=== PATIENT | female | born 1965 | race Caucasian/White ===

== ENCOUNTER → 2023-06-11 | Outpatient (CLI) | payer BC, SELFPAY ==
--- NOTE | 2023-06-11 10:24 | BI_ITS ---
MAMMOGRAPHY - BILATERAL SCREENING REASON FOR EXAM: Female, 58 years old. Routine annual screening examination. PERTINENT HISTORY: Non-contributory. TECHNIQUE: Digital bilateral breast duncan (3D mammographic acquisition) in the CC and MLO projections. 2-D mediolateral oblique (MLO) and craniocaudad (CC) views of both breasts were obtained. CAD: Full Field Digital Mammography with Computer Added Detection was performed. COMPARISON: Comparison is made with prior outside examination dated March 14, 2022. FINDINGS: Breast Composition: The breasts are heterogeneously dense, which may obscure small masses. There are no dominant masses or suspicious calcifications. Stable benign-appearing bilateral axillary lymph nodes. No other significant abnormalities are identified. There has been no significant change since the prior study. BI/SCRN MAMM (CAD)W/DUNCAN BILAT IMPRESSION: Stable bilateral screening mammogram. Yearly follow-up mammogram recommended. (A) ASSESSMENT CATEGORY: BIRADS Category 2: Benign. A letter regarding these results will be sent to the patient by the facility within 30 days. Approximately 10% of breast cancers are not detected by mammography. A normal mammogram should not delay biopsy of a clinically suspicious abnormality. [id number] Electronically Signed: João Alvarado MD at 8:35 EST ,
== END | disposition home or self-care (01) ==
LOC: OPBI 10:24
PROVIDERS: PCP Internal Medicine; Referring Provider Internal Medicine; Visit Provider Internal Medicine
DX: Z12.31 Encounter for screening mammogram for malignant neoplasm of breast (principal)
CPT/HCPCS: 77063; 77067

== ENCOUNTER → 2023-07-16 | Outpatient (CLI) | payer BC, SELFPAY ==
--- NOTE | 2023-07-16 08:34 | CT_ITS ---
STUDY: LOW DOSE CT LUNG CANCER SCREENING REASON FOR EXAM: Female, 58 years old. curreny smoker, cigs. Patient smokes 1 pack per day for 40 years. RADIATION DOSAGE (If Supplied By Facility): CTDIvol = ( 3.02 ) mGy, DLP = ( 104.58 ) mGycm TECHNIQUE: No contrast was administered. Low dose technique was utilized (average mAS-38 and kVp 120). 1.25 mm axial source images with a slice interval of 1.25-mm were reconstructed in lung windows. 2.5 mm axial source images with a slice interval of 2.5-mm were reconstructed in lung windows. 5.0 mm axial source images with a slice interval of 5.0-mm were reconstructed in soft tissue windows. COMPARISON: None. NODULES: No suspicious nodules are seen. Emphysema: Hyperinflation. Mild emphysematous changes. Endobronchial lesion: None Aorta: Mild atherosclerotic plaque formation of the aortic arch. CORONARY ARTERIES: Coronary artery calcification is seen. Heart: Unremarkable Pulmonary artery: Unremarkable Mediastinal nodes: Small mediastinal lymph nodes. Other chest and abdominal findings: CT/Low Dose CT Lung Screening IMPRESSION: Lung-RADS category 2 - Continue annual screening with LDCT in 12 months. IMPORTANT NOTES FOR USE: ACR Lung-RADS Version 1.1 Assessment Categories Release Date: 2018 Category: Coded 0-4 bases on nodule(s) with highest degree of suspicion. Negative screen is defined as categories 1 and 2; a positive screen is defined as categories 3 and 4. Category 3 and 4A nodules that are unchanged on interval CT should be coded as category 2, and individuals returned to screening in 12 months. Category 4X: Category 3 or 4 nodules with additional imaging findings that increase the suspicion of lung cancer, such as spiculation, GGN that doubles in size in 1 year, enlarged lymph notes, etc. Category Modifiers: S (significant finding unrelated to lung cancer) Electronically Signed: João Alvarado MD at 11:05 EDT ,
== END | disposition home or self-care (01) ==
LOC: CT 08:33
PROVIDERS: PCP Internal Medicine; Referring Provider Internal Medicine; Visit Provider Internal Medicine
DX: F17.200 Nicotine dependence, unspecified, uncomplicated (principal)
CPT/HCPCS: 71271

== ENCOUNTER → 2023-07-29 | Outpatient (CLI) | payer BC, SELFPAY ==
[2023-07-29 16:31] LABS: Anion Gap 6 (5-15); BUN 14 mg/dL (7-18); Calcium,Total 9.1 mg/dL (8.5-10.1); Chloride 101 mmol/L (98-107); Creatinine, Serum 1.27 mg/dL (0.55-1.02); EST Glomerular Filtration Rate 46 mL/min (>60); Est Glom Filt Rate - Afr Amer 56 mL/min (>60); Glucose 117 mg/dL (74-106); Potassium 3.9 mmol/L (3.5-5.1); Sodium Level 133 mmol/L (136-145)
== END | disposition home or self-care (01) ==
LOC: LAB 13:54
PROVIDERS: PCP Internal Medicine; Referring Provider Internal Medicine Cardiovascular Disease; Visit Provider Internal Medicine Cardiovascular Disease
DX: R07.9 Chest pain, unspecified (principal); R93.89 Abnormal findings on diagnostic imaging of other specified body structures
CPT/HCPCS: 36415; 80048

== ENCOUNTER 2023-08-29 09:26 | Outpatient (CLI) | payer BC, SELFPAY ==
--- NOTE | 2023-08-29 09:32 | STE_ITS ---
Reason For Study: CAD Stress Results Protocol: Dobutamine Stress Echo Maximum Predicted HR: 162 bpm Target HR: 138 bpm % Maximum Predicted HR: 84 % DurationHeart Rate Stage (mm:ss) (bpm) BP Comment Baseline 68 146/90No Chest Pain DSE 10 MCG 3:01 74 157/88No Chest Pain DSE 20 MCG 3:00 117 142/74No Chest Pain DSE 30 MCG 3:00 131 144/82No Chest Pain DSE 40 MCG 1:40 136 133/82No Chest Pain Recovery 90 146/89No Chest Pain Stress Duration: 10:41 mm:ss Maximum Stress HR: 136 bpm METS: 1 Baseline Echocardiogram Findings Stress Echo Wall motion Data Resting WM Intermediate WM Stress WM Resting Wall Motion Wall Motion Int. Wall Motion Stress No regional wall motion No regional wall motion All segments Hyperkinetic. abnormalities noted. abnormalities noted. EKG Data The baseline ECG displays normal sinus rhythm. Nonspecific ST changes with dobutamine infusion. ECHO/Stress Test Echo w/o Contrast Interpretation Summary Nonspecific ST changes with dobutamine infusion. 85% of maximum predicted heart rate achieved. Normal LV wall motion at rest. Progressive augmentation with low-dose dobutamin e with hyperdynamic LV segments at full dose. No wall motion abnormalities noted with dobutamine st ress. Negative dobutamine stress test for ischemia. Ordering Physician: Elliott Garcias Referring Physician: Elliott Garcias Performed By: Karina Santana, YFN, RVT
== END 2023-08-29 23:59 | disposition home or self-care (01) ==
LOC: CVS 09:28
PROVIDERS: PCP Internal Medicine; Referring Provider Internal Medicine Cardiovascular Disease; Visit Provider Internal Medicine Cardiovascular Disease
DX: I70.90 Unspecified atherosclerosis (principal)
CPT/HCPCS: 93017; 93350; J7040; A4216

== ENCOUNTER → 2023-09-03 | Outpatient (CLI) | payer BC, SELFPAY ==
--- NOTE | 2023-09-03 09:02 | VDLE_ITS ---
Reason For Study: Bilateral leg pain RIGHT LEFT CFV is compressible, spontaneous, phasic, CFV is compressible, spontaneous, phasic, competent and demonstrates normal competent, and demonstrates normal augmentation. augmentation. FV is compressible, spontaneous, phasic, FV is compressible, spontaneous, phasic, competent and demonstrates normal competent and demonstrates normal augmentation. augmentation. POP V is compressible, spontaneous, phasic, POP V is compressible, spontaneous, phasic, competent and demonstrates normal competent and demonstrates normal augmentation. augmentation. T/P Trunk is compressible. T/P Trunk is compressible. PTV is compressible. PTV is compressible. RT PerV is compressible. LT PerV is compressible. SFJ is competent and measures 0.60 x 0.66 cm. SFJ is INCOMPETENT and measures 0.57 x 0.63 GSV proximal thigh measures 0.37 x 0.39 cm. cm. GSV at knee measures 0.36 x 0.38 cm. GSV proximal thigh measures 0.32 x 0.33 cm. GSV is competent throughout. GSV above knee is INCOMPETENT for greater SSV proximal calf is competent and measures than 0.5 seconds. 0.08 x 0.08 cm. GSV at knee measures 0.31 x 0.32 cm. Procedure SSV proximal calf is competent and measures This is a venous duplex using B-mode, color 0.21 x 0.24 cm. flow and spectral Doppler. Exam performed in department. Patient was scanned in reverse Trendelenburg position during reflux assessment. VL/Venous Duplex US - [place] Extrem Interpretation Summary Deep veins of the bilateral lower extremities are patent and compressible segme ntally. There is no evidence of bilateral lower extremity deep vein thrombosis. The bilateral great saphenous veins appear patent and compressible segmentally. Positive for reflux in the left saphenofemoral junction, great saphenous vein a reba the knee. Ordering Physician: Nate Mckenzie Referring Physician: Mattie Howard M.D. Performed By: Katharina Wlilis RVT
--- NOTE | 2023-09-03 09:02 | ART_ITS ---
Reason For Study: PVD Procedure A bilateral lower extremity continuous wave Doppler with analog waveform analysis,segmental pressures,and ankle brachial indexes without exercise. Left Segmental Pressures Left brachial= 110mmHg. Left posterior tibial artery = 142mmHg. Left dorsalis pedis artery = 133mmHg. Left digit = 10. mmHg. The left dorsalis pedis waveforms are triphasic. The left posterior tibial artery waveforms are triphasic. Right Segmental Pressures Right brachial= 111mmHg. Right posterior tibial artery = 146mmHg. Right dorsalis pedis artery = 134mmHg. Right digit = 112 mmHg. The right dorsalis pedis waveforms are triphasic. The right posterior tibial artery waveforms are triphasic. Indices The right ankle brachial index by the dorsalis pedis is 1.21. The right ankle brachial index by the posterior tibial artery is 1.32. The right digital-brachial index is 1.01. The left ankle brachial index by the dorsalis pedis is 1.20. The left ankle brachial index by the posterior tibial artery is 1.28. The left digital-brachial index is 0.97. VL/Lower Ext Art Exam w/o Exercis Interpretation Summary Right LEANDRO 1.32, normal. TBI and Doppler/PVR waveforms of the right leg normal a t rest. Left LEANDRO 1.28, normal. TBI and Doppler/PVR waveforms of the left leg normal at rest. Ordering Physician: Nate Mckenzie Referring Physician: Mattie Howard M.D. Performed By: Katharina Willis RVT
== END | disposition home or self-care (01) ==
LOC: CVS 09:01
PROVIDERS: PCP Internal Medicine; Referring Provider Podiatrist Foot & Ankle Surgery; Visit Provider Podiatrist Foot & Ankle Surgery
DX: I73.89 Other specified peripheral vascular diseases (principal); M79.662 Pain in left lower leg; M79.661 Pain in right lower leg
CPT/HCPCS: 93923; 93970

== ENCOUNTER → 2023-11-06 | Outpatient (CLI) | payer BC, SELFPAY ==
--- NOTE | 2023-11-06 16:02 | RAD_ITS ---
STUDY: X-RAY CHEST REASON FOR EXAM: Female, 58 years old. cough in adult TECHNIQUE: PA and lateral views of the chest. COMPARISON: None. FINDINGS: The lungs are clear and expanded. There is no demonstrated pleural abnormality. Normal size heart. Normal mediastinum and mark. Normal visualized pulmonary arteries. Normal visualized aortic arch and descending thoracic aorta. Normal visualized thoracic spine. Normal visualized ribs, clavicles, and shoulders. There is no demonstrated abnormality of the visualized soft tissue structures of the upper abdomen. RAD/Chest PA and Lateral IMPRESSION: Normal x-ray examination of the chest. Electronically Signed: Ted Chery MD at 16:15 EDT ,
== END | disposition home or self-care (01) ==
LOC: MTRAD 16:01
PROVIDERS: PCP Internal Medicine; Referring Provider Internal Medicine; Visit Provider Internal Medicine
DX: R05.9 Cough, unspecified (principal)
CPT/HCPCS: 71046

== ENCOUNTER 2024-01-24 11:00 | Day surgery (SDC) | payer BC, SELFPAY ==
[2024-01-24] VITALS (8 sets, daily range): BP systolic 116–157; BP diastolic 75–87; PULSE 78–83; RESP 16–18; TEMP 36.2–36.8; O2SAT 98–100; BMI 26.1
[2024-01-24] MEDS: Acetaminophen 500 MG Tablet 1000 MG PO (11:57)
[2024-01-24] MEDS: Gabapentin 600 MG Tablet PO (11:58)
[2024-01-24] MEDS: Lactated Ringers 1,000 ML 15 ML IV (11:58)
[2024-01-24 12:23] LABS: Bedside Glucose 161 mg/dL (74-106)
--- NOTE | 2024-01-24 12:35 | PRE.ANES_ITS ---
ASA Classification* ASA Classification ASA Classification: 2 Assessment & Plan Anesthesia* Anesthesia Assessment Anesthesia Assessment: Discussed sedation and/or anesthesia options, risks, benefits, and alternatives with patient/parents/legal guardian/POA. Questions invited. The patient/parents/legal guardian/POA seems to understand and agrees to proceed with anesthesia plan. Reviewed the physical assessment, medical history, allergy history and patient home medications list prior to surgery/procedure/anesthetic and documented any changes. Performed airway and anesthesia risk assessments. Anesthesia Type Anesthesia Type: General and Block (Patient is consented for a popliteal block.) History Source History Obtained from:: Patient and Chart Anesthesia Focused Assessment* Temperature: 97.1 F Pulse Rate: 83 Blood Pressure: 120/80 Respiratory Rate: 16 Pulse Ox: 100 Oxygen Delivery Method: Room Air Airway Assessment Mouth opens: >3 cm Mallampati Score: III Teeth Condition: Caps/Crowns (Patient has a crown left lower molar. it is tight.) Neck Range of motion (ROM): Full ROM Focused Labs Anesthesia Preop lab: CBC CHEMISTRY Potassium 3.9 mmol/L (3.5-5.1) 07/29/23 13:55 Sodium 133 mmol/L (136-145) L 07/29/23 13:55 Magnesium Pending 01/24/24 12:25 BUN 14 mg/dL (7-18) 07/29/23 13:55 Creatinine 1.27 mg/dL (0.55-1.02) H 07/29/23 13:55 Glucose 117 mg/dL (74-106) H 07/29/23 13:55 POC Glucose 161 mg/dL (74-106) H 01/24/24 12:01 COAG Pre-Assessment Diagnosis/Proposed Procedure Planned Operative Procedure(s): (L) Arthrodesis of left midtarsal joint, capsulotomy of first metatarsal phalangeal joint, harvest of calcaneal bone graft, manual stress views, miguel osteotomy of the second and third metatarsals, flexor digitorum longus tendon transfer of second digit, proximal interphalangeal joint arthrodesis of second digit and capsulotomy of the third metatarsal phalangeal joint Anesthesia History 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 When Was Last Pacemaker Check QUESTION #4 FULL TEXT: You/Your Family Experience fever (hyperthermia) with Anesthesia Any additional information?: Yes Any Problems With Anesthesia: Yes (Patient states he was slow to wake up with previous knee surgery.) Cholinesterase deficiency: No You/your family experience fever (hyperthermia) with anesthesia: No Last Oral Intake Last Oral intake: Last Oral Intake NPO since 10:00 01/24/24 11:52 Meds taken in AM with sips of Yes 01/24/24 11:52 water? Meds patient instructed to take am of surgery Any additional information?: Yes NPO since: 10:00 (Patient had her Ensure at 10 AM.) PONV PONV - aircraft dispatcher: PONV - aircraft dispatcher Female Yes 01/17/24 14:38 HX of Motion Sickness No 01/17/24 14:38 HX of N/V After Surgery Yes 01/17/24 14:38 Non-Smoker No 01/17/24 14:38 Duration of Surgery greater Yes 01/17/24 14:38 than 60 minutes Number of Risk Factors 3 01/17/24 14:38 PONV Score Moderate Risk 01/17/24 14:38 Height & Weight Height & Weight: Anesthesia: Height & Weight Height 5 ft 4 in 01/24/24 11:52 Weight: 69 kg 01/24/24 11:52 Body Mass Index (BMI) 26.1 01/24/24 11:52 Respiratory Assessment Respiratory Assessment - aircraft dispatcher: Respiratory Tract Infection Hx - aircraft dispatcher Hx Respiratory Tract Infection No 01/17/24 14:38 STOP Sleep Apnea STOP Sleep Apnea - aircraft dispatcher: STOP Sleep Apnea - aircraft dispatcher Hx Hypertension Yes: CONTROLLED WITH MED 01/17/24 14:38 Hx Sleep Apnea No 01/17/24 14:38 CPAP BIPAP Do you snore loudly (louder No 01/17/24 14:38 than talking or can be heard Do you often feel tired/ No 01/17/24 14:38 fatigued/ sleepy during daytime? Has anyone observed you stop No 01/17/24 14:38 breathing during sleep? STOP Results Negative 01/17/24 14:38 QUESTION #5 FULL TEXT : Do you snore loudly (louder than talking or can be heard through closed doors)? 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 Specify any problems Hx of Preganancy in last 3 N/A 01/17/24 14:38 Months Nurse Filling Out Transfusion NBUCHER 01/17/24 14:38 & Questions: Date: 01/17/24 01/17/24 14:38 Time: 14:39 01/17/24 14:38 Patient unable to answer at this time (ie. confused, unrespo /Reproduction History /Reproductive History - aircraft dispatcher: /Reproductive Hx- aircraft dispatcher Hx Now No 01/17/24 14:38 Gestational Age (in weeks): EDC: Hx Hx Para Hx Section SAB No 01/17/24 14:38 Active Medications Active Medications: Current Medications Generic Name Dose Route Start Last Admin Trade Name Freq PRN Reason Stop Dose Admin Acetaminophen 1,000 mg 01/24/24 13:00 01/24/24 11:57 Acetaminophen 500 Mg Tablet PO 01/24/24 13:01 1,000 mg X1 ONE Administration Gabapentin 600 mg 01/24/24 13:00 01/24/24 11:58 Gabapentin 600 Mg Tablet PO 01/24/24 13:01 600 mg X1 ONE Administration Cefazolin Sodium 2 gm/ Sodium 110 mls @ 150 mls/hr 01/24/24 13:00 Chloride IV 01/24/24 13:43 PREOP ONE Lactated Ringer's 1,000 mls @ 15 mls/hr 01/24/24 11:15 01/24/24 11:58 IV 15 mls/hr .Q48H MIHAELA Administration Insulin Human Lispro 1 - 6 unit 01/24/24 13:00 Insulin Lispro 100 Unit/Ml Insuln.Pen SC 01/24/24 18:00 Q4H PRN PRN BG>/= 180, SEE PROTOCOL Protocol PFSH Medical History Wears glasses Anxiety Depression Smoker GERD (gastroesophageal reflux disease) History of echocardiogram History of stress test Cardiology follow-up encounter Hypoglycemia Nonspecific ST-T wave electrocardiographic changes Eczema History of TIA (transient ischemic attack) Chronic GERD Hyponatremia Exertional dyspnea Chest pain Hypertension Tobacco use Multiple lacunar infarcts Facial paresthesia Depression with anxiety Hypertensive urgency Alcohol abuse Home Medications ?Medication ?Instructions ?Recorded ?Last Taken ?Type atorvastatin 20 mg tablet 10 mg PO DAILY 07/05/23 Unknown History cartilage 40 mg-collagen II 10 1 tab PO DAILY 07/05/23 Unknown History mg-boron 5 mg-hyaluronate 3.3 mg tablet (mDialog) cholecalciferol (vitamin D3) 50 50 mcg PO DAILY 07/05/23 Unknown History mcg (2,000 unit) capsule citalopram 40 mg tablet 40 mg PO DAILY 07/05/23 Unknown History clonidine HCl 0.1 mg tablet 0.1 mg PO QHS 07/05/23 Unknown History fexofenadine 180 mg tablet 180 mg PO DAILY PRN allergy 07/05/23 Unknown History (Ruth Hives) symptoms folic acid 400 mcg tablet 0.4 mg PO DAILY 07/05/23 Unknown History hydralazine 50 mg tablet 50 mg PO BID 07/05/23 Unknown History lisinopril 20 mg tablet 20 mg PO BID 07/05/23 Unknown History olopatadine 0.2 % eye drops 1 drp ophthalmic (eye) DAILY PRN 07/05/23 Unknown History itching pantoprazole 40 mg tablet,delayed 40 mg PO DAILY 07/05/23 01/24/24 10:00 History release thiamine HCl (vitamin B1) 100 mg 100 mg PO DAILY 07/05/23 Unknown History tablet trazodone 50 mg tablet 50 mg PO QHS 07/05/23 Unknown History triamterene 37.5 1 tab PO DAILY 07/05/23 Unknown History mg-hydrochlorothiazide 25 mg tablet aspirin 81 mg capsule 81 mg PO DAILY 01/17/24 Unknown History Allergy/AdvReac Type Severity Reaction Status Date / Time bacitracin Allergy Rash Verified 01/24/24 11:42 neomycin (From Neosporin Allergy Rash Verified 01/24/24 11:42 ([id number])) polymyxin B (From Neosporin Allergy Rash Verified 01/24/24 11:42 ([id number])) esomeprazole (From Nexium) AdvReac Other Verified 01/24/24 11:42 Family History Grandmother Alcohol abuse CVA (cerebral vascular accident) Depression Father Hypertension Diabetes Cancer Mother Hypercholesterolemia Thyroid disorder Depression Surgical History History of colonoscopy History of tonsillectomy and adenoidectomy History of knee surgery History of foot surgery Social History Smoking Status: Current every day smoker (Patient smoked today.) tobacco type: cigarettes alcohol intake: current alcohol intake frequency: 3 or more drinks per day Alcohol type: wine substance use type: does not use caffeine: Yes Type: carbonated beverages and coffee Number of servings: 1 Review of Systems (Anesthesia) ROS Narrative System reviewed and no additional complaints, except as documented.
--- NOTE | 2024-01-24 12:52 | PCM.OPRPT ---
Problems Associated Problem List Diagnoses (1) Hallux valgus (acquired), left foot: (2) Primary osteoarthritis, left ankle and foot: (3) Other deformities of toe(s) (acquired), left foot: (4) Contracture, left foot: (5) Pain in left foot: (6) Other hammer toe(s) (acquired), left foot: Report of Operation Date of Procedure: 01/24/24 Pre-Operative Diagnosis: 1. Hallux valgus, left foot 2. Primary osteoarthritis, left foot 3. Other deformities of toes, left foot 4. Contracture of foot, left foot 5. Pain, left foot 6. Hammertoes, left foot Post-Operative Diagnosis: Same as preoperative diagnosis Surgery/Procedure Performed:: 1. Easton of calcaneal bone graft, left foot 2. First tarsometatarsal joint arthrodesis, left foot 3. Capsulotomy first metatarsophalangeal joint, left foot 4. Manual Stress views, left foot 5. Partial excision of bone first metatarsal with capsulotomy, left foot 6. Delma osteotomy, second metatarsal, left foot 7. Proximal interphalangeal joint arthrodesis, second digit, left foot 8. Capsulotomy, third metatarsophalangeal joint, left foot Description of Surgical Findings:: 1. Adequate reduction of severe hallux valgus with crossover toe. Upon completion of the procedure the patient showed evidence of a rectus foot with straight toes and improved intermetatarsal angle 1-2 and improved crossover toe to the left foot. Surgeon: Nate Mckenzie yeast cake cutter: Sandra Junior Type of Anesthesia: Block,Regional, General and Local Anesthesiologist: Keny Gomez Special Medications: Popliteal block, per anesthesia, left lower extremity Specimen's removed: None Drains: None Estimated Blood Loss (mL): 75 mL Fluids Replaced: Per anesthesia Description of Procedure: Indications For Operation: Mrs. Sebastian is a 58-year-old female who was admitted to [facility] for elective left foot surgery consisting of bunion correction surgery and hammertoe correction to left lower extremity. Patient has had a history of pain to the left lower extremity due to her contracture and arthritic left foot. Patient has exhausted all conservative treatment consisting of taping, offloading, shoe gear modification, oral and topical nonsteroid anti-inflammatories and injections. Patient was seen in the office of Dr. Mckenzie for surgical evaluation of her severe bunion. After review of the patient's radiographs and long discussion regarding surgery and aftercare and had deemed necessary at this time to discuss with the patient surgical intervention of the above procedures to help relieve her constant pain and reconstruct her left foot. All risk and benefits were discussed with the patient in great detail. Surgical consultation was done chart review consent signed. Due to nature of patient's worsening left foot bunion with crossover toe and her inability to get in comfortable shoe gear secondary to severe pain, it had been deemed necessary at this time to take the patient to the operating room and performed above procedure to reconstruct her foot and improve her constant pain. The nature of the problem, anticipated procedures, postop recovery/convalences and risk/complications include but not limited to infection, wound healing complications, digital amputation, hypertrophic scarring, numbness, tingling, chronic pain, CRPS, over and under correction, recurrence of deformity, DVT and or PE and the need for further surgery have been discussed in great detail with the patient. All questions have been answered to the patient's satisfaction. There are no guarantees given as to the outcome of the procedure. Description of Procedure: Under mild sedation, the patient was brought into the operating room and placed on the operating table in supine position. Once the patient was under general anesthesia with original mask airway, the left lower extremity was blocked using approximately 10 cc 0.5% Marcaine plain to the saphenous nerve, popliteal block was performed by anesthesia prior to the procedure please see anesthesia notes for further detail. Next, a well-padded thigh tourniquet was applied to the left lower extremity. Next, the left lower extremity was prepped and draped in normal aseptic manner. Next, a timeout was then undertaken verifying the correct patient, extremity, visibility of preoperative markings, availability of the equipment. Next, attention was directed to the left lower extremity. Using a 6 inch Esmarch, left lower extremity was exsanguinated and elevated to 60 degrees for 1 minute. Procedure #1 Easton of calcaneal bone graft, left foot Next, attention was directed to the lateral aspect of the left calcaneus. Using a #15 blade, a full-thickness incision, approximately 1 cm, was made down to bone without incident. Continued blunt dissection was carried out with curved hemostats. Using the [employer] 7 mm bone graft harvester, calcaneal bone harvest less than than 5 cc was made, then removed from the calcaneus and passed the back table to be used later in the case, for the first tarsometatarsal joint arthrodesis procedure. The incision was flushed with copious pipo of normal saline. The skin was reapproximated and closed using 3-0 nylon in simple interrupted suture technique. Procedure #2, first tarsal metatarsal joint arthrodesis, left foot /procedure #3, capsulotomy of the first metatarsal phalangeal joint (through a separate incision), left foot Next, attention was directed to the dorsal aspect of the left foot. Using fluoroscopy, the first tarsometatarsal joint was visualized. A longitudinal 3.5 cm incision with a #15 blade was made just medial to the extensor hallucis longus tendon. The incision was made down to the periosteum with care to retract the tendon laterally. The periosteum was reflected. The first tarsometatarsal joint was exposed and identified. Careful dissection was carried down to the level of the first tarsometatarsal joint as well as in the lateral space between the first and second metatarsal. The ligaments were then released at the tarsometatarsal joint with planing with sagittal saw. After planing was performed, the plantar ligaments were released with the Tritome. Next, through a separate incision, a capsulotomy was performed at the lateral aspect of the first metatarsal phalangeal joint. A separate incision approximately 1 cm was made along the lateral aspect of the first metatarsophalangeal joint. Blunt dissection was carried down to the level of the first metatarsophalangeal joint. Using [employer] speed release tool, this was inserted laterally into the joint with joint fluid being exposed but inserted, pushing the fibular suspensory ligament into the space and releasing it completely. There was evidence of excellent release of the first metatarsophalangeal joint, and the metatarsal was able to be pushed laterally without soft tissue force imposing on it. The sesamoids were able to be retracted back into position which was confirmed on the large C-arm fluoroscopy. A capsulotomy incision was flushed with copious pipo normal saline and closed with 3-0 nylon in simple interrupted suture technique. Next, attention was then redirected back to the first metatarsophalangeal joint, the all-in-one positioner was inserted, positioning the first metatarsal into corrected position. Positioning of the cuts were confirmed with large C-arm fluoroscopy. Cuts were then made with the all-in-one device using the sagittal saw and provided blade by [employer]. The compression/distractor was applied. The joint was distracted and the cuts along the base of the first metatarsal and first cuneiform removed. Continued joint prep followed after using a combination of osteoma and curette. The joint was flushed with copious pipo normal saline. Next, the joint was prepped using a fenestration with a 2-0 drill bit along the first cuneiform and base of the first metatarsal. Next, the Easton of calcaneal bone graft autograft was then packed in the first tarsometatarsal joint. At this point, the positioner was reapplied, compression/distractor was closed down and the fulcrum was then inserted on the lateral aspect of the base of the first metatarsal. Dorsiflexion of the hallux was then performed pushing the metatarsal and tarsometatarsal joint into place, pinning with 2 smooth K wires and crossing fashion technique. Next, orthogonal plating was applied using (x2) 13 mm spleed plates by [email or web address]. Procedure #4. Manual Stress views, left foot Next, stress views were then performed by squeezing the first and second interphalangeal joint and the first metatarsophalangeal joint of the left foot. There showed evidence of mild splaying. Next using the cannulated screw system by [employer] a K wire was driven from the first metatarsal to second cuneiform and a 3-0 cannulated 36 mm screw was inserted with excellent position across this area stabilizing the cuneiform and first metatarsal joint as well as its position. Procedure #5. Partial excision of bone first metatarsal with capsulotomy, left foot Procedure #6. Delma osteotomy, second metatarsal, left foot Next, attention was directed to the level of the second metatarsal phalangeal joint of the left foot. Using large C-arm fluoroscopy the second metatarsal phalangeal joint was marked out. A full-thickness incision using a #15 blade was made approximately 1.5 cm over the joint. Continued blunt dissection was carried down to the level of the joint capsule. The joint capsule was incised to exposed the head of the second metatarsal. Using McGlamery elevator, the soft tissue was freed inferior to the metatarsal head. This allows for reduction of the plantar plate which allowed the second digit to sit down. Using a sagittal saw and #111 blade, central metatarsal osteotomy was made approximately 10 to 15 degrees to the weightbearing surface of the second metatarsal. The bone was released and retracted about 3 mm. Using [place] x2 2.0 mm x 12 mm snap off screw, the head of the second metatarsal was fixated in place. Hardware placement was confirmed with large C-arm fluoroscopy. The overhanging shelf was removed with a bone cutter. A hand rasp was used to round off any sharp edges. The incision was flushed with copious amounts normal saline. Procedure #7. Proximal interphalangeal joint arthrodesis, second digit, left foot Procedure #8. Capsulotomy, third metatarsophalangeal joint, left foot The patient tolerated the procedure and anesthesia well and apparent satisfactory condition and was transported to the PACU for further monitoring prior to discharge [home / back to the floor]. Vital signs stable and vascular status intact to all digits bilateral. Post Operative Plan: Weightbearing: Nonweightbearing through the left lower extremity with assistive knee scooter and/or crutches. Full weightbearing to the right lower extremity. Antibiotics: 2 g Ancef through the IV DVT Prophylaxis: Aspirin 81 mg Cabello: None Dressing: Betadine soaked Adaptic, dry sterile dressing, double layer Hernandez AO splint at 90 degrees. X-Rays: Post-operative films taken on the operating room. Pain Medication: Tylenol #3, Flexeril 10 mg Follow-up: Patient will follow-up with Dr. Mckenzie in private office in 1 week to 10 days post surgery. Patient was given postoperative instructions and to call the office with any questions or concerns. Grafts/Implants Used: [employer], [employer] Complications None Admit VTE Documentation VTE Present on Admission: No VTE Mechan Device Prophylaxis: SCD's VTE Pharm Prophylaxis ordered?: Yes
[2024-01-24 12:58] LABS: Vitamin D,25 Hydroxy 71.6 ng/mL
[2024-01-24 13:08] LABS: Magnesium 2.1 mg/dL (1.6-2.6)
[2024-01-24] MEDS: Cefazolin 2 GM in 0.9% Normal Saline (100mL Bag) 100 ML IV (13:09)
[2024-01-24] MEDS: Magnesium 1 GM over 15 mins IV (13:26)
--- NOTE | 2024-01-24 13:34 | RAD_ITS ---
INDICATION: ARTHRODESIS LT MEDITARSAL JOINT EXAMINATION/TECHNIQUE: X-RAY - LEFT XR Foot 2 Views 4 fluoroscopic images. Total fluoroscopic time 200.7 seconds. Total dose 3.24 mGy. COMPARISON: No relevant prior comparison study available FINDINGS: Fluoroscopic guidance targeting the foot with placement of screws at the second metatarsal head and a screw across the second digit interphalangeal joint. There is also hardware at the first tarsometatarsal joint and medial tarsal bones. RAD/Foot 2 Views IMPRESSION: Fluoroscopic guidance for fixation hardware at the foot. Please refer to operative report for further information. Electronically Signed: Jacob Forbes MD at 7:05 EDT ,
[2024-01-24 15:31] LABS: Hemoglobin A1c 5.3 % (3.8-5.6)
[2024-01-24] MEDS: Bupivacaine Mpf 0.5% 30 ML VIAL (16:19)
--- NOTE | 2024-01-24 16:48 | PCM.POST.ANE ---
Anesthesia: Postop Eval I Current Vital Signs Temperature: 97.6 F Pulse Rate: 80 Blood Pressure: 157/87 Respiratory Rate: 18 Pulse Ox: 100 Oxygen Delivery Method: Room Air Assessment Airway patent: Yes Spontaneous unlabored respirations: Yes Mental status: Awake and Calm nausea: No Vomiting: No Anesthesia Complication: No Fluid Hydration Crystalloid volume administer (ml): 800 Total IV fluid infused: 800 Progress Note Anesthesia document: Postop Eval 1 completed: Yes
--- NOTE | 2024-01-24 23:11 | POSTOPAN2_ITS ---
Anesthesia Postop Eval I Sum Postop Eval Completion status Anesthesia document: Postop Eval 1 completed: Yes Anesthesia Postop Eval I Summary Anesthesia Postop Eval I Summary: Anesthesia Postop Eval I: Assessment Summary Airway patent Yes 01/24/24 16:49 FRAUD [email or web address] Spontaneous unlabored Yes 01/24/24 16:49 FRAUD [email or web address].JUDY respirations Mental status Awake,Calm 01/24/24 16:49 FRAUD [email or web address].[email or web address] nausea No 01/24/24 16:49 FRAUD INVESTIGATOR.SKOBY Vomiting No 01/24/24 16:49 FRAUD [email or web address].MERLYNOBRic Anesthesia Postop Eval I: Fluid Summary Crystalloid volume administer 800 01/24/24 16:49 FRAUD [email or web address] (ml) Colloids volume administered ( ml) Blood Product volume administered (ml) Total IV fluid infused 800 01/24/24 16:49 FRAUD INVESTIGATOR.MERLYNOBRic Anesthesia Postop Eval I: Summary Notes Anesthesia Complication No 01/24/24 16:49 FRAUD [email or web address].JUDY Anesthesia Complication Comment: Post-operative progress note Anesthesia: Postop Eval II Evaluation Mental status: Awake and Calm Pain Level: 1 nausea: No Vomiting: No Complications Anesthesia Complication: No
--- NOTE | 2024-01-24 23:11 | PCM.POSTANE2 ---
Anesthesia Postop Eval I Sum Postop Eval Completion status Anesthesia document: Postop Eval 1 completed: Yes Anesthesia Postop Eval I Summary Anesthesia Postop Eval I Summary: Anesthesia Postop Eval I: Assessment Summary Airway patent Yes 01/24/24 16:49 VP [email or web address] Spontaneous unlabored Yes 01/24/24 16:49 VP [email or web address] respirations Mental status Awake,Calm 01/24/24 16:49 VP [email or web address] nausea No 01/24/24 16:49 VP [email or web address] Vomiting No 01/24/24 16:49 VP GLOBAL.[email or web address] Anesthesia Postop Eval I: Fluid Summary Crystalloid volume administer 800 01/24/24 16:49 VP [email or web address] (ml) Colloids volume administered ( ml) Blood Product volume administered (ml) Total IV fluid infused 800 01/24/24 16:49 VP [email or web address] Anesthesia Postop Eval I: Summary Notes Anesthesia Complication No 01/24/24 16:49 VP [email or web address] Anesthesia Complication Comment: Post-operative progress note Anesthesia: Postop Eval II Evaluation Mental status: Awake and Calm Pain Level: 1 nausea: No Vomiting: No Complications Anesthesia Complication: No
--- NOTE | 2024-01-26 11:31 | PCM.OPRPT ---
Problems Associated Problem List Diagnoses (1) Hallux valgus (acquired), left foot: (2) Primary osteoarthritis, left ankle and foot: (3) Other deformities of toe(s) (acquired), left foot: (4) Contracture, left foot: (5) Pain in left foot: (6) Other hammer toe(s) (acquired), left foot: Report of Operation Date of Procedure: 01/24/24 Pre-Operative Diagnosis: 1. Hallux valgus, left foot 2. Primary osteoarthritis, left foot 3. Other deformities of toes, left foot 4. Contracture of foot, left foot 5. Pain, left foot 6. Hammertoes, left foot Post-Operative Diagnosis: Same as preoperative diagnosis Surgery/Procedure Performed:: 1. Lincoln of calcaneal bone graft, left foot 2. First tarsometatarsal joint arthrodesis, left foot 3. Capsulotomy first metatarsophalangeal joint, left foot 4. Manual Stress views, left foot 5. Partial excision of bone first metatarsal with capsulotomy, left foot 6. Delma osteotomy, second metatarsal, left foot 7. Proximal interphalangeal joint arthrodesis, second digit, left foot 8. Capsulotomy, third metatarsophalangeal joint, left foot Description of Surgical Findings:: 1. Adequate reduction of severe hallux valgus with crossover toe. Upon completion of the procedure the patient showed evidence of a rectus foot with straight toes and improved intermetatarsal angle 1-2 and improved crossover toe to the left foot. Surgeon: Nate Mckenzie cyber security consultant: Sandra Junior Type of Anesthesia: Block,Regional, General and Local Anesthesiologist: Keny Gomez Special Medications: Popliteal block, per anesthesia, left lower extremity Specimen's removed: None Drains: None Estimated Blood Loss (mL): 75 mL Fluids Replaced: Per anesthesia Description of Procedure: Indications For Operation: Mrs. Sebastian is a 58-year-old female who was admitted to [facility] for elective left foot surgery consisting of bunion correction surgery and hammertoe correction to left lower extremity. Patient has had a history of pain to the left lower extremity due to her contracture and arthritic left foot. Patient has exhausted all conservative treatment consisting of taping, offloading, shoe gear modification, oral and topical nonsteroid anti-inflammatories and injections. Patient was seen in the office of Dr. Mckenzie for surgical evaluation of her severe bunion. After review of the patient's radiographs and long discussion regarding surgery and aftercare and had deemed necessary at this time to discuss with the patient surgical intervention of the above procedures to help relieve her constant pain and reconstruct her left foot. All risk and benefits were discussed with the patient in great detail. Surgical consultation was done chart review consent signed. Due to nature of patient's worsening left foot bunion with crossover toe and her inability to get in comfortable shoe gear secondary to severe pain, it had been deemed necessary at this time to take the patient to the operating room and performed above procedure to reconstruct her foot and improve her constant pain. The nature of the problem, anticipated procedures, postop recovery/convalences and risk/complications include but not limited to infection, wound healing complications, digital amputation, hypertrophic scarring, numbness, tingling, chronic pain, CRPS, over and under correction, recurrence of deformity, DVT and or PE and the need for further surgery have been discussed in great detail with the patient. All questions have been answered to the patient's satisfaction. There are no guarantees given as to the outcome of the procedure. Description of Procedure: Under mild sedation, the patient was brought into the operating room and placed on the operating table in supine position. Once the patient was under general anesthesia with original mask airway, the left lower extremity was blocked using approximately 10 cc 0.5% Marcaine plain to the saphenous nerve, popliteal block was performed by anesthesia prior to the procedure please see anesthesia notes for further detail. Next, a well-padded thigh tourniquet was applied to the left lower extremity. Next, the left lower extremity was prepped and draped in normal aseptic manner. Next, a timeout was then undertaken verifying the correct patient, extremity, visibility of preoperative markings, availability of the equipment. Next, attention was directed to the left lower extremity. Using a 6 inch Esmarch, left lower extremity was exsanguinated and elevated to 60 degrees for 1 minute. Procedure #1 Lincoln of calcaneal bone graft, left foot (CPT code: 35853) Next, attention was directed to the lateral aspect of the left calcaneus. Using a #15 blade, a full-thickness incision, approximately 1 cm, was made down to bone without incident. Continued blunt dissection was carried out with curved hemostats. Using the [employer] 7 mm bone graft harvester, calcaneal bone harvest less than than 5 cc was made, then removed from the calcaneus and passed the back table to be used later in the case, for the first tarsometatarsal joint arthrodesis procedure. The incision was flushed with copious pipo of normal saline. The skin was reapproximated and closed using 3-0 nylon in simple interrupted suture technique. Procedure #2, first tarsal metatarsal joint arthrodesis, left foot (CPT code: 10362/procedure #3, capsulotomy of the first metatarsal phalangeal joint (through a separate incision), left foot (CPT code: 08897) Next, attention was directed to the dorsal aspect of the left foot. Using fluoroscopy, the first tarsometatarsal joint was visualized. A longitudinal 3.5 cm incision with a #15 blade was made just medial to the extensor hallucis longus tendon. The incision was made down to the periosteum with care to retract the tendon laterally. The periosteum was reflected. The first tarsometatarsal joint was exposed and identified. Careful dissection was carried down to the level of the first tarsometatarsal joint as well as in the lateral space between the first and second metatarsal. The ligaments were then released at the tarsometatarsal joint with planing with sagittal saw. After planing was performed, the plantar ligaments were released with the Tritome. Next, through a separate incision, a capsulotomy was performed at the lateral aspect of the first metatarsal phalangeal joint. A separate incision approximately 1 cm was made along the lateral aspect of the first metatarsophalangeal joint. Blunt dissection was carried down to the level of the first metatarsophalangeal joint. Using [employer] speed release tool, this was inserted laterally into the joint with joint fluid being exposed but inserted, pushing the fibular suspensory ligament into the space and releasing it completely. There was evidence of excellent release of the first metatarsophalangeal joint, and the metatarsal was able to be pushed laterally without soft tissue force imposing on it. The sesamoids were able to be retracted back into position which was confirmed on the large C-arm fluoroscopy. A capsulotomy incision was flushed with copious pipo normal saline and closed with 3-0 nylon in simple interrupted suture technique. Next, attention was then redirected back to the first metatarsophalangeal joint, the all-in-one positioner was inserted, positioning the first metatarsal into corrected position. Positioning of the cuts were confirmed with large C-arm fluoroscopy. Cuts were then made with the all-in-one device using the sagittal saw and provided blade by [employer]. The compression/distractor was applied. The joint was distracted and the cuts along the base of the first metatarsal and first cuneiform removed. Continued joint prep followed after using a combination of osteoma and curette. The joint was flushed with copious pipo normal saline. Next, the joint was prepped using a fenestration with a 2-0 drill bit along the first cuneiform and base of the first metatarsal. Next, the Lincoln of calcaneal bone graft autograft was then packed in the first tarsometatarsal joint. At this point, the positioner was reapplied, compression/distractor was closed down and the fulcrum was then inserted on the lateral aspect of the base of the first metatarsal. Dorsiflexion of the hallux was then performed pushing the metatarsal and tarsometatarsal joint into place, pinning with 2 smooth K wires and crossing fashion technique. Next, orthogonal plating was applied using (x2) 13 mm spleed plates by [employer]. Procedure #4. Manual Stress views, left foot (CPT code: 56515) Next, stress views were then performed by squeezing the first and second interphalangeal joint and the first metatarsophalangeal joint of the left foot. There showed evidence of mild splaying. Next using the cannulated screw system by [employer] a K wire was driven from the first metatarsal to second cuneiform and a 3-0 cannulated 36 mm screw was inserted with excellent position across this area stabilizing the cuneiform and first metatarsal joint as well as its position. Procedure #5. Partial excision of bone first metatarsal with capsulotomy, left foot (CPT code: 70755) Next, once looking at intraoperative films and clinically there still showed evidence of a mild increase in MENENDEZ angle beyond normal while on the operating room table. At this time is deemed necessary to move forward with a capsulorrhaphy on the medial aspect of the first metatarsophalangeal joint. Using a skin marker the incision was marked over the dorsomedial aspect of the first metatarsophalangeal joint. Using a #15 blade a full-thickness incision down to subcutaneous tissue followed by blunt dissection down to capsule. A capsulorrhaphy was performed via a T shaped incision. Once the capsule was exposed there showed evidence of thickening to the capsule as well as some mild degeneration to the medial head of the first metatarsal approximately 10%. There also showed evidence of osteoarthritis to the level of the tibial sesamoid. The capsule was reconstructed that showed a more suitable position for correction of a hallux valgus deformity with correcting the MENENDEZ angle with a capsulorrhaphy. The incision was flushed with couple pipo normal saline. The capsule was reapproximated and secured with 2-0 Ethibond. Procedure #6. Delma osteotomy, second metatarsal, left foot (CPT code: 71598) Next, attention was directed to the level of the second metatarsal phalangeal joint of the left foot. Using large C-arm fluoroscopy the second metatarsal phalangeal joint was marked out. A full-thickness incision using a #15 blade was made approximately 1.5 cm over the joint. Continued blunt dissection was carried down to the level of the joint capsule. The joint capsule was incised to exposed the head of the second metatarsal. Using McGlamery elevator, the soft tissue was freed inferior to the metatarsal head. This allows for reduction of the plantar plate which allowed the second digit to sit down. Using a sagittal saw and #111 blade, central metatarsal osteotomy was made approximately 10 to 15 degrees to the weightbearing surface of the second metatarsal. The bone was released and retracted about 3 mm. Using Oliverio x2 2.0 mm x 12 mm snap off screw, the head of the second metatarsal was fixated in place. Hardware placement was confirmed with large C-arm fluoroscopy. The overhanging shelf was removed with a bone cutter. A hand rasp was used to round off any sharp edges. The incision was flushed with copious amounts normal saline. Procedure #7. Proximal interphalangeal joint arthrodesis, second digit, left foot (CPT code: 94809) Next, attention was directed to the dorsal aspect of the PIPJ of the left second digit. Using a sterile skin marker, a longitudinal incision was marked out at the level of the second metatarsal phalangeal joint and proximal anterior phalangeal joint of the left second digit. Using a #15 blade, a full-thickness incision down to subcutaneous tissue was made. Using sens retractors, the skin was lifted up and out and continued blunt dissection was carried down to the long extensor tendon. Once the extensor tendon was identified a plowing technique was performed on the medial and lateral aspects of the extensor tendon. A capsulotomy was performed at the PIPJ and the tendon was gently released to allow exposure of the PIPJ joint. The extensor tendon was removed but intact down to the level of the second metatarsal phalangeal joint. The capsule was identified and transected. Care was taken to identify the medial and lateral collateral ligaments of the PIPJ of the second digit which were released. Using a pickup and sagittal saw with a #114 blade, the head of the proximal phalanx was removed and passed the back table to be discarded. The base of the intermediate phalanx of the second digit was feathered to remove the articular cartilage to expose the subchondral bone. Using the wire power truck driver provided by the [employer] surgical kit, the appropriate size drill was used to make the remote pilot operator holes in the base and head of the intermediate and proximal phalanx. The implant was inserted, 0 degree implant per the recreation clerk's recommendation with the rep in the room. After securing the 2 bones together there showed excellent apposition across the PIPJ of the second digit. The medial and lateral collateral ligaments were really constructed using 4-0 Monocryl in simple interrupted suture technique. Extensor tendon was secured back to the proximal phalanx and physiological tension using 4-0 Monocryl and open over suture technique. Procedure #8. Capsulotomy, third metatarsophalangeal joint, left foot (CPT code: 11956) Next, attention was directed to the dorsal aspect of the metatarsophalangeal joint. Using a 69 blade a Polk handle a percutaneous capsulotomy was performed through a separate incision. After release of the third metatarsophalangeal joint joint capsule the third metatarsal sat in a more rectus position. The patient tolerated the procedure and anesthesia well and apparent satisfactory condition and was transported to the PACU for further monitoring prior to discharge home. Vital signs stable and vascular status intact to all digits bilateral. Post Operative Plan: Weightbearing: Nonweightbearing through the left lower extremity with assistive knee scooter and/or crutches. Full weightbearing to the right lower extremity. Antibiotics: 2 g Ancef through the IV DVT Prophylaxis: Aspirin 81 mg Cabello: None Dressing: Betadine soaked Adaptic, dry sterile dressing, double layer Hernandez AO splint at 90 degrees. X-Rays: Post-operative films taken on the operating room. Pain Medication: Tylenol #3, Flexeril 10 mg Follow-up: Patient will follow-up with Dr. Mckenzie in private office in 1 week to 10 days post surgery. Patient was given postoperative instructions and to call the office with any questions or concerns. Grafts/Implants Used: [employer], [employer] Complications None Admit VTE Documentation VTE Present on Admission: No VTE Mechan Device Prophylaxis: SCD's VTE Pharm Prophylaxis ordered?: Yes
--- NOTE | 2024-01-27 18:31 | OP.PCM_ITS ---
Problems Associated Problem List Diagnoses (1) Hallux valgus (acquired), left foot: (2) Primary osteoarthritis, left ankle and foot: (3) Other deformities of toe(s) (acquired), left foot: (4) Contracture, left foot: (5) Pain in left foot: (6) Other hammer toe(s) (acquired), left foot: Report of Operation Date of Procedure: 01/24/24 Pre-Operative Diagnosis: 1. Hallux valgus, left foot 2. Primary osteoarthritis, left foot 3. Other deformities of toes, left foot 4. Contracture of foot, left foot 5. Pain, left foot 6. Hammertoes, left foot Post-Operative Diagnosis: Same as preoperative diagnosis Surgery/Procedure Performed:: 1. Greene of calcaneal bone graft, left foot 2. First tarsometatarsal joint arthrodesis, left foot 3. Capsulotomy first metatarsophalangeal joint, left foot 4. Manual Stress views, left foot 5. Partial excision of bone first metatarsal with capsulotomy, left foot 6. Delma osteotomy, second metatarsal, left foot 7. Proximal interphalangeal joint arthrodesis, second digit, left foot 8. Capsulotomy, third metatarsophalangeal joint, left foot Description of Surgical Findings:: 1. Adequate reduction of severe hallux valgus with crossover toe. Upon completion of the procedure the patient showed evidence of a rectus foot with straight toes and improved intermetatarsal angle 1-2 and improved crossover toe to the left foot. Surgeon: Nate Mckenzie blood bank laboratory technologist: Sandra Junior Type of Anesthesia: Block,Regional, General and Local Anesthesiologist: Keny Gomez Special Medications: Popliteal block, per anesthesia, left lower extremity Specimen's removed: None Drains: None Estimated Blood Loss (mL): 75 mL Fluids Replaced: Per anesthesia Description of Procedure: Description of Procedure: Indications For Operation: Mrs. Sebastian is a 58-year-old female who was admitted to [facility] for elective left foot surgery consisting of bunion correction surgery and hammertoe correction to left lower extremity. Patient has had a history of pain to the left lower extremity due to her contracture and arthritic left foot. Patient has exhausted all conservative treatment consisting of taping, offloading, shoe gear modification, oral and topical nonsteroid anti- inflammatories and injections. Patient was seen in the office of Dr. Mckenzie for surgical evaluation of her severe bunion. After review of the patient's radiographs and long discussion regarding surgery and aftercare and had deemed necessary at this time to discuss with the patient surgical intervention of the above procedures to help relieve her constant pain and reconstruct her left foot. All risk and benefits were discussed with the patient in great detail. Surgical consultation was done chart review consent signed. Due to nature of patient's worsening left foot bunion with crossover toe and her inability to get in comfortable shoe gear secondary to severe pain, it had been deemed necessary at this time to take the patient to the operating room and performed above procedure to reconstruct her foot and improve her constant pain. The nature of the problem, anticipated procedures, postop recovery/convalences and risk/complications include but not limited to infection, wound healing complications, digital amputation, hypertrophic scarring, numbness, tingling, chronic pain, CRPS, over and under correction, recurrence of deformity, DVT and or PE and the need for further surgery have been discussed in great detail with the patient. All questions have been answered to the patient's satisfaction. There are no guarantees given as to the outcome of the procedure. Description of Procedure: Under mild sedation, the patient was brought into the operating room and placed on the operating table in supine position. Once the patient was under general anesthesia with original mask airway, the left lower extremity was blocked using approximately 10 cc 0.5% Marcaine plain to the saphenous nerve, popliteal block was performed by anesthesia prior to the procedure please see anesthesia notes for further detail. Next, a well-padded thigh tourniquet was applied to the left lower extremity. Next, the left lower extremity was prepped and draped in normal aseptic manner. Next, a timeout was then undertaken verifying the correct patie nt, extremity, visibility of preoperative markings, availability of the equipment. Next, attention was directed to the left lower extremity. Using a 6 inch Esmarch, left lower extremity was exsanguinated and elevated to 60 degrees for 1 minute. Procedure #1 Greene of calcaneal bone graft, left foot (CPT code: 89162) Next, attention was directed to the lateral aspect of the left calcaneus. Using a #15 blade, a full-thickness incision, approximately 1 cm, was made down to bone without incident. Continued blunt dissection was carried out with curved hemostats. Using the [employer] 7 mm bone graft harvester, calcaneal bone harvest less than than 5 cc was made, then removed from the calcaneus and passed the back table to be used later in the case, for the first tarsometatarsal joint arthrodesis procedure. The incision was flushed with copious pipo of normal saline. The skin was reapproximated and closed using 3-0 nylon in simple interrupted suture technique. Procedure #2, first tarsal metatarsal joint arthrodesis, left foot (CPT code: 11165/procedure #3, capsulotomy of the first metatarsal phalangeal joint (through a separate incision), left foot (CPT code: 04603) Next, attention was directed to the dorsal aspect of the left foot. Using fluoroscopy, the first tarsometatarsal joint was visualized. A longitudinal 3.5 cm incision with a #15 blade was made just medial to the extensor hallucis longus tendon. The incision was made down to the periosteum with care to retract the tendon laterally. The periosteum was reflected. The first tarsometatarsal joint was exposed and identified. Careful dissection was carried down to the level of the first tarsometatarsal joint as well as in the lateral space between the first and second metatarsal. The ligaments were then released at the tarsometatarsal joint with planing with sagittal saw. After planing was performed, the plantar ligaments were released with the Tritome. Next, through a separate incision, a capsulotomy was performed at the lateral aspect of the first metatarsal phalangeal joint. A separate incision approximately 1 cm was made along the lateral aspect of the first metatarsophalangeal joint. Blunt dissection was carried down to the level of the first metatarsophalangeal joint. Using [employer] speed release tool, this was inserted laterally into the alma rosa int with joint fluid being exposed but inserted, pushing the fibular suspensory ligament into the space and releasing it completely. There was evidence of excellent release of the first metatarsophalangeal joint, and the metatarsal was able to be pushed laterally without soft tissue force imposing on it. The sesamoids were able to be retracted back into position which was confirmed on the large C-arm fluoroscopy. A capsulotomy incision was flushed with copious pipo normal saline and closed with 3-0 nylon in simple interrupted suture technique. Next, attention was then redirected back to the first metatarsophalangeal joint, the all-in-one positioner was inserted, positioning the first metatarsal into corrected position. Positioning of the cuts were confirmed with large C-arm fluoroscopy. Cuts were then made with the all-in-one device using the sagittal saw and provided blade by [employer] The compression/distractor was applied. The joint was distracted and the cuts along the base of the first metatarsal and first cuneiform removed. Continued joint prep followed after using a combination of osteoma and curette. The joint was flushed with copious pipo normal saline. Next, the joint was prepped using a fenestration with a 2-0 drill bit along the first cuneiform and base of the first metatarsal. Next, the Greene of calcaneal bone graft autograft was then packed in the first tarsometatarsal joint. At this point, the positioner was reapplied, compression/distractor was closed down and the fulcrum was then inserted on the lateral aspect of the base of the first metatarsal. Dorsiflexion of the hallux was then performed pushing the metatarsal and tarsometatarsal joint into place, pinning with 2 smooth K wires and crossing fashion technique. Next, orthogonal plating was applied using (x2) 13 mm spleed plates by [employer] Procedure #4. Manual Stress views, left foot (CPT code: 40380) Next, stress views were then performed by squeezing the first and second interphalangeal joint and the first metatarsophalangeal joint of the left foot. There showed evidence of mild splaying. Next using the cannulated screw system by [employer] a K wire was driven from the first metatarsal to second cuneiform and a 3-0 cannulated 36 mm screw was inserted with excellent position across this area stabilizing the cuneiform and first metatarsal joint as well as its position. Procedure #5. Partial excision of bone first metatarsal with capsulotomy, left foot (CPT code: 95295) Next, once looking at intraoperative films and clinically there still showed evidence of a mild increase in MENENDEZ angle beyond normal while on the operating room table. At this time is deemed necessary to move forward with a capsulorrhaphy on the medial aspect of the first metatarsophalangeal joint. Using a skin marker the incision was marked over the dorsomedial aspect of the first metatarsophalangeal joint. Using a #15 blade a full-thickness incision down to subcutaneous tissue followed by blunt dissection down to capsule. A capsulorrhaphy was performed via a T shaped incision. Once the capsule was exposed there showed evidence of thickening to the capsule as well as some mild degeneration to the medial head of the first metatarsal approximately 10%. There also showed evidence of osteoarthritis to the level of the tibial sesamoid. The capsule was reconstructed that showed a more suitable position for correction of a hallux valgus deformity with correcting the MENENDEZ angle with a capsulorrhaphy. The incision was flushed with couple pipo normal saline. The capsule was reapproximated and secured with 2-0 Ethibond. At this time, after 120 minutes, the tourniquet was deflated to the left thigh. Reperfusion was noted instantly. All bleeders were ligated and cauterized as necessary. Procedure #6. Delma osteotomy, second metatarsal, left foot (CPT code: 99961) Next, attention was directed to the level of the second metatarsal phalangeal joint of the left foot. Using large C-arm fluoroscopy the second metatarsal phalangeal joint was marked out. A full-thickness incision using a #15 blade was made approximately 1.5 cm over the joint. Continued blunt dissection was carried down to the level of the joint capsule. The joint capsule was incised to exposed the head of the second metatarsal. Using McGlamery elevator, the soft tissue was freed inferior to the metatarsal head. This allows for reduction of the plantar plate which allowed the second digit to sit down. Using a sagittal saw and #111 blade, central metatarsal osteotomy was made approximately 10 to 15 degrees to the weightbearing surface of the second metatarsal. The bone was released and retracted about 3 mm. Using Oliverio x2 2.0 mm x 12 mm snap off screw, the head of the second metatarsal was fixated in place. Hardware placement was confirmed with large C-arm fluoroscopy. The overhanging shelf was removed with a bone cutter. A hand rasp was used to round off any sharp edges. The incision was flushed with copious amounts normal saline. Procedure #7. Proximal interphalangeal joint arthrodesis, second digit, left fo ot (CPT code: 06829) Next, attention was directed to the dorsal aspect of the PIPJ of the left second digit. Using a sterile skin marker, a longitudinal incision was marked out at the level of the second metatarsal phalangeal joint and proximal anterior phalangeal joint of the left second digit. Using a #15 blade, a full-thickness incision down to subcutaneous tissue was made. Using sens retractors, the skin was lifted up and out and continued blunt dissection was carried down to the long extensor tendon. Once the extensor tendon was identified a plowing technique was performed on the medial and lateral aspects of the extensor tendon. A capsulotomy was performed at the PIPJ and the tendon was gently released to allow exposure of the PIPJ joint. The extensor tendon was removed b ut intact down to the level of the second metatarsal phalangeal joint. The capsule was identified and transected. Care was taken to identify the medial and lateral collateral ligaments of the PIPJ of the second digit which were released. Using a pickup and sagittal saw with a #114 blade, the head of the proximal phalanx was removed and passed the back table to be discarded. The base of the intermediate phalanx of the second digit was feathered to remove the articular cartilage to expose the subchondral bone. Using the wire warehouse associate driver provided by the [employer] surgical kit, the appropriate size drill was used to make the harbor boat pilot holes in the base and head of the intermediate and proximal phalanx. The implant was inserted, 0 degree implant per the golf club head former's recommendation with the rep in the room. After securing the 2 bones together there showed excellent apposition across the PIPJ of the second digit. The medial and lateral collateral ligaments were really constructed using 4-0 Monocryl in simple interrupted suture technique. Extensor tendon was secured back to the proximal phalanx and physiological tension using 4-0 Monocryl and open over suture technique. Procedure #8. Capsulotomy, third metatarsophalangeal joint, left foot (CPT code: 05900) Next, attention was directed to the dorsal aspect of the metatarsophalangeal joint. Using a 69 blade a Whitney handle a percutaneous capsulotomy was performed through a separate incision. After release of the third metatarsophalangeal joint joint capsule the third metatarsal sat in a more rectus position. All remaining open incisions to the left foot were flushed with copious normal saline. All incisions were closed in the same fashion. The deep layer was reapproximated closed using 3-0 Monocryl in buried suture technique. The subcutaneous layer was reapproximated closed using 3-0 Monocryl and running suture technique. The skin was reapproximated and closed using 4-0 nylon in simple interrupted suture technique. The left lower extremity was wiped clean and patted dry. Peroxide was used to remove all dried sanguinous fluid. Again, the left foot was wiped clean and patted dry. All incisions were dressed with Betadine soaked Adaptic dry sterile dressing and a double layer Hernandez AO splint at 90 degrees was applied to left lower extremity. The patient tolerated the procedure and anesthesia well and apparent satisfactory condition and was transported to the PACU for further monitoring prior to discharge home. Vital signs stable and vascular status intact to all digits bilateral. Post Operative Plan: Weightbearing: Nonweightbearing through the left lower extremity with assistive knee scooter and/or crutches. Full weightbearing to the right lower extremity. Antibiotics: 2 g Ancef through the IV DVT Prophylaxis: Aspirin 81 mg Cabello: None Dressing: Betadine soaked Adaptic, dry sterile dressing, double layer Hernandez AO splint at 90 degrees. X-Rays: Post-operative films taken on the operating room. Pain Medication: Tylenol #3, Flexeril 10 mg Follow-up: Patient will follow-up with Dr. Mckenzie in private office in 1 week to 10 days post surgery. Patient was given postoperative instructions and to call the office with any questions or concerns Grafts/Implants Used: [employer], [employer] Complications None Admit VTE Documentation VTE Present on Admission: No VTE Mechan Device Prophylaxis: SCD's VTE Pharm Prophylaxis ordered?: Yes
[2024-01-28 11:09] LABS: Cotinine Screen Blood 409.1 ng/mL (.); Nicotine Blood 17.3 ng/mL (.)
== END 2024-01-24 17:40 | disposition home or self-care (01) ==
LOC: SDC 11:01 → AC 11:05
PROVIDERS: Anesthesiology; PCP Internal Medicine; Referring Provider Podiatrist Foot & Ankle Surgery; Visit Provider Podiatrist Foot & Ankle Surgery
PROC: (CPT 28308; principal; 2024-01-24 12:45)
DX: M20.12 Hallux valgus (acquired), left foot (principal); M24.575 Contracture, left foot; M20.42 Other hammer toe(s) (acquired), left foot; M19.072 Primary osteoarthritis, left ankle and foot; M21.612 Bunion of left foot; I10 Essential (primary) hypertension; K21.9 Gastro-esophageal reflux disease without esophagitis; E16.2 Hypoglycemia, unspecified; R80.9 Proteinuria, unspecified; J30.2 Other seasonal allergic rhinitis; F41.8 Other specified anxiety disorders; Z79.82 Long term (current) use of aspirin; Z79.899 Other long term (current) drug therapy; Z86.73 Personal history of transient ischemic attack (TIA), and cerebral infarction without residual deficits
CPT/HCPCS: 28308; 28285; 28740; 28270 ×2; 20900; 01480; 64447; 64445; 73620; 76000; 80323; 82306; 82962; 83036; 83735; C1713; J7120; G0480; J3475

== ENCOUNTER 2024-03-26 16:51 | Emergency (ER) | payer BC, SELFPAY ==
[2024-03-26 16:52] VITALS: BP 190/109; PULSE 82; RESP 16; TEMP 36.7; O2SAT 98; BMI 26.4
--- NOTE | 2024-03-26 17:04 | ED.RN ---
when letting Dr. Alba know of pt's neuro sx, Dr. Alba wanted pt back in a room so he could assess to see if the patient would be a stroke alert. stroke alert not called at this time.
[2024-03-26 17:10] VITALS: BMI 26.4
--- NOTE | 2024-03-26 17:11 | EKG12_ITS ---
Test Reason : Blood Pressure : */* mmHG Vent. Rate : 73 BPM Atrial Rate : 73 BPM P-R Int : 164 ms QRS Dur : 80 ms QT Int : 436 ms P-R-T Axes : 35 55 44 degrees QTcB Int : 480 ms Normal sinus rhythm Prolonged QT Abnormal ECG Confirmed by Elliott Garcias ([id number]), health editor MAGUE VYAS ([id number]) on 03/27/2024 1:43:12 PM Referred By: JAMES Confirmed By: Elliott Garcias
--- NOTE | 2024-03-26 17:11 | RAD_ITS ---
EXAM: XR CHEST, 2 VIEWS CLINICAL INDICATION: chest pain TECHNIQUE: Frontal and lateral views of the chest. COMPARISON: November 26, 2023 FINDINGS: LUNGS AND PLEURAL SPACES: Unremarkable. No consolidation or edema. No pneumothorax. No effusion. HEART: Unremarkable. Cardiac silhouette not enlarged. MEDIASTINUM: Central airways and mediastinal contour are unremarkable. BONES/JOINTS: Unremarkable. No acute fracture. SOFT TISSUES: Unremarkable. RAD/Chest PA and Lateral IMPRESSION: No radiographic evidence of acute cardiopulmonary disease. Electronically Signed: Poornima White MD at 19:08 EST ,
--- NOTE | 2024-03-26 17:12 | CT_ITS ---
EXAM: CT HEAD WITHOUT INTRAVENOUS CONTRAST CLINICAL INDICATION: headache, htn TECHNIQUE: Multiple axial images were obtained of the head without intravenous contrast. This CT exam was performed using one or more of the following dose reduction techniques: automated exposure control, adjustment of the mA and/or kV according to patient size, and/or use of iterative reconstruction technique. RADIATION DOSE: CTDIvol = 44.99 mGy, DLP = 812.98 mGy-cm COMPARISON: No relevant prior studies available. FINDINGS: BRAIN AND EXTRA-AXIAL SPACES: Unremarkable. No intra- or extra-axial hemorrhage. No evidence of acute infarct. No intracranial mass or mass effect. There is preservation of the kim/white matter interface. Posterior fossa structures are unremarkable. Ventricles are appropriate for age. No hydrocephalus. Basal cisterns are patent. BONES/JOINTS: Unremarkable. No discrete lytic or blastic abnormalities. SINUSES: Unremarkable as visualized. Clear. MASTOID AIR CELLS: Unremarkable. Clear. ORBITS: Visualized globes, extraocular muscles, optic nerves and retrobulbar fat appear unremarkable. CT/Brain/Head without Contrast IMPRESSION: Negative head/brain CT without intravenous contrast. Electronically Signed: Poornima White MD at 19:04 EST ,
[2024-03-26 17:16] VITALS: O2SAT 98
[2024-03-26 17:20] LABS: Bedside Glucose 99 mg/dL (74-106)
[2024-03-26] MEDS: Acetaminophen 500 MG Tablet 1000 MG PO (17:21)
[2024-03-26] MEDS: hydrALAZINE 20 MG/ML Vial 10 MG IV (17:21)
[2024-03-26] MEDS: Metoclopramide 10 MG/2 ML Vial IV (17:21)
[2024-03-26 17:23] VITALS: BP 161/95; PULSE 77; RESP 13; O2SAT 97
--- NOTE | 2024-03-26 17:25 | EDS_ITS ---
HPI History of Present Illness Chief Complaint: Neuro S/Sx Narrative Narrative: Patient is a 58-year-old female past medical history of TIA, hypertension on multiple antihypertensives, alcohol abuse, GERD who presents to the emergency department with a chief complaint of headache. She states that she will have intermittent visual changes and she states that this usually is associated with her high blood pressure. She states that she has been on and off for her blood pressure medications recently while she has been in rehab. Patient states that she noted she had some numbness and tingling in her left hand that started in her hand and did radiate up to her forearm which has improved. Patient states that normally when she is on her antihypertensives her blood pressure is well- controlled. Patient denies recent falls or head trauma. PFSH PFS Medical History Wears glasses Anxiety Depression Smoker GERD (gastroesophageal reflux disease) History of echocardiogram History of stress test Cardiology follow-up encounter Hypoglycemia Nonspecific ST-T wave electrocardiographic changes Eczema History of TIA (transient ischemic attack) Chronic GERD Hyponatremia Exertional dyspnea Chest pain Hypertension Tobacco use Multiple lacunar infarcts Facial paresthesia Depression with anxiety Hypertensive urgency Alcohol abuse Home Medications ?Medication ?Instructions ?Recorded ?Last Taken ?Type atorvastatin 20 mg tablet 10 mg PO DAILY 07/05/23 Unknown History cartilage 40 mg-collagen II 10 1 tab PO DAILY 07/05/23 Unknown History mg-boron 5 mg-hyaluronate 3.3 mg tablet ([employer]) cholecalciferol (vitamin D3) 50 50 mcg PO DAILY 07/05/23 Unknown History mcg (2,000 unit) capsule citalopram 40 mg tablet 40 mg PO DAILY 07/05/23 Unknown History clonidine HCl 0.1 mg tablet 0.1 mg PO Q12H 07/05/23 Unknown History folic acid 400 mcg tablet 0.4 mg PO DAILY 07/05/23 Unknown History lisinopril 20 mg tablet 20 mg PO BID 07/05/23 Unknown History olopatadine 0.2 % eye drops 1 drp ophthalmic (eye) DAILY PRN 07/05/23 Unknown History itching pantoprazole 40 mg tablet,delayed 40 mg PO DAILY 07/05/23 01/24/24 10:00 History release thiamine HCl (vitamin B1) 100 mg 100 mg PO DAILY 07/05/23 Unknown History tablet trazodone 50 mg tablet 50 mg PO QHS 07/05/23 Unknown History triamterene 37.5 1 tab PO DAILY 07/05/23 Unknown History mg-hydrochlorothiazide 25 mg tablet aspirin 81 mg capsule 81 mg PO DAILY 01/17/24 Unknown History ascorbic acid (vitamin C) 1,000 mg 1 g PO DAILY 90 days #90 tabs 01/24/24 Unknown Rx tablet (Vitamin C) fluticasone propionate 50 2 spray intranasal Q12H PRN 03/26/24 Unknown History mcg/actuation nasal allergy symptoms spray,suspension Allergy/AdvReac Type Severity Reaction Status Date / Time bacitracin Allergy Rash Verified 03/26/24 17:11 neomycin (From Neosporin Allergy Rash Verified 03/26/24 17:11 ([id number])) polymyxin B (From Neosporin Allergy Rash Verified 03/26/24 17:11 ([id number])) esomeprazole (From Nexium) AdvReac Other Verified 03/26/24 17:11 Family History Grandmother Alcohol abuse CVA (cerebral vascular accident) Depression Father Hypertension Diabetes Cancer Mother Hypercholesterolemia Thyroid disorder Depression Surgical History History of colonoscopy History of tonsillectomy and adenoidectomy History of knee surgery History of foot surgery Social History Smoking Status: Current every day smoker tobacco type: cigarettes alcohol intake: current alcohol intake frequency: 3 or more drinks per day Alcohol type: wine substance use type: does not use caffeine: Yes Type: carbonated beverages and coffee Number of servings: 1 ROS ROS ED ROS Narrative Constitutional: Complains of headache denies any fevers, chills, lightness, dizziness Eyes: Complaining of intermittent blurry vision as noted above but states that her vision is normal here in the emergency department denies double vision Cardiovascular: Denies chest pain or palpitations Respiratory: Denies coughing wheezing shortness of breath Abdomen: Denies abdominal pain nausea vomit diarrhea : Denies any urinary symptoms Neurological: Denies numbness, weakness, tingling Musculoskeletal: Denies back pain Skin: Denies rashes or lesions EXAM Physical Exam Narrative Exam Narrative: General: Patient lying in bed rest comfortably did not appear to be acute distress Head: Atraumatic, normocephalic Eyes: PERRL bilateral, EOMI biotic no conjunctival injection noted Neck: Soft, supple, trachea midline Cardiovascular: Regular rate and rhythm no murmurs gallops rubs noted Respiratory: Clear to auscultation bilaterally Abdomen: Soft, nondistended, nontender to palpation, bowel sounds present x 4 Extremities: +5/5 strength noted in the bilateral upper and lower extremities, radial pulses +2/4 in the bilateral upper extremities, no pedal edema no exam Neurological: Patient follow commands knew that she was at [facility] the year is 2023. NIH of 0 GCS 15 Skin: Warm, dry, intact Const Vital Signs: 03/26/24 16:52 03/26/24 17:16 03/26/24 17:23 Temperature 98.1 F Temperature Source Oral Pulse Rate 82 77 Respiratory Rate 16 13 Blood Pressure 190/109 H 161/95 H Blood Pressure Mean 136 117 Pulse Ox 98 98 97 Oxygen Delivery Method Room Air Room Air Room Air 03/26/24 18:00 03/26/24 19:00 Temperature Temperature Source Pulse Rate 70 75 Respiratory Rate 16 17 Blood Pressure 151/85 H 147/81 H Blood Pressure Mean 107 103 Pulse Ox 100 98 Oxygen Delivery Method MDM MDM MDM Narrative Medical decision making narrative: Patient is a 58-year-old female who presents to the emergency department the chief complaint of headache and hypertension. Patient will have a workup performed here on the differential diagnose includes Melamin to hypertension, intracranial hemorrhage, migraine headache, tension headache. Once workup is obtained reviewed she will be reevaluated. Patient be given 10 mg of hydralazine here in the emergency department Patient CBC was reviewed and showed a white blood count 11,000, hemoglobin 11.5, platelet count was noted be normal at 368. Patient's INR was noted to be normal at 0.9, sodium was 131, potassium 3.3, creatinine normal at 0.71. Patient troponin was noted be normal at 6, EKG reviewed and independently interpreted by myself showed sinus rhythm with a rate of [address] head and brain without contrast showed no acute findings. Patient's chest x-ray reviewed by myself and by radiology showed no acute cardiopulmonary processes. On reevaluation the patient she is feeling much better her blood pressure is improved after antihypertensive was given. She was up walking around the emergency department and conversing with staff. When I enter the room she was playing on her phone sitting at bedside. Nontoxic in appearance. She would like to go home at this point time. She was advised to return with worsening symptoms or other concerns. She states that she does have a follow-up appointment tomorrow with her doctor that she will be going to. All question concerns answered she was discharged home in stable condition. Lab Data Labs: Laboratory Results - last 24 hr 03/26/24 03/26/24 17:03 17:30 WBC 11.9 H RBC 3.69 L Hgb 11.5 L Hct 34.1 L MCV 92.4 MCH 31.2 MCHC 33.7 RDW Std Deviation 43.2 RDW Coeff of Klaus 12.8 Plt Count 368 MPV 9.7 Immature Gran % (Auto) 0.500 Neut % (Auto) 56.8 Lymph % (Auto) 33.0 [place] % (Auto) 8.3 Eos % (Auto) 0.9 Baso % (Auto) 0.5 Absolute Neuts (auto) 6.8 Absolute Lymphs (auto) 3.94 Nucleated RBC % 0 PT 12.2 INR 0.9 APTT 28.9 Sodium 131 L Potassium 3.3 L Chloride 96 L Carbon Dioxide 25.0 Anion Gap 10 BUN 11 Creatinine 0.71 Estim Creat Clear Calc 86.01 Est GFR (MDRD) Af Amer 108 Est GFR (MDRD) Non-Af 90 BUN/Creatinine Ratio 15.5 Glucose 87 Calcium 9.5 Troponin I High Sens 6 POC Glucose 99 Radiography Diagnostic Testing: Clinical Impression(s) from Imaging Studies Chest X-Ray 03/26/24 17:11 IMPRESSION: No radiographic evidence of acute cardiopulmonary disease. Electronically Signed: Poornima White MD at 19:08 EST , Brain CT 03/26/24 17:12 IMPRESSION: Negative head/brain CT without intravenous contrast. Electronically Signed: Poornima White MD at 19:04 EST , Discharge Plan Triage Chief Complaint: Neuro S/Sx ED Provider: Nirav Alba Dx/Rx/DC Orders Clinical Impression: Hypertension, Headache Prescriptions: No Action lisinopril 20 mg tablet 20 mg PO BID clonidine HCl 0.1 mg tablet 0.1 mg PO Q12H pantoprazole 40 mg tablet,delayed release (DR/EC) 40 mg PO DAILY triamterene-hydrochlorothiazid 37.5-25 mg tablet 1 tab PO DAILY atorvastatin 20 mg tablet 10 mg PO DAILY trazodone 50 mg tablet 50 mg PO QHS citalopram 40 mg tablet 40 mg PO DAILY [facility] 40-10-5-3.3 mg tablet 1 tab PO DAILY cholecalciferol (vitamin D3) 50 mcg (2,000 unit) capsule 50 mcg PO DAILY thiamine HCl (vitamin B1) 100 mg tablet 100 mg PO DAILY folic acid 400 mcg tablet 0.4 mg PO DAILY olopatadine 0.2 % drops 1 drp ophthalmic (eye) DAILY PRN (Reason: itching) aspirin 81 mg capsule 81 mg PO DAILY ascorbic acid (vitamin C) [Vitamin C] 1,000 mg tablet 1 g PO DAILY 90 Days Qty: 90 0RF fluticasone propionate 50 mcg/actuation spray,suspension 2 spray INTRANASAL Q12H PRN (Reason: allergy symptoms) Primary Care Provider: Mattie Howard Referrals: Mattie Howard DO [Primary Care Provider] - Activity Restrictions/Additional Instructions: Take your medications as prescribed. Follow-up your doctor tomorrow. In the meantime if anything worsens or changes to return here. Print Language: Chinese Disposition Disposition: Home, Self Care
[2024-03-26 17:53] LABS: Absolute Lymphocyte Count 3.94 X10^3/uL (0.83-4.51); Absolute Neutrophil Count 6.8 X10^3/uL (2.0-7.7); Basophil# 0.06 X10^3/uL; Basophil% 0.5 % (0-1); Eosinophil# 0.11 X10^3/uL; Eosinophils% 0.9 % (0-5); Hematocrit 34.1 % (37-47); Hemoglobin 11.5 g/dL (12.0-15.0); Lymphocyte # 3.94 X10^3/ul (0.83-4.51); Mean Corp Hgb Conc 33.7 g/dL (32-36); Mean Corpuscular Hgb 31.2 pg (27.0-32.0); Mean Corpuscular Volume 92.4 fL (81-99); Mean Platelet Vol. 9.7 fl (6.2-12.0); Monocyte# 0.99 X10^3/uL; Monocyte% 8.3 % (0-10); NRBC Flagged by Analyzer 0 % (0-5); Neutrophil # 6.78 X10^3/uL (2.7-7.7); Neutrophil % 56.8 % (47-70); Platelet Count 368 K/mm3 (150-450); RBC Distribution Width CV 12.8 % (11.6-14.6); RBC Distribution Width SD 43.2 fl (35.1-43.9); Red Blood Count 3.69 M/mm3 (4.2-5.4); White Blood Count 11.9 K/mm3 (4.4-11.0)
[2024-03-26 18:00] VITALS: BP 151/85; PULSE 70; RESP 16; O2SAT 100
[2024-03-26 18:05] LABS: International Normalized Ratio 0.9; Prothrombin Time (Protime)PT. 12.2 SECONDS (11.7-14.9)
[2024-03-26 18:06] LABS: Partial Thromboplast Time 28.9 Seconds (24.1-36.2)
[2024-03-26 18:11] LABS: Anion Gap 10 (5-15); BUN 11 mg/dL (7-18); BUN/Creat Ratio 15.5 RATIO (10-20); Calcium,Total 9.5 mg/dL (8.5-10.1); Chloride 96 mmol/L (98-107); Creatinine, Serum 0.71 mg/dL (0.55-1.02); EST Glomerular Filtration Rate 90 mL/min (>60); Est Glom Filt Rate - Afr Amer 108 mL/min (>60); Estimated Creatinine Clearance 86.01 ml/min; Glucose 87 mg/dL (74-106); Potassium 3.3 mmol/L (3.5-5.1); Sodium Level 131 mmol/L (136-145); Troponin-I HS 6 pg/mL (3.0-54.0)
[2024-03-26 19:00] VITALS: BP 147/81; PULSE 75; RESP 17; O2SAT 98
[2024-03-26 19:54] VITALS: BP 129/75; PULSE 77; RESP 18; TEMP 36.6; O2SAT 100
== END 2024-03-26 19:55 | disposition home or self-care (01) ==
PROVIDERS: Emergency Provider Emergency Medicine; PCP Internal Medicine; Visit Provider Emergency Medicine
DX: R51.9 Headache, unspecified (principal); I10 Essential (primary) hypertension; Z86.73 Personal history of transient ischemic attack (TIA), and cerebral infarction without residual deficits; I25.2 Old myocardial infarction; Z79.899 Other long term (current) drug therapy; F41.8 Other specified anxiety disorders; Z79.82 Long term (current) use of aspirin; F17.210 Nicotine dependence, cigarettes, uncomplicated
CPT/HCPCS: 70450; 71046; 80048; 82962; 84484; 85025; 85610; 85730; 93005; 96374; 96375; 99284; A4216

== ENCOUNTER 2024-04-16 05:30 | Day surgery (SDC) | payer BC, SELFPAY ==
--- NOTE | 2024-04-10 15:26 | PAT.ANESEVAL ---
Pre-Assessment Diagnosis/Proposed Procedure Planned Operative Procedure(s): (R) Arthrodesis of the right metatarsal single joint, capsulotomy of the first metatarsal phalangeal joint, [place] of calcaneal bone graft, Chuckie stress views, Delma osteotomy of the second metatarsal, Flexor digitorum longus tendon transfer of the second digit, Arthrodesis of the of the proximal interphalangeal joint second digit, capsulotomy of the third metatarsal phalangeal joint with application of a posterior splint. 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 When Was Last Pacemaker Check QUESTION #4 FULL TEXT: You/Your Family Experience fever (hyperthermia) with Anesthesia Last Oral Intake Last Oral intake: Last Oral Intake NPO since Meds taken in AM with sips of water? Meds patient instructed to take am of surgery PONV PONV - apparatus engineering technologist: PONV - apparatus engineering technologist Female Yes 04/10/24 14:41 HX of Motion Sickness No 04/10/24 14:41 HX of N/V After Surgery Yes 04/10/24 14:41 Non-Smoker No 04/10/24 14:41 Duration of Surgery greater Yes 04/10/24 14:41 than 60 minutes Number of Risk Factors 3 04/10/24 14:41 PONV Score Moderate Risk 04/10/24 14:41 Height & Weight Height & Weight: Anesthesia: Height & Weight Height 5 ft 4 in 01/24/24 11:52 Respiratory Assessment Respiratory Assessment - apparatus engineering technologist: Respiratory Tract Infection Hx - apparatus engineering technologist Hx Respiratory Tract Infection Yes: SINUS INFECTION - WAS 04/10/24 14:41 ON ANTIBIOTICS 04/10/24 STOP Sleep Apnea STOP Sleep Apnea - apparatus engineering technologist: STOP Sleep Apnea - apparatus engineering technologist Hx Hypertension Yes: CONTROLLED WITH MED 04/10/24 14:41 Hx Sleep Apnea No 04/10/24 14:41 CPAP BIPAP Do you snore loudly (louder No 04/10/24 14:41 than talking or can be heard Do you often feel tired/ No 04/10/24 14:41 fatigued/ sleepy during daytime? Has anyone observed you stop No 04/10/24 14:41 breathing during sleep? STOP Results Negative 04/10/24 14:41 QUESTION #5 FULL TEXT : Do you snore loudly (louder than talking or can be heard through closed doors)? 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 Specify any problems Hx of Preganancy in last 3 N/A 04/10/24 14:41 Months Nurse Filling Out Transfusion NBUCHER 04/10/24 14:41 & Questions: Date: 04/10/24 04/10/24 14:41 Time: 14:43 04/10/24 14:41 Patient unable to answer at this time (ie. confused, unrespo /Reproduction History /Reproductive History - apparatus engineering technologist: /Reproductive Hx- apparatus engineering technologist Hx Now No 04/10/24 14:41 Gestational Age (in weeks): EDC: Hx Hx Para Hx Section SAB No 04/10/24 14:41 PFSH Medical History PONV (postoperative nausea and vomiting) Post-menopausal Alcohol use Wears glasses Anxiety Depression Smoker GERD (gastroesophageal reflux disease) History of echocardiogram History of stress test Cardiology follow-up encounter Hypoglycemia Nonspecific ST-T wave electrocardiographic changes Eczema History of TIA (transient ischemic attack) Chronic GERD Hyponatremia Exertional dyspnea Chest pain Hypertension Tobacco use Multiple lacunar infarcts Facial paresthesia Depression with anxiety Hypertensive urgency Alcohol abuse Home Medications ?Medication ?Instructions ?Recorded ?Last Taken ?Type atorvastatin 20 mg tablet 10 mg PO DAILY 07/05/23 Unknown History cartilage 40 mg-collagen II 10 1 tab PO DAILY 07/05/23 Unknown History mg-boron 5 mg-hyaluronate 3.3 mg tablet ([employer]) cholecalciferol (vitamin D3) 50 50 mcg PO DAILY 07/05/23 Unknown History mcg (2,000 unit) capsule citalopram 40 mg tablet 40 mg PO DAILY 07/05/23 Unknown History clonidine HCl 0.1 mg tablet 0.1 mg PO Q12H 07/05/23 Unknown History folic acid 400 mcg tablet 0.4 mg PO DAILY 07/05/23 Unknown History lisinopril 20 mg tablet 20 mg PO BID 07/05/23 Unknown History olopatadine 0.2 % eye drops 1 drp ophthalmic (eye) DAILY PRN 07/05/23 Unknown History itching pantoprazole 40 mg tablet,delayed 40 mg PO DAILY 07/05/23 01/24/24 10:00 History release thiamine HCl (vitamin B1) 100 mg 100 mg PO DAILY 07/05/23 Unknown History tablet trazodone 50 mg tablet 50 mg PO QHS 07/05/23 Unknown History aspirin 81 mg capsule 81 mg PO DAILY 01/17/24 Unknown History ascorbic acid (vitamin C) 1,000 mg 1 g PO DAILY 90 days #90 tabs 01/24/24 Unknown Rx tablet (Vitamin C) fluticasone propionate 50 1 spray intranasal Q12H PRN 03/26/24 Unknown History mcg/actuation nasal allergy symptoms spray,suspension Allergy/AdvReac Type Severity Reaction Status Date / Time bacitracin Allergy Rash Verified 04/10/24 14:37 neomycin (From Neosporin Allergy Rash Verified 04/10/24 14:37 ([id number])) polymyxin B (From Neosporin Allergy Rash Verified 04/10/24 14:37 ([id number])) esomeprazole (From Nexium) AdvReac Other Verified 04/10/24 14:37 Family History Grandmother Alcohol abuse CVA (cerebral vascular accident) Depression Father Hypertension Diabetes Cancer Mother Hypercholesterolemia Thyroid disorder Depression Surgical History History of colonoscopy History of tonsillectomy and adenoidectomy History of knee surgery History of foot surgery Social History Smoking Status: Current every day smoker tobacco type: cigarettes alcohol intake: current alcohol intake frequency: 3 or more drinks per day Alcohol type: wine substance use type: does not use caffeine: Yes Type: carbonated beverages and coffee Number of servings: 1 Audit: Pertinent Findings Pertinent Findings EKG Perinent findings: March 26, 2024. Normal sinus rhythm. Prolonged QT. Stress test pertinent findings: August 29, 2023. Nonspecific ST changes with dobutamine infusion. No wall motion abnormalities noted. Negative stress test for ischemia. Consult pertinent findings: July 29, 2023. Dr. Garcias. #1 chest pain -she has a history of hypertension which is well-controlled. Patient continues to smoke. #2 Patient had complaints of dyspnea on exertion. Recommendation Anesthesia Recommendation Anesthesia recommendation: OPTIMIZED for anesthesia
[2024-04-16] VITALS (9 sets, daily range): BP systolic 98–134; BP diastolic 72–84; PULSE 63–75; RESP 16–18; TEMP 36.1–36.6; O2SAT 93–100; BMI 26.0
[2024-04-16] MEDS: Acetaminophen 500 MG Tablet 1000 MG PO (06:21)
[2024-04-16] MEDS: Gabapentin 600 MG Tablet PO (06:21)
[2024-04-16] MEDS: 0.9% Normal Saline (1000mL) 1,000 ML 15 ML IV (06:28)
--- NOTE | 2024-04-16 06:47 | PCM.PRE.AN2 ---
ASA Classification* ASA Classification ASA Classification: 3 Assessment & Plan Anesthesia* Anesthesia Assessment Anesthesia Assessment: Discussed sedation and/or anesthesia options, risks, benefits, and alternatives with patient/parents/legal guardian/POA. Questions invited. The patient/parents/legal guardian/POA seems to understand and agrees to proceed with anesthesia plan. Reviewed the physical assessment, medical history, allergy history and patient home medications list prior to surgery/procedure/anesthetic and documented any changes. Performed airway and anesthesia risk assessments. Anesthesia Type Anesthesia Type: General (vs Spinal with Popliteal block post op pain) Anesthesia Focused Assessment* Temperature: 97.7 F Pulse Rate: 72 Blood Pressure: 98/77 Respiratory Rate: 18 Pulse Ox: 98 Airway Assessment Mouth opens: >3 cm Mallampati Score: II Focused Labs Anesthesia Preop lab: CBC WBC 11.9 K/mm3 (4.4-11.0) H 03/26/24 17:30 RBC 3.69 M/mm3 (4.2-5.4) L 03/26/24 17:30 Hgb 11.5 g/dL (12.0-15.0) L 03/26/24 17:30 Hct 34.1 % (37-47) L 03/26/24 17:30 Plt Count 368 K/mm3 (150-450) 03/26/24 17:30 CHEMISTRY Potassium 3.3 mmol/L (3.5-5.1) L 03/26/24 17:30 Sodium 131 mmol/L (136-145) L 03/26/24 17:30 Magnesium 2.1 mg/dL (1.6-2.6) 01/24/24 12:25 BUN 11 mg/dL (7-18) 03/26/24 17:30 Creatinine 0.71 mg/dL (0.55-1.02) 03/26/24 17:30 Glucose 87 mg/dL (74-106) 03/26/24 17:30 POC Glucose 99 mg/dL (74-106) 03/26/24 17:03 COAG PT 12.2 SECONDS (11.7-14.9) 03/26/24 17:30 Pre-Assessment Diagnosis/Proposed Procedure Planned Operative Procedure(s): (R) Arthrodesis of the right metatarsal single joint, capsulotomy of the first metatarsal phalangeal joint, [place] of calcaneal bone graft, Chuckie stress views, Delma osteotomy of the second metatarsal, Flexor digitorum longus tendon transfer of the second digit, Arthrodesis of the of the proximal interphalangeal joint second digit, capsulotomy of the third metatarsal phalangeal joint with application of a posterior splint. Anesthesia History Anesthesia History - manager behavioral: Anesthesia History - manager behavioral Hx Hospitalization No 04/10/24 14:41 Any Problems With Anesthesia Yes: ponv 04/10/24 14:41 Cholinesterase deficiency No 04/10/24 14:41 You/Your Family Experience No 04/10/24 14:41 fever (hyperthermia) with Relationship Recent Exposure to Contagious No 04/16/24 06:06 Disease Does patient have nerve No 04/10/24 14:41 stimulator Patient instructed to have device shut off --Does patient have Pacemaker No 04/16/24 06:06 or ICD? When Was Last Pacemaker Check QUESTION #4 FULL TEXT: You/Your Family Experience fever (hyperthermia) with Anesthesia Last Oral Intake Last Oral intake: Last Oral Intake NPO since 03:30 04/16/24 06:06 Meds taken in AM with sips of No 04/16/24 06:06 water? Meds patient instructed to take am of surgery PONV PONV - manager behavioral: PONV - manager behavioral Female Yes 04/10/24 14:41 HX of Motion Sickness No 04/10/24 14:41 HX of N/V After Surgery Yes 04/10/24 14:41 Non-Smoker No 04/10/24 14:41 Duration of Surgery greater Yes 04/10/24 14:41 than 60 minutes Number of Risk Factors 3 04/10/24 14:41 PONV Score Moderate Risk 04/10/24 14:41 Height & Weight Height & Weight: Anesthesia: Height & Weight Height 5 ft 5 in 04/16/24 06:06 Weight: 71 kg 04/16/24 06:06 Body Mass Index (BMI) 26.0 04/16/24 06:06 Respiratory Assessment Respiratory Assessment - manager behavioral: Respiratory Tract Infection Hx - manager behavioral Hx Respiratory Tract Infection Yes: SINUS INFECTION - WAS 04/10/24 14:41 ON ANTIBIOTICS 04/10/24 STOP Sleep Apnea STOP Sleep Apnea - manager behavioral: STOP Sleep Apnea - manager behavioral Hx Hypertension Yes: CONTROLLED WITH MED 04/10/24 14:41 Hx Sleep Apnea No 04/10/24 14:41 CPAP BIPAP Do you snore loudly (louder No 04/10/24 14:41 than talking or can be heard Do you often feel tired/ No 04/10/24 14:41 fatigued/ sleepy during daytime? Has anyone observed you stop No 04/10/24 14:41 breathing during sleep? STOP Results Negative 04/10/24 14:41 QUESTION #5 FULL TEXT : Do you snore loudly (louder than talking or can be heard through closed doors)? Tobacco Use History Tobacco Use History - manager behavioral: Tobacco Use History - manager behavioral Tobacco Use Smoking Status Current every day smoker 04/10/24 14:41 Hx Tobacco Use Yes 04/10/24 14:41 Years Smoking Packs Smoked per Day 1 04/10/24 14:41 Smoking Cessation Date was within the last 15 years Hx Smoking Cessation Date Hx Smoking Cessation Counseling Hematologic Medial History Hematologic Hx - manager behavioral: Hematologic Medical Hx - taxicab starter Hx of Blood Transfusion No 04/10/24 14:41 Hx of Transfusion in last 3 No 04/10/24 14:41 Months Date of Last Transfusion (if within last 3 months) Ever experience any problems No 04/10/24 14:41 with transfusion(s)? Specify any problems Hx of Preganancy in last 3 N/A 04/10/24 14:41 Months Nurse Filling Out Transfusion NBUCHER 04/10/24 14:41 & Questions: Date: 04/10/24 04/10/24 14:41 Time: 14:43 04/10/24 14:41 Patient unable to answer at this time (ie. confused, unrespo /Reproduction History /Reproductive History - manager behavioral: /Reproductive Hx- manager behavioral Hx Now No 04/10/24 14:41 Gestational Age (in weeks): EDC: Hx Hx Para Hx Section SAB No 04/10/24 14:41 Active Medications Active Medications: Current Medications Generic Name Dose Route Start Last Admin Trade Name Freq PRN Reason Stop Dose Admin Acetaminophen 1,000 mg 04/16/24 07:30 04/16/24 06:21 Acetaminophen 500 Mg Tablet PO 12/26/24 07:31 1,000 mg X1 ONE Administration Gabapentin 600 mg 04/16/24 07:30 04/16/24 06:21 Gabapentin 600 Mg Tablet PO 04/16/24 07:31 600 mg X1 ONE Administration Cefazolin Sodium 2 gm/ N/A 20 mls @ 400 mls/hr 04/16/24 07:30 IV 04/16/24 07:32 PREOP ONE Sodium Chloride 1,000 mls @ 15 mls/hr 04/16/24 05:50 04/16/24 06:28 IV 04/21/24 19:09 15 mls/hr .Q48H MIHAELA Administration Protocol Insulin Human Lispro 1 - 6 unit 04/16/24 07:30 Insulin Lispro 100 Unit/Ml Insuln.Pen SC 04/16/24 18:00 Q4H PRN PRN BG>/= 180, SEE PROTOCOL Protocol PFSH Medical History PONV (postoperative nausea and vomiting) Post-menopausal Alcohol use Wears glasses Anxiety Depression Smoker GERD (gastroesophageal reflux disease) History of echocardiogram History of stress test Cardiology follow-up encounter Hypoglycemia Nonspecific ST-T wave electrocardiographic changes Eczema History of TIA (transient ischemic attack) Chronic GERD Hyponatremia Exertional dyspnea Chest pain Hypertension Tobacco use Multiple lacunar infarcts Facial paresthesia Depression with anxiety Hypertensive urgency Alcohol abuse Home Medications ?Medication ?Instructions ?Recorded ?Last Taken ?Type atorvastatin 20 mg tablet 10 mg PO DAILY 07/05/23 04/15/24 History cartilage 40 mg-collagen II 10 1 tab PO DAILY 07/05/23 04/15/24 History mg-boron 5 mg-hyaluronate 3.3 mg tablet ([employer]) cholecalciferol (vitamin D3) 50 50 mcg PO DAILY 07/05/23 04/15/24 History mcg (2,000 unit) capsule citalopram 40 mg tablet 40 mg PO DAILY 07/05/23 04/15/24 History clonidine HCl 0.1 mg tablet 0.1 mg PO Q12H 07/05/23 04/15/24 History folic acid 400 mcg tablet 0.4 mg PO DAILY 07/05/23 04/15/24 History lisinopril 20 mg tablet 20 mg PO BID 07/05/23 04/15/24 History olopatadine 0.2 % eye drops 1 drp ophthalmic (eye) DAILY PRN 07/05/23 04/15/24 History itching pantoprazole 40 mg tablet,delayed 40 mg PO DAILY 07/05/23 04/15/24 History release thiamine HCl (vitamin B1) 100 mg 100 mg PO DAILY 07/05/23 04/15/24 History tablet trazodone 50 mg tablet 50 mg PO QHS 07/05/23 04/15/24 History aspirin 81 mg capsule 81 mg PO DAILY 01/17/24 04/15/24 History ascorbic acid (vitamin C) 1,000 mg 1 g PO DAILY 90 days #90 tabs 01/24/24 04/15/24 Rx tablet (Vitamin C) fluticasone propionate 50 1 spray intranasal Q12H PRN 03/26/24 Unknown History mcg/actuation nasal allergy symptoms spray,suspension lite wave pain patch 2 patch DAILY PRN 04/16/24 04/16/24 History Allergy/AdvReac Type Severity Reaction Status Date / Time bacitracin Allergy Rash Verified 04/16/24 06:01 neomycin (From Neosporin Allergy Rash Verified 04/16/24 06:01 ([id number])) polymyxin B (From Neosporin Allergy Rash Verified 04/16/24 06:01 ([id number])) esomeprazole (From Nexium) AdvReac Other Verified 04/16/24 06:01 Family History Grandmother Alcohol abuse CVA (cerebral vascular accident) Depression Father Hypertension Diabetes Cancer Mother Hypercholesterolemia Thyroid disorder Depression Surgical History History of colonoscopy History of tonsillectomy and adenoidectomy History of knee surgery History of foot surgery Social History Smoking Status: Current every day smoker tobacco type: cigarettes alcohol intake: current alcohol intake frequency: 3 or more drinks per day Alcohol type: wine substance use type: does not use caffeine: Yes Type: carbonated beverages and coffee Number of servings: 1 Review of Systems (Anesthesia) ROS Narrative System reviewed and no additional complaints, except as documented.
[2024-04-16 06:48] LABS: Bedside Glucose 96 mg/dL (74-106)
--- NOTE | 2024-04-16 07:05 | RAD_ITS ---
STUDY: X-RAY - RIGHT FOOT CLINICAL: Female, 59 years old. PAIN TECHNIQUE: 2 view(s) of the foot. COMPARISON: None. FINDINGS: 217 seconds of fluoroscopy of the foot was utilized for during surgery and 7 images are cemented for interpretation. . RAD/Foot 2 Views IMPRESSION: Fluoroscopy during foot surgery. Electronically Signed: Ted Chery MD at 10:27 EST ,
--- NOTE | 2024-04-16 07:23 | OP.PCM_ITS ---
Problems Associated Problem List Diagnoses (1) Pain in right foot: (2) Hallux valgus (acquired), right foot: (3) Primary osteoarthritis, right ankle and foot: (4) Other hammer toe(s) (acquired), right foot: Operative Report (Standard) Operative Information Date of Procedure: 04/16/24 Pre-Operative Diagnosis: 1. Pain, right foot 2. Hallux valgus, right foot 3. Primary osteoarthritis, right foot 4. Hammertoes, right foot Post-Operative Diagnosis: Same as preoperative diagnosis Surgery/Procedure Performed: 1. [place] of calcaneal bone graft, right foot 2. Capsulotomy, first metatarsal phalangeal joint, right foot 3. Arthrodesis of the midtarsal joint, single joint, right foot 4. Manual stress views, right foot 5. Flexor digitorum longus tendon transfer, second digit, right foot 6. PIPJ arthrodesis, second digit, right foot 7. Capsulotomy, third metatarsophalangeal joint, right foot 8. Application of posterior splint, right foot maintenance apprentice: Yes Hand Stitcher: Charli Mcgill PGY1 Tasks completed by assistant loan processor: Closing and Implanting device Additional commercial assistant?: No Type of Anesthesia: Block,Regional, General and Local RN Documented Start/Stop Times: Operation Date: 04/16/24 07:30 Case Time Into Pre-Op 04/16/24 05:45 Anesthesia Start 04/16/24 07:26 Into Room 04/16/24 07:26 Procedure Start 04/16/24 07:50 Procedure End 04/16/24 10:43 Anesthesia End 04/16/24 10:47 Out of Room 04/16/24 10:47 Into Recovery 04/16/24 10:53 Out of Recovery 04/16/24 11:18 Into Phase II Recovery 04/16/24 11:19 Out of Phase II 04/16/24 12:19 Procedure Start Time: 07:50 Procedure Stop Time: 10:43 Select all DRAINS/GRAFTS/IMPLANTS that apply: Implanted device Implanted device details: [employer], [employer] Medications: For anesthesia Estimated Blood Loss: 50 mL Fluids Replaced: Per anesthesia Specimen collected: No Description of surgery: Indications For Operation: Mrs Sebastian is a 54-year-old female who was admitted to [facility] for right foot surgery. Patient is well-known to my service and has been seen in office for many consultation to the right foot as well as surgical intervention to the left foot. Patient is able to weight-bear full without pain to left lower extremity. Patient states that she has been having more increased pain to the right foot and has noticed crossing over of the left toe and increase in bunion size pain patient has exhausted all conservative treatment consisting of shoe gear modification, taping, and oral medication and offloading. After discussing surgical invention with the patient in private office she was agreeable to all risk and benefits and would like to move forward with right foot surgery. Chart review consent signed. Due to right foot deformity and failing conservative treatment it was deemed necessary at this time to take patient operating room performed above procedure help decrease her constant pain and correct her right foot deformity. The nature of the problem, anticipated procedures, postop recovery/convalences and risk/complications include but not limited to infection, wound healing complications, digital amputation, hypertrophic scarring, numbness, tingling, chronic pain, CRPS, over and under correction, recurrence of deformity, DVT and or PE and the need for further surgery have been discussed in great detail with the patient. All questions have been answered to the patient's satisfaction. There are no guarantees given as to the outcome of the procedure. Description of Procedure: Under mild sedation, the patient was brought into the operating room and placed on the operating table in supine position. Once the patient was under general anesthesia with [place] mask airway, the right lower extremity was blocked using approximately 20 cc 0.5% Marcaine plain. Patient will be getting a popliteal block to the right lower extremity per anesthesia please see anesthesia notes for further detail. Next, a well-padded thigh tourniquet was applied to the right lower extremity. Next, the right lower extremity was prepped and draped in normal aseptic manner. Next, a timeout was then undertaken verifying the correct patient, extremity, visibility of preoperative markings, availability of the equipment. Next, attention was directed to the right lower extremity. Using a 4 inch Esmarch, right lower extremity was exsanguinated and elevated to 60 degrees for 1 minute. Procedure #1: [place] of calcaneal bone graft, right foot (CPT code: 40888) Next, attention was directed to the lateral aspect of the right calcaneus. Using a #15 blade, a full-thickness incision, approximately 1 cm, was made down to bone without incident. Continued blunt dissection was carried out with curved hemostats. Using the bodaplanes 7 mm bone graft harvester, calcaneal bone harvest less than than 5 cc was made, then removed from the calcaneus and passed the back table to be used later in the case, for the first tarsometatarsal joint arthrodesis procedure. The incision was flushed with copious pipo of normal saline. The skin was reapproximated and closed using 3-0 nylon in simple interrupted suture technique. Procedure #2, first tarsal metatarsal joint arthrodesis, right foot (CPT code: 76847/procedure #3, capsulotomy of the first metatarsal phalangeal joint (through a separate incision), right foot (CPT code: 53149) Manual stress views Next, attention was directed to the dorsal aspect of the right foot. Using fluoroscopy, the first tarsometatarsal joint was visualized. A longitudinal 3.5 cm incision with a #15 blade was made just medial to the extensor hallucis longus tendon. The incision was made down to the periosteum with care to retract the tendon laterally. The periosteum was reflected. The first tarsometatarsal joint was exposed and identified. Careful dissection was carried down to the level of the first tarsometatarsal joint as well as in the lateral space between the first and second metatarsal. The ligaments were then released at the tarsometatarsal joint with planing with sagittal saw and saw blade. After planing was performed, the plantar ligaments were released with the [place]. Next, through a separate incision, a capsulotomy will be performed at the lateral aspect of the first metatarsal phalangeal joint. A separate incision approximately 1 cm was made along the lateral aspect of the first metatarsophalangeal joint. Blunt dissection was carried down to the level of the first metatarsophalangeal joint. Using bodaplanes speed release tool, this was inserted laterally into the joint with joint fluid being exposed, then the speed release tool release the lateral ligaments. There was evidence of excellent release of the first metatarsophalangeal joint, and the metatarsal was able to be pushed laterally without soft tissue force imposing on it. The sesamoids were able to be retracted back into position which was confirmed on the large C-arm fluoroscopy. A capsulotomy incision was flushed with copious pipo normal saline and closed with 3-0 nylon in simple interrupted suture technique. Next, attention was then redirected back to the first tarsometatarsal joint, the all-in-one positioner was inserted, positioning the first metatarsal into corrected position. Positioning of the cuts were confirmed with large C-arm fluoroscopy. Cuts were then made with the all-in-one device using the sagittal saw and provided blade by bodaplanes. The compression/distractor was applied. The joint was distracted and the cuts along the base of the first metatarsal and first cuneiform removed. Continued joint prep followed after using a combination of osteotome and curette. The joint was flushed with copious pipo normal saline. Next, the joint was prepped using a fenestration with a 2- 0 drill bit along the first cuneiform and base of the first metatarsal. Next, the [place] of calcaneal bone graft autograft was then packed in the first tarsometatarsal joint. At this point, the positioner was reapplied, compression/distractor was closed down and the fulcrum was then inserted on the lateral aspect of the base of the first metatarsal. Dorsiflexion of the hallux was then performed pushing the metatarsal and tarsometatarsal joint into place. Pinning with 2 smooth K wires in crossing fashion. Next, orthogonal plating was applied using (x2) 13 mm spleed plates by bodaplanes. Procedure #4: Manual stress views, right foot (CPT code: 75496) Next, stress views were then performed by squeezing the first and second interphalangeal joint and the first metatarsophalangeal joint of the right foot. There showed evidence of mild splaying. Next using the cannulated screw system by bodaplanes a K wire was driven from the first metatarsal to second cuneiform and a 3-5 cannulated 40 mm screw was inserted with excellent position across this area stabilizing the cuneiform and first metatarsal joint as well as its position. Procedure #5: PIPJ arthrodesis, second digit, right foot (CPT code: 65790?2 6/ Procedure #6: Flexor digitorum longus tendon transfer, second digit, right foot (CPT code: 85993) Next, attention was directed to the dorsal aspect of the PIPJ of the right second digit. Using a sterile skin marker, a longitudinal incision was marked out at the level of the second metatarsal phalangeal joint and proximal interphalangeal joint of the right second digit. Using a #15 blade, a full- thickness incision down to subcutaneous tissue was made. Using sens retractors, the skin was lifted up and out and continued blunt dissection was carried down to the long extensor tendon. Once the extensor tendon was identified a plowing technique was performed on the medial and lateral aspects of the extensor tendon. A capsulotomy was performed at the PIPJ and the tendon was gently released to allow exposure of the PIPJ joint. The extensor tendon was removed but intact down to the level of the second metatarsal phalangeal joint. The capsule was identified and transected. Care was taken to identify the medial and lateral collateral ligaments of the PIPJ of the second digit which were released. Using a pickup and sagittal saw with a #114 blade, the head of the proximal phalanx was removed and passed the back table to be discarded. The base of the intermediate phalanx of the second digit was feathered to remove the articular cartilage to expose the subchondral bone. Next, due to the deformity of the second digit of the right foot a flexor digitorum longus tendon transfer was performed. The brevis tendon was identified and a longitudinal incision was used to split the brevis exposing the long flexor tendon underneath. Using a curved stat the long flexor was identified and released longitudinally as well as proximally allowing the 2 slips of the tendon to be placed up and over the base of the proximal phalanx and sutured in place using 3-0 Vicryl with over and over suture technique. After placement of the flexor tendon the hammertoe show to be in a more anatomic position. The incision was flushed with copious normal saline. Next, using the wire cross country truck driver provided by the [employer] surgical kit, the appropriate size drill was used to make the ground defence officer holes in the base and head of the intermediate and proximal phalanx. The implant was inserted, 0 degree implant per the gas pump attendant's recommendation with the rep in the room. After securing the 2 bones together there showed excellent apposition across the PIPJ of the second digit. The medial and lateral collateral ligaments were reconstructed using 4-0 Monocryl in simple interrupted suture technique. Extensor tendon was secured back to the proximal phalanx and physiological tension using 4-0 Monocryl and over and over suture technique. The K wire that was provided per the kit was advanced through the second digit and into the metatarsal head in a slight plantarflexion position parallel to the hallux. At this time the right lower extremity tourniquet was deflated and reperfusion was noted to the right lower extremity. All bleeders were cauterized and ligated as necessary. Procedure #7: Capsulotomy, third metatarsophalangeal joint, right foot (CPT code: 87964) Next, attention was directed to the dorsal aspect of the metatarsophalangeal joint. Using a 69 blade a [place] handle, a percutaneous capsulotomy was performed through a separate incision. After release of the third metatarsophalangeal joint capsule the third digit sat in a more rectus position. Next, the right lower extremity was wiped clean and patted dry. All open incisions were closed in layers using 3-0 Monocryl in a running locking suture technique for the first tarsometatarsal joint and second digit hammertoe correction deep layers. The subcutaneous layer was reapproximated and closed using 4-0 Monocryl and running suture technique to both incisions. All skin incision were reapproximated and closed using simple erupted suture technique with 4-0 nylon. The third metatarsal phalangeal joint capsulotomy incision was closed with 4-0 nylon in simple interrupted suture technique. Procedure #8: Application of posterior splint, right foot (CPT code: 43183) Next, again the right lower extremity was wiped clean and patted dry. All incisions were dressed with Betadine soaked Adaptic, dry sterile dressing and a double layer Hernandez AO splint was applied to the right lower extremity at 90 degrees. The patient tolerated the procedure and anesthesia well and apparent satisfactory condition and was transported to the PACU for further monitoring prior to discharge home. Vital signs stable and vascular status intact to all digits bilateral. Post Operative Plan: Weightbearing: Patient will be nonweightbearing to right lower extremity with crutches and/or knee scooter. Full weightbearing left lower extremity. Antibiotics: 2 g Ancef through the IV DVT Prophylaxis: 81 mg aspirin [place]: None Dressing: Betadine soaked Adaptic dry sterile dressing double layer Hernandez AO splint at 90 degrees. X-Rays: Post-operative films taken on the operating room. Pain Medication: Tylenol #3, Flexeril 10 mg Follow-up: Patient will follow-up in private office 1 week to 10 days after surgery. All postoperative instructions are in her discharge handout packet. Surgical Findings: 1. Anatomic correction of hallux valgus deformity. 2. Anatomic correction of hammertoe with flexor digitorum longus tendon transfer Complications Complications: No Admit VTE Documentation VTE Present on Admission: No VTE Mechan Device Prophylaxis: SCD's VTE Pharm Prophylaxis ordered?: Yes
[2024-04-16] MEDS: Cefazolin 2 GM in Syringe IV (07:26)
[2024-04-16] MEDS: Bupivacaine Mpf 0.5% 30 ML VIAL (07:50)
--- NOTE | 2024-04-16 13:37 | PCM.POST.ANE ---
Anesthesia: Postop Eval I Current Vital Signs Temperature: 96.9 F Pulse Rate: 75 Blood Pressure: 132/77 Respiratory Rate: 16 Pulse Ox: 95 Oxygen Delivery Method: Room Air Assessment Airway patent: Yes Spontaneous unlabored respirations: Yes Mental status: Awake and Calm nausea: No Vomiting: No Anesthesia Complication: No Fluid Hydration Crystalloid volume administer (ml): 1,800 Total IV fluid infused: 1,800 Progress Note Anesthesia document: Postop Eval 1 completed: Yes
--- NOTE | 2024-04-16 13:51 | POSTOPAN2_ITS ---
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 Spontaneous unlabored Yes 04/16/24 13:38 [employer] FACULTY MEMBER.[email or web address] respirations Mental status Awake,Calm 04/16/24 13:38 NAT[employer] FACULTY MEMBER.[email or web address] nausea No 04/16/24 13:38 NAT[employer] FACULTY MEMBER.[email or web address] Vomiting No 04/16/24 13:38 NAT[employer] FACULTY MEMBER.[email or web address] Anesthesia Postop Eval I: Fluid Summary Crystalloid volume administer 1,800 04/16/24 13:38 NATURAL [employer] FACULTY MEMBER.[email or web address] (ml) Colloids volume administered ( ml) Blood Product volume administered (ml) Total IV fluid infused 1,800 04/16/24 13:38 NATURAL [employer] FACULTY MEMBER.[email or web address] Anesthesia Postop Eval I: Summary Notes Anesthesia Complication No 04/16/24 13:38 NATURAL [employer] FACULTY MEMBER.[email or web address] Anesthesia Complication Comment: Post-operative progress note Anesthesia: Postop Eval II Evaluation Mental status: Awake and Calm Pain Level: 1 nausea: No Vomiting: No
--- NOTE | 2024-04-16 13:51 | PCM.POSTANE2 ---
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 Spontaneous unlabored Yes 04/16/24 13:38 HAND GLOVE [email or web address].[email or web address] respirations Mental status Awake,Calm 04/16/24 13:38 HAND GLOVE [email or web address] nausea No 04/16/24 13:38 HAND GLOVE CLEANER.[email or web address] Vomiting No 04/16/24 13:38 HAND GLOVE [email or web address] Anesthesia Postop Eval I: Fluid Summary Crystalloid volume administer 1,800 04/16/24 13:38 HAND GLOVE [email or web address] (ml) Colloids volume administered ( ml) Blood Product volume administered (ml) Total IV fluid infused 1,800 04/16/24 13:38 HAND GLOVE [email or web address] Anesthesia Postop Eval I: Summary Notes Anesthesia Complication No 04/16/24 13:38 HAND GLOVE [email or web address] Anesthesia Complication Comment: Post-operative progress note Anesthesia: Postop Eval II Evaluation Mental status: Awake and Calm Pain Level: 1 nausea: No Vomiting: No
== END 2024-04-16 12:20 | disposition home or self-care (01) ==
LOC: SDC 05:32 → AC 05:33
PROVIDERS: PCP Internal Medicine; Referring Provider Podiatrist Foot & Ankle Surgery; Visit Provider Podiatrist Foot & Ankle Surgery
PROC: (CPT 28285; principal; 2024-04-16 07:15)
DX: M20.11 Hallux valgus (acquired), right foot (principal); F10.21 Alcohol dependence, in remission; M19.071 Primary osteoarthritis, right ankle and foot; M20.41 Other hammer toe(s) (acquired), right foot; I10 Essential (primary) hypertension; E78.5 Hyperlipidemia, unspecified; K21.9 Gastro-esophageal reflux disease without esophagitis; F17.210 Nicotine dependence, cigarettes, uncomplicated; Z86.73 Personal history of transient ischemic attack (TIA), and cerebral infarction without residual deficits
CPT/HCPCS: 28285; 28740; 28270; 27691; 20900; 64450; 01480; 28292; 73620; 76000; 82962; C1713; J2405

== ENCOUNTER 2024-04-25 14:46 | Emergency (ER) | payer BC, SELFPAY ==
[2024-04-25 14:46] VITALS: BP 182/105; PULSE 70; RESP 16; TEMP 36.6; O2SAT 100
--- NOTE | 2024-04-25 15:37 | CT_ITS ---
EXAM: CT ABDOMEN AND PELVIS WITHOUT INTRAVENOUS CONTRAST CLINICAL INDICATION: Kidney Stone, right abdomen pain TECHNIQUE: Helically acquired images were obtained of the abdomen and pelvis without intravenous contrast. This CT exam was performed using one or more of the following dose reduction techniques: automated exposure control, adjustment of the mA and/or kV according to patient size, and/or use of iterative reconstruction technique. COMPARISON: No relevant prior studies available. FINDINGS: LOWER THORAX: Trace coronary artery calcifications and/or stents. Lung bases are clear. No cardiomegaly. No significant pericardial effusion. ABDOMEN: LIVER: No significant abnormality. Homogeneous. GALLBLADDER AND BILE DUCTS: No significant abnormality. No calcified gallstones. No gallbladder distention or wall edema. No intra- or extrahepatic biliary ductal dilation. PANCREAS: No significant abnormality. No focal cystic mass. SPLEEN: No significant abnormality. Normal size without focal cystic or solid mass. ADRENALS: There is a 1.3 cm right adrenal nodule of uniform low attenuation consistent with an adenoma. KIDNEYS AND URETERS: There is a right renal cyst which no follow-up is indicated. Normal renal size and position. No hydronephrosis. STOMACH AND BOWEL: There are a few colonic diverticula without evidence of acute diverticulitis. No stomach or bowel distention. PELVIS: APPENDIX: Normal appendix is identified in the right lower quadrant. BLADDER: No significant abnormality. REPRODUCTIVE: Normal as visualized. No mass. ABDOMEN and PELVIS: INTRAPERITONEAL SPACE: No significant abnormality. No ascites or other fluid collection. No free air. BONES/JOINTS: No significant abnormality. No suspicious lytic or blastic abnormality. SOFT TISSUES: No significant abnormality. No discrete abdominal or pelvic wall hernia. VASCULATURE: Atherosclerosis of the aorta and its branch vessels. LYMPH NODES: No significant abnormality. No enlarged lymph nodes. CT/Abdomen/Pelvis without Cont IMPRESSION: 1. There is a 1.3 cm right adrenal nodule of uniform low attenuation consistent with an adenoma. ACR White Paper guidelines (Babcock-Urban, et al. JACR 2017; 14(8):4192-5200) suggest no imaging follow-up is necessary. ACR White Paper guidelines (Babcock-Urban, et al. JACR 2017; 14(8):3800-5414) suggest no imaging follow-up is necessary. Consider biochemical assays to determine functional status and exclude pheochromocytoma if biopsy/resection is planned. 2. There are a few colonic diverticula without evidence of acute diverticulitis. 3. No obstructive urolithiasis or hydronephrosis. Electronically Signed: Franco Moses DO at 17:06 EST ,
--- NOTE | 2024-04-25 15:38 | ED.VIS.GI ---
HPI HPI - GI History of Present Illness Chief Complaint: Flank Pain Narrative Narrative: 59-year-old female past medical history of recent bunion surgery on her right foot presents with back pain and right lower quadrant abdominal pain since this morning. She relates history that earlier today, she experienced back pain that wraps around to the front. She thought that maybe it was secondary to her rib displacement because of her recent surgery. She went to the chiropractor, then came home and took her Tylenol 3. Her back started to relax but she started experiencing pain again, more towards her right flank. She states it is deeper in her abdomen. She is nauseated but she has not vomited. She denies any dysuria or hematuria, no problems with bowel movements. No prior abdominal surgeries. No exacerbating or alleviating factors. PFSH PFSH Medical History PONV (postoperative nausea and vomiting) Post-menopausal Alcohol use Wears glasses Anxiety Depression Smoker GERD (gastroesophageal reflux disease) History of echocardiogram History of stress test Cardiology follow-up encounter Hypoglycemia Nonspecific ST-T wave electrocardiographic changes Eczema History of TIA (transient ischemic attack) Chronic GERD Hyponatremia Exertional dyspnea Chest pain Hypertension Tobacco use Multiple lacunar infarcts Facial paresthesia Depression with anxiety Hypertensive urgency Alcohol abuse Home Medications ?Medication ?Instructions ?Recorded ?Last Taken ?Type atorvastatin 20 mg tablet 10 mg PO DAILY 07/05/23 04/15/24 History cartilage 40 mg-collagen II 10 1 tab PO DAILY 07/05/23 04/15/24 History mg-boron 5 mg-hyaluronate 3.3 mg tablet (Zane Prep) cholecalciferol (vitamin D3) 50 50 mcg PO DAILY 07/05/23 04/15/24 History mcg (2,000 unit) capsule citalopram 40 mg tablet 40 mg PO DAILY 07/05/23 04/15/24 History clonidine HCl 0.1 mg tablet 0.1 mg PO Q12H 07/05/23 04/15/24 History folic acid 400 mcg tablet 0.4 mg PO DAILY 07/05/23 04/15/24 History lisinopril 20 mg tablet 20 mg PO BID 07/05/23 04/15/24 History olopatadine 0.2 % eye drops 1 drp ophthalmic (eye) DAILY PRN 07/05/23 04/15/24 History itching pantoprazole 40 mg tablet,delayed 40 mg PO DAILY 07/05/23 04/15/24 History release thiamine HCl (vitamin B1) 100 mg 100 mg PO DAILY 07/05/23 04/15/24 History tablet trazodone 50 mg tablet 50 mg PO QHS 07/05/23 04/15/24 History aspirin 81 mg capsule 81 mg PO DAILY 01/17/24 04/15/24 History ascorbic acid (vitamin C) 1,000 mg 1 g PO DAILY 90 days #90 tabs 01/24/24 04/15/24 Rx tablet (Vitamin C) fluticasone propionate 50 1 spray intranasal Q12H PRN 03/26/24 Unknown History mcg/actuation nasal allergy symptoms spray,suspension acetaminophen 300 mg-codeine 30 mg 1 tab PO Q6H 7 days #28 tabs 04/16/24 Unknown Rx tablet ascorbic acid (vitamin C) 1,000 mg 1 g PO DAILY 90 days #90 tabs 04/16/24 Unknown Rx tablet (Vitamin C) calcium 500 mg (as 1 tab PO DAILY 90 days #90 tabs 04/16/24 Unknown Rx carbonate)-vitamin D3 15 mcg (600 unit) tablet (Os-Stephen 500 + D3) cyclobenzaprine 10 mg tablet 10 mg PO TID muscle spasm 7 days 04/16/24 Unknown Rx #21 tabs docusate sodium 100 mg capsule 100 mg PO DAILY 10 days #10 caps 04/16/24 Unknown Rx (Colace) lite wave pain patch 2 patch DAILY PRN 04/16/24 04/16/24 History Allergy/AdvReac Type Severity Reaction Status Date / Time bacitracin Allergy Rash Verified 04/25/24 14:48 neomycin (From Neosporin Allergy Rash Verified 04/25/24 14:48 ([id number])) polymyxin B (From Neosporin Allergy Rash Verified 04/25/24 14:48 ([id number])) ibuprofen AdvReac Severe Other Verified 04/25/24 14:48 esomeprazole (From Nexium) AdvReac Other Verified 04/25/24 14:48 Family History Grandmother Alcohol abuse CVA (cerebral vascular accident) Depression Father Hypertension Diabetes Cancer Mother Hypercholesterolemia Thyroid disorder Depression Surgical History History of colonoscopy History of tonsillectomy and adenoidectomy History of knee surgery History of foot surgery Social History Smoking Status: Current every day smoker tobacco type: cigarettes alcohol intake: current alcohol intake frequency: 3 or more drinks per day Alcohol type: wine substance use type: does not use caffeine: Yes Type: carbonated beverages and coffee Number of servings: 1 ROS ROS ED ROS Narrative Review of systems positive for right flank pain. Positive nausea. No fevers or chills. No dysuria or hematuria. No diarrhea. EXAM Physical Exam Narrative Exam Narrative: Afebrile. Vital signs noted. Nontoxic-appearing. Patient lying comfortably on the cot. Right lower extremity dressed with Paco wrap/splint. HEENT examination grossly unremarkable. Cardiovascular examination regular rate and rhythm. Lungs are clear to auscultation bilaterally. The abdomen is soft and nontender with positive bowel sounds. No guarding or rebound. Neurological examination is nonfocal and nonlateralizing. Const Vital Signs: 04/25/24 14:46 04/25/24 16:43 Temperature 98 F Temperature Source Temporal Pulse Rate 70 59 L Respiratory Rate 16 16 Blood Pressure 182/105 H 195/92 H Blood Pressure Mean 130 126 Pulse Ox 100 100 Oxygen Delivery Method Room Air Room Air MDM MDM MDM Narrative Medical decision making narrative: Differential diagnosis includes but not limited to ureterolithiasis with ureteral colic versus diverticulitis versus acute appendicitis versus ovarian pathology. I have very low suspicion for acute appendicitis based on her history and physical. Additionally, history and physical does not support diverticulitis. Comprehensive workup was pursued. They were concerned because she took her Tylenol with codeine just a few hours ago. She will be administered morphine 2 mg intravenously and ondansetron. She states she cannot take ibuprofen secondary to multiple strokes. Hence, she will not be given Toradol. I reviewed her laboratory work and she has a leukocytosis of 16.0 but she did recently have surgery and has healing foot wound. Hemoglobin 12.0, platelet count 416. Review of her sodium shows is low at 126 with a chloride of 94. This consistent with mild dehydration. With her review of previous laboratory work she has had hyponatremia in the past. She was bolused normal saline 1 L intravenously. Urinalysis was obtained and reviewed and is negative for infection or blood. I reviewed the radiology report of the CT of the abdomen and pelvis and there is no evidence of hydronephrosis or ureterolithiasis. Appendix appears normal. There is an incidental finding of an adrenal adenoma but they do not recommend follow-up. I do not feel this is the cause of her flank pain. After a total of 6 mg of morphine, patient is lying comfortably on the cot. I discussed with her her hyponatremia and dehydration, and we discussed observation, but she prefers outpatient treatment. As she has been bolused normal saline I feel she can be be discharged to drink 40 of oral fluids and have her sodium rechecked by her primary care provider. Return instructions to the emergency department were reviewed. Patient is motivated for discharge. Disposition is discharged home in stable condition. History & Record Review Discussion w/independent historian: Patient and Family Lab Data Attestation: I reviewed the patient's lab results. Labs: Laboratory Results - last 24 hr 04/25/24 04/25/24 15:43 16:00 WBC 16.0 H RBC 4.00 L Hgb 12.0 Hct 35.1 L MCV 87.8 MCH 30.0 MCHC 34.2 RDW Std Deviation 40.7 RDW Coeff of Klaus 12.8 Plt Count 416 MPV 9.7 Immature Gran % (Auto) 0.400 Neut % (Auto) 70.6 H Lymph % (Auto) 23.1 [place] % (Auto) 4.9 Eos % (Auto) 0.6 Baso % (Auto) 0.4 Absolute Neuts (auto) 11.3 H Absolute Lymphs (auto) 3.71 Nucleated RBC % 0 Sodium 126 L Potassium 4.0 Chloride 94 L Carbon Dioxide 25.0 Anion Gap 7 BUN 8 Creatinine 0.59 Est GFR (MDRD) Af Amer 134 Est GFR (MDRD) Non-Af 111 BUN/Creatinine Ratio 13.5 Glucose 93 Calcium 9.6 Urine Color Yellow Urine Clarity Clear Urine pH 7.0 Ur Specific [place] 1.010 Urine Protein 15 H Urine Glucose (UA) Normal Urine Ketones Negative Urine Occult Blood 25 H Urine Nitrite Negative Urine Bilirubin Negative Urine Urobilinogen Normal Ur Leukocyte Esterase Negative Urine RBC 0-5 SEEN Urine WBC 0 SEEN Ur Squamous Epith Cells 0-5 SEEN Urine Bacteria 0 SEEN Urine Mucus 0 SEEN Radiography Diagnostic Testing: Clinical Impression(s) from Imaging Studies Abdomen/Pelvis CT 04/25/24 15:37 IMPRESSION: 1. There is a 1.3 cm right adrenal nodule of uniform low attenuation consistent with an adenoma. ACR White Paper guidelines (Babcock-Urban, et al. JACR 2017; 14(8):0054-9972) suggest no imaging follow-up is necessary. ACR White Paper guidelines (Babcock-Urban, et al. JACR 2017; 14(8):1343-5178) suggest no imaging follow-up is necessary. Consider biochemical assays to determine functional status and exclude pheochromocytoma if biopsy/resection is planned. 2. There are a few colonic diverticula without evidence of acute diverticulitis. 3. No obstructive urolithiasis or hydronephrosis. Electronically Signed: Franco Moses DO at 17:06 EST , Discharge Plan Triage Chief Complaint: Flank Pain ED Provider: Zan Padilla Dx/Rx/DC Orders Clinical Impression: Right flank pain, Hyponatremia, Leukocytosis, Adrenal adenoma Instructions: ED Flank Pain, Uncertain Cause, ED Hyponatremia, ED Tumor, Uncertain Cause Prescriptions: No Action lisinopril 20 mg tablet 20 mg PO BID clonidine HCl 0.1 mg tablet 0.1 mg PO Q12H pantoprazole 40 mg tablet,delayed release (DR/EC) 40 mg PO DAILY atorvastatin 20 mg tablet 10 mg PO DAILY trazodone 50 mg tablet 50 mg PO QHS citalopram 40 mg tablet 40 mg PO DAILY Joint [email or web address] 40-10-5-3.3 mg tablet 1 tab PO DAILY cholecalciferol (vitamin D3) 50 mcg (2,000 unit) capsule 50 mcg PO DAILY thiamine HCl (vitamin B1) 100 mg tablet 100 mg PO DAILY folic acid 400 mcg tablet 0.4 mg PO DAILY olopatadine 0.2 % drops 1 drp ophthalmic (eye) DAILY PRN (Reason: itching) lite wave pain patch 2 patch DAILY PRN acetaminophen-codeine 300-30 mg tablet 1 tab PO Q6H 7 Days Qty: 28 0RF docusate sodium [Colace] 100 mg capsule 100 mg PO DAILY 10 Days Qty: 10 0RF cyclobenzaprine 10 mg tablet 10 mg PO TID 7 Days Qty: 21 0RF calcium carbonate-vitamin D3 [Os-Stephen 500 + D3] 500 mg-15 mcg (600 unit) tablet 1 tab PO DAILY 90 Days Qty: 90 0RF ascorbic acid (vitamin C) [Vitamin C] 1,000 mg tablet 1 g PO DAILY 90 Days Qty: 90 0RF aspirin 81 mg capsule 81 mg PO DAILY ascorbic acid (vitamin C) [Vitamin C] 1,000 mg tablet 1 g PO DAILY 90 Days Qty: 90 0RF fluticasone propionate 50 mcg/actuation spray,suspension 1 spray INTRANASAL Q12H PRN (Reason: allergy symptoms) Primary Care Provider: Mattie Howard Referrals: Mattie Howard DO [Primary Care Provider] - 3-5 Days Activity Restrictions/Additional Instructions: Drink plenty of oral fluids. Take your Tylenol 3 as previously directed. Return with increased pain, new or worsening symptoms. You may need to have your sodium rechecked as an outpatient. Print Language: Chadian Disposition Disposition: Home, Self Care
[2024-04-25 15:51] LABS: Absolute Lymphocyte Count 3.71 X10^3/uL (0.83-4.51); Absolute Neutrophil Count 11.3 X10^3/uL (2.0-7.7); Basophil# 0.06 X10^3/uL; Basophil% 0.4 % (0-1); Eosinophils% 0.6 % (0-5); Hematocrit 35.1 % (37-47); Lymphocyte # 3.71 X10^3/ul (0.83-4.51); Lymphocyte % 23.1 % (19-41); Mean Corp Hgb Conc 34.2 g/dL (32-36); Mean Corpuscular Volume 87.8 fL (81-99); Mean Platelet Vol. 9.7 fl (6.2-12.0); Monocyte# 0.78 X10^3/uL; Monocyte% 4.9 % (0-10); NRBC Flagged by Analyzer 0 % (0-5); Neutrophil # 11.32 X10^3/uL (2.7-7.7); Neutrophil % 70.6 % (47-70); Platelet Count 416 K/mm3 (150-450); RBC Distribution Width CV 12.8 % (11.6-14.6); RBC Distribution Width SD 40.7 fl (35.1-43.9)
[2024-04-25] MEDS: Ondansetron 4 MG/2 ML Vial IV (15:59)
[2024-04-25] MEDS: Morphine 2 MG/ML Syringe IV (16:01)
[2024-04-25 16:08] LABS: Anion Gap 7 (5-15); BUN 8 mg/dL (7-18); BUN/Creat Ratio 13.5 RATIO (10-20); Calcium,Total 9.6 mg/dL (8.5-10.1); Chloride 94 mmol/L (98-107); Creatinine, Serum 0.59 mg/dL (0.55-1.02); EST Glomerular Filtration Rate 111 mL/min (>60); Est Glom Filt Rate - Afr Amer 134 mL/min (>60); Glucose 93 mg/dL (74-106); Sodium Level 126 mmol/L (136-145)
[2024-04-25 16:13] LABS: Bacteria 0 SEEN /hpf (None Seen); Mucous, Urine 0 SEEN /hpf (<or=2+); White Blood Cells 0 SEEN /hpf (0-5)
[2024-04-25 16:16] LABS: Color, Urine Yellow (Yellow); Glucose, Dipstick Normal (Normal); Ketone-Dipstick Negative (Negative); Leukocyte Esterase-Dipstick Negative /ul (Negative); Nitrite-Dipstick Negative (Negative); Occult Blood-Urine 25 /ul (Negative); Protein-Dipstick 15 mg/dl (Negative); Urine Bilirubin Dipstick Negative (Negative); Urine Clarity Clear (Clear); Urine Urobilinogen Normal (Normal)
[2024-04-25 16:23] LABS: Red Blood Cells-Urine 0-5 SEEN /hpf (0-5); Squamous Epithelial Cells - UA 0-5 SEEN /hpf (5-10)
[2024-04-25] MEDS: 0.9% Normal Saline (1000mL) 1,000 ML 999 ML IV (16:40)
[2024-04-25 16:41] VITALS: BMI 26.2
[2024-04-25 16:43] VITALS: BP 195/92; PULSE 59; RESP 16; O2SAT 100
[2024-04-25] MEDS: Morphine 4 MG/ML Syringe IV (17:01)
[2024-04-25 18:00] VITALS: BP 134/76; PULSE 78; RESP 16; TEMP 37; O2SAT 99
== END 2024-04-25 18:05 | disposition home or self-care (01) ==
PROVIDERS: Emergency Provider Emergency Medicine; PCP Internal Medicine; Visit Provider Emergency Medicine
DX: R10.31 Right lower quadrant pain (principal); E87.1 Hypo-osmolality and hyponatremia; D35.00 Benign neoplasm of unspecified adrenal gland; D72.829 Elevated white blood cell count, unspecified; I10 Essential (primary) hypertension; Z86.73 Personal history of transient ischemic attack (TIA), and cerebral infarction without residual deficits; F32.A Depression, unspecified; K21.9 Gastro-esophageal reflux disease without esophagitis; Z79.899 Other long term (current) drug therapy; F17.210 Nicotine dependence, cigarettes, uncomplicated
CPT/HCPCS: 74176; 80048; 81001; 85025; 96361; 96374; 96375; 99282; A4216; J2405

== ENCOUNTER → 2024-09-01 | Outpatient (CLI) | payer BC, SELFPAY ==
[2024-09-03 16:09] LABS: Almond <0.10 kU/L (Class 0); Apple <0.10 kU/L (Class 0); Banana <0.10 kU/L (Class 0); Barley, Whole Grain <0.10 kU/L (Class 0); Brazil Nut <0.10 kU/L (Class 0); Carrot <0.10 kU/L (Class 0); Cashew <0.10 kU/L (Class 0); Chicken <0.10 kU/L (Class 0); Egg, White <0.10 kU/L (Class 0); Egg, Yolk <0.10 kU/L (Class 0); Garlic <0.10 kU/L (Class 0); Gluten <0.10 kU/L (Class 0); Hazelnut/Filbert <0.10 kU/L (Class 0); Milk (Cow) 4.36 kU/L (Class IV); Oat 0.39 kU/L (Class I); Onion <0.10 kU/L (Class 0); Orange <0.10 kU/L (Class 0); Pea <0.10 kU/L (Class 0); Peach <0.10 kU/L (Class 0); Potato, White <0.10 kU/L (Class 0); Rice <0.10 kU/L (Class 0); SESAME SEED <0.10 kU/L (Class 0); Soybean <0.10 kU/L (Class 0); Wheat <0.10 kU/L (Class 0); Yeast <0.10 kU/L (Class 0)
== END | disposition home or self-care (01) ==
LOC: LAB 09:28
PROVIDERS: PCP Internal Medicine; Referring Provider Otolaryngology Otolaryngology/Facial Plastic Surgery; Visit Provider Otolaryngology Otolaryngology/Facial Plastic Surgery
DX: T78.40XA Allergy, unspecified, initial encounter (principal)
CPT/HCPCS: 36415; 86003

== ENCOUNTER 2024-11-10 18:39 | Emergency (ER) | payer BC, SELFPAY ==
[2024-11-10 18:39] VITALS: BP 160/83; PULSE 72; RESP 16; TEMP 36.4; O2SAT 99; BMI 27.0
--- NOTE | 2024-11-10 18:45 | ED.RN ---
Spoke with Dr Song, no stroke alert initiated. Pt has right jaw numbness
--- NOTE | 2024-11-10 18:49 | EKG12_ITS ---
Test Reason : CP Blood Pressure : */* mmHG Vent. Rate : 67 BPM Atrial Rate : 67 BPM P-R Int : 164 ms QRS Dur : 86 ms QT Int : 440 ms P-R-T Axes : 37 75 54 degrees QTcB Int : 464 ms Normal sinus rhythm Normal ECG Confirmed by Elliott Garcias ([id number]), editor trade journal KAREN LAY ([id number]) on 11/12/2024 11:49:45 AM Referred By: Confirmed By: Elliott Garcias
== END 2024-11-10 19:20 | disposition left against medical advice (07) ==
LOC: ED 19:27
PROVIDERS: PCP Internal Medicine
DX: T78.40XA Allergy, unspecified, initial encounter (principal)
CPT/HCPCS: 93005

== ENCOUNTER → 2025-01-08 | Outpatient (CLI) | payer BC, SELFPAY ==
--- NOTE | 2025-01-08 10:45 | BI_ITS ---
EXAM: SCRN MAMM (CAD)W/DUNCAN BILAT DATE: 01/08/2025 CLINICAL HISTORY: F, Age 59 y/o , ENCOUNTER FOR SCREENING FOR MALIGNANT NEOPLASM OF BREAST TECHNIQUE: Procedure Code: [id number] Modality: MG Procedure: SCRN MAMM (CAD)W/DUNCAN BILAT COMPARISON: Prior exam(s) dated 06/11/2023. FINDINGS: TISSUE DENSITY: There are scattered areas of fibroglandular density. Bilateral Breast Mammographic Findings: No significant masses, calcifications or other abnormalities are identified. BI/SCRN MAMM (CAD)W/DUNCAN BILAT IMPRESSION: There is no mammographic evidence of malignancy. OVERALL FINAL ASSESSMENT BI-RADS 1: NEGATIVE. RECOMMENDATION: Routine annual follow-up in 1 Year A letter with findings and recommendations will be mailed to the patient. Reading Location: [id number]
== END | disposition home or self-care (01) ==
LOC: OPBI 10:31
PROVIDERS: PCP Internal Medicine; Referring Provider Internal Medicine; Visit Provider Internal Medicine
DX: Z12.31 Encounter for screening mammogram for malignant neoplasm of breast (principal)
CPT/HCPCS: 77063; 77067

== ENCOUNTER 2025-01-09 09:00 | Outpatient (CLI) | payer BC, SELFPAY ==
--- NOTE | 2025-01-09 09:05 | CT_ITS ---
PROCEDURE: LOW DOSE CT LUNG SCREENING 01/09/2025 REASON FOR EXAM: LOW-DOSE COMPUTED TOMOGRAPHY FOR LUNG CANCER SCREENING Patient has smoked 1 pack per day for 45 years. Former smoker. TECHNIQUE: Procedure Code: [id number] Modality: CT Procedure: LOW DOSE CT LUNG SCREENING Coronal and Sagittal reconstruction series were provided. One or more dose reduction techniques were used (e.g., Automated exposure control, adjustment of the mA and/or kV according to patient size, use of iterative reconstruction technique). REFERENCE LINK: [facility] [employer] Lung-RADS RADIATION DOSE SUMMARY: CTDlvol: 3.02 mGy DLP: 106.84 mGycm COMPARISON: Prior study dated July 16, 2023. FINDINGS: PULMONARY NODULES: (Only nodules >3mm are reported) Nodules described below are on series 1 unless otherwise specified. Pulmonary Nodules: No suspicious pulmonary nodule seen. Hardware:None Lymph Nodes:Stable small benign-appearing mediastinal lymph nodes. Heart and Vasculature:The heart is nonenlarged. Coronary Artery Calcifications: Present Lungs and Airways: Mild emphysematous changes are present. Pleura:No pleural effusion. Upper Abdomen:Left renal cyst. Bones:Degenerative changes of the thoracic spine. CT/Low Dose CT Lung Screening IMPRESSION: Stable examination. No suspicious pulmonary nodule is seen. Coronary artery calcification (CAC) is is present Lung-RADS Category: 2 BENIGN (BASED ON IMAGING FEATURES OR INDOLENT BEHAVIOR). RECOMMEND 12-MONTH SCREENING LDCT. Other Significant Findings: Reading Location: [place] [id number]
--- OUTSIDE RECORDS SUMMARY | 2025-01-09 09:06 | XMS RPT_ITS | CCD ---
Author Organization [facility] Care Team Providers Care Water Use Inspector Name Role Phone Larry Toro Unavailable Unavailable Luis Eduardo Marin Unavailable Unavailable Kong Reddy Unavailable IVY Unavailable Unavailable Kong Reddy Primary Care Provider Kong Reddy Unavailable KONG REDDY Attending Unavailable KONG REDDY Referring Unavailable KONG REDDY Primary Care Unavailable Kong Reddy Primary Care Provider Kong Reddy Primary Care Provider [phone] Aliyah King Unavailable Kong Reddy Unavailable [phone] Kong Reddy MD Primary Care Provider Kong Reddy MD Unavailable [phone] Kong Reddy MD Unavailable [phone] Kong Reddy MD Primary Care Provider Kong Reddy MD Unavailable Kong Reddy MD Unavailable Kong Reddy MD Primary Care Provider Kong Reddy MD Unavailable [phone] Sree Escalera MD Unavailable [phone] Kong Reddy MD Primary Care Provider [phone] King COLLEGE RECRUITER SALES AND EVENTS COORDINATOR, Aliyah Unavailable [phone] Jw RAMOS, Sree Ruiz Unavailable Yajaira Vasquez MD Unavailable Kong Reddy MD Primary Care Provider [phone] Kong Reddy MD Unavailable Radha RAMOS, Valaried Al Unavailable Kong Reddy MD Primary Care Provider Fernando MURRELL SALES AND EVENTS COORDINATOR, Aliyah Unavailable [phone] Kong Reddy MD Primary Care Provider Kong Reddy MD Unavailable [phone] Radha RAMOS, Amjad Al Unavailable Rass, Amjad A Primary Care Unavailable Rass, Amjad A Referring Unavailable Rass, Amjad A Attending Unavailable Rass, Amjad A Primary Care Unavailable Helena Conner Attending Unavailable Rass, Amjad A Primary Care Unavailable Rass, Amjad A Referring Unavailable Rass, Amjad A Attending Unavailable Kong Reddy MD Unavailable Kong Reddy MD Primary Care Provider [phone] King COLLEGE RECRUITER SALES AND EVENTS COORDINATOR, Aliyah Unavailable Art PT, DPT, Laura Unavailable Unavailable MEDONE, SERVICE Admitting Unavailable KONG REDDY Primary Care Unavailable EMERSON IYER Attending Unavailable EMERSON IYER Referring Unavailable TONEY HARKINS Referring Unavailable TONEY HARKINS Attending Unavailable KONG ERDDY Primary Care Unavailable TONEY HARKINS Referring Unavailable KONG REDDY Primary Care Unavailable TONEY HARKINS Attending Unavailable PROVIDER, MEDONE ACC GENERIC DEPT Attending Unavailable KONG REDDY Primary Care Unavailable ENE DIAS S Referring Unavailable KONG REDDY Primary Care Unavailable MEDONE, SERVICE Admitting Unavailable SUBHASH URBAN Attending Unavailable SUBHASH URBAN Referring Unavailable TONEY HARKINS Referring Unavailable KONG REDDY Primary Care Unavailable TONEY HARKINS Attending Unavailable REDDY, KONG J Primary Care Unavailable CATIA, ALIYAH Attending Unavailable CATIA, ALIYAH Referring Unavailable MEDONE, SERVICE Attending Unavailable REDDY, KONG J Primary Care Unavailable EMERSON IYER Admitting Unavailable REDDY, KONG J Primary Care Unavailable CATIA, ALIYAH Attending Unavailable CATIA, ALIYAH Referring Unavailable SREE ESCALERA Attending Unavailable REDDY, KONGMARTA JUAREZ Primary Care Unavailable REDDY, KONG JUAREZ Attending Unavailable REDDY, KONG LARRY Primary Care Unavailable REDDY, KONG LARRY Primary Care Unavailable REDDY, KONG LARRY Attending Unavailable REDDY, KONG LARRY Attending Unavailable REDDY, KONG LARRY Primary Care Unavailable REDDY, KONG LARRY Attending Unavailable REDDY, KONG LARRY Primary Care Unavailable REDDY, KONG LARRY Primary Care Unavailable REDDY, KONG LARRY Attending Unavailable REDDY, KONG LARRY Attending Unavailable REDDY, KONG LARRY Primary Care Unavailable REDDY, KONG JUAREZ Attending Unavailable REDDY, KONG LARRY Primary Care Unavailable REDDY, KONG JUAREZ Attending Unavailable REDDY, KONG LARRY Primary Care Unavailable REDDY, KONG LARRY Attending Unavailable REDDY, KONG LARRY Primary Care Unavailable REDDY, KONG LARRY Attending Unavailable REDDY, KONG LARRY Primary Care Unavailable REDDY, KONG LARRY Admitting Unavailable REDDY, KONG LARRY Primary Care Unavailable REDDY, KONG LARRY Admitting Unavailable REDDY, KONG LARRY Primary Care Unavailable REDDY, KONG LARRY Admitting Unavailable REDDY, KONG LARRY Primary Care Unavailable REDDY, KONG JUAREZ Admitting Unavailable REDDY, KONG LARRY Primary Care Unavailable Mattie Rodríguez DO Primary Care Provider MATTIE RODRÍGUEZ Referring Unavailable MATTIE RODRÍGUEZ Primary Care Unavailable Dr. Mattie Rodríguez Primary Care Provider Dr. Germain Ty Attending Provider DR MATTIE RODRÍGUEZ DO Primary Care Physician CHARMAINE JIMENEZ MD Attending Unavailable ANNE OROZCO, DR TOUSSAINT Primary Care Unavailab CHARMAINE Wheat MD Attending Unavailable ANNE OROZCO, DR TOUSSAINT Primary Care Unavailab Dr. Mattie Chan Primary Care Provider [phone] Dr. Germain Ty Attending Provider Dr. Mattie Rodríguez Referring Provider [phone] Dr. Elliott Garcias Attending Provider Adela Marshall Attending Unavailable Anne, Mattie Primary Care Unavailable SkruAdela bahena Attending Unavailable Anne, Mattie Primary Care Unavailable Anne, Mattie Primary Care Unavailable SkruAdela bahena Attending Unavailable Anne, Mattie Primary Care Unavailable SkruckAdela Attending Unavailable Provider, Ed Physician Attending Unavailab le Anne, Mattie Primary Care Unavailable Nirav Alba Attending Unavailable Anne, Mattie Primary Care Unavailable Anne, Mattie Primary Care Unavailable Zan Padilla Attending Unavailable Nate Mckenzie Referring Unavailable Nate Mckenzie Attending Unavailable Anne, Mattie Primary Care Unavailable Nate Mckenzie Referring Unavailable Nate Mckenzie Attending Unavailable Anen, Mattie Primary Care Unavailable Anne, Mattie Primary Care Unavailable SkAdela calivn Attending Unavailable Anne, Mattie Referring Unavailable Anne, Mattie Attending Unavailable Anne, Mattie Primary Care Unavailable Anne, Mattie Primary Care Unavailable Skruck, Adela Attending Unavailable Anne, Mattie Primary Care Unavailable Skruck, Adela Attending Unavailable Anne, Mattie Primary Care Unavailable SkruckAdela Attending Unavailable Anne, Mattie Primary Care Unavailable SkruAdela bahena Attending Unavailable Anne, Mattie Primary Care Unavailable SkruckAdela Attending Unavailable Anne, Mattie Primary Care Unavailable SkruckAdela Attending Unavailable Anne, Mattie Primary Care Unavailable Skruck, Adela Attending Unavailable Anne, Mattie Primary Care Unavailable SkruckAdela Attending Unavailable Anne, Mattie Primary Care Unavailable SkruckAdela Attending Unavailable Anne, Mattie Primary Care Unavailable SkruckAdela Attending Unavailable Anne, Mattie Primary Care Unavailable SkruckAdela Attending Unavailable Anne, Mattie Primary Care Unavailable Anne, Mattie Referring Unavailable Anne, Mattie Attending Unavailable Anne, Mattie Primary Care Unavailable Bernardo Julian Referring Unavailable Eliel, Bernardo K Attending Unavailable Allergies Allergy Classification Reported Allergen(s) Allergy Type Date of Onset Reaction(s) Facility Aminoglycosides (antibiotic) (4 sources) Neomycin Drug Allergy 04-18-20 17 Unknown [facility] Bacitracin (4 sources) Bacitracin Drug Allergy 08-30-19 15 Rash [facility] bacitracin / neomycin / polymyxin b (4 sources) bacitracin / neomycin / polymyxin b Drug Allergy 03-24-20 18 [facility] Polymyxin B (4 sources) Polymyxin B Drug Allergy 04-18-20 17 Unknown [facility] Sulfamethoxazole / Trimethoprim (4 sources) Sulfamethoxazole / Trimethoprim Drug Allergy 10-19-19 20 Rash [facility] (20 sources) bacitracin; Translations: [bacitracin] drug allergy 08-30-19 15 Rash [facility] Work Phone: (1 source) bacitracin; Translations: [BACITRACIN ZINC] drug allergy 04-18-20 17 Unknown [facility] Work Phone: (1 source) neomycin; Translations: [NEOMYCIN SULFATE] drug allergy 04-18-20 17 Unknown [facility] Work Phone: (20 sources) polymyxin b; Translations: [polymyxin B] drug allergy 04-18-20 17 Unknown [facility] Work Phone: (9 sources) Bacitracin / Neomycin / Polymyxin B; Translations: [Unknown] Drug Allergy 03-24-20 18 [facility] (20 sources) Sulfamethoxazole / Trimethoprim; Translations: [SULFAMETHOXAZOLE-T RIMETHOPRIM] Drug Allergy 10-19-19 [facility] (20 sources) Neomycin-Bacitracnz n-Polymyxnb; Translations: [bacitracin/neomyci n/polymyxin B topical] Propensity to adverse reactions to drug 03-24-[address] [facility] (20 sources) Neomycin; Translations: [NEOMYCIN] Drug Allergy 04-18-20 17 Unknown [facility] (2 sources) Bacitracin / Polymyxin B Drug Allergy 02-14-20 21 [facility] (1 source) ALLERGIES NOT ON FILE; Translations: [ALLERGIES NOT ON FILE] Propensity to adverse reactions (disorder) [facility] (2 sources) Esomeprazole Drug Allergy 07-05-19 24 Other [facility] (1 source) Bacitracin Drug Allergy 11-11-19 [facility] (1 source) Esomeprazole Drug Allergy 11-11-19 [facility] (1 source) Ibuprofen Drug Allergy 11-11-19 [facility] (1 source) Neomycin Drug Allergy 11-11-19 [facility] (1 source) polymyxin B Drug allergy (disorder) 11-11-19 [facility] Medications Current Medications Medication Drug Class(es) Dates Sig (Normalized) Sig (Original) Ruth Hives 24 Hour (2 sources) Start: 06-26-2023 take 1 dose by mouth once daily Ruth Hives 24 Hour Dose : 180 mg =, Oral, qDay, 0 Refill(s) Start Date: 06/26/23 Status: Ordered amLODIPine 10 mg oral tablet (12 sources) Dihydropyridine Calcium Channel Matthew Start: 12-08-2022 take 1 tablet by mouth once daily amLODIPine (NORVASC) 10 MG tablet Take 1 tablet by mouth daily. 30 tablet 2 12/08/2022 Active Start: 12-07-2022 amLODIPine (NO RVASC) tablet 10 mg Start: 12-06-2022 End: 12-07-2022 take 5 mg by mouth once daily 5 mg, Oral, DAILY, First dose on Babs 12/06/22 at 0900, Until Discontinued amoxicillin 875 mg / clavulanate 125 mg oral tablet (2 sources) Penicillin-class Antibacterial Start: 04-18-2022 End: 04-28-2022 take 1 tablet by mouth twice daily amoxicillin-clavulanate (AUGMENTIN) 875-125 mg per tablet Take 1 (one) tablet by mouth 2 (two) times a day for 10 days . 20 tablet 0 04/18/2022 04/28/2022 Active Start: 01-08-2019 End: 02-02-2019 take 1 tablet by mouth twice daily amoxicillin-clavulanate (AUGMENTIN) 875-125 mg per tablet Take 1 (one) tablet by mouth 2 (two) times a day . 20 tablet 0 01/08/2019 02/02/2019 Discontinued (Therapy completed) aspirin 81 mg chewable tablet (11 sources) Platelet Aggregation Inhibitor, Nonsteroidal Anti-inflammatory Drug Start: 12-06-2022 End: 01-07-2023 take 1 tablet by mouth once daily aspirin 81 MG chewable tablet Take 1 tablet by mouth daily for 30 days. 30 tablet 2 12/08/2022 01/07/2023 Active atorvastatin 20 mg oral tablet (15 sources) HMG-CoA Reductase Inhibitor Start: 07-05-2023 take 20 mg by mouth once daily Atorvastatin Active 20 MG PO DAILY July 05, 2023 12:00am Start: 06-26-2023 atorvastatin 2 0 mg oral tablet Dose : 20 mg = 1 tab(s), Oral, Daily, # 100 tab(s), 0 Refill(s) Start Date: 06/26/23 Status: Ordered Start: 12-05-2022 take 1 tablet by ivette once daily atorvastatin (LIPITOR) 40 MG tablet Take 1 tablet by mouth nightly. 30 tablet 11 12/07/2022 Active Bergamot Oil OIL (3 sources) Bergamot Oil OIL by Does not apply route. 0 Active clwvyribu-gjlmkfxx-xst- hyalur (JOINT HEALTH) 40-10-5-3.3 mg Tab (19 sources) cartilage-collag en-bor- hyalur (JOINT HEALTH) 40-10-5-3.3 mg Tab Take 1 tablet by mouth . 0 Active Awbfckgcm-Nhmsxage-Ota- Hyalur (Joint Health) 40-10-5-3.3 mg tablet (2 sources) Start: 07-05-19 Bbtgvyzzp-Koxlizga-Hws- Hyalur (Joint Health) 40-10-5-3.3 mg tablet Active TABLET PO July 05, 2023 12:00am Cedarwood Oil OIL (3 sources) Cedarwood Oil OI L by Does not apply route. 0 Active cholecalciferol 0.05 mg oral capsule (2 sources) Vitamin D Start: 07-05-19 take 50 ug by mouth once daily Cholecalciferol (Vitamin D3) Active 50 MCG PO DAILY July 05, 2023 12:00am chondroitin sulfate a sodium 600 mg / glucosamine sulfate 750 mg oral tablet (6 sources) take 1 tablet by mouth once daily Glucosamine-Chondroitin 750-600 MG TABS Take 1 tablet by mouth daily. 0 Active citalopram 40 mg oral tablet (20 sources) Serotonin Reuptake Inhibitor Start: 12-07-19 take 40 mg by mouth once daily 40 mg, Oral, DAILY, First dose on Babs 12/06/22 at 0900, Until Discontinued Start: 11-30-2016 End: 05-16-2024 take 1 tablet by mouth once daily citalopram (CELEXA) 40 MG tablet Indications: Anxiety Take 1 (one) tablet (40 mg total) by mouth daily . 90 tablet 3 05/17/2023 05/16/2024 Active Clear Eyes Allergy Itch Relief (2 sources) Start: 06-26-2023 Clear Eyes Allergy Itch Relief qDay, PRN as needed for allergy symptoms, 0 Refill(s) Start Date: 06/26/23 Status: Ordered cloNIDine hydrochloride 0.1 mg oral tablet (15 sources) Central alpha-2 Adrenergic Agonist Start: 07-05-2023 take 0.1 mg by mouth at bedtime Clonidine Hcl Active 0.1 MG PO AT BEDTIME July 05, 2023 12:00am Start: 03-18-2023 End: 03-18-2023 cloNIDine 0.1 mg oral tablet Dose : 0.1 mg = 1 tab(s), Oral, qDay, 0 Refill(s) Start Date: 06/26/23 Status: Ordered Start: 12-07-2022 End: 01-06-2023 take 1 tablet by mouth every eight hours as needed cloNIDine (CATAPRES) 0.1 MG tablet Take 1 tablet by mouth every 8 hours as needed for Hypertension (>=140/90) for up to 30 days. 90 tablet 0 12/07/2022 01/06/2023 Active esomeprazole 40 mg delayed release oral capsule (8 sources) Proton Pump Inhibitor Start: 05-10-2020 End: 05-10-2021 take 1 capsule by mouth once daily before breakfast esomeprazole (NEXIUM) 40 MG capsule Take 1 (one) capsule (40 mg total) by mouth every morning before breakfast . 30 capsule 05/10/2020 05/10/2021 Active fexofenadine hydrochloride 180 mg oral tablet (12 sources) Histamine-1 Receptor Antagonist Start: 07-05-2023 take 1 tablet by mouth once daily Fexofenadine (Ruth Hives) 180 mg tablet Active 180 MG PO DAILY July 05, 2023 12:00am fluticasone propionate 0.05 mg/actuat metered dose nasal spray (20 sources) Corticosteroid take 2 spray(s) nasal route once daily fluticasone (FLONASE) 50 mcg/actuation nasal spray Instill 2 (two) sprays into each nostril daily . Active Fluticasone prop ionate (FLONASE) 50 MCG/ACT nasal spray 1 spray by Nasal route daily. 0 Active folic acid 0.4 mg oral tablet (16 sources) Start: 07-05-2023 take 0.4 mg by mouth once daily Folic Acid Active 0.4 MG PO DAILY July 05, 2023 12:00am Start: 06-26-2023 folic acid qDa y, 0 Refill(s) Start Date: 06/26/23 Status: Ordered Start: 12-08-2022 End: 03-27-2023 take 1 tablet by mouth once daily folic acid (FOLVITE) 400 MCG tablet Take 1 (one) tablet (400 mcg total) by mouth daily . 90 tablet 3 03/27/2023 Active Start: 12-06-2022 End: 12-11-2022 400 mcg, Oral, DAILY, 5 dose s, First dose on Babs 12/06/22 at 0900, Last dose on 12/10/22 at 0900 dqdpsgbl-kkludw-tof3-D3-C-ma ng (Glucosamine-Chondroitin Complx) 750-625-1,000 mg-mg-unit Tab (9 sources) take 1 tablet by mouth once daily jgwhxawf-bafbtz-qfj0-D3-C-kadi (Glucosamine-Chondroitin Complx) 750-625-1,000 mg-mg-unit Tab Take by mouth daily 750-600 mg tabs . Active take 1 tablet by ivette th once daily pmiyhead-ybsdqu-ilm7-D3-C-kadi (Glucosamine-Chondroitin Complx) 750-625-1,000 mg-mg-unit Tab Take by mouth daily 750-600 mg tabs . 0 Active hydrALAZINE hydrochloride 50 mg oral tablet (18 sources) Arteriolar Vasodilator Start: 07-05-2023 take 50 mg by mouth three times daily Hydralazine Active 50 MG PO THREE TIMES A DAY July 05, 2023 12:00am Start: 03-04-2023 End: 03-04-2023 hydrALAZINE 50 mg oral table t Dose : 50 mg = 1 tab(s), Oral, BID, # 180 tab(s), 0 Refill(s) Start Date: 06/26/23 Status: Ordered Start: 12-07-2022 End: 01-06-2023 take 1 tablet by mouth every eight hours hydrALAZINE (APRESOLINE) 50 MG tablet Take 1 tablet by mouth every 8 hours for 30 days. 90 tablet 2 12/07/2022 01/06/2023 Active Start: 12-05-2022 take 25 mg by mouth three times daily as needed 25 mg, Oral, 3 TIMES DAILY PRN, For SBP > 180 or DBP > 110 IF patient does not qualify for CIWA lorazepam. If patient qualifies for PRN lorazepam give lorazepam first, Starting on Sat12/05/22 at 2049, Until Discontinued Caution: This medication looks and/or sounds like another medication. hydroCHLOROthiazide 25 mg / triamterene 37.5 mg oral tablet (20 sources) Potassium-sparing Diuretic, Thiazide Diuretic Start: 07-05-2023 take 1 tablet by mouth once daily Triamterene-Hydrochlorothiazid Active 1 TABLET PO DAILY July 05, 2023 12:00am Start: 06-26-2023 take 1 capsule by mouth once daily hydrochlorothiazide-triamterene 25 mg-37 .5 mg oral capsule Dose = 1 cap(s), Oral, Daily, 0 Refill(s) Start Date: 06/26/23 Status: Ordered Start: 01-21-2017 End: 10-07-2023 take 1 tablet by mouth once daily triamterene-hydrochlorothiazide (MAXZIDE -25) 37.5-25 mg per tablet Indications: Hypertension, unspecified type Take 1 (one) tablet by mouth daily . 90 tablet 3 10/07/2022 Active Start: 05-03-2016 take 1 capsule by mouth every twenty-four hours triamterene 37.5 mg-hydrochlorothiazide 25 mg capsule take 1 capsule by oral route every day Not Available - Active [employer] (2 sources) Start: 06-26-2023 MyWedding, 0 Refill(s) Start Date: 06/26/23 Status: Ordered levonorgestrel 0.883969 mg/hr intrauterine system (20 sources) Progestin, Progestin-containi ng Intrauterine Device levonorgestrel (MIRENA) 20 mcg/24 hours (5 yrs) 52 mg IUD 1 (one) each by Intrauterine route once . Active lisinopril 20 mg oral tablet (20 sources) Angiotensin Converting Enzyme Inhibitor Start: 03-04-2023 End: 03-03-2024 take 1 tablet by mouth twice daily lisinopriL (PRINIVIL,ZESTRIL) 20 MG tablet Indications: Hypertension, unspecified type Take 1 (one) tablet (20 mg total) by mouth 2 (two) times a day . 180 tablet 3 03/04/2023 Active Start: 02-02-2019 End: 05-10-2023 take 1 tablet by mouth once daily lisinopriL (PRINIVIL,ZESTRIL) 20 MG tablet Indications: Hypertension, unspecified type Take 1 (one) tablet (20 mg total) by mouth daily . 90 tablet 3 05/10/2022 03/04/2023 Discontinued (Reorder (Suppress CancelRx Message to Pharmacy)) Start: 11-30-2016 End: 12-05-2022 take 1 tablet by mouth once daily lisinopril (PRINIVIL,ZESTRIL) 10 MG tablet Take 1 (one) tablet (10 mg total) by mouth daily . 90 tablet 1 11/24/2018 02/02/2019 Discontinued (Reorder) loratadine 10 mg oral tablet (12 sources) Start: 12-08-2022 take 1 tablet by mouth once daily loratadine (CLARITIN) 10 MG tablet Take 1 tablet by mouth daily. 30 tablet 2 12/08/2022 Active Start: 12-06-2022 End: 03-27-2023 take 10 mg by mouth once daily 10 mg, Oral, DAILY, Fir st dose on Babs 12/06/22 at 0900, Until Discontinued End: 06-11-2022 loratadine (CLARITIN ORAL) T panda by mouth daily . 0 06/11/2022 Discontinued loratadine (CLAR ITIN ORAL) Take by mouth daily . 0 Active naltrexone hydrochloride 50 mg oral tablet (11 sources) Opioid Antagonist Start: 06-11-2022 take 1 tablet by mouth once daily naltrexone (DEPADE, REVIA) 50 mg tablet Indications: Moderate alcohol use disorder (HCC) Take 1 (one) tablet (50 mg total) by mouth daily . 30 tablet 5 06/11/2022 Active naphazoline HCl/pheniramine (EYE ALLERGY RELIEF OPHT) (14 sources) naphazoline HCl/pheniramine (EYE ALLERGY RELIEF OPHT) Apply to eye . Active naphazoline HCl/ pheniramine (EYE ALLERGY RELIEF OPHT) Apply to eye . 0 Active naproxen 500 mg oral tablet (4 sources) Nonsteroidal Anti-inflammatory Drug Start: 10-19-2019 take 1 tablet by mouth twice daily naproxen (NAPROSYN) 500 MG tablet Take 1 tablet by mouth two times a day. 15 tablet 0 10/19/2019 Active 24 hr nicotine 0.875 mg/hr transdermal system (3 sources) Cholinergic Nicotinic Agonist Start: 12-08-2022 apply 1 dose transdermal route every twenty-four hours nicotine (NICODERM CQ) 21 MG/24HR Place 1 patch onto the skin every 24 hours. 28 patch 2 12/08/2022 Active Start: 12-06-2022 apply 1 dose transde rmal route every twenty-four hours 1 patch (21 mg), Transdermal, EVERY 24 HOURS SCHEDULED (Daily), First dose on Sat12/06/22 at 0900, Until Discontinued Start: 12-05-2022 4 mg, Oral, [place] N, Smoking cessation, Starting on Sat12/05/22 at 2044, Until Discontinued Caution: Do not crush or chew. olopatadine 2 mg/ml ophthalmic solution (2 sources) Histamine-1 Receptor Inhibitor Start: 07-05-2023 Olopatadine Active 1 DRP OPHTHALMIC DAILY July 05, 2023 12:00am Ondansetron (ZOFRAN-ODT) disintegrating tablet 4 mg (1 source) Start: 12-05-2022 take 1 tablet by mouth every six hours as needed Ondansetron (ZOFRAN-ODT) disintegrating tablet 4 mg pantoprazole 40 mg delayed release oral tablet (20 sources) Proton Pump Inhibitor Start: 07-05-2023 take 40 mg by mouth once daily Pantoprazole Active 40 MG PO DAILY July 05, 2023 12:00am Start: 12-17-2022 pantoprazole 4 0 mg oral enteric coated tablet Dose : 40 mg = 1 tab(s), Oral, qDay, # 30 tab(s), 0 Refill(s) Start Date: 06/26/23 Status: Ordered Start: 06-11-2022 take 40 mg by mouth once daily 40 mg, Oral, DAILY, First dose on [facility] 12/06/22 at 0900, Until Discontinued Caution: Do not crush or chew. Start: 09-28-2016 End: 06-24-2020 take 1 tablet by mouth once daily pantoprazole (PROTONIX) 40 MG tablet Take 1 (one) tablet (40 mg total) by mouth daily PT NEEDS APPT!! . 90 tablet 0 03/01/2020 06/24/2020 Discontinued (Therapy completed) PHENobarbital (1 source) Start: 12-06-2022 End: 12-08-2022 take 1 tablet by mouth every six hours PHENobarbital (LUMINAL) tablet 60 mg predniSONE 10 mg oral tablet (7 sources) Start: 08-25-2020 predniSONE (DE LTASONE) 10 MG tablet Indications: Pruritic rash Take 4 tabs po q day for 2 days, 3 for 2 days, 2 for 2 days, 1 for 2 days. . 20 tablet 1 08/25/2020 Active Start: 11-26-2019 End: 06-24-2020 take 4 tablets by mouth once daily, then take 3 tablets by mouth once daily, then take 2 tablets by mouth once daily, then take 1 tablet by mouth once daily predniSONE (DELTASONE) 10 MG tablet Indications: Insect stings, undetermined intent, initial encounter Take 4 po qday x 2 days, 3 qday x 2 days, 2 qday x 2 days, 1 qday x 2 days. . 20 tablet 0 11/26/2019 06/24/2020 Discontinued (Therapy completed) thiamine 100 mg oral tablet (15 sources) Start: 12-06-2022 End: 05-02-2023 take 100 mg by mouth once daily Thiamine Hcl (Vitamin B1) Active 100 MG PO DAILY July 05, 2023 12:00am Start: 12-05-2022 End: 12-05-2022 thiamine (VITAMIN B1) inject ion 100 mg traZODone hydrochloride 50 mg oral tablet (19 sources) Serotonin Reuptake Inhibitor Start: 03-27-2024 take 1 tablet by mouth once daily as needed for depression traZODone (DESYREL) 50 MG tablet Take 1 (one) tablet (50 mg total) by mouth nightly as needed for depression . 90 tablet 3 03/27/2024 Active Start: 07-05-2023 take 50 mg by mouth once daily Trazodone Active 50 MG PO DAILY July 05, 2023 12:00am Start: 12-05-2022 End: 03-27-2024 traZODone 50 mg oral tablet Dose : 50 mg = 1 tab(s), Oral, 0 Refill(s) Start Date: 06/26/23 Status: Ordered Vitamin B1 (thiamine) (2 sources) Start: 06-26-2023 Vitamin B1 (th iamine) Oral, qDay, 0 Refill(s) Start Date: 06/26/23 Status: Ordered Vitamin D3 (2 sources) Start: 06-26-2023 Vitamin D3 qDa y, 0 Refill(s) Start Date: 06/26/23 Status: Ordered Completed/Discontinued Medications Medication Drug Class(es) Dates Sig (Normalized) Sig (Original) acetaminophen 325 mg oral tablet (1 source) Start: 12-05-2022 take 1 tablet by mouth every four hours as needed 650 mg, Oral, EVERY 4 HOURS PRN, Mild Pain, Fever, Headaches, Starting on Sat12/05/22 at 2043, Until Discontinued Maximum dose of acetaminophen is 4000 mg from all sources in 24 hours. acetaminophen 325 mg / HYDROcodone bitartrate 5 mg oral tablet (1 source) Opioid Agonist Start: 02-04-2018 End: 09-22-2018 HYDROcodone-acetami nophen (NORCO) 5-325 mg per tablet aluminum hydroxide 40 mg/ml / magnesium hydroxide 40 mg/ml oral suspension (1 source) Start: 12-05-2022 take 30 mL by mouth every six hours as needed 30 mL, Oral, EVERY 6 HOURS PRN, Indigestion, Starting on Sat12/05/22 at 2047, Until Discontinued bisacodyl 10 mg rectal suppository (1 source) Stimulant Laxative Start: 12-05-2022 take 10 mg rectal route once daily as needed for constipation 10 mg, Rectal, NIGHTLY PRN, Constipation, Starting on Sat12/05/22 at 2047, Until Discontinued If no BM in 48 hours calcium carbonate 500 mg chewable tablet (1 source) Start: 12-05-2022 take 1 tablet by mouth every four hours as needed 1,000 mg, Oral, EVERY 4 HOURS PRN, Heartburn, Starting on Sat12/05/22 at 2044, Until Discontinued vesmobaik-aituxglu-i or-hyalur 40-10-5-3.3 mg Tab (11 sources) End: 03-27-2023 cartilage-collagen- bor-hyalur 40-10-5-3.3 mg Tab Take 1 tablet by mouth . 0 03/27/2023 Discontinued (Patient's Request) cartilage-collag np-hjl-ntyxjn 40-10-5-3.3 mg Tab Take 1 tablet by mouth . 0 Active cephalexin 500 mg oral capsule (2 sources) Cephalosporin Antibacterial Start: 09-18-2018 End: 01-01-2019 take 1 capsule by mouth three times daily cephALEXin (KEFLEX) 500 MG capsule Take 500 mg by mouth 3 (three) times a day . 0 09/18/2018 01/01/2019 Discontinued (Therapy completed) cetirizine hydrochloride 10 mg oral tablet (20 sources) Histamine-1 Receptor Antagonist Start: 05-27-2015 End: 12-05-2022 take 1 tablet by mouth every twenty-four hours Zyrtec 10 mg tablet take 1 tablet by oral route every day 10 MG - Active clarithromycin 500 mg oral tablet (1 source) Macrolide Antimicrobial Start: 06-22-2016 take 1 tablet by mouth every twelve hours clarithromycin 500 mg tablet take 1 tablet by oral route every 12 hours 500 MG - Active clobetasol propionate 0.0005 mg/mg topical ointment (20 sources) Corticosteroid Start: 02-28-2022 End: 03-27-2023 clobetasoL (TEMOVATE) 0.05 % ointment APPLY TO AFFECTED AREA(S) OF THE ARMS AND LEGS TWICE DAILY DIRECTED 0 02/28/2022 03/27/2023 Discontinued (Patient's Request) Start: 11-26-2019 End: 11-25-2020 clobetasoL (TEMOVATE) 0.05 % cream Apply topically 2 (two) times a day . 30 g 2 11/26/2019 06/24/2020 Discontinued (Duplicate order) Start: 11-25-2017 End: 11-25-2018 clobetasol (TEMOVATE) 0.05 % cream Apply topically 2 (two) times a day. 30 g 2 11/25/2017 11/25/2018 Active Start: 06-22-2016 clobetasol-emo llient 0.05 % topical cream apply by topical route 1 times every day a thin layer to the affected area(s) - Active End: 12-05-2022 clobetasol (TEMOVATE) 0.05 % cream Apply topically two times a day. 0 12/05/2022 Discontinued doxycycline hyclate 100 mg oral capsule (20 sources) Tetracycline-class Drug Start: 01-30-2021 End: 06-11-2022 take 1 capsule by mouth twice daily doxycycline hyclate (VIBRAMYCIN) 100 MG capsule Take 1 (one) capsule (100 mg total) by mouth 2 (two) times a day . 28 capsule 2 03/28/2022 06/11/2022 Discontinued Start: 08-25-2020 End: 09-08-2020 take 1 capsule by mouth twice daily doxycycline hyclate (VIBRAMYCIN) 100 MG capsule Indications: Tick bite, subsequent encounter Take 1 (one) capsule (100 mg total) by mouth 2 (two) times a day for 14 days . 28 capsule 0 08/25/2020 09/08/2020 Active Start: 02-17-2019 End: 07-08-2020 take 1 capsule by mouth twice daily doxycycline hyclate (VIBRAMYCIN) 100 MG capsule Take 1 (one) capsule (100 mg total) by mouth 2 (two) times a day for 14 days . 28 capsule 0 06/24/2020 07/08/2020 Active Start: 08-01-2018 End: 02-02-2019 take 1 capsule by mouth twice daily doxycycline hyclate (VIBRAMYCIN) 100 MG capsule Indications: Abrasion of right lower extremity, initial encounter Take 1 (one) capsule (100 mg total) by mouth 2 (two) times a day . 20 capsule 0 09/22/2018 02/02/2019 Discontinued (Therapy completed) For electrolyte abnormalities subsequent to initial labs (refer to the [facility]placement Orders) (1 source) Start: 12-05-2022 Other, PRN, For electrolyte abnormalities, Starting on Sat12/05/22 at 2044, Until Discontinued For Potassium level <=3.9 or Magnesium level <=1.9, please use Order Set #100 to order medications and repeat labs. BE SURE TO CONTINUE PROTOCOL AFTER REPLACEMENT UNTIL LABS NORMALIZE. For electrolyte abnormalities subsequent to initial labs (refer to the [facility] Electrolyte Replacement Orders) 1 each (1 source) Start: 12-05-2022 1 each, Other, PRN, For electrolyte abnormalities, Starting on Sat12/05/22 at 2047, Until Discontinued For Potassium level <=3.9 or Magnesium level <=1.9, please use Order Set #100 to order medications and repeat labs. BE SURE TO CONTINUE PROTOCOL AFTER REPLACEMENT UNTIL LABS NORMALIZE. 1 ml heparin sodium, porcine 5000 unt/ml prefilled syringe (1 source) Unfractionated Heparin, Anti-coagulant Start: 12-05-2022 inject 1 dose by subcutaneous injection twice daily 5,000 Units, Subcutaneous, EVERY 12 HOURS SCHEDULED (2 times per day), First dose on Sat12/05/22 at 2117, Until Discontinued If administering subcutaneously: Do not administer into bruised or scarred skin, into or near wounds, or through clothing. For abdominal surgery patients, do not administer in the abdomen. L.acid/B.animalis, bifidum/FOS (PROBIOTIC COMPLEX ORAL) (11 sources) End: 03-27-2023 L.acid/B.animalis,b ifidum/FOS (PROBIOTIC COMPLEX ORAL) Take by mouth . 0 03/27/2023 Discontinued (Patient's Request) L.acid/B.animali s,bifidum/FOS (PROBIOTIC COMPLEX ORAL) Take by mouth . 0 Active LOCM iohexol (OMNIPAQUE 350MG/ML) injection 75 mL (1 source) Start: 12-06-2022 End: 12-06-2022 LOCM iohexol (OMNIPAQUE 350MG/ML) injection 75 mL loperamide hydrochloride 2 mg oral capsule (1 source) Opioid Agonist Start: 12-06-2022 take 1 capsule by mouth every eight hours as needed 2 mg, Oral, EVERY 8 HOURS PRN, Diarrhea, Starting on Sat12/06/22 at 0000, Until Discontinued 4 mg after onset of diarrhea then 2 mg orally every 8 hours PRN for loose stool. (MAX 16mg/24hrs) 1 ml LORazepam 2 mg/ml injection (3 sources) Benzodiazepine Start: 12-05-2022 End: 12-05-2022 LORazepam injection 1 mg Start: 12-05-2022 2 mg, IV Push, PRN, Seizures, Starting on Sat12/05/22 at 2047, Until Discontinued Obtain STAT blood glucose and notify MD For IV use: dilute in equal volume of NaCl 0.9% or Dextrose 5% Start: 12-05-2022 LORazepam (ATI VAN) tablet 0-4 mg 50 ml magnesium sulfate 40 mg/ml injection (1 source) Start: 12-05-2022 End: 12-06-2022 Magnesium Sulfate 2g/50ml IVPB 2 g melatonin 3 mg oral tablet (1 source) Start: 12-05-2022 take 3 mg by mouth once daily as needed for sleep 3 mg, Oral, NIGHTLY PRN, Sleep, Starting on Sat12/05/22 at 2043, Until Discontinued Multivitamin (THERA) tablet 1 tablet (1 source) Start: 12-06-2022 take 1 tablet by mouth once daily 1 tablet, Oral, DAILY, First dose on Sat12/06/22 at 0900, Until Discontinued mupirocin 0.02 mg/mg topical ointment (10 sources) RNA Synthetase Inhibitor Antibacterial Start: 01-16-2021 End: 06-11-2022 mupirocin (BACTROBAN) 2 % ointment APPLY OINTMENT TOPICALLY TO AFFECTED AREA TWICE DAILY FOR 2 WEEKS UNTIL HEALED 0 01/16/2021 06/11/2022 Discontinued Start: 04-18-2017 End: 05-01-2017 mupirocin 2 % topical ointme nt apply by topical route 3 times every day a small amount to the affected area Not Available - Active naphazoline hydrochloride 0.25 mg/ml / pheniramine maleate 3 mg/ml ophthalmic solution (6 sources) Start: 12-05-2022 take 1 drop(s) into the eye(s) every six hours as needed 1 drop, Ophthalmic, EVERY 6 HOURS PRN, Allergies, Irritation, Starting on Sat12/05/22 at 2042, Until Discontinued Naphazoline-Phen iramine (EYE ALLERGY RELIEF OP) Apply to eye. 0 Active oxyCODONE hydrochloride 5 mg oral tablet (1 source) Opioid Agonist Start: 12-05-2022 take 1 tablet by mouth every four hours as needed 5 mg, Oral, EVERY 4 HOURS PRN, Moderate Pain, Starting on Sat12/05/22 at 2045, Until Discontinued Caution: This medication looks and/or sounds like another medication. permethrin 50 mg/ml topical cream (1 source) Pyrethroid Start: 08-25-2020 End: 08-25-2020 permethrin (ELIMITE) 5 % cream Apply topically once for 1 dose . 60 g 0 08/25/2020 08/25/2020 polyethylene glycol 3350 [id number] mg powder for oral solution (1 source) Osmotic Laxative Start: 12-05-2022 take 17 g by mouth every twenty-four hours as needed 17 g, Oral, DAILY PRN, Constipation, constipation, Starting on Sat12/05/22 at 4, Until Discontinued This is a maintenance laxative, begin for prevention of constipation. RABEprazole sodium 20 mg delayed release oral tablet (16 sources) Proton Pump Inhibitor Start: 05-30-2020 End: 06-11-2022 take 1 tablet by mouth once daily RABEprazole (ACIPHEX) 20 mg tablet Indications: Gastroesophageal reflux disease, unspecified whether esophagitis present Take 1 (one) tablet (20 mg total) by mouth daily . 90 tablet 3 05/10/2022 06/11/2022 Discontinued sennosides, senior living 8.6 mg oral tablet (1 source) Start: 12-05-2022 take 17.2 mg by mouth once daily as needed for constipation 17.2 mg, Oral, NIGHTLY PRN, Constipation, Starting on Sat12/05/22 at 2048, Until Discontinued 1000 ml sodium chloride 9 mg/ml injection (2 sources) Start: 12-05-2022 End: 12-06-2022 Intravenous, at 75 mL/hr, CONTINUOUS, Starting on Sat12/05/22 at 2119, Until Babs 12/06/22 at 1416 Start: 12-05-2022 End: 12-05-2022 sodium chloride 0.9% bolus 0 .9 % solution 1,000 mL triamcinolone acetonide 1 mg/ml topical cream (9 sources) Corticosteroid Start: 01-16-2021 End: 06-11-2022 triamcinolone (KENALOG) 0.1 % cream APPLY TO AFFECTED AREAS TWICE DAILY FOR UP TO 2 WEEKS NEEDED FOR ITCH 0 01/16/2021 06/11/2022 Discontinued Problems Active Problems Problem Classification Problem Date Documented Date Episodic/Chronic Acquired foot deformities (1 source) Hallux valgus (acquired), right foot; Translations: [Hallux valgus (acquired), right foot] Onset: 05-11-2024 Chronic Acquired foot deformities (1 source) Hallux valgus (acquired), left foot; Translations: [Hallux valgus (acquired), left foot] Onset: 02-06-2024 Chronic Acute bronchitis (2 sources) Acute bronchitis, unspecified; Translations: [Acute bronchitis] Episodic Alcohol-related disorders (6 sources) Alcohol abuse; Translations: [Alcohol dependence, uncomplicated] Onset: 06-11-2022 Chronic Allergic reactions (5 sources) Contact dermatitis and other eczema, unspecified cause; Translations: [Allergy status to unspecified drugs, medicaments and biological substances status] Onset: 11-16-2024 Episodic Anxiety disorders (10 sources) Anxiety; Translations: [Anxiety disorder, unspecified] Onset: 06-11-2022 Chronic Conditions associated with dizziness or vertigo (1 source) Dizziness; Translations: [Dizziness] Episodic Contraceptive and procreative management (2 sources) Presence of (intrauterine) contraceptive device; Translations: [Presence of (intrauterine) contraceptive device] Onset: 06-26-2023 Episodic Disorders of lipid metabolism (7 sources) Hypercholesterolemia; Translations: [Pure hypercholesterolemia, unspecified] Onset: 12-13-2022 12-13-2022 Chronic Esophageal disorders (11 sources) Gastroesophageal reflux disease; Translations: [Gastro-esophageal reflux disease without esophagitis] Onset: 06-11-2022 Chronic Essential hypertension (20 sources) Unspecified essential hypertension; Translations: [Hypertensive disorder] Onset: 12-05-2022 Chronic Fluid and electrolyte disorders (4 sources) Hyponatremia; Translations: [Hypo-osmolality and hyponatremia] Onset: 12-05-2022 12-05-2022 Episodic Headache; including migraine (1 source) Headache; including migraine; Translations: [Headache, unspecified] Onset: 04-29-2024 Hypertension with complications and secondary hypertension (1 source) Hypertensive urgency; Translations: [Hypertensive urgency] Onset: 12-05-2022 Chronic Immunizations and screening for infectious disease (4 sources) Needs influenza immunization; Translations: [Encounter for immunization] Onset: 03-27-2023 3 Episodic Joint disorders and dislocations; trauma-related (2 sources) Other tear of medial meniscus, current injury, right knee, initial encounter; Translations: [Other tear of lateral meniscus, current injury, right knee, initial encounter] Onset: 12-07-2022 Episodic Menopausal disorders (2 sources) Menopausal and female climacteric states; Translations: [Menopausal and female climacteric states] Onset: 06-26-2023 Chronic Mood disorders (6 sources) Depressive disorder, not elsewhere classified; Translations: [Depressive disorder] Chronic Mood disorders (2 sources) Mood disorders; Translations: [Depression, unspecified] Onset: 06-11-2022 Nonspecific chest pain (5 sources) Chest pain; Translations: [Chest pain, unspecified] Onset: 08-30-2014 07-05-2023 Episodic Nutritional deficiencies (6 sources) Vitamin D deficiency; Translations: [Vitamin D deficiency, unspecified] Onset: 01-03-2023 01-03-2023 Chronic Open wounds of head; neck; and trunk (1 source) Scalp laceration; Translations: [Laceration of scalp, initial encounter] Episodic Other aftercare (1 source) Other continuous churn buttermaker (current) drug therapy; Translations: [Other continuous churn buttermaker (current) drug therapy] Onset: 12-05-2022 Episodic Other aftercare (1 source) termite treater helper (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; Translations: [termite treater helper (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] Onset: 12-05-2022 Episodic Other circulatory disease (1 source) Personal history of transient ischemic attack (TIA), and cerebral infarction without residual deficits; Translations: [Personal history of transient ischemic attack (TIA), and cerebral infarction without residual deficits] Onset: 12-05-2022 Episodic Other endocrine disorders (1 source) Hypoglycemia; Translations: [Hypoglycemia, unspecified] 07-29-2023 Chronic Other inflammatory condition of skin (1 source) Pruritic rash; Translations: [Other prurigo] Episodic Other lower respiratory disease (2 sources) Dyspnea on exertion; Translations: [Other forms of dyspnea] 07-05-2023 Episodic Other nervous system disorders (1 source) Paresthesia of hand ; Translations: [Anesthesia of skin] 12-05-2022 Episodic Other nervous system disorders (2 sources) Facial paresthesia; Translations: [Anesthesia of skin] 12-05-2022 Episodic Other nervous system disorders (1 source) Anesthesia of skin; Translations: [Anesthesia of skin] Onset: 12-06-2022 Episodic Other nervous system disorders (1 source) Paresthesia of skin; Translations: [Paresthesia of skin] Onset: 12-06-2022 Episodic Other nervous system disorders (1 source) Personal history of other diseases of the nervous system and sense organs; Translations: [Personal history of other diseases of the nervous system and sense organs] Onset: 12-05-2022 Episodic Other nutritional; endocrine; and metabolic disorders (2 sources) Body Mass Index 31.0-31.9, adult; Translations: [Body Mass Index 31.0-31.9, adult] Onset: 02-17-2014 Chronic Other nutritional; endocrine; and metabolic disorders (5 sources) Hypomagnesemia; Translations: [Hypomagnesemia] Onset: 12-13-2022 12-05-2022 Chronic Other nutritional; endocrine; and metabolic disorders (3 sources) Hypomagnesemia; Translations: [Hypomagnesemia] Onset: 12-06-2022 Chronic Other screening for suspected conditions (not mental disorders or infectious disease) (2 sources) CT of chest abnormal; Translations: [Abnormal findings on diagnostic imaging of other specified body structures] 07-29-2023 Chronic Other screening for suspected conditions (not mental disorders or infectious disease) (20 sources) Patient encounter status; Translations: [Encounter for screening mammogram for malignant neoplasm of breast] Onset: 02-22-2022 Episodic Other upper respiratory disease (1 source) Allergic rhinitis; Translations: [Allergic rhinitis, unspecified] 12-13-2022 Chronic Other upper respiratory disease (2 sources) Allergic rhinitis, unspecified; Translations: [Allergic rhinitis, unspecified] Onset: 12-13-2022 Chronic Other upper respiratory infections (4 sources) Acute sinusitis, unspecified; Translations: [Acute upper respiratory infection, unspecified] Episodic Peripheral and visceral atherosclerosis (2 sources) Atherosclerosis of artery ; Translations: [Unspecified atherosclerosis] 07-29-2023 Chronic Poisoning by nonmedicinal substances (2 sources) Tick bite; Translations: [Bitten or stung by nonvenomous insect and other nonvenomous arthropods, subsequent encounter] Episodic Residual codes; unclassified (3 sources) History of clinical finding in subject; Translations: [Personal history of other specified conditions] 12-05-2022 Episodic Residual codes; unclassified (1 source) Bilateral lower leg edema; Translations: [Localized edema] 12-13-2022 Episodic Residual codes; unclassified (2 sources) Tobacco use and exposure - finding; Translations: [Tobacco use] 07-05-2023 Episodic Skin and subcutaneous tissue infections (3 sources) Cellulitis and abscess of trunk; Translations: [Cellulitis of left lower limb] Episodic Sprains and strains (1 source) Sprain of anterior cruciate ligament of right knee, initial encounter; Translations: [Sprain of anterior cruciate ligament of right knee, initial encounter] Onset: 12-07-2022 Episodic Substance-related disorders (11 sources) Nicotine dependence; Translations: [Smoker] Onset: 02-22-2022 02-22-2022 Chronic Superficial injury; contusion (6 sources) Contusion of unspecified eyelid and periocular area, initial encounter; Translations: [Insect bite, nonvenomous, of other, multiple, and unspecified sites, without mention of infection] Episodic Transient cerebral ischemia (4 sources) Transient cerebral ischemia; Translations: [Transient cerebral ischemic attack, unspecified] Onset: 12-13-2022 12-13-2022 Chronic Unclassified (4 sources) Patient encounter status; Translations: [Routine medical exam] Unclassified (1 source) Sprain of left wrist; Translations: [Wrist sprain, left, initial encounter] Past or Other Problems Problem Classification Problem Date Documented Da te Episodic/Chronic Abdominal pain (1 source) Right lower quadrant pain; Translations: [Right lower quadrant pain] Onset: 05-21-2024 Episodic External Injury - Natural / Environment (2 sources) Bite of nonvenomous arthropod; Translations: [Bite of nonvenomous arthropod] Malaise and fatigue (7 sources) Other malaise and fatigue; Translations: [Fatigue] Onset: 12-13-2022 12-13-2022 Episodic Other inflammatory condition of skin (3 sources) Unspecified pruritic disorder; Translations: [Prurigo] Episodic Other lower respiratory disease (1 source) Cough; Translations: [Cough] Episodic Other non-traumatic joint disorders (3 sources) Other instability, left knee; Translations: [Pain in joint, site unspecified] Episodic Other nutritional; endocrine; and metabolic disorders (3 sources) Body Mass Index 29.0-29.9, adult; Translations: [Body Mass Index 29.0-29.9, adult] Onset: 06-14-2014 Episodic Residual codes; unclassified (3 sources) Personal history of other specified conditions; Translations: [Personal history of other specified conditions] Onset: 12-06-2022 Episodic Residual codes; unclassified (2 sources) Localized edema; Translations: [Localized edema] Onset: 12-13-2022 Episodic Unclassified (1 source) Other injury of unspecified body region, initial encounter; Translations: [Skin avulsion] Results Test Name Value Interpretation Reference Range Facility MR/BMS.BPon 01-07-2025 MR/BMS.BP [address], [address] [place] [id number] OFFICE VISIT Date of Service: 01/06/25 MR#: [id number] Acct: [id number] Name: ROMULOMARGO NAVEEN Rep #: [id number] : 1965 Provider: [facility] Adela orta Age/Sex: 59/F Location: [facility] [place].BP Status: Signed Intake Vital Signs 11/10/24 18:39 01/01/25 14:08 01/07/25 15:26 Height 5 ft 5 in 5 ft 5 in 5 ft 5 in BP Intake Visit Reasons: Follow up Allergies bacitracin Allergy (Verified 11/10/24 18:42) Rash neomycin (From Neosporin ([id number])) Allergy (Verified 11/10/24 18:42) Rash polymyxin B (From Neosporin ([id number])) Allergy (Verified 11/10/24 18:42) Rash ibuprofen Adverse Reaction (Severe, Verified 11/10/24 18:42) Other esomeprazole (From Nexium) Adverse Reaction (Verified 11/10/24 18:42) [facility] History PONV (postoperative nausea and vomiting) Post-menopausal Alcohol use Wears glasses Anxiety Depression Smoker GERD (gastroesophageal reflux disease) History of echocardiogram History of stress test Cardiology follow-up encounter Hypoglycemia Nonspecific ST-T wave electrocardiographic changes Eczema History of TIA (transient ischemic attack) Chronic GERD Hyponatremia Exertional dyspnea Chest pain Hypertension Tobacco use Multiple lacunar infarcts Facial paresthesia Depression with anxiety Hypertensive urgency Alcohol abuse Surgical History History of colonoscopy History of tonsillectomy and adenoidectomy History of knee surgery History of foot surgery Family History Grandmother Alcohol abuse CVA (cerebral vascular accident) Depression Father Hypertension Diabetes Cancer Mother Hypercholesterolemia Thyroid disorder Depression Social History Smoking Status: Current every day smoker tobacco type: cigarettes alcohol intake: current alcohol intake frequency: 3 or more drinks per day Alcohol type: wine substance use type: does not use caffeine: Yes Type: carbonated beverages and coffee Number of servings: 1 HPI History of Present Illness HPI: Margo Sebastian is a 59 year-old female returning for therapy. She reported stressors in her and her 's interactions with his sister. Margo reported feeling anxious and angry. She identified noticing an increase in her using passive behaviors. Encouraged verbalization of emotions while providing support. Normalized emotions. Explored triggers to distressed mood and trauma reminders. Provided psychoeducation on "fight or flight" as related to trauma reminders. Explored coping that would reduce activation with Margo identifying singing, running, and listening to music. Provided psychoeducation on breathing as an intervention. Examined and worked on thought patterns using CBT interventions. Margo stated that she did not believe she was at risk of relapse of alcohol use. No SI. Future-oriented. Exam Mental Status Exam - Psych Appearance casually dressed and adequately groomed Attitude cooperative and engaged Activity/Motor Behavior MSE activity/motor behavior finding no adventitious movements and appropriate eye contact Speech regular rate, regular prosody and loud Mood anxious, angry and irritable Affect congruent Thought Process linear, logical, coherent and goal directed Thought Content no delusions and no hallucinations Suicidal Ideation none Homicidal Ideation none Attention intact Concentration intact Sensorium/Orientation awake, alert and oriented x3 Memory/Cognition intact Insight good Judgement good Assessment Plan Assessment Plan (1) Major depressive disorder, single episode, unspecified: Plan: therapy using CBT, DBT, and ACT interventions to address thought patterns contributing to depressive symptoms and teach coping skills. Continued psychiatric services to monitor depressive symptoms and medication effectiveness. Pt. to call 911, call suicide prevention hotline, or go to ER if experiencing suicidal ideation with plan and intent and/or feel unable to ensure own safety. (2) Anxiety disorder, unspecified: Plan: BH therapy using CBT, DBT, and ACT interventions to address thought patterns contributing to anxious symptoms and to teach coping skills. Psychiatric services to monitor anxious symptoms and medication effectiveness. Plan TREATMENT PLAN Goal 1 - Reduce depressive symptoms by 30% AEB pt.'s self-report. Objective 1 - Identify and replace thoughts and beliefs that support depression. Intervention 1 - Using CBT will help pt. learn the connection among thoughts, feelings, and behaviors. Intervention 2 - (more content not included)... Normal [facility] MR/BMS.BPon 01-01-2025 MR/BMS.BP [address], [address] [place] [address] OFFICE VISIT Date of Service: 01/01/25 MR#: [id number] Acct: [id number] Name: MARGO SEBASTIANANORE Rep #: [id number] : 1965 [facility] Age/Sex: 59/F Location: [facility] [place].BP Status: Signed Intake Vital Signs 07/03/24 09:14 12/25/24 09:01 01/01/25 14:08 Height 5 ft 5 in 5 ft 5 in 5 ft 5 in BP Intake Visit Reasons: Follow up Allergies bacitracin Allergy (Verified 11/10/24 18:42) Rash neomycin (From Neosporin ([id number])) Allergy (Verified 11/10/24 18:42) Rash polymyxin B (From Neosporin ([id number])) Allergy (Verified 11/10/24 18:42) Rash ibuprofen Adverse Reaction (Severe, Verified 11/10/24 18:42) Other esomeprazole (From Nexium) Adverse Reaction (Verified 11/10/24 18:42) Other PFSH Medical History PONV (postoperative nausea and vomiting) Post-menopausal Alcohol use Wears glasses Anxiety Depression Smoker GERD (gastroesophageal reflux disease) History of echocardiogram History of stress test Cardiology follow-up encounter Hypoglycemia Nonspecific ST-T wave electrocardiographic changes Eczema History of TIA (transient ischemic attack) Chronic GERD Hyponatremia Exertional dyspnea Chest pain Hypertension Tobacco use Multiple lacunar infarcts Facial paresthesia Depression with anxiety Hypertensive urgency Alcohol abuse Surgical History History of colonoscopy History of tonsillectomy and adenoidectomy History of knee surgery History of foot surgery Family History Grandmother Alcohol abuse CVA (cerebral vascular accident) Depression Father Hypertension Diabetes Cancer Mother Hypercholesterolemia Thyroid disorder Depression Social History Smoking Status: Current every day smoker tobacco type: cigarettes alcohol intake: current alcohol intake frequency: 3 or more drinks per day Alcohol type: wine substance use type: does not use caffeine: Yes Type: carbonated beverages and coffee Number of servings: 1 HPI History of Present Illness HPI: Margo Sebastian is a 59 year-old female returning for therapy. She identified stressors related to talrbn-xa-yku's recent health issues and hospitalization. Margo stated that she had scheduled appointments with cemetery warden for Alpha-Gal Syndrome, for lung scan, and for mammogram. She reported recent triggers to past trauma due to news of abductions and anniversary of 12/31. Encouraged verbalization of emotions while providing support. Reinforced action to care for health needs. Explored limitations to what she can and cannot do to help [id number] given own health issues working on acceptance. Explored trauma symptoms and discussed coping related to trauma reminders. No SI. Future-oriented. Exam Mental Status Exam - Psych Appearance casually dressed and adequately groomed Attitude cooperative, engaged, pleasant and friendly Activity/Motor Behavior MSE activity/motor behavior finding no adventitious movements and appropriate eye contact Speech regular rate, regular volume and regular prosody Mood euythmic and OK Affect full range Thought Process linear, logical, coherent and goal directed Thought Content no delusions and no hallucinations Suicidal Ideation none Homicidal Ideation none Attention intact Concentration intact Sensorium/Orientation awake, alert and oriented x3 Memory/Cognition intact Insight good Judgement good Assessment Plan Assessment Plan (1) Major depressive disorder, single episode, unspecified: Plan: therapy using CBT, DBT, and ACT interventions to address thought patterns contributing to depressive symptoms and teach coping skills. Continued psychiatric services to monitor depressive symptoms and medication effectiveness. Pt. to call 911, call suicide prevention hotline, or go to ER if experiencing suicidal ideation with plan and intent and/or feel unable to ensure own safety. (2) Anxiety disorder, unspecified: Plan: BH therapy using CBT, DBT, and ACT interventions to address thought patterns contributing to anxious symptoms and to teach coping skills. Psychiatric services to monitor anxious symptoms and medication effectiveness. Plan TREATMENT PLAN Goal 1 - Reduce depressive symptoms by 30% AEB pt.'s self-report. Objective 1 - Identify and replace thoughts and beliefs that support depression. Intervention 1 - Using CBT will help pt. learn the connection among thoughts, feelings, and behaviors. Intervention 2 - Facilitate and reinforce pt.'s shift from biased depressive self-talk and beliefs to reality-based cognitive messages that increase positive o (more content not included)... Normal [facility] MR/BMS.BPon 12-25-2024 MR/BMS.BP [facility] [address] [place] [address], [address] [place] [address] OFFICE VISIT Date of Service: 12/25/24 MR#: [id number] Acct: [id number] Name: MRAGO SEBASTIAN Rep #: [id number] : 1965 [facility] Age[facility]Sex: 59/F Location: [facility] [place]. Status: Signed Intake Vital Signs 07/03/24 09:14 12/18/24 16:03 12/25/24 09:01 Height 5 ft 5 in 5 ft 5 in 5 ft 5 in BP Intake Visit Reasons: Follow up Allergies bacitracin Allergy (Verified 11/10/24 18:42) Rash neomycin (From Neosporin (epf-ndm-adhze)) Allergy (Verified 11/10/24 18:42) Rash polymyxin B (From Neosporin (hmb-yao-jhutm)) Allergy (Verified 11/10/24 18:42) Rash ibuprofen Adverse Reaction (Severe, Verified 11/10/24 18:42) Other esomeprazole (From Nexium) Adverse Reaction (Verified 11/10/24 18:42) Other PFSH Medical History PONV (postoperative nausea and vomiting) Post-menopausal Alcohol use Wears glasses Anxiety Depression Smoker GERD (gastroesophageal reflux disease) History of echocardiogram History of stress test Cardiology follow-up encounter Hypoglycemia Nonspecific ST-T wave electrocardiographic changes Eczema History of TIA (transient ischemic attack) Chronic GERD Hyponatremia Exertional dyspnea Chest pain Hypertension Tobacco use Multiple lacunar infarcts Facial paresthesia Depression with anxiety Hypertensive urgency Alcohol abuse Surgical History History of colonoscopy History of tonsillectomy and adenoidectomy History of knee surgery History of foot surgery Family History Grandmother Alcohol abuse CVA (cerebral vascular accident) Depression Father Hypertension Diabetes Cancer Mother Hypercholesterolemia Thyroid disorder Depression Social History Smoking Status: Current every day smoker tobacco type: cigarettes alcohol intake: current alcohol intake frequency: 3 or more drinks per day Alcohol type: wine substance use type: does not use caffeine: Yes Type: carbonated beverages and coffee Number of servings: 1 HPI History of Present Illness HPI: Margo Sebastian is a 59 year-old female returning for therapy. She identified potential job options for . Margo reported positive interactions with sister, initiating daily contact with friends and family, and strengthening relationships with extended family. She discussed wanting to make amends for behaviors she used with a family member before she got sober. Margo continues to have allergic reactions as well as Alpha-gal reactions. Encouraged verbalization of emotions while providing support. Normalized emotions. Reinforced frequent interactions with others exploring increase in positive mood. Examined recent worries and struggles with how much assistance to provide others. Explored consequences of Margo's decisions, which have been positive. Worked on trusting intuition. Problem solved options for apologizing to family member for behaviors while drinking. Examined what Margo could and could not control and potential consequences. No SI. Future- oriented. Exam Mental Status Exam - Psych Appearance casually dressed and adequately groomed Attitude engaged Activity/Motor Behavior MSE activity/motor behavior finding no adventitious movements and appropriate eye contact Speech regular rate, regular volume and regular prosody Mood euythmic and OK Affect full range Thought Process linear, logical, coherent and goal directed Thought Content no delusions and no hallucinations Suicidal Ideation none Homicidal Ideation none Attention intact Concentration intact Sensorium/Orientation awake, alert and oriented x3 Memory/Cognition intact Insight good Judgement good Assessment Plan Assessment Plan (1) Major depressive disorder, single episode, unspecified: Plan: therapy using CBT, DBT, and ACT interventions to address thought patterns contributing to depressive symptoms and teach coping skills. Continued psychiatric services to monitor depressive symptoms and medication effectiveness. Pt. to call 911, call suicide prevention hotline, or go to ER if experiencing suicidal ideation with plan and intent and/or feel unable to ensure own safety. (2) Anxiety disorder, unspecified: Plan: therapy using CBT, DBT, and ACT interventions to address thought patterns contributing to anxious symptoms and to teach coping skills. Psychiatric services to monitor anxious symptoms and medication effectiveness. Plan TREATMENT PLAN Goal 1 - Reduce depressive symptoms by 30% AEB pt.'s self-report. Objective 1 - Identify and replace thoughts and beliefs that support depression. Interv (more content not included)... Normal [facility] MR/BMS.BPon 12-18-2024 MR/BMS.BP [facility] [address] [place] [address], [address] [place] [address] OFFICE VISIT Date of Service: 12/18/24 MR#: [id number] Acct: [id number] Name: MARGO SEBASTIAN Rep #: [id number] : 1965 [facility] Age/Sex: 59/F Location: [facility] [place]. Status: Signed Intake Vital Signs 07/03/24 09:14 12/14/24 06:57 12/18/24 16:03 Height 5 ft 5 in 5 ft 5 in 5 ft 5 in BP Intake Visit Reasons: Follow up Allergies bacitracin Allergy (Verified 11/10/24 18:42) Rash neomycin (From Neosporin ([id number]-wgmin)) Allergy (Verified 11/10/24 18:42) Rash polymyxin B (From Neosporin (dqi-lec-yucaa)) Allergy (Verified 11/10/24 18:42) Rash ibuprofen Adverse Reaction (Severe, Verified 11/10/24 18:42) Other esomeprazole (From Nexium) Adverse Reaction (Verified 11/10/24 18:42) Other PFSH Medical History PONV (postoperative nausea and vomiting) Post-menopausal Alcohol use Wears glasses Anxiety Depression Smoker GERD (gastroesophageal reflux disease) History of echocardiogram History of stress test Cardiology follow-up encounter Hypoglycemia Nonspecific ST-T wave electrocardiographic changes Eczema History of TIA (transient ischemic attack) Chronic GERD Hyponatremia Exertional dyspnea Chest pain Hypertension Tobacco use Multiple lacunar infarcts Facial paresthesia Depression with anxiety Hypertensive urgency Alcohol abuse Surgical History History of colonoscopy History of tonsillectomy and adenoidectomy History of knee surgery History of foot surgery Family History Grandmother Alcohol abuse CVA (cerebral vascular accident) Depression Father Hypertension Diabetes Cancer Mother Hypercholesterolemia Thyroid disorder Depression Social History Smoking Status: Current every day smoker tobacco type: cigarettes alcohol intake: current alcohol intake frequency: 3 or more drinks per day Alcohol type: wine substance use type: does not use caffeine: Yes Type: carbonated beverages and coffee Number of servings: 1 HPI History of Present Illness HPI: Margo Sebastian is a 59 year-old female returning for therapy. She reported that she was doing well and was no longer distressed about former rehab billing as was handling. Margo identified that has had potential job opportunities creating positive emotions for them. She stated that she had recently shared thoughts, feelings, and concerns with related to his communication patterns when anxious. Margo identified stressors related to in-law owing them money and inheritance issues in her family of origin/extended family. She reported recent medical appointments and upcoming appointment with an cemetery warden as well as a lung scan. Encouraged verbalization of emotions while providing support. Normalized emotions. Reinforced open communication with and explored positive consequences. Explored history related to family and financial patterns. Reinforced addressing health symptoms and issues. Worked on self-care and coping. No SI. Future-oriented. Exam Mental Status Exam - Psych Appearance casually dressed and adequately groomed Attitude engaged Activity/Motor Behavior MSE activity/motor behavior finding no adventitious movements and appropriate eye contact Speech regular rate, regular volume and regular prosody Mood euythmic and OK Affect full range Thought Process linear, logical, coherent and goal directed Thought Content no delusions and no hallucinations Suicidal Ideation none Homicidal Ideation none Attention intact Concentration intact Sensorium/Orientation awake, alert and oriented x3 Memory/Cognition intact Insight good Judgement good Assessment Plan Assessment Plan (1) Major depressive disorder, single episode, unspecified: Plan: therapy using CBT, DBT, and ACT interventions to address thought patterns contributing to depressive symptoms and teach coping skills. Continued psychiatric services to monitor depressive symptoms and medication effectiveness. Pt. to call 911, call suicide prevention hotline, or go to ER if experiencing suicidal ideation with plan and intent and/or feel unable to ensure own safety. (2) Anxiety disorder, unspecified: Plan: therapy using CBT, DBT, and ACT interventions to address thought patterns contributing to anxious symptoms and to teach coping skills. Psychiatric services to monitor anxious symptoms and medication effectiveness. Plan TREATMENT PLAN Goal 1 - Reduce depressive symptoms by 30% AEB pt.'s self-report. Objective 1 - Identify and replace thoughts and beliefs that support depression. Interventi (more content not included)... Normal [facility] MR/BMS.BPon 12-14-2024 MR/BMS.[address], [address] [place] [address] OFFICE VISIT Date of Service: 12/11/24 MR#: [id number] Acct: [id number] Name: MARGO SEBASTIAN Rep #: [id number] : 1965 [facility] Age/Sex: 59/F Location: [facility] [place]. Status: Signed Intake Vital Signs 07/03/24 09:14 12/04/24 06:45 12/14/24 06:57 Height 5 ft 5 in 5 ft 5 in 5 ft 5 in BP Intake Visit Reasons: Follow up Allergies bacitracin Allergy (Verified 11/10/24 18:42) Rash neomycin (From Neosporin (bgf-don-ppaer)) Allergy (Verified 11/10/24 18:42) Rash polymyxin B (From Neosporin (qqy-mzw-evebu)) Allergy (Verified 11/10/24 18:42) Rash ibuprofen Adverse Reaction (Severe, Verified 11/10/24 18:42) Other esomeprazole (From Nexium) Adverse Reaction (Verified 11/10/24 18:42) [facility] History PONV (postoperative nausea and vomiting) Post-menopausal Alcohol use Wears glasses Anxiety Depression Smoker GERD (gastroesophageal reflux disease) History of echocardiogram History of stress test Cardiology follow-up encounter Hypoglycemia Nonspecific ST-T wave electrocardiographic changes Eczema History of TIA (transient ischemic attack) Chronic GERD Hyponatremia Exertional dyspnea Chest pain Hypertension Tobacco use Multiple lacunar infarcts Facial paresthesia Depression with anxiety Hypertensive urgency Alcohol abuse Surgical History History of colonoscopy History of tonsillectomy and adenoidectomy History of knee surgery History of foot surgery Family History Grandmother Alcohol abuse CVA (cerebral vascular accident) Depression Father Hypertension Diabetes Cancer Mother Hypercholesterolemia Thyroid disorder Depression Social History Smoking Status: Current every day smoker tobacco type: cigarettes alcohol intake: current alcohol intake frequency: 3 or more drinks per day Alcohol type: wine substance use type: does not use caffeine: Yes Type: carbonated beverages and coffee Number of servings: 1 HPI History of Present Illness HPI: Margo Sebastian is a 59 year-old female returning for therapy. She reported emotional distress and stating she received a significant bill from a rehab where she only remained one day. Margo expressed believing the man operating the rehab was harassing her discussing negative memories of the rehab contact had triggered. She suggested that it also triggered past memories of co-workers being harassed by men and filing restraining orders. While discussing this, Margo identified feeling as though everything was "closing in". She discussed joining with mutual friends to assist a friend and feeling good that she helped in a way in which she was comfortable. Encouraged verbalization of emotions while providing support. Used grounding techniques to help Margo interrupt "closing in". Provided psychoeducation on grounding techniques and purpose for them. Problem solved with Margo options for managing contact from the rehab such as asking for help and/or consulting with an collections attorney. Reinforced value-based actions regarding helping friend and following intuition regarding ways of helping that would be negative for her. No SI. Future- oriented. Exam Mental Status Exam - Psych Appearance casually dressed and adequately groomed Attitude engaged Activity/Motor Behavior MSE activity/motor behavior finding no adventitious movements and appropriate eye contact Speech regular rate, regular volume and regular prosody Mood anxious and angry Affect congruent Thought Process coherent Thought Content no delusions and no hallucinations Suicidal Ideation none Homicidal Ideation none Attention intact Concentration intact Sensorium/Orientation awake, alert and oriented x3 Memory/Cognition intact Insight good Judgement good Assessment Plan Assessment Plan (1) Major depressive disorder, single episode, unspecified: Plan: therapy using CBT, DBT, and ACT interventions to address thought patterns contributing to depressive symptoms and teach coping skills. Continued psychiatric services to monitor depressive symptoms and medication effectiveness. Pt. to call 911, call suicide prevention hotline, or go to ER if experiencing suicidal ideation with plan and intent and/or feel unable to ensure own safety. (2) Anxiety disorder, unspecified: Plan: therapy using CBT, DBT, and ACT interventions to address thought patterns contributing to anxious symptoms and to teach coping skills. Psychiatric services to monitor anxious symptoms and medication effectiveness. Plan TREATMENT PLAN Goal 1 - (more content not included)... Normal [facility] MR/BMS.BPon 12-04-2024 MR/BMS.[address], [address] [place] [address] OFFICE VISIT Date of Service: 12/02/24 MR#: [id number] Acct: [id number] Name: MARGO SEBASTIAN Rep #: [id number] : 1965 Provider: [facility] Age/Sex: 59/F Location: [facility] [place]. Status: Signed Intake Vital Signs 11/10/24 18:39 11/29/24 07:06 12/04/24 06:45 Height 5 ft 5 in 5 ft 5 in 5 ft 5 in BP Intake Visit Reasons: Follow up Allergies bacitracin Allergy (Verified 11/10/24 18:42) Rash neomycin (From Neosporin ([id number])) Allergy (Verified 11/10/24 18:42) Rash polymyxin B (From Neosporin (doy-gkd-fyimo)) Allergy (Verified 11/10/24 18:42) Rash ibuprofen Adverse Reaction (Severe, Verified 11/10/24 18:42) Other esomeprazole (From Nexium) Adverse Reaction (Verified 11/10/24 18:42) [facility] Medical History PONV (postoperative nausea and vomiting) Post-menopausal Alcohol use Wears glasses Anxiety Depression Smoker GERD (gastroesophageal reflux disease) History of echocardiogram History of stress test Cardiology follow-up encounter Hypoglycemia Nonspecific ST-T wave electrocardiographic changes Eczema History of TIA (transient ischemic attack) Chronic GERD Hyponatremia Exertional dyspnea Chest pain Hypertension Tobacco use Multiple lacunar infarcts Facial paresthesia Depression with anxiety Hypertensive urgency Alcohol abuse Surgical History History of colonoscopy History of tonsillectomy and adenoidectomy History of knee surgery History of foot surgery Family History Grandmother Alcohol abuse CVA (cerebral vascular accident) Depression Father Hypertension Diabetes Cancer Mother Hypercholesterolemia Thyroid disorder Depression Social History Smoking Status: Current every day smoker tobacco type: cigarettes alcohol intake: current alcohol intake frequency: 3 or more drinks per day Alcohol type: wine substance use type: does not use caffeine: Yes Type: carbonated beverages and coffee Number of servings: 1 HPI History of Present Illness HPI: Margo Sebastian is a 59 year-old female returning for therapy. She reported recent outbreak of sores on her hands showing them to this therapist and discussing medical concerns. Margo identified having decided how to support persons who are struggling, including her cousin and a friend, without negatively impacting herself. She reported her job has been helpful but concern as it is seasonal. 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 Margo described patterns of retreating to "lick my wounds" when becoming emotionally overwhelmed and then re-engaging with others. Encouraged verbalization of emotions while providing support. Normalized emotions. Reinforced determining level of support to give others. Explored factors assisting her with resolving this. Explored patterns of interacting with others to increase self-awareness. No SI. Future-oriented. Exam Mental Status Exam - Psych Appearance casually dressed and adequately groomed Attitude calm, engaged and pleasant Activity/Motor Behavior MSE activity/motor behavior finding no adventitious movements and appropriate eye contact Speech regular rate, regular volume and regular prosody Mood OK Affect full range Thought Process linear, logical and coherent Thought Content no delusions and no hallucinations Suicidal Ideation none Homicidal Ideation none Attention intact Concentration intact Sensorium/Orientation awake, alert and oriented x3 Memory/Cognition intact Insight good Judgement good Assessment Plan Assessment Plan (1) Major depressive disorder, single episode, unspecified: Plan: therapy using CBT, DBT, and ACT interventions to address thought patterns contributing to depressive symptoms and teach coping skills. Continued psychiatric services to monitor depressive symptoms and medication effectiveness. Pt. to call 911, call suicide prevention hotline, or go to ER if experiencing suicidal ideation with plan and intent and/or feel unable to ensure own safety. (2) Anxiety disorder, unspecified: Plan: BH therapy using CBT, DBT, and ACT interventions to address thought patterns contributing to anxious symptoms and to teach coping skills. Psychiatric services to monitor anxious symptoms and medication effectiveness. Plan TREATMENT PLAN Goal 1 - Reduce depressive symptoms by 30% AEB pt.'s self-report. Objective 1 - Identify and replace thoughts and beliefs that support depression. Intervention 1 - Using CBT will help pt. learn the connection among thoughts, feelings, and behaviors. Intervention 2 - Facilitate an (more content not included)... Normal [facility] MR/BMS.BPon 11-28-2024 MR/BMS.BP [facility] [address] [place] [address] OFFICE VISIT Date of Service: 11/27/24 MR#: [id number] Acct: [id number] Name: MARGO SEBASTIAN Rep #: [id number] : 1965 Provider: [facility] Age/Sex: 59/F Location: [facility] [place].BP Status: Signed Intake Vital Signs 07/03/24 09:14 11/20/24 10:08 11/29/24 07:06 Height 5 ft 5 in 5 ft 5 in 5 ft 5 in BP Intake Visit Reasons: Follow up Allergies bacitracin Allergy (Verified 11/10/24 18:42) Rash neomycin (From Neosporin ([id number]-mna-brkpy)) Allergy (Verified 11/10/24 18:42) Rash polymyxin B (From Neosporin (iid-epa-giymx)) Allergy (Verified 11/10/24 18:42) Rash ibuprofen Adverse Reaction (Severe, Verified 11/10/24 18:42) Other esomeprazole (From Nexium) Adverse Reaction (Verified 11/10/24 18:42) [facility] Medical History PONV (postoperative nausea and vomiting) Post-menopausal Alcohol use Wears glasses Anxiety Depression Smoker GERD (gastroesophageal reflux disease) History of echocardiogram History of stress test Cardiology follow-up encounter Hypoglycemia Nonspecific ST-T wave electrocardiographic changes Eczema History of TIA (transient ischemic attack) Chronic GERD Hyponatremia Exertional dyspnea Chest pain Hypertension Tobacco use Multiple lacunar infarcts Facial paresthesia Depression with anxiety Hypertensive urgency Alcohol abuse Surgical History History of colonoscopy History of tonsillectomy and adenoidectomy History of knee surgery History of foot surgery Family History Grandmother Alcohol abuse CVA (cerebral vascular accident) Depression Father Hypertension Diabetes Cancer Mother Hypercholesterolemia Thyroid disorder Depression Social History Smoking Status: Current every day smoker tobacco type: cigarettes alcohol intake: current alcohol intake frequency: 3 or more drinks per day Alcohol type: wine substance use type: does not use caffeine: Yes Type: carbonated beverages and coffee Number of servings: 1 HPI History of Present Illness HPI: Margo Sebastian is a 59 year-old female returning for therapy. She identified some reduction in health symptoms since last appointment. Margo reported continuing to support a long-time friend who is struggling and concern about appropriate level of support to provide. She discussed pattern of wanting to help and times it has resulted in negative consequences. Margo identified stressors related to a cousin's health issues. Themes of the session included securing appropriate boundaries; exploration of relationships with friends and family; and dealing with anxiety states. Encouraged verbalization of emotions while providing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 [id number] Name: MARGO SEBASTIAN Rep #: [id number] : 1965 58 From: Keny Gomez MD PCP: Dr. Mattie Rodríguez, DO Status:PRE SDC Y Race: C Location: [facility] [place] Pre-Assessment Diagnosis/Proposed Procedure Planned Operative Procedure(s): (R) Arthrodesis of the right metatarsal single joint, capsulotomy of the first metatarsal phalangeal joint, [employer] of calcaneal bone graft, Chuckie stress views, Delma osteotomy of the second metatarsal, Flexor digitorum longus tendon transfer of the second digit, Arthrodesis of the of the proximal interphalangeal joint second digit, capsulotomy of the third metatarsal phalangeal joint with application of a posterior splint. 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 When Was Last Pacemaker Check QUESTION #4 FULL TEXT: You/Your Family Experience fever (hyperthermia) with Anesthesia Last Oral Intake Last Oral intake: Last Oral Intake NPO since Meds taken in AM with sips of water? 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 Female Yes 04/10/24 14:41 HX of Motion Sickness No 04/10/24 14:41 HX of N/V After Surgery Yes 04/10/24 14:41 Non-Smoker No 04/10/24 14:41 Duration of Surgery greater Yes 04/10/24 14:41 than 60 minutes Number of Risk Factors 3 04/10/24 14:41 PONV Score Moderate Risk 04/10/24 14:41 Height Weight Height Weight: Anesthesia: Height Weight Height 5 ft 4 in 01/24/24 11:52 Respiratory Assessment Respiratory Assessment - television producer: Respiratory Tract Infection Hx - television producer Hx Respiratory Tract Infection Yes: SINUS INFECTION - WAS 04/10/24 14:41 ON ANTIBIOTICS 04/10/24 STOP Sleep Apnea STOP Sleep Apnea - television producer: STOP Sleep Apnea - television producer Hx Hypertension Yes: CONTROLLED WITH MED 04/10/24 14:41 Hx Sleep Apnea No 04/10/24 14:41 CPAP BIPAP Do you snore loudly (louder No 04/10/24 14:41 than talking or can be heard Do you often feel tired/ No 04/10/24 14:41 fatigued/ sleepy during daytime? Has anyone observed you stop No 04/10/24 14:41 breathing during sleep? STOP Results Negative 04/10/24 14:41 QUESTION #5 FULL TEXT : Do you snore loudly (louder than talking or can be heard through closed doors)? 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 Specify any problems Hx of Preganancy in last 3 N/A 04/10/24 14:41 Months Nurse Filling Out Transfusion NBUCHER 04/10/24 14:41 Questions: Date: 04/10/24 04/10/24 14:41 Time: 14:43 04/10/24 14:41 Patient unable to answer at this time (ie. confused, unrespo /Reproduction History /Reproductive History - television producer: /Reproductive Hx- television producer Hx Now No 04/10/24 14:41 Gestational Age (in weeks): EDC: Hx Hx Para Hx Section SAB No 04/10/24 14:41 PFSH Medical History PONV (postoperative nausea and vomiting) Post-menopausal Alcohol use Wears glasses Anxiety Depression Smoker GERD (gastroesophageal reflux disease) History of echocardiogram History of stress test Cardiology follow-up encounter Hypoglycemia Nonspecific ST-T wave electrocardiographic changes Eczema History of TIA (transient ischemic attack) Chronic GERD Hyponatremia Exertional dyspnea Chest pain Hyperten (more content not included)... [facility] 12 Lead EKGon 03-26-2024 12 Lead EKG [facility] Cardiovascular Services [address] [place] [address] 12 Lead EKG 03/26/24 1732 MR#: [id number] Acct: [id number] Name: MARGO SEBASTIAN Rep #: [id number] : 1965 58 From: Elliott Garcias MD Attending Dr: Status: DEP ER Ordering Dr: Nirav Alba DO Date: 03/26/24 Location: ED Sex: F C Admitted: Test Reason : Blood Pressure : */* mmHG Vent. Rate : 73 BPM Atrial Rate : 73 BPM P-R Int : 164 ms QRS Dur : 80 ms QT Int : 436 ms P-R-T Axes : 35 55 44 degrees QTcB Int : 480 ms Normal sinus rhythm Prolonged QT Abnormal ECG Confirmed by Elliott Garcias ([id number]), science editor MAGUE VYAS ([id number]) on 03/27/2024 1:43:12 PM Referred By: JAMES Confirmed By: Elliott Garcias 03/27/24 1343 Date Elliott Garcias MD CC: Dr. Mattie Rodríguez DO; Dr. Nirav Alba DO Signed [facility] Basic Metabolic Profile (BMP )on 03-26-2024 BUN/CRE 15.5 RATIO Normal 10-20 [facility] Comment on above: Order Comment: 'TROP ' Serial specimen #1, #2 or #3: 1 Performed By: #### L 100.0100, L300.3900, L300.4310, L500.2500, L501.4020 #### [facility] [address] [place], [address] CA,Total 9.5 mg/dL Normal 8.5-10.1 [facility] Comment on above: Order Comment: 'TROP ' Serial specimen #1, #2 or #3: 1 Performed By: #### L 100.0100, L300.3900, L300.4310, L500.2500, L501.4020 #### [facility] [address] [place], [address] Chloride [Moles/Vol] 96 mmol/L Low 98-107 [facility] Comment on above: Order Comment: 'TROP ' Serial specimen #1, #2 or #3: 1 Performed By: #### L 100.0100, L300.3900, L300.4310, L500.2500, L501.4020 #### [facility] [address] [place], [address] CO2 [Moles/Vol] 25.0 mmol/L Normal 21.0-32.0 [facility] Comment on above: Order Comment: 'TROP ' Serial specimen #1, #2 or #3: 1 Performed By: #### L 100.0100, L300.3900, L300.4310, L500.2500, L501.4020 #### [facility] [address] [place], [address] Creatinine [Mass/Vol] 0.71 mg/dL Normal 0.55-1.02 [facility] Comment on above: Order Comment: 'TROP ' Serial specimen #1, #2 or #3: 1 Result Comment: The validity of the calculated GFR GFRAA in patients over 70 years has not been determined. Clinical correlation is essential. Performed By: #### L 100.0100, L300.3900, L300.4310, L500.2500, L501.4020 #### [facility] [address] [place], [address] ECRCL 86.01 ml/min Normal [facility] Comment on above: Order Comment: 'TROP ' Serial specimen #1, #2 or #3: 1 Performed By: #### L 100.0100, L300.3900, L300.4310, L500.2500, L501.4020 #### [facility] [address] [place], [address] EST GFR - AA 108 mL/min Normal >60 [facility] Comment on above: Order Comment: 'TROP ' Serial specimen #1, #2 or #3: 1 Result Comment: Afri can Eritrean GFR Calc Performed By: #### L 100.0100, L300.3900, L300.4310, L500.2500, L501.4020 #### [facility] [address] [place], [address] GAP 10 Normal 5-15 [facility] Comment on above: Order Comment: 'TROP ' Serial specimen #1, #2 or #3: 1 Performed By: #### L 100.0100, L300.3900, L300.4310, L500.2500, L501.4020 #### [facility] [address] [place], [address] GFR/1.73 sq M.predicted among non-blacks MDRD (S/P/Bld) [Vol rate/Area] 90 mL/min/{1.73_m2} Normal >60 [facility] Comment on above: Order Comment: 'TROP ' Serial specimen #1, #2 or #3: 1 Result Comment: Non- GFR Calc Performed By: #### L 100.0100, L300.3900, L300.4310, L500.2500, L501.4020 #### [facility] [address] [place], [address] Glucose [Mass/Vol] 87 mg/dL Normal 74-106 [facility] Comment on above: Order Comment: 'TROP ' Serial specimen #1, #2 or #3: 1 Performed By: #### L 100.0100, L300.3900, L300.4310, L500.2500, L501.4020 #### [facility] [address] [place], [address] Potassium [Moles/Vol] 3.3 mmol/L Low 3.5-5.1 [facility] Comment on above: Order Comment: 'TROP ' Serial specimen #1, #2 or #3: 1 Performed By: #### L 100.0100, L300.3900, L300.4310, L500.2500, L501.4020 #### [facility] [address] [place], [address] Sodium [Moles/Vol] 131 mmol/L Low 136-145 [facility] Comment on above: Order Comment: 'TROP ' Serial specimen #1, #2 or #3: 1 Performed By: #### L 100.0100, L300.3900, L300.4310, L500.2500, L501.4020 #### [facility] [address] [place], [address] Urea nitrogen [Mass/Vol] 11 mg/dL Normal 7-18 [facility] Comment on above: Order Comment: 'TROP ' Serial specimen #1, #2 or #3: 1 Performed By: #### L 100.0100, L300.3900, L300.4310, L500.2500, L501.4020 #### [facility] [address] [place], [address] Bedside Glucoseon 03-26-2024 FINGERSTICK GLU 99 mg/dL Normal 74-106 [facility] Comment on above: Result Comment: LINDAJohn DIXONMARVIN OF PATIENT CARE PER NURSING PROTOCOL Performed By: #### L 501.5200 #### [facility] [address] [place], [place], [address] Brain/Head without Contrasto n 03-26-2024 Brain/Head without Contrast [facility] Imaging Services [address] [place] [address] Brain/Head without Contrast MR#: [id number] Acct: [id number] Name: MARGO SEBASTIAN Rep #: [id number] : 1965 F 58 From: Poornima White MD PCP: Dr. Mattie Rodríguez DO Status: REG ER Study: Brain/Head without Contrast Date of Exam: 09/12 Exam# [id number] Ordering Dr: Nirav Alba DO [id number] EXAM: CT HEAD WITHOUT INTRAVENOUS CONTRAST CLINICAL INDICATION: headache, htn TECHNIQUE: Multiple axial images were obtained of the head without intravenous contrast. This CT exam was performed using one or more of the following dose reduction techniques: automated exposure control, adjustment of the mA and/or kV according to patient size, and/or use of iterative reconstruction technique. RADIATION DOSE: CTDIvol = 44.99 mGy, DLP = 812.98 mGy-cm COMPARISON: No relevant prior studies available. FINDINGS: BRAIN AND EXTRA-AXIAL SPACES: Unremarkable. No intra- or extra-axial hemorrhage. No evidence of acute infarct. No intracranial mass or mass effect. There is preservation of the kim/white matter interface. Posterior fossa structures are unremarkable. Ventricles are appropriate for age. No hydrocephalus. Basal cisterns are patent. BONES/JOINTS: Unremarkable. No discrete lytic or blastic abnormalities. SINUSES: Unremarkable as visualized. Clear. MASTOID AIR CELLS: Unremarkable. Clear. ORBITS: Visualized globes, extraocular muscles, optic nerves and retrobulbar fat appear unremarkable. CT/Brain/Head without Contrast IMPRESSION: Negative head/brain CT without intravenous contrast. Electronically Signed: Poornima White MD at 19:04 EST , CC: Dr. Mattie Rodríguez, DO; Dr. Nirav Alba, DO Resin Mixer: Signed Normal [facility] CBC W/Diff, Automatedon 12-0 -2023 Absolute Lymph 3.94 X10 3/uL Normal 0.83-4.51 [facility] Comment on above: Performed By: #### L 100.0100, L300.3900, L300.4310, L500.2500, L501.4020 #### [facility] [address] [place], [address] Absolute Neut 6.8 X10 3/uL Normal 2.0-7.7 [facility] Comment on above: Performed By: #### L 100.0100, L300.3900, L300.4310, L500.2500, L501.4020 #### [facility] [address] [place], [address] Basophils/100 WBC (Bld) 0.5 % Normal 0-1 [facility] Comment on above: Performed By: #### L 100.0100, L300.3900, L300.4310, L500.2500, L501.4020 #### [facility] [address] [place], [address] Eosinophils/100 WBC (Bld) 0.9 % Normal 0-5 [facility] Comment on above: Performed By: #### L 100.0100, L300.3900, L300.4310, L500.2500, L501.4020 #### [facility] [address] [place], [address] Erythrocyte distribution width (RBC) [Ratio] 12.8 % Normal 11.6-14.6 [facility] Comment on above: Performed By: #### L 100.0100, L300.3900, L300.4310, L500.2500, L501.4020 #### [facility] [address] [place], [address] Hematocrit (Bld) [Volume fraction] 34.1 % Low 37-47 [facility] Comment on above: Performed By: #### L 100.0100, L300.3900, L300.4310, L500.2500, L501.4020 #### [facility] [address] [place], [address] Hemoglobin (Bld) [Mass/Vol] 11.5 g/dL Low 12.0-15.0 [facility] Comment on above: Performed By: #### L 100.0100, L300.3900, L300.4310, L500.2500, L501.4020 #### [facility] [address] [place], [address] IG% 0.500 Normal 0.0-0.9 [facility] Comment on above: Result Comment: IG% - Immature Granulocytes (promyelocytes, myelocytes and metamyelocytes) > 1% indicates that a LEFT SHIFT is Present. Performed By: #### L 100.0100, L300.3900, L300.4310, L500.2500, L501.4020 #### [facility] [address] [place], [address] Lymphocytes/100 WBC (Bld) 33.0 % Normal 19-41 [facility] Comment on above: Performed By: #### L 100.0100, L300.3900, L300.4310, L500.2500, L501.4020 #### [facility] [address] [place], [address] MCH (RBC) [Entitic mass] 31.2 pg Normal 27.0-32.0 [facility] Comment on above: Performed By: #### L 100.0100, L300.3900, L300.4310, L500.2500, L501.4020 #### [facility] [address] [place], [address] MCHC (RBC) [Mass/Vol] 33.7 g/dL Normal 32-36 [facility] Comment on above: Performed By: #### L 100.0100, L300.3900, L300.4310, L500.2500, L501.4020 #### [facility] [address] [place], [address] MCV (RBC) [Entitic vol] 92.4 fL Normal 81-99 [facility] Comment on above: Performed By: #### L 100.0100, L300.3900, L300.4310, L500.2500, L501.4020 #### [facility] [address] [place], [address] Monocytes/100 WBC (Bld) 8.3 % Normal 0-10 [facility] Comment on above: Performed By: #### L 100.0100, L300.3900, L300.4310, L500.2500, L501.4020 #### [facility] [address] [place], [address] Neutrophils/100 WBC (Bld) 56.8 % Normal 47-70 [facility] Comment on above: Performed By: #### L 100.0100, L300.3900, L300.4310, L500.2500, L501.4020 #### [facility] [address] [place], [address] Nucleated RBC (Bld) [#/Vol] 0 10*3/uL Normal 0-5 [facility] Comment on above: Performed By: #### L 100.0100, L300.3900, L300.4310, L500.2500, L501.4020 #### [facility] [address] [place], [address] Platelet mean volume (Bld) [Entitic vol] 9.7 fL Normal 6.2-12.0 [facility] Comment on above: Performed By: #### L 100.0100, L300.3900, L300.4310, L500.2500, L501.4020 #### [facility] [address] [place], [address] Platelets (Bld) [#/Vol] 368 10*3/uL Normal 150-450 [facility] Comment on above: Performed By: #### L 100.0100, L300.3900, L300.4310, L500.2500, L501.4020 #### [facility] [address] [place], [address] RBC (Bld) [#/Vol] 3.69 10*6/uL Low 4.2-5.4 [facility] Comment on above: Performed By: #### L 100.0100, L300.3900, L300.4310, L500.2500, L501.4020 #### [facility] [address] [place], [address] RDW SD 43.2 fl Normal 35.1-43.9 [facility] Comment on above: Performed By: #### L 100.0100, L300.3900, L300.4310, L500.2500, L501.4020 #### [facility] [address] [place], [address] WBC (Bld) [#/Vol] 11.9 10*3/uL High 4.4-11.0 [facility] Comment on above: Performed By: #### L 100.0100, L300.3900, L300.4310, L500.2500, L501.4020 #### [facility] [address] [place], [address] Chest PA and Lateralon 03-26 Chest PA and Lateral [facility] Imaging Services [address] [place] [address] Chest PA and Lateral MR#: [id number] Acct: [id number] Name: MARGO SEBASTIAN Rep #: [id number] : 1965 F 58 From: Poornima White MD PCP: Dr. Mattie Rodríguez DO Status: REG ER Study: Chest PA and Lateral Date of Exam: 03/26/24 Exam# [id number] Ordering Dr: Nirav Alba DO [id number] EXAM: XR CHEST, 2 VIEWS CLINICAL INDICATION: chest pain TECHNIQUE: Frontal and lateral views of the chest. COMPARISON: November 26, 2023 FINDINGS: LUNGS AND PLEURAL SPACES: Unremarkable. No consolidation or edema. No pneumothorax. No effusion. HEART: Unremarkable. Cardiac silhouette not enlarged. MEDIASTINUM: Central airways and mediastinal contour are unremarkable. BONES/JOINTS: Unremarkable. No acute fracture. SOFT TISSUES: Unremarkable. RAD/Chest PA and Lateral IMPRESSION: No radiographic evidence of acute cardiopulmonary disease. Electronically Signed: Poornima White MD at 19:08 EST , CC: Dr. Mattie Rodríguez DO; Dr. Nirav Alba DO Resin Mixer: Signed Normal [facility] Emergency Department Summary on 03-26-2024 Emergency Department Summary [facility] Medical Records Department [address] [place] [address] Emergency Department Summary 03/26/24 MR#: [id number] Acct: [id number] Name: MARGO SEBASTIAN Rep #: [id number] : 1965 58 From: Nirav Alba DO PCP: Dr. Mattie Rodríguez DO Status:REG ER Location: ED HPI History of Present Illness Chief Complaint: Neuro S/Sx Narrative Narrative: Patient is a 58-year-old female past medical history of TIA, hypertension on multiple antihypertensives, alcohol abuse, GERD who presents to the emergency department with a chief complaint of headache. She states that she will have intermittent visual changes and she states that this usually is associated with her high blood pressure. She states that she has been on and off for her blood pressure medications recently while she has been in rehab. Patient states that she noted she had some numbness and tingling in her left hand that started in her hand and did radiate up to her forearm which has improved. Patient states that normally when she is on her antihypertensives her blood pressure is well-controlled. Patient denies recent falls or head trauma. [facility] Medical History Wears glasses Anxiety Depression Smoker GERD (gastroesophageal reflux disease) History of echocardiogram History of stress test Cardiology follow-up encounter Hypoglycemia Nonspecific ST-T wave electrocardiographic changes Eczema History of TIA (transient ischemic attack) Chronic GERD Hyponatremia Exertional dyspnea Chest pain Hypertension Tobacco use Multiple lacunar infarcts Facial paresthesia Depression with anxiety Hypertensive urgency Alcohol abuse Home Medications ???Medication ???Instructions ???Recorded ???Last Taken ???Type atorvastatin 20 mg tablet 10 mg PO DAILY 07/05/23 Unknown History cartilage 40 mg-collagen II 10 1 tab PO DAILY 07/05/23 Unknown History mg-boron 5 mg-hyaluronate 3.3 mg tablet ([employer]) cholecalciferol (vitamin D3) 50 50 mcg PO DAILY 07/05/23 Unknown History mcg (2,000 unit) capsule citalopram 40 mg tablet 40 mg PO DAILY 07/05/23 Unknown History clonidine HCl 0.1 mg tablet 0.1 mg PO Q12H 07/05/23 Unknown History folic acid 400 mcg tablet 0.4 mg PO DAILY 07/05/23 Unknown History lisinopril 20 mg tablet 20 mg PO BID 07/05/23 Unknown History olopatadine 0.2 % eye drops 1 drp ophthalmic (eye) DAILY PRN 07/05/23 Unknown History itching pantoprazole 40 mg tablet,delayed 40 mg PO DAILY 07/05/23 01/24/24 10:00 History release thiamine HCl (vitamin B1) 100 mg 100 mg PO DAILY 07/05/23 Unknown History tablet trazodone 50 mg tablet 50 mg PO QHS 07/05/23 Unknown History triamterene 37.5 1 tab PO DAILY 07/05/23 Unknown History mg-hydrochlorothiazide 25 mg tablet aspirin 81 mg capsule 81 mg PO DAILY 01/17/24 Unknown History ascorbic acid (vitamin C) 1,000 mg 1 g PO DAILY 90 days #90 tabs 01/24/24 Unknown Rx tablet (Vitamin C) fluticasone propionate 50 2 spray intranasal Q12H PRN 03/26/24 Unknown History mcg/actuation nasal allergy symptoms spray,suspension Allergy/AdvReac Type Severity Reaction Status Date / Time bacitracin Allergy Rash Verified 03/26/24 17:11 neomycin (From Neosporin Allergy Rash Verified 03/26/24 17:11 ([id number])) polymyxin B (From Neosporin Allergy Rash Verified 03/26/24 17:11 ([id number])) esomeprazole (From Nexium) AdvReac Other Verified 03/26/24 17:11 Family History Grandmother Alcohol abuse CVA (cerebral vascular accident) Depression Father Hypertension Diabetes Cancer Mother Hypercholesterolemia Thyroid disorder Depression Surgical History History of colonoscopy History of tonsillectomy and adenoidectomy History of knee surgery History of foot surgery Social History Smoking Status: Current every day smoker tobacco type: cigarettes alcohol intake: current alcohol intake frequency: 3 or more drinks per day Alcohol type: wine substance use type: does not use caffeine: Yes Type: carbonated beverages and coffee Number of servings: 1 ROS ROS ED ROS Narrative Constitutional: Complains of headache denies any fevers, chills, lightness, dizziness Eyes: Complaining of intermittent blurry vision as noted above but states that her vision is normal here in the emergency department denies double vision Cardiovascular: Denies chest pain or palpitations Respiratory: Denies coughing wheezing shortness of breath Abdomen: Denies abdominal pain nausea vomit diarrhea : Denies any urinary symptoms Neurological: Denies numbness, weakness, tingling Musculoskeletal: Denies back pain Skin: Denies rashes or lesi (more content not included)... Normal [facility] L501.4020on 12-05-2024 TROPONIN-I HS 6 pg/mL Normal 3.0-54.0 [facility] Comment on above: Order Comment: 'TROP ' Serial specimen #1, #2 or #3: 1 Result Comment: Jose Manuel kohler Note: New Test Units and Gender Specific Reference Ranges. For more information see Policy Stat Procedure Elbe High Sensitivity Troponin (TNIH) and attachments. Performed By: #### L 100.0100, L300.3900, L300.4310, L500.2500, L501.4020 #### [facility] [address] [place], [address] Partial Thromboplast Timeon 03-26-2024 aPTT Coag (Bld) [Time] 28.9 s Normal 24.1-36.2 [facility] Comment on above: Performed By: #### L 100.0100, L300.3900, L300.4310, L500.2500, L501.4020 #### [facility] [address] [place], [address] Prothrombin Time w/INRon INR Coag (PPP) [Relative time] 0.9 {INR} Normal [facility] Comment on above: Performed By: #### L 100.0100, L300.3900, L300.4310, L500.2500, L501.4020 #### [facility] [address] [place], [address] PT Coag (PPP) [Time] 12.2 s Normal 11.7-14.9 [facility] Comment on above: Performed By: #### L 100.0100, L300.3900, L300.4310, L500.2500, L501.4020 #### [facility] [address] [place], [address] Nicotine Screen Bloodon 10-0 COTININE BLOOD 409.1 ng/mL Normal . [facility] Comment on above: Result Comment: This test was developed and its performance characteristics determined by [employer]. It has not been cleared or approved by the Food and Drug Administration. Cotinine levels greater than 20.0 are consistent with the use of tobacco or tobacco cessation products. Performed at: [address] [id number] Boat Deckhand: Cristino Meade MD, Phone: [phone] Performed By: #### L 501.080 #### [facility] [address] [place], [place], [address] NICOTINE BLOOD 17.3 ng/mL Normal . [facility] Comment on above: Result Comment: This test was developed and its performance characteristics determined by [facility]. It has not been cleared or approved by the Food and Drug Administration. Nicotine levels greater than 2.0 are consistent with the use of tobacco or tobacco cessation products. Performed By: #### L 501.080 #### [facility] [address] [place], [place], [address] Operative Reporton 4 Operative Report [facility] Medical Records Department [address] [place] [address] Operative Report 01/27/24 1831 MR#: [id number] Acct: [id number] Name: MARGO SEBASTIAN Rep #: [id number] : 1965 58 From: Nate Mckenzie DPM PCP: Dr. Mattie Rodríguez, DO Status:[facility] Location: [facility] [place] Problems Associated Problem List Diagnoses (1) Hallux valgus (acquired), left foot: (2) Primary osteoarthritis, left ankle and foot: (3) Other deformities of toe(s) (acquired), left foot: (4) Contracture, left foot: (5) Pain in left foot: (6) Other hammer toe(s) (acquired), left foot: Report of Operation Date of Procedure: 01/24/24 Pre-Operative Diagnosis: 1. Hallux valgus, left foot 2. Primary osteoarthritis, left foot 3. Other deformities of toes, left foot 4. Contracture of foot, left foot 5. Pain, left foot 6. Hammertoes, left foot Post-Operative Diagnosis: Same as preoperative diagnosis Surgery/Procedure Performed:: 1. [employer] of calcaneal bone graft, left foot 2. First tarsometatarsal joint arthrodesis, left foot 3. Capsulotomy first metatarsophalangeal joint, left foot 4. Manual Stress views, left foot 5. Partial excision of bone first metatarsal with capsulotomy, left foot 6. Delma osteotomy, second metatarsal, left foot 7. Proximal interphalangeal joint arthrodesis, second digit, left foot 8. Capsulotomy, third metatarsophalangeal joint, left foot Description of Surgical Findings:: 1. Adequate reduction of severe hallux valgus with crossover toe. Upon completion of the procedure the patient showed evidence of a rectus foot with straight toes and improved intermetatarsal angle 1-2 and improved crossover toe to the left foot. Surgeon: Nate Mkcenzie ingot header: Sandra Junior Type of Anesthesia: Block,Regional, General and Local Anesthesiologist: Keny Gomez Special Medications: Popliteal block, per anesthesia, left lower extremity Specimen's removed: None Drains: None Estimated Blood Loss (mL): 75 mL Fluids Replaced: Per anesthesia Description of Procedure: Description of Procedure: Indications For Operation: Mrs. Sebastian is a 58-year-old female who was admitted to [facility] for elective left foot surgery consisting of bunion correction surgery and hammertoe correction to left lower extremity. Patient has had a history of pain to the left lower extremity due to her contracture and arthritic left foot. Patient has exhausted all conservative treatment consisting of taping, offloading, shoe gear modification, oral and topical nonsteroid anti-inflammatories and injections. Patient was seen in the office of Dr. Mckenzie for surgical evaluation of her severe bunion. After review of the patient's radiographs and long discussion regarding surgery and aftercare and had deemed necessary at this time to discuss with the patient surgical intervention of the above procedures to help relieve her constant pain and reconstruct her left foot. All risk and benefits were discussed with the patient in great detail. Surgical consultation was done chart review consent signed. Due to nature of patient's worsening left foot bunion with crossover toe and her inability to get in comfortable shoe gear secondary to severe pain, it had been deemed necessary at this time to take the patient to the operating room and performed above procedure to reconstruct her foot and improve her constant pain. The nature of the problem, anticipated procedures, postop recovery/convalences and risk/complications include but not limited to infection, wound healing complications, digital amputation, hypertrophic scarring, numbness, tingling, chronic pain, CRPS, over and under correction, recurrence of deformity, DVT and or PE and the need for further surgery have been discussed in great detail with the patient. All questions have been answered to the patient's satisfaction. There are no guarantees given as to the outcome of the procedure. Description of Procedure: Under mild sedation, the patient was brought into the operating room and placed on the operating table in supine position. Once the patient was under general anesthesia with original mask airway, the left lower extremity was blocked using approximately 10 cc 0.5% Marcaine plain to the saphenous nerve, popliteal block was performed by anesthesia prior to the procedure please see anesthesia notes for further detail. Next, a well-padded thigh tourniquet was applied to the left lower extremity. Next, the left lower extremity was prepped and draped in normal aseptic manner. Next, a timeout was then undertaken verifying the correct patient, extremity, visibility of preoperative markings, availability of the equipment. Next, attention was directed to the left lower extremity. Using a 6 inch Esmarch, left lower extremity was exsanguinated and elevated to 60 degrees for 1 minute. Procedure (more content not included)... Normal [facility] Operative Reporton 4 Operative Report [facility] Medical Records Department [address] [place] [address] Operative Report 01/26/24 1131 MR#: [id number] Acct: [id number] Name: MARGO SEBASTIANRE Rep #: [id number] : 1965 58 From: Nate Mckenzie DPM PCP: Dr. Mattie Rodríguez, DO Status:[facility] Location: [facility] [place] Problems Associated Problem List Diagnoses (1) Hallux valgus (acquired), left foot: (2) Primary osteoarthritis, left ankle and foot: (3) Other deformities of toe(s) (acquired), left foot: (4) Contracture, left foot: (5) Pain in left foot: (6) Other hammer toe(s) (acquired), left foot: Report of Operation Date of Procedure: 01/24/24 Pre-Operative Diagnosis: 1. Hallux valgus, left foot 2. Primary osteoarthritis, left foot 3. Other deformities of toes, left foot 4. Contracture of foot, left foot 5. Pain, left foot 6. Hammertoes, left foot Post-Operative Diagnosis: Same as preoperative diagnosis Surgery/Procedure Performed:: 1. [employer] of calcaneal bone graft, left foot 2. First tarsometatarsal joint arthrodesis, left foot 3. Capsulotomy first metatarsophalangeal joint, left foot 4. Manual Stress views, left foot 5. Partial excision of bone first metatarsal with capsulotomy, left foot 6. Delma osteotomy, second metatarsal, left foot 7. Proximal interphalangeal joint arthrodesis, second digit, left foot 8. Capsulotomy, third metatarsophalangeal joint, left foot Description of Surgical Findings:: 1. Adequate reduction of severe hallux valgus with crossover toe. Upon completion of the procedure the patient showed evidence of a rectus foot with straight toes and improved intermetatarsal angle 1-2 and improved crossover toe to the left foot. Surgeon: Nate Mckenzie ingot header: Sandra Junior Type of Anesthesia: Block,Regional, General and Local Anesthesiologist: Keny Gomez Special Medications: Popliteal block, per anesthesia, left lower extremity Specimen's removed: None Drains: None Estimated Blood Loss (mL): 75 mL Fluids Replaced: Per anesthesia Description of Procedure: Indications For Operation: Mrs. Sebastian is a 58-year-old female who was admitted to [facility] for elective left foot surgery consisting of bunion correction surgery and hammertoe correction to left lower extremity. Patient has had a history of pain to the left lower extremity due to her contracture and arthritic left foot. Patient has exhausted all conservative treatment consisting of taping, offloading, shoe gear modification, oral and topical nonsteroid anti-inflammatories and injections. Patient was seen in the office of Dr. Mckenzie for surgical evaluation of her severe bunion. After review of the patient's radiographs and long discussion regarding surgery and aftercare and had deemed necessary at this time to discuss with the patient surgical intervention of the above procedures to help relieve her constant pain and reconstruct her left foot. All risk and benefits were discussed with the patient in great detail. Surgical consultation was done chart review consent signed. Due to nature of patient's worsening left foot bunion with crossover toe and her inability to get in comfortable shoe gear secondary to severe pain, it had been deemed necessary at this time to take the patient to the operating room and performed above procedure to reconstruct her foot and improve her constant pain. The nature of the problem, anticipated procedures, postop recovery/convalences and risk/complications include but not limited to infection, wound healing complications, digital amputation, hypertrophic scarring, numbness, tingling, chronic pain, CRPS, over and under correction, recurrence of deformity, DVT and or PE and the need for further surgery have been discussed in great detail with the patient. All questions have been answered to the patient's satisfaction. There are no guarantees given as to the outcome of the procedure. Description of Procedure: Under mild sedation, the patient was brought into the operating room and placed on the operating table in supine position. Once the patient was under general anesthesia with original mask airway, the left lower extremity was blocked using approximately 10 cc 0.5% Marcaine plain to the saphenous nerve, popliteal block was performed by anesthesia prior to the procedure please see anesthesia notes for further detail. Next, a well-padded thigh tourniquet was applied to the left lower extremity. Next, the left lower extremity was prepped and draped in normal aseptic manner. Next, a timeout was then undertaken verifying the correct patient, extremity, visibility of preoperative markings, availability of the equipment. Next, attention was directed to the left lower extremity. Using a 6 inch Esmarch, left lower extremity was exsanguinated and elevated to 60 degrees for 1 minute. Procedure #1 [employer] of calcaneal b (more content not included)... Normal [facility] Bedside Glucoseon 01-24-2024 FINGERSTICK GLU 161 mg/dL High 74-106 [facility] Comment on above: Result Comment: LINDA MENA OF PATIENT CARE PER NURSING PROTOCOL Performed By: #### L 501.080 #### [facility] [address] [place], [place], [address] Foot 2 Viewson 01-24-2024 Foot 2 Views [facility] Imaging Services [address] [place] [address] Foot 2 Views MR#: [id number] Acct: [id number] Name: MARGO SEBASTIAN Rep #: [id number] : 1965 F 58 From: Jacob martinez MD PCP: Dr. Mattie Rodríguez DO Status: [facility] Study: Foot 2 Views Date of Exam: 01/24/24 Exam# [id number] Ordering Dr: Nate Mckenzie DPM [id number] INDICATION: ARTHRODESIS LT MEDITARSAL JOINT EXAMINATION/TECHNIQUE: X-RAY - LEFT XR Foot 2 Views 4 fluoroscopic images. Total fluoroscopic time 200.7 seconds. Total dose 3.24 mGy. COMPARISON: No relevant prior comparison study available FINDINGS: Fluoroscopic guidance targeting the foot with placement of screws at the second metatarsal head and a screw across the second digit interphalangeal joint. There is also hardware at the first tarsometatarsal joint and medial tarsal bones. RAD/Foot 2 Views IMPRESSION: Fluoroscopic guidance for fixation hardware at the foot. Please refer to operative report for further information. Electronically Signed: Jacob Forbes MD at 7:05 EDT , CC: JOE Mckenzie; Dr. Mattie Rodríguez DO Resin Mixer: Signed Normal [facility] Hemoglobin A1con 01-24-2024 HbA1c (Bld) [Mass fraction] 5.3 % Normal 3.8-5.6 [facility] Comment on above: Result Comment: Norm al < 5.7 % Prediabetic 5.7 - 6.4 % Diabetic >or= 6.5 % Please note range changes. Performed By: #### L 501.080 #### [facility] [address] [place], [address] MR/POSTOP.ANEon 01-24-2024 MR/POSTOP.ANE [facility] Medical Records Department [address] [place] [address] Anesthesia Postop Eval I 01/24/24 1648 MR#: [id number] Acct: [id number] Name: MARGO SEBASTIAN Rep #: [id number] : 1965 58 From: Emily De Anda CRNA PCP: Dr. Mattie Rodríguez, DO Status:REG [facility] Y Race: C Location: [place] [address] Anesthesia: Postop Eval I Current Vital Signs Temperature: 97.6 F Pulse Rate: 80 Blood Pressure: 157/87 Respiratory Rate: 18 Pulse Ox: 100 Oxygen Delivery Method: Room Air Assessment Airway patent: Yes Spontaneous unlabored respirations: Yes Mental status: Awake and Calm nausea: No Vomiting: No Anesthesia Complication: No Fluid Hydration Crystalloid volume administer (ml): 800 Total IV fluid infused: 800 Progress Note Anesthesia document: Postop Eval 1 completed: Yes 01/24/24 1649 Date Emily De Anda CRNA Cosigner Signature: Date CC: Signed Normal [facility] MR/[id number] 01-24-2024 MR/POSTOPAN2 [facility] Medical Records Department [address] [place] [address] Anesthesia Postop Eval II 01/24/24 2311 MR#: [id number] Acct: [id number] Name: MARGO SEBASTIAN Rep #: [id number] : 1965 58 From: Keny Gomez MD PCP: Dr. 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 [email or web address].[email or web address] Spontaneous unlabored Yes 01/24/24 16:49 BOTANY TEACHER.MERLYNOBRic respirations Mental status Awake,Calm 01/24/24 16:49 [employer] TE[employer]ER.SKOBY nausea No 01/24/24 16:49 [employer] TE[employer]ER.SKOBY Vomiting No 01/24/24 16:49 BOTANY TEACHER.SKOBY Anesthesia Postop Eval I: Fluid Summary Crystalloid volume administer 800 01/24/24 16:49 BOTANY TEACHER.SKOBY (ml) Colloids volume administered ( ml) Blood Product volume administered (ml) Total IV fluid infused 800 01/24/24 16:49 BOTANY TEACHER.MERLYNOBRic Anesthesia Postop Eval I: Summary Notes Anesthesia Complication No 01/24/24 16:49 BOTANY [email or web address].JUDY Anesthesia Complication Comment: Post-operative progress note Anesthesia: Postop Eval II Evaluation Mental status: Awake and Calm Pain Level: 1 nausea: No Vomiting: No Complications Anesthesia Complication: No 01/24/24 2311 Date Keny Gomez MD Cosigner Signature: Date CC: Signed Normal [facility] Magnesiumon 01-24-2024 Magnesium [Mass/Vol] 2.1 mg/dL Normal 1.6-2.6 [facility] Comment on above: Performed By: #### L 501.5200 #### [facility] [address] [place], [address] Operative Reporton 4 Operative Report [facility] Medical Records Department [address] [place] [address] Operative Report 01/24/24 1252 MR#: [id number] Acct: [id number] Name: MARGO SEBASTIAN Rep #: [id number] : 1965 58 From: Nate Mckenzie DPM PCP: Dr. Mattie Rodríguez, DO Status:[facility] Location: [facility] [place] Problems Associated Problem List Diagnoses (1) Hallux valgus (acquired), left foot: (2) Primary osteoarthritis, left ankle and foot: (3) Other deformities of toe(s) (acquired), left foot: (4) Contracture, left foot: (5) Pain in left foot: (6) Other hammer toe(s) (acquired), left foot: Report of Operation Date of Procedure: 01/24/24 Pre-Operative Diagnosis: 1. Hallux valgus, left foot 2. Primary osteoarthritis, left foot 3. Other deformities of toes, left foot 4. Contracture of foot, left foot 5. Pain, left foot 6. Hammertoes, left foot Post-Operative Diagnosis: Same as preoperative diagnosis Surgery/Procedure Performed:: 1. [employer] of calcaneal bone graft, left foot 2. First tarsometatarsal joint arthrodesis, left foot 3. Capsulotomy first metatarsophalangeal joint, left foot 4. Manual Stress views, left foot 5. Partial excision of bone first metatarsal with capsulotomy, left foot 6. Delma osteotomy, second metatarsal, left foot 7. Proximal interphalangeal joint arthrodesis, second digit, left foot 8. Capsulotomy, third metatarsophalangeal joint, left foot Description of Surgical Findings:: 1. Adequate reduction of severe hallux valgus with crossover toe. Upon completion of the procedure the patient showed evidence of a rectus foot with straight toes and improved intermetatarsal angle 1-2 and improved crossover toe to the left foot. Surgeon: Nate Mckenzie ingot header: Sandra Junior Type of Anesthesia: Block,Regional, General and Local Anesthesiologist: Keny Gomez Special Medications: Popliteal block, per anesthesia, left lower extremity Specimen's removed: None Drains: None Estimated Blood Loss (mL): 75 mL Fluids Replaced: Per anesthesia Description of Procedure: Indications For Operation: Mrs. Sebastian is a 58-year-old female who was admitted to [facility] for elective left foot surgery consisting of bunion correction surgery and hammertoe correction to left lower extremity. Patient has had a history of pain to the left lower extremity due to her contracture and arthritic left foot. Patient has exhausted all conservative treatment consisting of taping, offloading, shoe gear modification, oral and topical nonsteroid anti-inflammatories and injections. Patient was seen in the office of Dr. Mckenzie for surgical evaluation of her severe bunion. After review of the patient's radiographs and long discussion regarding surgery and aftercare and had deemed necessary at this time to discuss with the patient surgical intervention of the above procedures to help relieve her constant pain and reconstruct her left foot. All risk and benefits were discussed with the patient in great detail. Surgical consultation was done chart review consent signed. Due to nature of patient's worsening left foot bunion with crossover toe and her inability to get in comfortable shoe gear secondary to severe pain, it had been deemed necessary at this time to take the patient to the operating room and performed above procedure to reconstruct her foot and improve her constant pain. The nature of the problem, anticipated procedures, postop recovery/convalences and risk/complications include but not limited to infection, wound healing complications, digital amputation, hypertrophic scarring, numbness, tingling, chronic pain, CRPS, over and under correction, recurrence of deformity, DVT and or PE and the need for further surgery have been discussed in great detail with the patient. All questions have been answered to the patient's satisfaction. There are no guarantees given as to the outcome of the procedure. Description of Procedure: Under mild sedation, the patient was brought into the operating room and placed on the operating table in supine position. Once the patient was under general anesthesia with original mask airway, the left lower extremity was blocked using approximately 10 cc 0.5% Marcaine plain to the saphenous nerve, popliteal block was performed by anesthesia prior to the procedure please see anesthesia notes for further detail. Next, a well-padded thigh tourniquet was applied to the left lower extremity. Next, the left lower extremity was prepped and draped in normal aseptic manner. Next, a timeout was then undertaken verifying the correct patient, extremity, visibility of preoperative markings, availability of the equipment. Next, attention was directed to the left lower extremity. Using a 6 inch Esmarch, left lower extremity was exsanguinated and elevated to 60 degrees for 1 minute. Procedure #1 [employer] of calcaneal b (more content not included)... Normal [facility] Vitamin D,25 Hydroxyon 01-23 Vitamin D 25-OH 71.6 ng/mL Normal [facility] Comment on above: Result Comment: Padmini min D 25(OH) Status Range Deficiency <20 ng/mL (50nmol/L) Insufficiency 20 - 30 ng/mL (50 - 75 nmol/L) Sufficiency 30 - 100 ng/mL (75 - 250 nmol/L) Toxicity >100 ng/mL (>250 nmol/L) Performed By: #### L [id number] #### [facility] [address] [place], [address] Basophil percentageOrdered B y: Elliott Garcias on 07-29-2023 Chloride [Moles/Vol] 101 mmol/L 98-107 [facility] Glucose [Mass/Vol] 117 mg/dL 74-106 [facility] Comment on above: Slight Lipemia, Resu lt may be falsely increased.Fasting Glucose result from 100 to 125 mg/dL suggests IMPAIRED HOMEOSTASIS per A.D.A. criteria. Potassium [Moles/Vol] 3.9 mmol/L 3.5-5.1 [facility] Comment on above: Slight Hemolysis, Re sult may be falsely increased.-Slight Lipemia, Result may be falsely increased. Sodium [Moles/Vol] 133 mmol/L 136-145 [facility] - Chemistry and C hemistry - challengeOrdered By: Elliott Garcias on 07-29-2023 CO2 [Moles/Vol] 26.0 mmol/L 21.0-32.0 [facility] Comment on above: Slight Lipemia, Resu lt may be falsely increased. Urea nitrogen/Creatinine [Mass ratio] 11.0 mg/mg - [facility] No Panel InformationOrdered By: Elliott Garcias on 07-29-2023 Estimated GFR (MDRD) Amer 56 mL/min >60 [facility] Comment on above: GFR Calc Estimated GFR (MDRD) Non-Af Amer 46 mL/min >60 [facility] Comment on above: Non- GFR Calc Serum or plasma calcium lindsay urement (mass/volume)Ordered By: Elliott Garcias on 07-29-2023 Calcium [Mass/Vol] 9.1 mg/dL 8.5-10.1 [facility] Comment on above: Slight Lipemia, Resu lt may be falsely increased. Serum or plasma creatinine m easurement (mass/volume)Ordered By: Elliott Garcias on 07-29-2023 Creatinine [Mass/Vol] 1.27 mg/dL 0.55-1.02 [facility] Comment on above: Slight Lipemia, Resu lt may be falsely increased.The validity of the calculated GFR & GFRAA in patients over 70 years has not been determined. Clinical correlation is essential. Serum or plasma urea nitroge n measurement (mass/volume)Ordered By: Elliott Garcias on 07-29-2023 Urea nitrogen [Mass/Vol] 14 mg/dL 7-18 [facility] Comment on above: Slight Lipemia, Resu lt may be falsely increased. Thin prep Papanicolaou smear with manual screeningOrdered By: Elliott Garcias on 07-29-2023 Thin prep Papanicolaou smear with manual screening 6 09-03 [facility] Telecommunications Officer Cytology Reporton 2023 Telecommunications Officer Cytology Report . Pathology Reports Accession: Collected Date/Time: Received Date/Time: Pathologist: [id number] 06/26/2023 10:07 EST 06/26/2023 18:00 EST Telecommunications Officer Cytology Report SPECIMEN: Specimen Description: Liquid Prep w/ HPV Specimen: Cervical/Endocervical Screening or Diagnostic: Screening RELEVANT HISTORY: LMP: menopause Other clinical information: Remote Hx CONE SPECIMEN ADEQUACY: SATISFACTORY FOR EVALUATION Endocervical/Transform ational zone component absent/insufficient INTERPRETATION/RESULTS : NEGATIVE FOR INTRAEPITHELIAL LESION OR MALIGNANCY HIGH RISK HPV TESTING: Event Code Result HPV Interp See Interp HPVN HPV Interp Text: High Risk HPV Typing: NEGATIVE HPV types 16, 18, 31, 33, 35, 39, 45, 51, 52, 56, 58, 59, 66 and 68 DNA were undetectable or below the pre-set threshold. The orly High-Risk HPV DNA Test is not intended for use as a screening device for Pap normal women under age 30 and is not intended to substitute for regular Pap screening. The orly High-Risk HPV DNA Test is designed to augment existing methods for the detection of cervical disease and should be used in conjunction with clinical information derived from other diagnostic and screening tests, physical examinations and full medical history in accordance with appropriate patient management procedures. NOTE: A negative result does not preclude the presence of HPV infection because results depend on adequate specimen collection, absence of inhibitors and sufficient DNA to be detected. As of: 07/10/23 11:36 EDT COMMENT: This Pap Test was successfully processed and evaluated with the assistance of the HigherNextPrep Test Imaging System. Pathology Reports Accession: Collected Date/Time: Received Date/Time: Pathologist: [id number] 06/26/2023 10:07 EST 06/26/2023 18:00 EST Electronically Signed by Pathology report verified by [facility] Screened by: DW Electronically signed by Gabriela Farias Sign-Out Date: 07/10/2023 11:41 Performing Lab: [facility], [address] [place] [address] Pathology Dept Disclaimer The Pap test is a screening test for cervical cancer. As evidenced by published data, it is subject to both inherent false negative and false positive results. Your patient's results should be interpreted in context with pertinent clinical history including gynecological examination. Normal [facility] ([place]) HPVon 07-02-2023 HPV Inter Normal See [facility] HPVN [facility] ([place]) Comment on above: Order Comment: Order placed by AP_HPV_ORDER rule from [id number] Result Comment: High Risk HPV Typing: NEGATIVE HPV types 16, 18, 31, 33, 35, 39, 45, 51, 52, 56, 58, 59, 66 and 68 DNA were undetectable or below the pre-set threshold. The orly High-Risk HPV DNA Test is not intended for use as a screening device for Pap normal women under age 30 and is not intended to substitute for regular Pap screening. The orly High-Risk HPV DNA Test is designed to augment existing methods for the detection of cervical disease and should be used in conjunction with clinical information derived from other diagnostic and screening tests, physical examinations and full medical history in accordance with appropriate patient management procedures. NOTE: A negative result does not preclude the presence of HPV infection because results depend on adequate specimen collection, absence of inhibitors and sufficient DNA to be detected. See Interp HPVN Performed By: #### H PV #### [place] [address] HPV Source Cervix Normal [facility] ([place]) Comment on above: Order Comment: Order placed by AP_HPV_ORDER rule from [id number] Performed By: #### H PV #### [place] [address] E2on 06-26-2023 Estradiol Level 12.71 pg/mL Normal [facility] ([place]) Comment on above: Result Comment: No te - New Reference Range in effect 19 Adult Female E2 Reference Ranges: Follicular phase 19.5 - 144.2 pg/mL Midcycle 63.9 - 356.7 pg/mL Luteal phase 55.8 - 214.2 pg/mL Post menopausal 0 - 33.2 pg/mL Performed By: #### F SH, LH, E2 #### [place] [address] FSHon 06-26-2023 FSH 48.0 mIU/mL Normal [facility] ([place]) Comment on above: Result Comment: Adul t Female FSH Reference Ranges (03/15/99): Follicular phase 2.5 - 10.2 mIU/mL Midcycle phase 3.4 - 33.4 mIU/mL Luteal phase 1.5 - 9.1 mIU/mL Post menopausal 23.0 -116.3 mIU/mL Adult Male: 1.4 - 18.1 mIU/mL Performed By: #### F SH, LH, E2 #### [place] [address] LABORATORYOrdered By: SYSTEM SYSTEM on 06-26-2023 E2 [Mass/Vol] 12.71 pg/mL Invalid Interpretation Code ADM SS Comment on above: Interpretive Data: * *Note - New Reference Range in effect 19 Adult Female E2 Reference Ranges: Follicular phase 19.5 - 144.2 pg/mL Midcycle 63.9 - 356.7 pg/mL Luteal phase 55.8 - 214.2 pg/mL Post menopausal 0 - 33.2 pg/mL Follitropin Qn 48.0 m[IU]/mL Invalid Interpretation Code ADM SS Comment on above: Interpretive Data: A dult Female FSH Reference Ranges (03/15/99): Follicular phase 2.5 - 10.2 mIU/mL Midcycle phase 3.4 - 33.4 mIU/mL Luteal phase 1.5 - 9.1 mIU/mL Post menopausal 23.0 -116.3 mIU/mL Adult Male: 1.4 - 18.1 mIU/mL Lutropin Qn 32.7 m[IU]/mL Invalid Interpretation Code ADM SS Comment on above: Interpretive Data: * *Note - New Reference Range in effect 19 Adult Female LH Reference Ranges: Follicular phase 1.9 - 12.5 mIU/mL Midcycle phase 8.7 - 76.3 mIU/mL Luteal phase 0.5 - 16.9 mIU/mL Post menopausal 5.0 - 55.2 mIU/mL LHon 06-26-2023 LH 32.7 mIU/mL Normal [facility] ([place]) Comment on above: Result Comment: No te - New Reference Range in effect 19 Adult Female LH Reference Ranges: Follicular phase 1.9 - 12.5 mIU/mL Midcycle phase 8.7 - 76.3 mIU/mL Luteal phase 0.5 - 16.9 mIU/mL Post menopausal 5.0 - 55.2 mIU/mL Performed By: #### F SH, LH, E2 #### [place] [address] CT CARDIAC SCORING WO IV CON TRASTon 06-12-2023 CT CARDIAC SCORING WO IV CONTRAST Interpreted By: Jas Cabello, STUDY: CT CARDIAC SCORING WO IV CONTRAST; 06/12/2023 9:20 am INDICATION: Signs/Symptoms:ABN EKG. COMPARISON: None. ACCESSION NUMBER(S): [id number] ORDERING CLINICIAN: MATTIE RODRÍGUEZ TECHNIQUE: Using prospective ECG gating, CT scan of the coronary arteries was performed without intravenous contrast. Coronary calcium scoring was performed according to the method of Agatston. FINDINGS: The score and distribution of calcium in the coronary arteries is as follows: LM 0 LAD 461.72 LCx 31.32 RCA 338.26 Total 831.3 The heart size is normal and there is no pericardial effusion. The chest vasculature is unremarkable.There is no significant mediastinal or hilar adenopathy. The visualized lungs are clear. The visualized upper abdominal contents are within normal limits. The bony structures are intact. IMPRESSION: Coronary artery calcium score of 831.3 Coronary artery calcium scoring may be helpful in predicting the risk for future coronary heart disease events. According to the [employer] Clinical Expert Consensus Task Force, such testing provides important prognostic information in patients with more than one coronary heart disease risk factor. The coronary artery calcium score correlates with the annual risk of a non-fatal myocardial infarction or coronary heart disease . Coronary artery score Annual Risk 0-99 0.4% 100-399 1.3% >400 2.4% These three breakpoints correspond to lower, intermediate and high risk states for future coronary events. Such information should be used, along with appropriate clinical judgment, to make decisions regarding the intensity of risk factor management strategies to treat blood lipids and to modify other non-lipid coronary risk factors. Reference: Metcalfe P et al. Circulation. 2007; 115:402-426 Signed by: Jsa Cabello 06/12/2023 5:22 PM Dictation workstation: [id number] [facility] CT for calcium scoring WO co ntrast and CTA W contrast IV Heart and coronary arterieson 06-12-2023 Coronary artery calcium score of 831.3 Coronary artery calcium scoring may be helpful in predicting the risk for future coronary heart disease events. According to the [employer] Clinical Expert Consensus Task Force, such testing provides important prognostic information in patients with more than one coronary heart disease risk factor. The coronary artery calcium score correlates with the annual risk of a non-fatal myocardial infarction or coronary heart disease . Coronary artery score Annual Risk 0-99 0.4% 100-399 1.3% >400 2.4% These three breakpoints correspond to lower, intermediate and high risk states for future coronary events. Such information should be used, along with appropriate clinical judgment, to make decisions regarding the intensity of risk factor management strategies to treat blood lipids and to modify other non-lipid coronary risk factors. Reference: Metcalfe P et al. Circulation. 2007; 115:402-426 Signed by: Jas Cabello 06/12/2023 5:22 PM Dictation workstation: [id number] Interpreted By: Jas Cabello, STUDY: CT CARDIAC SCORING WO IV CONTRAST; 06/12/2023 9:20 am INDICATION: Signs/Symptoms:ABN EKG. COMPARISON: None. ACCESSION NUMBER(S): [id number] ORDERING CLINICIAN: MATTIE RODRÍGUEZ TECHNIQUE: Using prospective ECG gating, CT scan of the coronary arteries was performed without intravenous contrast. Coronary calcium scoring was performed according to the method of Agatston. FINDINGS: The score and distribution of calcium in the coronary arteries is as follows: LM 0 LAD 461.72 LCx 31.32 RCA 338.26 Total 831.3 The heart size is normal and there is no pericardial effusion. The chest vasculature is unremarkable.There is no significant mediastinal or hilar adenopathy. The visualized lungs are clear. The visualized upper abdominal contents are within normal limits. The bony structures are intact. [facility] Jas Cabello MD - 06/12/2023 Interpreted By: Jas Cabello, STUDY: CT CARDIAC SCORING WO IV CONTRAST; 06/12/2023 9:20 am INDICATION: Signs/Symptoms:ABN EKG. COMPARISON: None. ACCESSION NUMBER(S): [id number] ORDERING CLINICIAN: MATTIE RODRÍGUEZ TECHNIQUE: Using prospective ECG gating, CT scan of the coronary arteries was performed without intravenous contrast. Coronary calcium scoring was performed according to the method of Agatston. FINDINGS: The score and distribution of calcium in the coronary arteries is as follows: LM 0 LAD 461.72 LCx 31.32 RCA 338.26 Total 831.3 The heart size is normal and there is no pericardial effusion. The chest vasculature is unremarkable.There is no significant mediastinal or hilar adenopathy. The visualized lungs are clear. The visualized upper abdominal contents are within normal limits. The bony structures are intact. IMPRESSION: Coronary artery calcium score of 831.3 Coronary artery calcium scoring may be helpful in predicting the risk for future coronary heart disease events. According to the [employer] Clinical Expert Consensus Task Force, such testing provides important prognostic information in patients with more than one coronary heart disease risk factor. The coronary artery calcium score correlates with the annual risk of a non-fatal myocardial infarction or coronary heart disease . Coronary artery score Annual Risk 0-99 0.4% 100-399 1.3% >400 2.4% These three breakpoints correspond to lower, intermediate and high risk states for future coronary events. Such information should be used, along with appropriate clinical judgment, to make decisions regarding the intensity of risk factor management strategies to treat blood lipids and to modify other non-lipid coronary risk factors. Reference: Olivia P et al. Circulation. 2007; 115:402-426 Signed by: Jas Cabello 06/12/2023 5:22 PM Dictation workstation: [id number] [facility] Work Phone: Radiology Study observation (narrative) [facility] Work Phone: CT for calcium scoring WO co ntrast and CTA W contrast IV Heart and coronary arteriesOrdered By: Jas Cabello on 06-12-2023 [facility] Work Phone: ECG 12 Leadon 03-27-2023 Atrial Rate [facility] P Desmet [facility] P-R Interval [facility] Q-T Interval [facility] Q-T Interval (corrected) [facility] QRS Duration [facility] QTC Calculation (Bezet) [facility] R Desmet [facility] T Desmet [facility] Ventricular Rate [facility] UrinalysisOrdered By: Mayra Byers on 03-27-2023 Bacteria Auto Ql (U) None Seen None Se en /hpf [facility] Bilirubin Ql (U) Negative Negative [facility] Clarity Refractometry automated (U) Clear Clear [facility] Color (U) Yellow Colorless, Yellow [facility] Epithelial cells.squamous Auto (Urine sed) [#/Area] 1 [facility] Glucose Auto test strip (U) [Mass/Vol] Negative Negative mg/dL [facility] Hemoglobin Auto test strip Ql (U) Negative Negative [facility] Interpretation and review of laboratory results Normal [facility] Ketones (U) [Mass/Vol] Negative Negat timoteo mg/dL [facility] Leukocyte esterase Auto test strip Ql (U) Negative Negative [facility] h Mucus Auto (Urine sed) [#/Area] Rare None Seen, Rare /lpf [facility] Nitrite Auto test strip Ql (U) Negative Negative [facility] pH (U) 6.5 [pH] 5.0 - 7.0 [facility] Protein (U) [Mass/Vol] Negative Negat timoteo mg/dL [facility] RBC Auto (Urine sed) [#/Area] 1 [facility] Specific gravity (U) [Rel density] 1.014 1.005 - 1.025 [facility] Urobilinogen (U) [Mass/Vol] mg/dL NINF - 2.0 mg/dL [facility] WBC Auto (Urine sed) [#/Area] 1 [facility] Microscopic examination is performed on all urinalysis samples and only positive findings are reported. The test for blood on the chemical analytic portion of urinalysis may also be positive due to hemoglobinuria and myoglobinuria and if red blood cells are present they are quantified by microscopic examination. [facility] Comprehensive metabolic 2000 panelon 01-03-2023 Albumin [Mass/Vol] 4.6 g/dL 3.2 - 5.2 g/dL [facility] ALP [Catalytic activity/Vol] 107 U/L 40 - 150 U/L [facility] ALT [Catalytic activity/Vol] 26 U/L 0-35 U/L [facility] Anion gap [Moles/Vol] 17 mmol/L 10 - 2 0 mmol/L [facility] AST [Catalytic activity/Vol] 20 U/L 0-35 U/L [facility] Bilirubin [Mass/Vol] 0.3 mg/dL 0.0 - 1 .3 mg/dL [facility] Calcium [Mass/Vol] 10.2 mg/dL 8.4 - 10. 2 mg/dL [facility] Chloride [Moles/Vol] 97 mmol/L Low 98 - 10 8 mmol/L [facility] Creatinine [Mass/Vol] 0.63 mg/dL 0.40 - 1.10 mg/dL [facility] GFR/1.73 sq M.predicted CKD-EPI (S/P/Bld) [Vol rate/Area] 104 - PINF [facility] Comment on above: Estimated GFR was ca lculated using the 2020 CKD-EPI creatinine equation. Glucose [Mass/Vol] 93 mg/dL 65 - 99 mg/dL [facility] HCO3 [Moles/Vol] 25 mmol/L 21 - 32 mmol/L [facility] Interpretation and review of laboratory results Abnormal [facility] Potassium [Moles/Vol] 4.5 mmol/L 3.5 - 5.1 mmol/L [facility] Protein [Mass/Vol] 6.8 g/dL 6.0 - 8.0 g/dL [facility] Sodium [Moles/Vol] 134 mmol/L Low 135 - 145 mmol/L [facility] Urea nitrogen [Mass/Vol] 10 mg/dL 8 - 25 mg/dL [facility] Urea nitrogen/Creatinine [Mass ratio] 15.9 mg/mg 10.0 - 20.0 [facility] has implemented the eGFR calculation approach that does not have a coefficient for race that conforms to the NKF-ASN Task Force Recommendations. [facility] Magnesiumon 01-03-2023 Magnesium [Mass/Vol] 2.1 mg/dL 1.6 - 2 .4 mg/dL [facility] Magnesium [Mass/Vol]on 01-03 Interpretation and review of laboratory results Normal [facility] Vitamin D, Total, 25-OHon 25-hydroxyvitamin D [Mass/Vol] 29 ng/mL Low 30 - 100 ng/mL [facility] Comment on above: Vitamin D status: Deficiency: <10 ng/mL Insufficiency: 10-30 ng/mL Sufficiency: 30-100 ng/mL Toxicity: >100 ng/mL Interpretation and review of laboratory results Abnormal [facility] Assay performed usin [employer] CLIA methodology. [facility] Comprehensive metabolic 2000 panelon 12-13-2022 Albumin [Mass/Vol] 4.9 g/dL 3.2 - 5.2 g/dL [facility] ALP [Catalytic activity/Vol] 124 U/L 40 - 150 U/L [facility] ALT [Catalytic activity/Vol] 28 U/L 0 - 40 U/L [facility] Anion gap [Moles/Vol] 19 mmol/L 10 - 2 0 mmol/L [facility] AST [Catalytic activity/Vol] 24 U/L 0 - 45 U/L [facility] Bilirubin [Mass/Vol] 0.3 mg/dL 0.0 - 1 .3 mg/dL [facility] Calcium [Mass/Vol] 10.5 mg/dL High 8.4 - 10. 2 mg/dL [facility] Chloride [Moles/Vol] 96 mmol/L Low 98 - 10 8 mmol/L [facility] Creatinine [Mass/Vol] 0.60 mg/dL 0.40 - 1.10 mg/dL [facility] GFR/1.73 sq M.predicted CKD-EPI (S/P/Bld) [Vol rate/Area] 105 - PINF [facility] Comment on above: Estimated GFR was ca lculated using the 2020 CKD-EPI creatinine equation. Glucose [Mass/Vol] 92 mg/dL 65 - 99 mg/dL [facility] HCO3 [Moles/Vol] 23 mmol/L 21 - 32 mmol/L [facility] Potassium [Moles/Vol] 4.8 mmol/L 3.5 - 5.1 mmol/L [facility] Protein [Mass/Vol] 7.5 g/dL 6.0 - 8.0 g/dL [facility] Sodium [Moles/Vol] 133 mmol/L Low 135 - 145 mmol/L [facility] Urea nitrogen [Mass/Vol] 8 mg/dL 8 - 25 mg/dL [facility] Urea nitrogen/Creatinine [Mass ratio] 13.3 mg/mg 10.0 - 20.0 [facility] has implemented the eGFR calculation approach that does not have a coefficient for race that conforms to the NKF-ASN Task Force Recommendations. [facility] Lipid 1996 panelon Cholesterol [Mass/Vol] 213 mg/dL High 100 - 199 mg/dL [facility] Cholesterol in HDL [Mass/Vol] 90 mg/dL 40 - 59 mg/dL [facility] Cholesterol in LDL [Mass/Vol] 99 mg/dL 10 - 130 mg/dL [facility] Comment on above: National Cholesterol Education Program Guidelines: LDL Cholesterol Optimal: <100 mg/dL Near Optimal/above Optimal: 100-129 mg/dL Borderline High: 130-159 mg/dL High: 160-189 mg/dL Very High: greater than or equal to 190 mg/dL Cholesterol non HDL [Mass/Vol] 123 mg/dL [facility] Comment on above: National Cholesterol Education Program Guidelines: NON HDL Cholesterol Desirable: <130 mg/dL Borderline High: 130-159 mg/dL High: 160-189 mg/dL Very High: > or = 190 mg/dL Cholesterol.total/Chol esterol in HDL [Mass ratio] 2.4 {ratio} ratio [facility] Comment on above: Female Cholesterol/H DL Ratio: Average risk: 4.4 1/2 average risk: 3.3 2 x average risk: 7.1 Triglyceride [Mass/Vol] 118 mg/dL 30 - 150 mg/dL [facility] Magnesiumon 12-13-2022 Magnesium [Mass/Vol] 2.5 mg/dL High 1.6 - 2 .4 mg/dL [facility] Magnesium [Mass/Vol]on 12-13 Interpretation and review of laboratory results Abnormal [facility] No Panel Informationon 12-13 Interpretation and review of laboratory results Normal [facility] Interpretation and review of laboratory results Abnormal [facility] TSH DL <= 0.005 mIU/L Qnon 0 12-13-2022 TSH Qn 2.97 m[IU]/L [facility] Vitamin B12on 12-13-2022 Cobalamin (Vitamin B12) [Mass/Vol] 609 pg/mL 232 - 1245 pg/mL [facility] Vitamin D, Total, 25-OHon 25-hydroxyvitamin D [Mass/Vol] 17 ng/mL Low 30 - 100 ng/mL [facility] Comment on above: Vitamin D status: Deficiency: <10 ng/mL Insufficiency: 10-30 ng/mL Sufficiency: 30-100 ng/mL Toxicity: >100 ng/mL Interpretation and review of laboratory results Abnormal [facility] Assay performed ismael rothman [employer] CLIA methodology. [facility] BASIC METABOLIC PANELon 11-20 Anion gap [Moles/Vol] 6 mmol/L Low 8-12 [facility] Comment on above: Performed By: #### 4 [id number] #### [facility] [address] [place] [address] [place] Calcium [Mass/Vol] 8.8 mg/dL Normal 8.4-10.4 [facility] Comment on above: Performed By: #### 4 [id number] #### [facility] [address] [place] [address] [place] Chloride [Moles/Vol] 99 mmol/L Normal 96-109 [facility] Comment on above: Performed By: #### 4 [id number] #### [facility] [address] [place] [address] [place] CO2 [Moles/Vol] 26 mmol/L Normal 22-30 [facility] Comment on above: Performed By: #### 4 [id number] #### [facility] [address] [place] [address] [place] Creatinine [Mass/Vol] 0.60 mg/dL Normal 0.52-1.04 [facility] Comment on above: Performed By: #### 4 [id number] #### [facility] [address] [place] [address] [place] GLOMERULAR FILTRATION RATE ML/MIN/1.73 SQ M.PREDICTED >90.0 Normal >=60.0 [facility] Comment on above: Result Comment: eGFR calculation based on the Chronic Kidney Disease Epidemiology Collaboration (CKD-EPI) equation refit without adjustment for race. Categories in Chronic Kidney Disease (CKD) Category: GFR(mL/min/1.73m^2) Interpretation: G1* 90 or greater Normal or high G2* 60-89 Mild decrease G3a 45-59 Mild to moderate decrease G3b 30-44 Moderate to severe decrease G4 15-29 Severe decrease G5 14 or less Kidney failure *G1&G2: In the absence of evidence of kidney damage, neither GFR category G1 nor G2 fulfill the criteria for CKD Kidney Int Suppl.2013;3:1-150 Performed By: #### 4 [id number] #### [facility] [address] Glucose [Mass/Vol] 96 mg/dL Normal 65-100 [facility] Comment on above: Performed By: #### 4 [id number] #### [facility] [address] [place] [address] Potassium [Moles/Vol] 3.7 mmol/L Normal 3.6-5.1 [facility] Comment on above: Performed By: #### 4 [id number] #### [facility] [address] Sodium [Moles/Vol] 131 mmol/L Low 135-147 [facility] Comment on above: Performed By: #### 4 [id number] #### [facility] [address] [place] [address] [place] Urea nitrogen [Mass/Vol] 6 mg/dL Low 8-26 [facility] Comment on above: Performed By: #### 4 [id number] #### [facility] [address] [place] [address] [facility] Basic metabolic panel aka Ch em 812-07-2022 Anion gap [Moles/Vol] 6 mmol/L Low 8 - 12 mmol/L [facility] Calcium [Mass/Vol] 8.8 mg/dL 8.4 - 10. 4 mg/dL [facility] Calcium hydrogen phosphate dihydrate crystals LM Ql (Urine sed) 6 mg/dL Low 8 - 26 mg/dL [employer] Chloride [Moles/Vol] 99 mmol/L 96 - 10 9 mmol/L [employer] CO2 (BldMV) [Moles/Vol] 26 mmol/L 22 - 30 mmol/L [facility] [employer] Creatinine [Mass/Vol] 0.60 mg/dL 0.52 - 1.04 mg/dL [facility] [employer] GFR/1.73 sq M.predicted MDRD (S/P/Bld) [Vol rate/Area] - PINF [facility] Comment on above: eGFR calculation bas ed on the Chronic Kidney Disease Epidemiology Collaboration (CKD-EPI) equation refit without adjustment for race. Categories in Chronic Kidney Disease (CKD) Category: GFR(mL/min/1.73m^2) Interpretation: G1* 90 or greater Normal or high G2* 60-89 Mild decrease G3a 45-59 Mild to moderate decrease G3b 30-44 Moderate to severe decrease G4 15-29 Severe decrease G5 14 or less Kidney failure *G1&G2: In the absence of evidence of kidney damage, neither GFR category G1 nor G2 fulfill the criteria for CKD Kidney Int Suppl.2013;3:1-150 Glucose [Mass/Vol] 96 mg/dL 65 - 100 mg/dL [employer] Interpretation and review of laboratory results Abnormal [employer] Potassium [Moles/Vol] 3.7 mmol/L 3.6 - 5.1 mmol/L [employer] Sodium [Moles/Vol] 131 mmol/L Low 135 - 147 mmol/L [facility] HbA1c (Bld) [Mass fraction]o n 12-07-2022 Interpretation and review of laboratory results Abnormal [facility] [employer] Performed at: [address] [place] [id number] Boat Deckhand: Dipesh Ulloa PhD, Phone: [phone] [facility] Hemoglobin A1con 12-07-2022 HbA1c (Bld) [Mass fraction] 5.8 % High 4.8 - 5.6 % [facility] Comment on above: Prediabetes: 5.7 - 6 .4 Diabetes: >6.4 Glycemic control for adults with diabetes: <7.0 [facility] 12-07-2022 Extra Tube Hold for add-ons. [facility] Extra Tube Hold for add-ons. [facility] SODIUMon 12-07-2022 Sodium [Moles/Vol] 135 mmol/L Normal 135-147 [facility] Comment on above: Performed By: #### 4 [id number] #### [facility] [address] [place] [address] Sodium [Moles/Vol] 132 mmol/L Low 135-147 [facility] Comment on above: Performed By: #### 4 [id number] #### [facility] [address] [place] [address] [place] Sodiumon 12-07-2022 Interpretation and review of laboratory results Normal [facility] Sodium [Moles/Vol] 135 mmol/L 135 - 147 mmol/L [facility] Interpretation and review of laboratory results Abnormal [facility] Sodium [Moles/Vol] 132 mmol/L Low 135 - 147 mmol/L [facility] BASIC METABOLIC PANELon 11-20 Anion gap [Moles/Vol] 10 mmol/L Normal 8-12 [facility] Comment on above: Performed By: #### 4 [id number] #### [facility] [address] [place] [address] Calcium [Mass/Vol] 9.0 mg/dL Normal 8.4-10.4 [facility] Comment on above: Performed By: #### 4 [id number] #### [facility] [address] [place] [address] [place] Chloride [Moles/Vol] 97 mmol/L Normal 96-109 [facility] Comment on above: Performed By: #### 4 [id number] #### [facility] [address] [place] [address] [place] CO2 [Moles/Vol] 25 mmol/L Normal 22-30 [facility] Comment on above: Performed By: #### 4 [id number] #### [facility] [address] [place] [address] [place] Creatinine [Mass/Vol] 0.59 mg/dL Normal 0.52-1.04 [facility] Comment on above: Performed By: #### 4 [id number] #### [facility] [address] [place] [address] [place] GLOMERULAR FILTRATION RATE ML/MIN/1.73 SQ M.PREDICTED >90.0 Normal >=60.0 [facility]ael[facility] Comment on above: Result Comment: eGFR calculation based on the Chronic Kidney Disease Epidemiology Collaboration (CKD-EPI) equation refit without adjustment for race. Categories in Chronic Kidney Disease (CKD) Category: GFR(mL/min/1.73m^2) Interpretation: G1* 90 or greater Normal or high G2* 60-89 Mild decrease G3a 45-59 Mild to moderate decrease G3b 30-44 Moderate to severe decrease G4 15-29 Severe decrease G5 14 or less Kidney failure *G1&G2: In the absence of evidence of kidney damage, neither GFR category G1 nor G2 fulfill the criteria for CKD Kidney Int Suppl.2013;3:1-150 Performed By: #### 4 [id number] #### [facility] [address] Glucose [Mass/Vol] 99 mg/dL Normal 65-100 [facility] Comment on above: Performed By: #### 4 [id number] #### [facility] [address] Potassium [Moles/Vol] 3.9 mmol/L Normal 3.6-5.1 [facility] Comment on above: Performed By: #### 4 [id number] #### [facility] [address] [place], [place] [address] Sodium [Moles/Vol] 132 mmol/L Low 135-147 [facility] Comment on above: Performed By: #### 4 [id number] #### [facility] [address] [place] [address] [place] Urea nitrogen [Mass/Vol] 6 mg/dL Low 8-26 [facility] Comment on above: Performed By: #### 4 [id number] #### [facility] [address] [place] [address] [facility] Basic metabolic panel aka Ch em 8on 12-06-2022 Anion gap [Moles/Vol] 10 mmol/L 8 - 12 mmol/L [facility] Calcium [Mass/Vol] 9.0 mg/dL 8.4 - 10. 4 mg/dL [facility] Calcium hydrogen phosphate dihydrate crystals LM Ql (Urine sed) 6 mg/dL Low 8 - 26 mg/dL [employer] Chloride [Moles/Vol] 97 mmol/L 96 - 10 9 mmol/L [employer] CO2 (BldMV) [Moles/Vol] 25 mmol/L 22 - 30 mmol/L [employer] Creatinine [Mass/Vol] 0.59 mg/dL 0.52 - 1.04 mg/dL [employer] GFR/1.73 sq M.predicted MDRD (S/P/Bld) [Vol rate/Area] - PINF [employer] Comment on above: eGFR calculation bas ed on the Chronic Kidney Disease Epidemiology Collaboration (CKD-EPI) equation refit without adjustment for race. Categories in Chronic Kidney Disease (CKD) Category: GFR(mL/min/1.73m^2) Interpretation: G1* 90 or greater Normal or high G2* 60-89 Mild decrease G3a 45-59 Mild to moderate decrease G3b 30-44 Moderate to severe decrease G4 15-29 Severe decrease G5 14 or less Kidney failure *G1&G2: In the absence of evidence of kidney damage, neither GFR category G1 nor G2 fulfill the criteria for CKD Kidney Int Suppl.2013;3:1-150 Glucose [Mass/Vol] 99 mg/dL 65 - 100 mg/dL [employer] Potassium [Moles/Vol] 3.9 mmol/L 3.6 - 5.1 mmol/L [employer] Sodium [Moles/Vol] 132 mmol/L Low 135 - 147 mmol/L [employer] CTA HEAD AND NECKon 12-07-19 CTA HEAD AND NECK EXAM: CTA HEAD AND NECK HISTORY: Transient ischemic attack (TIA) COMPARISON: None. TECHNIQUE: Initial noncontrast imaging was performed to determine the site of clinical interest. Intravenous contrast was then injected. Sequential axial films were obtained. These were evaluated with additional 3D MIP reconstructions generated from the axial data set. Carotid stenosis is reported according to NASCET criteria. Dose reduction techniques were achieved by using automated exposure control and/or adjustment of mA and/or kV according to patient size and/or use of iterative reconstruction technique. FINDINGS: CT angiography of the neck: The great vessels arise from the aortic arch in their usual anatomic configuration showing no evidence of origin stenosis. The vertebral arteries arise from their respective subclavian artery. The left is dominant compared to the right. Both vessels travel through the cervical foramen showing no evidence of dissection or occlusion. The V4 segments are patent and coalesce at the skull base to form the basilar artery. The common carotid arteries are patent. They bifurcate in the neck forming the internal and the external carotid arteries. There is no evidence of extracranial carotid artery stenosis. CT angiography of the brain: The basilar artery is patent and terminates as the superior cerebellar and posterior cerebral arteries. The internal carotid arteries flow through the skull base. The cavernous loops are both patent. The supraclinoid segments are also patent. They provide flow to the anterior and the middle cerebral arteries showing no evidence of large vessel occlusion. CT brain: No intracranial hemorrhage or abnormal extra-axial fluid collections are identified. Fourth ventricle is in the midline and midline symmetry is preserved. The sulcal pattern is symmetrical over the convexities. The contrast enhanced studies show no areas of abnormal intra-axial or extra-axial enhancement. Soft tissue neck: The parotid and submandibular glands are homogeneous. The lingual septum is in the midline. The epiglottis is normal in thickness. There is no airway compromise. Thyroid enhanced homogenously. The lung apices are clear. IMPRESSION: 1. No extracranial carotid or vertebral artery stenosis. 2. Cerebral arterial flow is preserved without evidence of large vessel occlusion. 3. No acute intracranial findings. Transient ischemic attack (TIA) 20 ga RAC 75 ml of omni 350 by KG Normal [facility] CTA Head vessels and Neck ve ssels WO and W contrast Prasanna 12-06-2022 1. No extracranial carotid or vertebral artery stenosis. 2. Cerebral arterial flow is preserved without evidence of large vessel occlusion. 3. No acute intracranial findings. [facility] EXAM: CTA HEAD AND NECK HISTORY: Transient ischemic attack (TIA) COMPARISON: None. TECHNIQUE: Initial noncontrast imaging was performed to determine the site of clinical interest. Intravenous contrast was then injected. Sequential axial films were obtained. These were evaluated with additional 3D MIP reconstructions generated from the axial data set. Carotid stenosis is reported according to NASCET criteria. Dose reduction techniques were achieved by using automated exposure control and/or adjustment of mA and/or kV according to patient size and/or use of iterative reconstruction technique. FINDINGS: CT angiography of the neck: The great vessels arise from the aortic arch in their usual anatomic configuration showing no evidence of origin stenosis. The vertebral arteries arise from their respective subclavian artery. The left is dominant compared to the right. Both vessels travel through the cervical foramen showing no evidence of dissection or occlusion. The V4 segments are patent and coalesce at the skull base to form the basilar artery. The common carotid arteries are patent. They bifurcate in the neck forming the internal and the external carotid arteries. There is no evidence of extracranial carotid artery stenosis. CT angiography of the brain: The basilar artery is patent and terminates as the superior cerebellar and posterior cerebral arteries. The internal carotid arteries flow through the skull base. The cavernous loops are both patent. The supraclinoid segments are also patent. They provide flow to the anterior and the middle cerebral arteries showing no evidence of large vessel occlusion. CT brain: No intracranial hemorrhage or abnormal extra-axial fluid collections are identified. Fourth ventricle is in the midline and midline symmetry is preserved. The sulcal pattern is symmetrical over the convexities. The contrast enhanced studies show no areas of abnormal intra-axial or extra-axial enhancement. Soft tissue neck: The parotid and submandibular glands are homogeneous. The lingual septum is in the midline. The epiglottis is normal in thickness. There is no airway compromise. Thyroid enhanced homogenously. The lung apices are clear. Elliott Deras MD - 12/06/2022 EXAM: CTA HEAD AND NECK HISTORY: Transient ischemic attack (TIA) COMPARISON: None. TECHNIQUE: Initial noncontrast imaging was performed to determine the site of clinical interest. Intravenous contrast was then injected. Sequential axial films were obtained. These were evaluated with additional 3D MIP reconstructions generated from the axial data set. Carotid stenosis is reported according to NASCET criteria. Dose reduction techniques were achieved by using automated exposure control and/or adjustment of mA and/or kV according to patient size and/or use of iterative reconstruction technique. FINDINGS: CT angiography of the neck: The great vessels arise from the aortic arch in their usual anatomic configuration showing no evidence of origin stenosis. The vertebral arteries arise from their respective subclavian artery. The left is dominant compared to the right. Both vessels travel through the cervical foramen showing no evidence of dissection or occlusion. The V4 segments are patent and coalesce at the skull base to form the basilar artery. The common carotid arteries are patent. They bifurcate in the neck forming the internal and the external carotid arteries. There is no evidence of extracranial carotid artery stenosis. CT angiography of the brain: The basilar artery is patent and terminates as the superior cerebellar and posterior cerebral arteries. The internal carotid arteries flow through the skull base. The cavernous loops are both patent. The supraclinoid segments are also patent. They provide flow to the anterior and the middle cerebral arteries showing no evidence of large vessel occlusion. CT brain: No intracranial hemorrhage or abnormal extra-axial fluid collections are identified. Fourth ventricle is in the midline and midline symmetry is preserved. The sulcal pattern is symmetrical over the convexities. The contrast enhanced studies show no areas of abnormal intra-axial or extra-axial enhancement. Soft tissue neck: The parotid and submandibular glands are homogeneous. The lingual septum is in the midline. The epiglottis is normal in thickness. There is no airway compromise. Thyroid enhanced homogenously. The lung apices are clear. IMPRESSION: 1. No extracranial carotid or vertebral artery stenosis. 2. Cerebral arterial flow is preserved without evidence of large vessel occlusion. 3. No acute intracranial findings. [facility] Radiology Study observation (narrative) [facility] CTA Head vessels and Neck ve ssels WO and W contrast IVOrdered By: Elliott Pina on 12-06-2022 [facility] [employer] Work Phone: Cobalamin (Vitamin B12) (Bld ) [Mass/Vol]on 12-06-2022 Cobalamin (Vitamin B12) [Mass/Vol] 428 pg/mL 239 - 931 pg/mL [facility] FOLATEon 12-06-2022 FOLATE >20.0 Normal >2.8 [facility] Comment on above: Performed By: #### 4 [id number] #### [facility] [address] [place] [address] Folateon 12-06-2022 Folate [Mass/Vol] ng/mL 2.8 - PINF ng/mL [facility] HEMOGLOBIN A1Con 12-06-2022 HbA1c (Bld) [Mass fraction] 5.8 % High 4.8-5.6 [facility] Comment on above: Order Comment: Perfo rmed at: 01 - [facility] [address] [id number] Boat Deckhand: Dipesh Ulloa PhD, Phone: [phone] Result Comment: Pred iabetes: 5.7 - 6.4 Diabetes: >6.4 Glycemic control for adults with diabetes: <7.0 Performed By: #### 4 [id number] #### [facility] [address] LIPID PANELon 12-06-2022 Cholesterol [Mass/Vol] 179 mg/dL Normal <=200 [facility] Comment on above: Performed By: #### 4 [id number] #### [facility] [address] Cholesterol in HDL [Mass/Vol] 83.0 mg/dL High 40.0-59.9 [facility] Comment on above: Performed By: #### 4 [id number] #### [facility] [address] LDL CHOLESTEROL CALCULATED 65 mg/dL Normal <=100 [facility] Comment on above: Result Comment: LDL REFERENCE RANGE: Optimal <100 mg/dl Near Optimal 100-129 mg/dL Borderline High 130-159 mg/dL High 160-189 mg/dL Very High >=190 mg/dL Performed By: #### 4 [id number] #### [facility] [address] [place] [address] Triglyceride [Mass/Vol] 155 mg/dL High <=150 [facility] Comment on above: Performed By: #### 4 [id number] #### [facility] [address] [place] [address] [place] VLDL CHOLESTEROL LATASHA 31 mg/dL Normal <=41 [facility] Comment on above: Performed By: #### 4 [id number] #### [facility] [address] [place] [address] [facility] Topon 12-06-2022 Extra Tube Hold for add-ons. [facility] Extra Tube Hold for add-ons. [facility] Lipid panelon 12-06-2022 Cholesterol [Mass/Vol] 179 mg/dL NINF - 200 mg/dL [facility] Cholesterol in HDL [Mass/Vol] 83.0 mg/dL High 40.0 - 59.9 mg/dL [facility] Cholesterol in LDL [Mass/Vol] 65 mg/dL NINF - 100 mg/dL [facility] Comment on above: LDL REFERENCE RANGE: Optimal <100 mg/dl Near Optimal 100-129 mg/dL Borderline High 130-159 mg/dL High 160-189 mg/dL Very High >=190 mg/dL Cholesterol in VLDL [Mass/Vol] 31 mg/dL NINF - 41 mg/dL [facility] Triglyceride [Mass/Vol] 155 mg/dL High NINF - 150 mg/dL [facility] MAGNESIUMon 12-06-2022 Magnesium [Mass/Vol] 2.3 mg/dL Normal 1.6-2.3 [facility] Comment on above: Performed By: #### 4 [id number] #### [address] MagnesiumOrdered By: Lottie Amaral on 12-06-2022 Magnesium [Mass/Vol] 2.3 mg/dL 1.6 - 2 .3 mg/dL [facility] Work Phone: Magnesium [Mass/Vol]Ordered By: Darcy Amaral on 12-06-2022 Interpretation and review of laboratory results Normal [facility] Work Phone: [facility] Work Phone: No Panel Informationon 12-06 Interpretation and review of laboratory results Normal [facility] Interpretation and review of laboratory results Abnormal [facility] PLATELET COUNTon 12-06-2022 PLATELET COUNT 403 x10*3/uL High 150-400 [facility] Comment on above: Performed By: #### 4 [id number] #### [facility] [address] [place] [address] [place] POCT GLUCOSEon 12-06-2022 Glucose [Mass/Vol] 121 mg/dL Normal [facility] Comment on above: Performed By: #### 4 [id number] #### [facility] [address] [place] [address] [place] Glucose [Mass/Vol] 90 mg/dL Normal [facility] Comment on above: Performed By: #### 4 [id number] #### [facility] [address] [place] [address] [place] Glucose [Mass/Vol] 104 mg/dL Normal [facility] Comment on above: Performed By: #### 4 [id number] #### [facility] [address] [place] [address] [place] Glucose [Mass/Vol] 99 mg/dL Normal [facility] Comment on above: Performed By: #### 4 [id number] #### [facility] [address] [place] [address] [place] POCT glucoseon 12-06-2022 Yeast Wet prep Ql (Vag fld) 121 [facility] Yeast Wet prep Ql (Vag fld) 90 [facility] Yeast Wet prep Ql (Vag fld) 104 [facility] Yeast Wet prep Ql (Vag fld) 99 [facility] Platelet counton 12-06-2022 Interpretation and review of laboratory results Abnormal [facility] Platelets (Bld) [#/Vol] 403 10*3/uL High [facility] SODIUMon 12-06-2022 Sodium [Moles/Vol] 131 mmol/L Low 135-147 [facility] Comment on above: Performed By: #### 4 [id number] #### [facility] [address] [place] [address] Sodium [Moles/Vol] 132 mmol/L Low 135-147 [facility] Comment on above: Performed By: #### 4 [id number] #### [facility] [address] Sodium [Moles/Vol] 128 mmol/L Low 135-147 [facility] Comment on above: Performed By: #### 4 [id number] #### [facility] [address] [place] [address] [place] Sodiumon 12-06-2022 Interpretation and review of laboratory results Abnormal [facility] Sodium [Moles/Vol] 131 mmol/L Low 135 - 147 mmol/L [facility] Interpretation and review of laboratory results Abnormal [facility] Sodium [Moles/Vol] 132 mmol/L Low 135 - 147 mmol/L [facility] Interpretation and review of laboratory results Abnormal [facility] Sodium [Moles/Vol] 128 mmol/L Low 135 - 147 mmol/L [facility] VITAMIN B12on 12-06-2022 Cobalamin (Vitamin B12) [Mass/Vol] 428 pg/mL Normal 239-931 [facility] Comment on above: Performed By: #### 4 [id number] #### [facility] [address] VITAMIN D 1,25 DIHYDROXYon 0 12-06-2022 VIT D 1,25 DI-OH 57.4 pg/mL Normal 24.8-81.5 [facility] Comment on above: Order Comment: Perfo rmed at: 01 - [facility] [address] [place] [id number] Boat Deckhand: Cristino Meade MD, Phone: [phone] Performed By: #### 4 [id number] #### [facility] [address] [place] [address] BASIC METABOLIC PANELon 11-20 Anion gap [Moles/Vol] 10 mmol/L Normal 8-12 [facility] Comment on above: Performed By: #### 4 [id number], [id number], [id number], [id number] #### [address] Calcium [Mass/Vol] 9.2 mg/dL Normal 8.4-10.4 [facility] Comment on above: Performed By: #### 4 [id number], [id number], [id number], [id number] #### [address] Chloride [Moles/Vol] 86 mmol/L Low 96-109 [facility] Comment on above: Performed By: #### 4 [id number], [id number], [id number], [id number] #### [address] CO2 [Moles/Vol] 25 mmol/L Normal 22-30 [facility] Comment on above: Performed By: #### 4 [id number], [id number], [id number], [id number] #### [address] Creatinine [Mass/Vol] 0.64 mg/dL Normal 0.52-1.04 [facility] Comment on above: Performed By: #### 4 [id number], [id number], [id number], [id number] #### [address] GLOMERULAR FILTRATION RATE ML/MIN/1.73 SQ M.PREDICTED >90.0 Normal >=60.0 [facility] Comment on above: Result Comment: eGFR calculation based on the Chronic Kidney Disease Epidemiology Collaboration (CKD-EPI) equation refit without adjustment for race. Categories in Chronic Kidney Disease (CKD) Category: GFR(mL/min/1.73m^2) Interpretation: G1* 90 or greater Normal or high G2* 60-89 Mild decrease G3a 45-59 Mild to moderate decrease G3b 30-44 Moderate to severe decrease G4 15-29 Severe decrease G5 14 or less Kidney failure *G1&G2: In the absence of evidence of kidney damage, neither GFR category G1 nor G2 fulfill the criteria for CKD Kidney Int Suppl.2013;3:1-150 Performed By: #### 4 [id number], [id number], [id number], [id number] #### [place] [address] Glucose [Mass/Vol] 82 mg/dL Normal 65-100 [facility] Comment on above: Performed By: #### 4 [id number], [id number], [id number], [id number] #### [address] Potassium [Moles/Vol] 3.7 mmol/L Normal 3.6-5.1 [facility] Comment on above: Performed By: #### 4 [id number], [id number], [id number], [id number] #### [address] [id number] Sodium [Moles/Vol] 121 mmol/L Low 135-147 [facility] Comment on above: Performed By: #### 4 [id number], [id number], [id number], [id number] #### [place] [address] [place] [address] Urea nitrogen [Mass/Vol] 9 mg/dL Normal 8-26 [facility] Comment on above: Performed By: #### 4 [id number], [id number], [id number], [id number] #### [address] [id number] Basic metabolic panel aka Ch em 812-05-2022 Anion gap [Moles/Vol] 10 mmol/L 8 - 12 mmol/L [facility] Calcium [Mass/Vol] 9.2 mg/dL 8.4 - 10. 4 mg/dL [facility] Calcium hydrogen phosphate dihydrate crystals LM Ql (Urine sed) 9 mg/dL 8 - 26 mg/dL [facility] Chloride [Moles/Vol] 86 mmol/L Low 96 - 10 9 mmol/L [facility] CO2 (BldMV) [Moles/Vol] 25 mmol/L 22 - 30 mmol/L [facility] Creatinine [Mass/Vol] 0.64 mg/dL 0.52 - 1.04 mg/dL [facility] GFR/1.73 sq M.predicted MDRD (S/P/Bld) [Vol rate/Area] - PINF [facility] Comment on above: eGFR calculation bas ed on the Chronic Kidney Disease Epidemiology Collaboration (CKD-EPI) equation refit without adjustment for race. Categories in Chronic Kidney Disease (CKD) Category: GFR(mL/min/1.73m^2) Interpretation: G1* 90 or greater Normal or high G2* 60-89 Mild decrease G3a 45-59 Mild to moderate decrease G3b 30-44 Moderate to severe decrease G4 15-29 Severe decrease G5 14 or less Kidney failure *G1&G2: In the absence of evidence of kidney damage, neither GFR category G1 nor G2 fulfill the criteria for CKD Kidney Int Suppl.2013;3:1-150 Glucose [Mass/Vol] 82 mg/dL 65 - 100 mg/dL [facility] Potassium [Moles/Vol] 3.7 mmol/L 3.6 - 5.1 mmol/L [facility] Sodium [Moles/Vol] 121 mmol/L Low 135 - 147 mmol/L [facility] CBC AND DIFFERENTIALon 12-05 ABSOLUTE BASOPHIL 0.1 x10*3/uL Normal 0.0-0.1 [facility] Comment on above: Performed By: #### 4 [id number] #### [facility] [address] [place] [address] [place] ABSOLUTE EOSINOPHIL 0.2 x10*3/uL Normal 0.1-0.3 [facility] Comment on above: Performed By: #### 4 [id number] #### [facility] [address] ABSOLUTE IMMATURE GRANULOCYTES 0.1 x10*3/uL Normal 0.0-0.1 [facility] Comment on above: Performed By: #### 4 [id number] #### [facility] [address] [place] [address] [place] ABSOLUTE LYMPH 4.8 x10*3/uL High 1.2-3.3 [facility] Comment on above: Performed By: #### 4 [id number] #### [facility] [address] [place] [address] [place] ABSOLUTE MONO 0.9 x10*3/uL High 0.2-0.6 [facility] Comment on above: Performed By: #### 4 [id number] #### [facility] [address] [place] [address] [place] ABSOLUTE NEUTROPHIL 6.7 x10*3/uL High 2.4-6.6 [facility] Comment on above: Performed By: #### 4 [id number] #### [facility] [address] [place] [address] [place] Basophils/100 WBC (Bld) 0.4 % Normal [facility] Comment on above: Performed By: #### 4 [id number] #### [facility] [address] [place] [address] [place] Eosinophils/100 WBC (Bld) 1.2 % Normal [facility] Comment on above: Performed By: #### 4 [id number] #### [facility] [address] [place] [address] Erythrocyte distribution width (RBC) [Ratio] 12.2 % Normal 11.5-14.5 [facility] Comment on above: Performed By: #### 4 [id number] #### [facility] [address] [place] [address] Hematocrit (Bld) [Volume fraction] 34.0 % Normal 33.6-46.8 [facility] Comment on above: Performed By: #### 4 [id number] #### [facility] [address] [place] [address] [place] Hemoglobin (Bld) [Mass/Vol] 11.6 g/dL Low 11.7-15.8 [facility] Comment on above: Performed By: #### 4 [id number] #### [facility] [address] [place] [address] [place] Immature granulocytes/100 WBC (Bld) 0.4 % Normal [facility] Comment on above: Performed By: #### 4 [id number] #### [facility] [address] [place] [address] [place] Lymphocytes/100 WBC (Bld) 37.8 % Normal [facility] Comment on above: Performed By: #### 4 [id number] #### [facility] [address] [place] [address] [place] MCH (RBC) [Entitic mass] 30.7 pg Normal 27.5-32.3 [facility] Comment on above: Performed By: #### 4 [id number] #### [facility] [address] [place] [address] [place] MCHC (RBC) [Mass/Vol] 34.1 g/dL Normal 30.7-35.5 [facility] Zaelab [facility] Comment on above: Performed By: #### 4 [id number] #### [facility] [address] [place] [address] MCV (RBC) [Entitic vol] 89.9 fL Normal 80.2-99 [facility] Comment on above: Performed By: #### 4 [id number] #### [facility] [address] [place] [address] [place] Monocytes/100 WBC (Bld) 6.9 % Normal [facility] Comment on above: Performed By: #### 4 [id number] #### [facility] [address] [place] [address] [place] Neutrophils/100 WBC (Bld) 53.3 % Normal [facility] Comment on above: Performed By: #### 4 [id number] #### [facility] [address] [place] [address] [place] NUCLEATED RED BLOOD CELLS AUTO 0.0 % Normal 0.0-1.0 [facility] Comment on above: Performed By: #### 4 [id number] #### [facility] [address] [place] [address] [place] PLATELET COUNT 418 x10*3/uL High 150-400 [facility] Comment on above: Performed By: #### 4 [id number] #### [facility] [address] [place] [address] [place] RED BLOOD CELL COUNT 3.78 x10*6/uL Normal 3.60-5.20 [facility] Comment on above: Performed By: #### 4 [id number] #### [facility] [address] WHITE BLOOD CELLS 12.6 x10*3/uL High 4.3-10.3 [facility] Comment on above: Performed By: #### 4 [id number] #### [facility] [address] CBC with DifferentialOrdered By: Background Lab on 12-05-2022 Absolute Immature Granulocytes 0.1 [facility] Age [Time] 89.9 fL 80.2 - [address] [facility] Age [Time] 30.7 pg 27.5 - 32.[address] [facility] Age [Time] 34.1 g/dL 30.7 - 35.5 g/dL [facility] B. burgdorferi IgM IB Ql (CSF) 37.8 % [facility] Basophils (Bld) [#/Vol] 0.1 10*3/uL [facility] Basophils/100 WBC (Body fld) 0.4 % [facility] Eosinophils (Bld) [#/Vol] 4.8 10*3/uL [facility] Eosinophils (Bld) [#/Vol] 0.9 10*3/uL [facility] Eosinophils (Bld) [#/Vol] 0.2 10*3/uL [facility] Eosinophils/100 WBC (Bld) 1.2 % [facility] Erythrocyte distribution width (RBC) [Ratio] 12.2 % 11.5 - 14.5 % [facility] Hematocrit (Bld) [Volume fraction] 34.0 % 33.6 - 46.8 % [facility] Hexanoylglycine (U) [Moles/Vol] 11.6 g/dL Low 11.7 - 15.8 g/dL [facility] Immature granulocytes/100 WBC (Bld) 0.4 % [facility] Interpretation and review of laboratory results Abnormal [facility] Monocytes/100 WBC (Bld) 6.9 % [facility] Neurotensin (P) [Mass/Vol] 53.3 % [facility] Neutrophils (Bld) [#/Vol] 6.7 10*3/uL [facility] Nucleated RBC/100 WBC (Bld) [Ratio] 0.0 % 0.0 - 1.0 % [facility] Platelets (Bld) [#/Vol] 418 10*3/uL High [facility] RBC (Bld) [#/Vol] 3.78 10*6/uL [facility] WBC (Bld) [#/Vol] 12.6 10*3/uL High [facility] CT HEAD WITHOUT IV CONTRASTo n 12-05-2022 CT HEAD WITHOUT IV CONTRAST EXAMINATION: CT HEAD WITHOUT IV CONTRAST, 12/05/2022 7:31 PM EDT HISTORY: numbness face, arms COMPARISON: CT head 10/07/2018. TECHNIQUE: CT scan of the head was performed without IV contrast. CT dose reduction technique was used, including Automated Exposure Control. FINDINGS: BRAIN PARENCHYMA/CSF SPACES: Ventricles are normal in size for age. There is no hemorrhage, mass effect or midline shift. There are hypodensities in the anterior limbs of internal capsules bilaterally suggestive of chronic lacunar infarcts although these are not clearly visualized previously. PARANASAL SINUSES: There is an air-fluid level in left sphenoid sinus consistent with acute sinusitis. SKULL BASE AND CALVARIUM: Normal. EXTRACRANIAL SOFT TISSUES: Normal. IMPRESSION: 1. No acute intracranial abnormality. 2. Probable small chronic lacunar infarcts in the internal capsules bilaterally. bilateral sided facial numbness and bilateral hand numbness that started this morning Normal [facility] CT Head WO contraston 2022 1. No acute intracranial abnormality. 2. Probable small chronic lacunar infarcts in the internal capsules bilaterally. [facility] EXAMINATION: CT HEAD WITHOUT IV CONTRAST, 12/05/2022 7:31 PM EDT HISTORY: numbness face, arms COMPARISON: CT head 10/07/2018. TECHNIQUE: CT scan of the head was performed without IV contrast. CT dose reduction technique was used, including Automated Exposure Control. FINDINGS: BRAIN PARENCHYMA/CSF SPACES: Ventricles are normal in size for age. There is no hemorrhage, mass effect or midline shift. There are hypodensities in the anterior limbs of internal capsules bilaterally suggestive of chronic lacunar infarcts although these are not clearly visualized previously. PARANASAL SINUSES: There is an air-fluid level in left sphenoid sinus consistent with acute sinusitis. SKULL BASE AND CALVARIUM: Normal. EXTRACRANIAL SOFT TISSUES: Normal. Abimael Milan MD - 12/05/2022 EXAMINATION: CT HEAD WITHOUT IV CONTRAST, 12/05/2022 7:31 PM EDT HISTORY: numbness face, arms COMPARISON: CT head 10/07/2018. TECHNIQUE: CT scan of the head was performed without IV contrast. CT dose reduction technique was used, including Automated Exposure Control. FINDINGS: BRAIN PARENCHYMA/CSF SPACES: Ventricles are normal in size for age. There is no hemorrhage, mass effect or midline shift. There are hypodensities in the anterior limbs of internal capsules bilaterally suggestive of chronic lacunar infarcts although these are not clearly visualized previously. PARANASAL SINUSES: There is an air-fluid level in left sphenoid sinus consistent with acute sinusitis. SKULL BASE AND CALVARIUM: Normal. EXTRACRANIAL SOFT TISSUES: Normal. IMPRESSION: 1. No acute intracranial abnormality. 2. Probable small chronic lacunar infarcts in the internal capsules bilaterally. [facility] Radiology Study observation (narrative) [facility] CT Head WO contrastOrdered B y: Abimael Rubio on 12-05-2022 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 ETHANOLon 12-05-2022 ETHANOL-SERUM <10 Normal 0-10 [facility] Comment on above: Performed By: #### 4 [id number], [id number], [id number], [id number] #### [place] [id number] Ethanolon 12-05-2022 Dimethylphosphatidyl ethanolamine/Total surfactant (Amn fld) [Mass fraction] mg/dL 0 - 10 mg/dL [facility] Interpretation and review of laboratory results Normal [facility] HEPATIC FUNCTION PANELon Albumin [Mass/Vol] 4.5 g/dL Normal 3.5-5.0 [facility] Comment on above: Performed By: #### 4 [id number], [id number], 41017500, [id number] #### [address] ALK PHOS 115 U/L Normal 24-126 [facility] Comment on above: Performed By: #### 4 [id number], [id number], [id number], [id number] #### [address] ALT [Catalytic activity/Vol] 32 U/L Normal 4-35 [facility] Comment on above: Performed By: #### 4 [id number], [id number], 13004634, [id number] #### [address] AST [Catalytic activity/Vol] 49 U/L High 3-47 [facility] Comment on above: Performed By: #### 4 [id number], [id number], 91874070, [id number] #### [address] Bilirubin [Mass/Vol] 0.6 mg/dL Normal 0.2-1.6 [facility] Comment on above: Performed By: #### 4 [id number], 17348165, 69642834, 87194102 #### [address] Bilirubin.indirect [Mass/Vol] 0.3 mg/dL Normal <=0.5 [facility] Comment on above: Performed By: #### 4 [id number], 47946826, 95420759, 49531726 #### [address] Protein [Mass/Vol] 7.7 g/dL Normal 6.3-8.2 [facility] Comment on above: Performed By: #### 4 6381021, 53698899, 79367065, [id number] #### [address] Hepatic function panelon Albumin (Syn fld) [Mass/Vol] 4.5 g/dL 3.5 - 5.0 g/dL [facility] Aldosterone (U) [Mass/Vol] 115 U/L 24 - 126 U/L [facility] ALT [Catalytic activity/Vol] 32 U/L 4 - 35 U/L [facility] AST [Catalytic activity/Vol] 49 U/L High 3 - 47 U/L [facility] Bilirubin [Mass/Vol] 0.6 mg/dL 0.2 - 1 .6 mg/dL [facility] Bilirubin.conjugated [Mass/Vol] 0.3 mg/dL NINF - 0.5 mg/dL [facility] Protein [Mass/Vol] 7.7 g/dL 6.3 - 8.2 g/dL [facility] MAGNESIUMon 12-05-2022 Magnesium [Mass/Vol] 1.5 mg/dL Low 1.6-2.3 [facility] Comment on above: Performed By: #### 4 [id number], [id number], [id number], [id number] #### [place] [address] [place] Magnesiumon 12-05-2022 Magnesium [Mass/Vol] 1.5 mg/dL Low 1.6 - 2 .3 mg/dL [facility] No Panel Informationon 12-05 Extra Tube Hold for add-ons. [facility] Interpretation and review of laboratory results Abnormal [facility] OSMOLALITY SERUMon 3 SERUM OSMOL 252 mOSM/KG Low 275-295 [facility] Comment on above: Performed By: #### 4 [id number] #### [facility] [address] [place] [address] [place] OSMOLALITY URINEon 3 OSMOLALITY URINE 122 mOSM/KG Low 390-1090 [facility] Comment on above: Performed By: #### 4 [id number], [id number] #### [place] [address] [place] Osmolarity SerumOrdered By: Iris Nicole on 12-05-2022 Drugs identified Screen Nom [address] [facility] Interpretation and review of laboratory results Abnormal [facility] Osmolarity UrineOrdered By: Rudy Montgomery on 12-05-2022 Interpretation and review of laboratory results Abnormal [facility] Osmolality (U) [Osmolality] 122 mosm/kg Low [facility] PROTIME-INRon 12-05-2022 INR GH/[facility] 0.94 Normal 0.87-1.14 [facility] Comment on above: Performed By: #### 4 [id number] #### [address] PT / [facility] 12.0 SECONDS Low 12.1-14.9 [facility] Comment on above: Performed By: #### 4 [id number] #### [address] Protime-INRon 12-05-2022 INR Coag (PPP) [Relative time] 0.94 {INR} 0.87 - 1.14 [facility] Interpretation and review of laboratory results Abnormal [facility] PT Coag (PPP control) [Time] 12.0 s Low [facility] SODIUM, URINE, RANDOMon 11-20 Sodium (U) [Moles/Vol] 19 mmol/L Normal [facility] Comment on above: Performed By: #### 4 [id number], [id number] #### [address] Sodium, urine, randomon 11-20 Bacteria identified Aer cx Nom (Throat) 19 mmol/L [facility] URINALYSIS WITH REFLEX CULTU REon 12-05-2022 Appearance (U) Clear Normal [facility] Comment on above: Performed By: #### 4 [id number] #### [address] BILIRUBIN UA Negative Normal Negative [facility] Comment on above: Performed By: #### 4 [id number] #### [place] [address] [place] Color (U) Straw Normal [facility] Comment on above: Performed By: #### 4 [id number] #### [place] [address] [place] [address] [place] Glucose Ql (U) Negative Normal Negative [facility] Comment on above: Performed By: #### 4 [id number] #### [address] [address] [place] Ketones Ql (U) Negative Normal Negative [facility] Comment on above: Performed By: #### 4 [id number] #### [place] [address] [place] LEUKOESTERASE Negative Normal Negative [facility] Comment on above: Performed By: #### 4 [id number] #### [address] Nitrite Ql (U) Negative Normal Negative [facility] Comment on above: Performed By: #### 4 [id number] #### [address] OCCULT BLD Small Abnormal Negative [facility] Comment on above: Performed By: #### 4 [id number] #### [address] PH, URINE 7.[address] [facility] Comment on above: Performed By: #### 4 [id number] #### [address] Protein Ql (U) Negative Normal Negative [facility] Comment on above: Performed By: #### 4 [id number] #### [address] RBC LM.HPF (Urine sed) [#/Area] /[HPF] Normal <=5 [facility] Comment on above: Performed By: #### 4 [id number] #### [address] SPECIFIC GRAVITY, URINE 1.[address] [facility] Comment on above: Performed By: #### 4 [id number] #### [address] SQUAMOUS EPI CELLS 11 /LPF Normal [facility] Comment on above: Performed By: #### 4 [id number] #### [address] UROBILINOGEN UA Negative Normal <2.0 [facility] Comment on above: Performed By: #### 4 [id number] #### [address] WBC LM.HPF (Urine sed) [#/Area] 2 /[HPF] Normal <=5 [facility] Comment on above: Performed By: #### 4 [id number] #### [address] Urinalysis complete W Reflex Culture panel (U)on 12-05-2022 Acetone [Mass/Vol] Negative Negative [facility] Appearance (Body fld) Clear Gen [facility] Bilirubin Ql (U) Negative Negative [facility] Color (Stone) Straw [facility] G6PD (RBC) [Catalytic activity/Vol] Negative Negative [facility] Hemoglobin Ql (U) NINF [facility] Interpretation and review of laboratory results Abnormal [facility] Leukocyte esterase Test strip Ql (U) Negative Negative [facility] Nitrite Test strip (U) [Mass/Vol] Negative Negative [facility] pH (Donna fld) 7.0 [facility] Protein (U) [Mass/Vol] Negative Negative [facility] Felt IgE Qn (S) Small Abnormal Negative [facility] Specific gravity (U) [Rel density] 1.003 [facility] Spherocytes LM Ql (Bld) 11 /LPF [facility] Urobilinogen Qn (U) Negative [facility] - 2.0 [facility] WBC (U) [#/Vol] 2 /uL [facility] Hemoglobin.gastrointestinal Ql (Stl)on 05-01-2022 Internal Control Pass [facility] Interpretation and review of laboratory results Normal [facility] Occult Blood Slide Lot Number [id number] [facility] - Chemistry and C hemistry - challengeon 05-01-2022 Hemoglobin.gastrointes tinal Ql (Stl) [facility] POC Immunochemical Occult Bl ood Stool-iFOB (FIT), Screeningon 05-01-2022 Hemoglobin.gastrointes tinal Ql (Stl) Negative Negative [facility] Comprehensive metabolic 2000 panelon 04-09-2022 Albumin [Mass/Vol] 4.5 g/dL 3.2 - 5.2 g/dL [facility] ALP [Catalytic activity/Vol] 112 U/L 40 - 150 U/L [facility] ALT [Catalytic activity/Vol] 28 U/L 0 - 40 U/L [facility] Anion gap [Moles/Vol] 17 mmol/L 10 - 2 0 mmol/L [facility] AST [Catalytic activity/Vol] 31 U/L 0 - 45 U/L [facility] Bilirubin [Mass/Vol] 0.4 mg/dL 0.0 - 1 .3 mg/dL [facility] Calcium [Mass/Vol] 9.6 mg/dL 8.4 - 10. 2 mg/dL [facility] Chloride [Moles/Vol] 98 mmol/L 98 - 10 8 mmol/L [facility] Creatinine [Mass/Vol] 0.69 mg/dL 0.40 - 1.10 mg/dL [facility] GFR/1.73 sq M.predicted CKD-EPI (S/P/Bld) [Vol rate/Area] 102 - PINF [facility] Comment on above: Estimated GFR was ca lculated using the 2020 CKD-EPI creatinine equation. Glucose [Mass/Vol] 97 mg/dL 65 - 99 mg/dL [facility] HCO3 [Moles/Vol] 23 mmol/L 21 - 32 mmol/L [facility] Potassium [Moles/Vol] 4.4 mmol/L 3.5 - 5.1 mmol/L [facility] Protein [Mass/Vol] 7.0 g/dL 6.0 - 8.0 g/dL [facility] Sodium [Moles/Vol] 134 mmol/L Low 135 - 145 mmol/L [facility] Urea nitrogen [Mass/Vol] 12 mg/dL 8 - 25 mg/dL [facility] Urea nitrogen/Creatinine [Mass ratio] 17.4 mg/mg 10.0 - 20.0 [facility] has implemented the eGFR calculation approach that does not have a coefficient for race that conforms to the NKF-ASN Task Force Recommendations. [facility] LaboratoryOrdered By: Schuyler loving on 04-09-2022 Clarity Refractometry automated (U) Clear Clear [facility] Laboratory - Chemistry and C hemistry - challengeOrdered By: Schuyler Brenner on 04-09-2022 Bilirubin Ql (U) Negative Negative [facility] pH (U) 6.0 [pH] 5.0 - 7.0 [facility] Specific gravity (U) [Rel density] 1.017 1.005 - 1.025 [facility] Urobilinogen (U) [Mass/Vol] mg/dL NINF - 2.0 mg/dL [facility] - Specimen inform ationOrdered By: Schuyler Brenner on 04-09-2022 Color (U) Yellow Colorless, Yellow [facility] - UrinalysisOrder ed By: Schuyler Brenner on 04-09-2022 Bacteria Auto Ql (U) Rare Abnormal None Se en /hpf [facility] Epithelial cells.squamous Auto (Urine sed) [#/Area] 5 High [facility] Glucose Auto test strip (U) [Mass/Vol] Negative Negative mg/dL [facility] Hemoglobin Auto test strip Ql (U) Negative Negative [facility] Ketones (U) [Mass/Vol] Negative Negat timoteo mg/dL [facility] Leukocyte esterase Auto test strip Ql (U) Negative [facility] (Urine sed) [#/Area] Rare None Seen, Rare /lpf [facility] Nitrite Auto test strip Ql (U) Negative Negative [facility] Protein (U) [Mass/Vol] Negative Negat timoteo mg/dL [facility] WBC Auto (Urine sed) [#/Area] 1 [facility] Lipid 1996 panelon 2 Cholesterol [Mass/Vol] 231 mg/dL High 100 - 199 mg/dL [facility] Cholesterol in HDL [Mass/Vol] 85 mg/dL 40 - 59 mg/dL [facility] Cholesterol in LDL [Mass/Vol] 124 mg/dL 10 - 130 mg/dL [facility] Comment on above: National Cholesterol Education Program Guidelines: LDL Cholesterol Optimal: <100 mg/dL Near Optimal/above Optimal: 100-129 mg/dL Borderline High: 130-159 mg/dL High: 160-189 mg/dL Very High: greater than or equal to 190 mg/dL Cholesterol non HDL [Mass/Vol] 146 mg/dL [facility] Comment on above: National Cholesterol Education Program Guidelines: NON HDL Cholesterol Desirable: <130 mg/dL Borderline High: 130-159 mg/dL High: 160-189 mg/dL Very High: > or = 190 mg/dL Cholesterol.total/Chol esterol in HDL [Mass ratio] 2.7 {ratio} ratio [facility] Comment on above: Female Cholesterol/H DL Ratio: Average risk: 4.4 1/2 average risk: 3.3 2 x average risk: 7.1 Triglyceride [Mass/Vol] 109 mg/dL 30 - 150 mg/dL [facility] No Panel InformationOrdered By: Schuyler Brenner on 04-09-2022 Interpretation and review of laboratory results Abnormal [facility] Microscopic examination is performed on all urinalysis samples and only positive findings are reported. The test for blood on the chemical analytic portion of urinalysis may also be positive due to hemoglobinuria and myoglobinuria and if red blood cells are present they are quantified by microscopic examination. [facility] No Panel Informationon 04-09 Interpretation and review of laboratory results Abnormal [facility] Atrial Rate [facility] P Desmet [facility] P-R Interval [facility] Q-T Interval [facility] Q-T Interval (corrected) [facility] QRS Duration [facility] QTC Calculation (Bezet) [facility] R Desmet [facility] T Desmet [facility] Ventricular Rate [facility] th [facility] TSH DL <= 0.005 mIU/L Qnon 1 06-10-2021 Interpretation and review of laboratory results Normal [facility] TSH Qn 1.92 m[IU]/L [facility] DBT Breast - bilateral juanita márquez 03-14-2022 Stable benign bilateral mammography. BI-RADS 2 - Benign, no evidence of malignancy. Normal interval followup is recommended in 12 months. OVERALL ASSESSMENT- BENIGN A letter of notification will be sent to the patient regarding the results. Category C: The breasts are heterogeneously dense which may obscure small masses. ACR BI-RADS 2: Benign Routine Screening in 1 Year [facility] MAMMO BILAT SCREENIN G DIGITAL W/GABE CLINICAL HISTORY: Encounter for screening mammogram for malignant neoplasm of breast: COMPARISON: 02/10/2021, 02/10/2020, 10/07/2015, 02/08/2014. TECHNIQUE: 2-D and 3-D views. FINDINGS: Breasts are heterogeneously dense. Focal nodule in the deep medial right breast remain stable since prior exams. No developing masses, microcalcifications, skin thickening or nipple retraction. No enlarged lymph nodes. BRENTON Khoa Pat MD - 03/14/2022 MAMMO BILAT SCREENING DIGITAL W/GABE CLINICAL HISTORY: Encounter for screening mammogram for malignant neoplasm of breast: COMPARISON: 02/10/2021, 02/10/2020, 10/07/2015, 02/08/2014. TECHNIQUE: 2-D and 3-D views. FINDINGS: Breasts are heterogeneously dense. Focal nodule in the deep medial right breast remain stable since prior exams. No developing masses, microcalcifications, skin thickening or nipple retraction. No enlarged lymph nodes. IMPRESSION: Stable benign bilateral mammography. BI-RADS 2 - Benign, no evidence of malignancy. Normal interval followup is recommended in 12 months. OVERALL ASSESSMENT- BENIGN A letter of notification will be sent to the patient regarding the results. Category C: The breasts are heterogeneously dense which may obscure small masses. ACR BI-RADS 2: Benign Routine Screening in [address] [facility] Radiology Study observation (narrative) [facility] DBT Breast - bilateral scree ningOrdered By: Khoa Pat on 03-14-2022 [facility] Work Phone: MAMMO BILAT SCREENING DIGITA L W/TOMOon 03-14-2022 MAMMO BILAT SCREENING DIGITAL W/GABE This is a summary report. The complete report is available in the patient's medical record. If you cannot access the medical record, please contact the sending organization for a detailed fax or copy. MAMMO BILAT SCREENING DIGITAL W/GABE CLINICAL HISTORY: Encounter for screening mammogram for malignant neoplasm of breast: COMPARISON: 02/10/2021, 02/10/2020, 10/07/2015, 02/08/2014. TECHNIQUE: 2-D and 3-D views. FINDINGS: Breasts are heterogeneously dense. Focal nodule in the deep medial right breast remain stable since prior exams. No developing masses, microcalcifications, skin thickening or nipple retraction. No enlarged lymph nodes. IMPRESSION: Stable benign bilateral mammography. BI-RADS 2 - Benign, no evidence of malignancy. Normal interval followup is recommended in 12 months. OVERALL ASSESSMENT- BENIGN A letter of notification will be sent to the patient regarding the results. Category C: The breasts are heterogeneously dense which may obscure small masses. ACR BI-RADS 2: Benign Routine Screening in 1 Year Diagnosis: Screening mammogram, encounter for [Z12.31 (ICD-10-CM)] Tech Notes: Routine screening. Pt states no new breast complaints HP comparisons Covid Vaccine: NO HX of SX No family hx of breast cancer Order Comments: Ordering Physician: Aliyah Fuller APRN CNP Normal [facility] ED Physician Documentationon 12-24-2021 ED Physician Documentation [facility] [place] [address] Physician Documentation Signed: Name: MARGO SEBASTIAN MRUN: [id number] : 1965 Loc: ED Age / Sex: 56/ F Adm Status: REG ER Adm Date:12/24/21 Room/Bed: Disposition Decision - General Final diagnosis: Right radial head fracture Qualifiers: Encounter type: initial encounter Fracture type: closed Disposition: 01 HOME, SELF-CARE Condition: Good Instructions: ED Radial Head Fracture Referrals: Catalina Clemente MD, MD [Staff Physician] - Call For An Appointment Mo James III, MD, MD [Staff Physician] - Call For An Appointment New prescriptions/home medications: No Action Triamterene/Hydrochlor othiazid [Triamterene-Hctz 37.5-25 mg Cp] 1 each PO DAILY Pantoprazole Sodium 40 mg PO DAILY lisinopriL [Lisinopril] 10 mg PO DAILY Citalopram Hydrobromide [Citalopram HBr] 40 mg PO DAILY Cetirizine HCl [Zyrtec] 10 mg PO DAILY Fluticasone Propionate [Flonase Allergy Relief] 1 spray NS DAILY HPI: Extremity Complaint-Upper - Time Seen by Provider Time Seen by Provider: 12/24/21 12:34 - General Information Information source:: Patient - History of Present Illness Chief complaint: Extremity Complaint- Upper Initial narrative: THis is a 56 year old female who presents to the emergency room today with a chief complaint of right elbow pain she has bruising and pain to the medial posterior lateral aspect elbow. She states she landed on outstretched hand on Saturday injuring her elbow. She denies pain distally into the mid forearm wrist or hand approximately into the shoulder. Pain is moderate and worse with movement. - Allergies Allergies/Adverse reactions: Allergies Allergy/AdvReac Type Severity Reaction Status Date / Time bacitracin Allergy Hives Verified 12/24/21 12:33 [From Triple Antibiotic] neomycin Allergy Hives Verified 12/24/21 12:33 [From Triple Antibiotic] polymyxin B Allergy Hives Verified 12/24/21 12:33 [From Triple Antibiotic] Past Medical History Past EENT history: Negative Past EENT surgeries/treatments: Oral Surgery, Tonsillectomy, Adenoidectomy Past neurological history: Negative Past neurological surgeries/treatments: Negative Past cardiovascular history: Hypertension, High Cholesterol Past cardiovascular surgeries/treatments:: Negative Past respiratory history: Negative Past gastrointestinal history: GERD Past gastrointestinal surgeries/treatments: Negative Past genitourinary history: Negative Past Genitourinary surgeries/treatments: Negative Past musculoskeletal history: Fractures Past musculoskeletal surgeries/treatments: Fracture Repairs Additional surgical history details: left knee scope Past endocrine history: Negative General Reproductive History: Sexually Active Past female reproductive history: Previous Pregnancies, Using Control, Other Additional surgical history details: x 1 Past female reproductive surgeries/treatments: Negative Hemotologic: Negative Psychiatric: Depression Psychiatric Treatments: Managed with Medications - Social History Smoking status: Heavy Tobacco Smoker (> 10 cigarettes per day) Current tobacco user or use within the last year?: Yes Type of tobacco used: Cigarettes Alcohol use- current or past use: Yes Type of alcohol used: Beer, Wine Substance abuse - current or past: No Review of Systems Constitutional: No Symptoms Reported. denies: Chills, Fever ENT: No Symptoms Reported. denies: Congestion, Ear Pain, Throat Pain Respiratory: No Symptoms Reported. denies: Cough, Stridor, Wheezing Cardiovascular: No Symptoms Reported. denies: Chest Pain, Palpitations Endocrine: No Symptoms Reported Gastrointestinal: No Symptoms Reported Genitourinary: No Symptoms Reported Musculoskeletal: Other - right elbow swelling and pain Neurological: No Symptoms Reported. denies: Headache, Numbness, Paresthesias Psychiatric: No Symptoms Reported .: All 10 Systems Reviewed Negative Unless Otherwise Stated in the HPI .: I have reviewed available Ancillary/Nursing Staff documentation. General Exam - General General appearance: Present: Well Appearing, Well Nourished - Head Head exam: Present: Atraumatic, Normocephalic - Eye Eye exam: Present: Normal Appearance, EOMI Pupils: Present: PERRL - ENT ENT exam: Present: Normal Exam, Normal Oropharynx, Mucous Membranes Moist. Absent: TM's Normal Bilaterally - Neck Neck exam: Present: Normal Inspection. Absent: Lymphadenopathy, Tenderness - Respiratory Respiratory exam: Present: Normal Lung Sounds Bilaterally, Respirations Regular and Easy. Absent: Use of Accessory M uscles - Cardiovascular Cardiovascular exam: Present: Normal Heart Sounds, Normal Rhythm, Regular Rate - GI/Abdominal GI/Abdominal Exam: Present: Normal Bowel Sounds, Soft. Absent: Tenderness - Extrem (more content not included)... Normal [facility] XR ELBOW,RIGHT MINIMUM 3 VIE WSon 12-24-2021 XR ELBOW,RIGHT MINIMUM 3 VIEWS [facility] [address] [place] [address] Diagnostic Imaging Report : [id number] Signed Name: MARGO SEBASTIAN MRUN: [id number] : 1965 Loc: ED Age / Sex: 56 / F ADM Status: REG ER ADM Date: 12/24/21 Room/Bed: Ordering Physician: Joseph Ash PA-C Procedure: XR ELBOW,RIGHT MINIMUM 3 VIEWS Order Number(s): [id number] Ordered Date: 12/24/21 Ordered Time: 1248 EXAMINATION: THREE XRAY VIEWS OF THE RIGHT ELBOW 12/24/2021 12:59 pm COMPARISON: None. HISTORY: right elbow pain FINDINGS: There is a small elbow joint effusion. There is a fracture traversing the radial head, minimally displaced involving the lateral aspect of the radial head. The ulna is intact. Bone density is normal. Distal humerus is normal. There is medial and extensor surface subcutaneous edema. IMPRESSION: Minimally depressed intra-articular radial head fracture. Dictated By: Sree Evans MD Dictated Date/Time: 12/24/21 1347 Signed By: Sree Evans MD, MD Signed Date/Time: 12/24/21 1352 Transcribed Date/Time: 12/24/21 1348 Normal [facility] ED Physician Documentationon 09-28-2021 ED Physician Documentation [address] [place] [address] Physician Documentation Signed:[id number] Name: MARGO SEBASTIAN MRUN: [id number] : 1965 Loc: ED Age / Sex: 56/ F Adm Status: REG ER Adm Date:09/28/21 Room/Bed: Disposition Decision - General Final diagnosis: Lateral malleolar fracture Disposition: 01 HOME, SELF-CARE Condition: Stable Instructions: ED Ankle Fracture Additional Instructions: Return back to the emergency department for any new or worsening symptoms. You can take acetaminophen 500 mg every 4-6 hours as needed for pain and ibuprofen 400 mg every 6-8 hours as needed for pain. Referrals: Patricio Winters MD, MD [Staff Physician] - In 2-3 Days New prescriptions/home medications: No Action Triamterene/Hydrochlor othiazid [Triamterene-Hctz 37.5-25 mg Cp] 1 each PO DAILY Pantoprazole Sodium 40 mg PO DAILY lisinopriL [Lisinopril] 10 mg PO DAILY Citalopram Hydrobromide [Citalopram HBr] 40 mg PO DAILY Cetirizine HCl [Zyrtec] 10 mg PO DAILY Fluticasone Propionate [Flonase Allergy Relief] 1 spray NS DAILY HPI: Extremity Complaint-Lower - Time Seen by Provider Time Seen by Provider: 09/28/21 09:03 - History of Present Illness Chief complaint: Extremity Complaint - Lower Initial narrative: 56-year-old female presents here to the emergency room today reporting right ankle pain. Patient reports she injured the right ankle last night. She reports she slipped down 2 steps rolled her right ankle. She reports her right foot pain. She reports a history of right ankle fracture. She reports no paresthesias. Patient has been ambulatory but reports pain with ambulation. Patient took acetaminophen 1 g and Advil 1 hour prior to arrival. Patient reports pain tolerable at time. Patient has no other associated complaints. Patient's medical history, surgical history, family, and social history is as documented by nursing. - Allergies Allergies/Adverse reactions: Allergies Allergy/AdvReac Type Severity Reaction Status Date / Time bacitracin Allergy Hives Verified 09/28/21 09:07 [From Triple Antibiotic] neomycin Allergy Hives Verified 09/28/21 09:07 [From Triple Antibiotic] polymyxin B Allergy Hives Verified 09/28/21 09:07 [From Triple Antibiotic] Past Medical History - Available ancillary/Nurse notes reviewed History reviewed and agreed with:: Yes Past EENT history: Negative Past EENT surgeries/treatments: Oral Surgery, Tonsillectomy, Adenoidectomy Past neurological history: Negative Past neurological surgeries/treatments: Negative Past cardiovascular history: Hypertension, High Cholesterol Past cardiovascular surgeries/treatments:: Negative Past respiratory history: Negative Past gastrointestinal history: GERD Past gastrointestinal surgeries/treatments: Negative Past genitourinary history: Negative Past Genitourinary surgeries/treatments: Negative Past musculoskeletal history: Negative Additional surgical history details: left knee scope Past endocrine history: Negative General Reproductive History: Sexually Active Past female reproductive history: Previous Pregnancies, Using Control, Other Additional surgical history details: x 1 Past female reproductive surgeries/treatments: Negative Hemotologic: Negative Psychiatric: Depression Psychiatric Treatments: Managed with Medications - Social History Smoking status: Heavy Tobacco Smoker (> 10 cigarettes per day) Current tobacco user or use within the last year?: Yes Type of tobacco used: Cigarettes Amount used: 1 ppd Alcohol use- current or past use: Yes Type of alcohol used: Beer, Wine Amount used: daily Substance abuse - current or past: No Review of Systems Constitutional: denies: Chills, Fever Eyes: No Symptoms Reported ENT: No Symptoms Reported Respiratory: No Symptoms Reported Cardiovascular: No Symptoms Reported Gastrointestinal: No Symptoms Reported Genitourinary: No Symptoms Reported Musculoskeletal: Other - Refer to history of present illness Skin: No Symptoms Reported Neurological: No Symptoms Reported Psychiatric: No Symptoms Reported .: All 10 Systems Reviewed Negative Unless Otherwise Stated in the HPI .: I have reviewed available Ancillary/Nursing Staff documentation. General Exam - Other Other exam information: General: Conversant and pleasant interactive and nontoxic. Head: Normocephalic/atraumat ic Eyes: no conjunctivitis Oralpharnyx: mucous membranes moist Neck: Supple, no lymphadenopathy Cardovascular: RRR without murmur, brisk capillary refill, no peripheral edema. Lungs: CTA B/L, non-labored Extremities: Edema and ecchymosis over the right ankle with pain on palpation to the lateral malleolus of the right ankle. No pain on palpation to the right foot. No deformity. DPPT pulses are 2+ and equal bilaterally. Neuro: AOx3, (more content not included)... Normal [facility] XR ANKLE, RIGHT 3 VIEWSon XR ANKLE, RIGHT 3 VIEWS [facility] [address] [place], [place] [id number] Diagnostic Imaging Report : [id number] Signed Name: MARGO SEBASTIAN MRUN: [id number] : 1965 Loc: ED Age / Sex: 56 / F ADM Status: REG ER ADM Date: 09/28/21 Room/Bed: Ordering Physician: Stephen Bal CNP Procedure: XR ANKLE, RIGHT 3 VIEWS Order Number(s): [id number] Ordered Date: 09/28/21 Ordered Time: 905 EXAMINATION: THREE XRAY VIEWS OF THE RIGHT ANKLE 09/28/2021 9:37 am COMPARISON: None. HISTORY: right ankle injury FINDINGS: Three views right ankle demonstrate marked soft tissue swelling over the lateral malleolus with a mild oblique and displaced fracture of the lateral malleolus with preservation of the ankle mortise. There is a moderate-sized plantar calcaneal spur. IMPRESSION: Mildly displaced right lateral malleolar fracture. Dictated By: Jim Mack III, DO Dictated Date/Time: 09/28/21948 Signed By: Jim Mack DO DO Signed Date/Time: 09/28/2154 Transcribed Date/Time: 09/28/21949 Normal [facility] Mammo Bilateral SCREENING Di gital W/[place] 02-10-2020 Negative. BIRADS: BIRADS - CATEGORY 1 - Negative. The [employer] and the Society of Breast Imaging recommends women receive annual mammograms starting at age 40. The [place] [employer]'s guidelines for women at AVERAGE RISK for breast cancer include: Women ages 40 to 44 should have a choice to start annual breast cancer screening with mammograms if they wish to do so. The risks of screening as well as the potential benefits should be considered. Women age 45 to 54 should get a mammogram every year. Women age 55 and older should switch to mammograms every 2 years, or have the choice to continue yearly screening. Women with a personal history of breast cancer, a family history of breast cancer, a genetic mutation known to increase risk of breast cancer (such as BRCA), and women who had radiation therapy to the chest before the age of 30 are at higher risk for breast cancer, not average risk and additional screening may be indicated. The above report was generated using voice recognition software. It may contain grammatical, syntax and spelling errors. [employer] EXAMINATION: MAMMO BILAT SCREENING DIGITAL W/GABE 02/10/2020 TECHNIQUE: Standard digital mammographic views with tomosynthesis of both breast(s) are submitted for interpretation. CAD was applied. COMPARISON: 10/07/2015 HISTORY: Screening. FINDINGS: BREAST COMPOSITION: The breast parenchyma is heterogeneously dense(c) which may obscure small masses. There are no new suspicious abnormal masses, aggressive calcifications or architectural distortion. [facility], Rad Results In - 02/10/2020 3:01 PM EDT EXAMINATION: MAMMO BILAT SCREENING DIGITAL W/GABE 02/10/2020 TECHNIQUE: Standard digital mammographic views with tomosynthesis of both breast(s) are submitted for interpretation. CAD was applied. COMPARISON: 10/07/2015 HISTORY: Screening. FINDINGS: BREAST COMPOSITION: The breast parenchyma is heterogeneously dense(c) which may obscure small masses. There are no new suspicious abnormal masses, aggressive calcifications or architectural distortion. IMPRESSION: Negative. BIRADS: BIRADS - CATEGORY 1 - Negative. The [employer] [employer] and the Society of Breast Imaging recommends women receive annual mammograms starting at age 40. The [place] [employer]'s guidelines for women at AVERAGE RISK for breast cancer include: Women ages 40 to 44 should have a choice to start annual breast cancer screening with mammograms if they wish to do so. The risks of screening as well as the potential benefits should be considered. Women age 45 to 54 should get a mammogram every year. Women age 55 and older should switch to mammograms every 2 years, or have the choice to continue yearly screening. Women with a personal history of breast cancer, a family history of breast cancer, a genetic mutation known to increase risk of breast cancer (such as BRCA), and women who had radiation therapy to the chest before the age of 30 are at higher risk for breast cancer, not average risk and additional screening may be indicated. The above report was generated using voice recognition software. It may contain grammatical, syntax and spelling errors. [employer] XR Forearm LTon 10-19-2019 No definite evidence for acute fracture or dislocation. If there is continued concern consider dedicated wrist. [employer] EXAMINATION: 2 XRAY VIEWS OF THE LEFT FOREARM 10/19/2019 12:47 pm COMPARISON: None. HISTORY: fall Pt. Fell today down a hill, pain mostly in the left wrist , pt. Did state she has broken the left elbow years ago FINDINGS: No definite evidence for acute fracture or dislocation. Minimal lucency seen dorsal aspect distal radius not likely of clinical significance [employer] [facility], Rad Results In - 10/19/2019 1:16 PM EDT EXAMINATION: 2 XRAY VIEWS OF THE LEFT FOREARM 10/19/2019 12:47 pm COMPARISON: None. HISTORY: fall Pt. Fell today down a hill, pain mostly in the left wrist , pt. Did state she has broken the left elbow years ago FINDINGS: No definite evidence for acute fracture or dislocation. Minimal lucency seen dorsal aspect distal radius not likely of clinical significance IMPRESSION: No definite evidence for acute fracture or dislocation. If there is continued concern consider dedicated wrist. [facility] XR Wrist LT 3 Views (Routine )on 10-19-2019 Severe degenerative changes 1st carpometacarpal joint. [employer] EXAMINATION: THREE XRAY VIEWS OF THE LEFT WRIST 10/19/2019 1:43 pm COMPARISON: None. HISTORY: injury Fall, wrist and arm pain FINDINGS: No evidence for acute fracture or dislocation. There is marked degenerative change 1st carpometacarpal joint. Mild soft tissue swelling dorsum of the wrist. Lucency seen on prior forearm series not persistent on this exam. [facility], Rad Results In - 10/19/2019 2:19 PM EDT EXAMINATION: THREE XRAY VIEWS OF THE LEFT WRIST 10/19/2019 1:43 pm COMPARISON: None. HISTORY: injury Fall, wrist and arm pain FINDINGS: No evidence for acute fracture or dislocation. There is marked degenerative change 1st carpometacarpal joint. Mild soft tissue swelling dorsum of the wrist. Lucency seen on prior forearm series not persistent on this exam. IMPRESSION: Severe degenerative changes 1st carpometacarpal joint. [facility] MM COMPARISON IMPORTon 02-25 This order has been auto-finalized and does not contain a result. [facility] MM SCREENING GABE BILATERALo n 02-17-2019 MM SCREENING GABE BILATERAL EXAMINATION: SCREENING DIGITAL BILATERAL MAMMOGRAM WITH TOMOSYNTHESIS 02/17/2019 TECHNIQUE: Screening mammography of the bilateral breasts was performed with tomosynthesis. 2D standard and 3D tomosynthesis combination imaging performed through both breasts in the MLO and CC projection. Computer aided detection was utilized in the interpretation of this exam. COMPARISON: None available at this time. Prior studies have been requested but have not yet arrived for comparison. If prior studies are obtained, an addendum can be made to this report. HISTORY: Screening. FINDINGS: There are scattered areas of fibroglandular density. There is no dominant mass, suspicious microcalcification, or area of architectural distortion. No abnormality is identified on the tomosynthesis images. IMPRESSION: No mammographic evidence of malignancy. BIRADS: BIRADS - CATEGORY 1 Negative, no evidence of malignancy. Normal interval follow-up is recommended in 12 months. OVERALL ASSESSMENT - NEGATIVE A letter of notification will be sent to the patient regarding the results. [facility], along with the National [employer] Cancer Network, the [employer], and [facility], recommend annual screening mammograms for women age 40 and older. Workstation ID: [id number] Dictated by: ABIMAEL VILLELA on SatFeb 24, 2019 8:10:58 AM EST Transcribed by: ABIMAEL VILLELA on SatFeb 24, 2019 8:10:58 AM EST Finalized by: ABIMAEL VILLELA on SatFeb 24, 2019 8:10:58 AM [facility] Comprehensive Metabolic Pane ellen 01-01-2019 Albumin [Mass/Vol] 5.2 g/dL 3.2 - 5.2 g/dL [facility] ALP [Catalytic activity/Vol] 101 U/L 40 - 150 U/L [facility] ALT [Catalytic activity/Vol] 35 U/L 0 - 40 U/L [facility] Anion gap [Moles/Vol] 21 mmol/L High 10 - 2 0 mmol/L [facility] AST [Catalytic activity/Vol] 35 U/L 0 - 45 U/L [facility] Bilirubin [Mass/Vol] 0.5 mg/dL 0 - 1.3 mg/dL [facility] Calcium [Mass/Vol] 10.3 mg/dL High 8.4 - 10. 2 mg/dL [facility] Chloride [Moles/Vol] 98 mmol/L 98 - 10 8 mmol/L [facility] Creatinine [Mass/Vol] 0.72 mg/dL 0.4 - 1.1 mg/dL [facility] GFR/1.73 sq M predicted among non-blacks MDRD (S/P/Bld) [Vol rate/Area] The eGFR should be used for monitoring renal function only and not for medication dosing. [facility] GFR/1.73 sq M.predicted CKD-EPI (S/P/Bld) [Vol rate/Area] 96 >=60 mL/min/1.73 m2 [facility] Glucose [Mass/Vol] 100 mg/dL High 65 - 99 mg/dL [facility] HCO3 [Moles/Vol] 23 mmol/L 21 - 32 mmol/L [facility] Potassium [Moles/Vol] 4.3 mmol/L 3.5 - 5.1 mmol/L [facility] Protein [Mass/Vol] 7.4 g/dL 6 - 8 g/dL [facility] alth Sodium [Moles/Vol] 138 mmol/L 135 - 145 mmol/L [facility] Urea nitrogen [Mass/Vol] 11 mg/dL 8 - 25 mg/dL [facility] Urea nitrogen/Creatinine [Mass ratio] 15.3 mg/mg [facility] ECG 12-LEADon 01-01-2019 Atrial Rate [facility] P Desmet [facility] P-R Interval [facility] Q-T Interval [facility] Q-T Interval (corrected) [facility] QRS Duration [facility] QTC Calculation (Bezet) [facility] R Desmet [facility] T Desmet [facility] Ventricular Rate [facility] Lipid Panelon 01-01-2019 Cholesterol [Mass/Vol] 283 mg/dL High 100 - 199 mg/dL [facility] Cholesterol in HDL [Mass/Vol] 76 mg/dL 40 - 59 [facility] Cholesterol in LDL [Mass/Vol] 169 mg/dL High 10 - 130 mg/dL [facility] Comment on above: National Cholesterol Education Program Guidelines: LDL Cholesterol Optimal: <100 mg/dL Near Optimal/above Optimal: 100-129 mg/dL Borderline High: 130-159 mg/dL High: 160-189 mg/dL Very High: greater than or equal to 190 mg/dL Cholesterol non HDL [Mass/Vol] 207 mg/dL [facility] Comment on above: National Cholesterol Education Program Guidelines: NON HDL Cholesterol Desirable: <130 mg/dL Borderline High: 130-159 mg/dL High: 160-189 mg/dL Very High: > or = 190 mg/dL Cholesterol.total/Chol esterol in HDL [Mass ratio] 3.7 {ratio} ratio [facility] Comment on above: Female Cholesterol/H DL Ratio: Average risk: 4.4 1/2 average risk: 3.3 2 x average risk: 7.1 Triglyceride [Mass/Vol] 191 mg/dL High 30 - 150 mg/dL [facility] Otheron 01-01-2019 Interpretation and review of laboratory results Abnormal [facility] TSHon 01-01-2019 Interpretation and review of laboratory results Normal [facility] TSH Qn 2.10 m[IU]/L [facility] URINALYSISon 01-01-2019 Bacteria Auto Ql (U) Rare Abnormal None Se en /hpf [facility] Bilirubin Ql (U) Negative Negative [facility] Clarity Refractometry automated (U) Clear Clear [facility] Color (U) Colorless Colorless, Yellow [facility] Epithelial cells.squamous Auto (Urine sed) [#/Area] 1 [facility] Glucose Auto test strip (U) [Mass/Vol] Negative Negative mg/dL [facility] Hemoglobin Auto test strip Ql (U) Small Abnormal Negative [facility] Interpretation and review of laboratory results Abnormal [facility] Ketones (U) [Mass/Vol] Negative Negat timoteo mg/dL [facility] Leukocyte esterase Auto test strip Ql (U) Negative Negative [facility] h Mucus Auto (Urine sed) [#/Area] Rare None Seen, Rare /lpf [facility] Nitrite Auto test strip Ql (U) Negative Negative [facility] pH (U) 7.0 [pH] [facility] Protein (U) [Mass/Vol] Negative Negat timoteo mg/dL [facility] RBC Auto (Urine sed) [#/Area] <1 [facility] Specific gravity (U) [Rel density] 1.005 [facility] Urobilinogen (U) [Mass/Vol] <2.0 <2.0 mg/dL [facility] WBC Auto (Urine sed) [#/Area] 1 [facility] Microscopic examination is performed on all urinalysis samples and only positive findings are reported. The test for blood on the chemical analytic portion of urinalysis may also be positive due to hemoglobinuria and myoglobinuria and if red blood cells are present they are quantified by microscopic examination. [facility] Vital Signs Date Time Vital Sign Value Performing Clinician Facility 07-29-2023 13:06-0400 Body height 163.[address] Mattie Rodríguez Work Phone: [facility] 07-29-2023 13:06-0400 Body mass index (BMI) [Ratio] 29 kg/m2 Dr. Mattie Rodríguez Work Phone: [facility] 07-29-2023 13:06-0400 Body weight 78.[address] Mattie Rodríguez Work Phone: [facility] 07-29-2023 13:06-0400 Diastolic blood pressure 72 mm[Hg] Dr. Mattie Rodríguez Work Phone: [facility] 07-29-2023 13:06-0400 Heart rate 87 /min Dr. Mattie Rodríguez Work Phone: [facility] 07-29-2023 13:06-0400 Respiratory rate 18 /min Dr. Mattie Rodríguez Work Phone: [facility] 07-29-2023 13:06-0400 Systolic blood pressure 113 mm[Hg] Dr. Mattie Rodríguez Work Phone: [facility] 03-27-2023 10:02-0500 Diastolic blood pressure 77 mm[Hg] Kong Reddy MD Work Phone: [facility] 03-27-2023 10:02-0500 Systolic blood pressure 120 mm[Hg] Kong Reddy MD Work Phone: [facility] 03-27-2023 09:36-0500 Body height 164.5 cm Kong Reddy MD Work Phone: [facility] 03-27-2023 09:36-0500 Body mass index (BMI) [Ratio] 27.44 kg/m2 Kong Reddy MD Work Phone: [facility] 03-27-2023 09:36-0500 Body temperature 98.49 [degF] Kong Reddy MD Work Phone: [facility] 03-27-2023 09:36-0500 Body weight 74.21 kg Kong Reddy MD Work Phone: [facility] 03-27-2023 09:36-0500 Heart rate 65 /min Kong Reddy MD Work Phone: [facility] 03-27-2023 09:36-0500 SaO2% (BldA) [Mass fraction] 97 % Kong Reddy MD Work Phone: [facility] 01-03-2023 10:16-0400 Diastolic blood pressure 67 mm[Hg] Kong Reddy MD Work Phone: [facility] 01-03-2023 10:16-0400 Systolic blood pressure 102 mm[Hg] Kong Reddy MD Work Phone: [facility] 01-03-2023 10:12-0400 Body mass index (BMI) [Ratio] 27.94 kg/m2 Kong Reddy MD Work Phone: [facility] 01-03-2023 10:12-0400 Body temperature 98.6 [degF] Kong Reddy MD Work Phone: [facility] 01-03-2023 10:12-0400 Body weight 76.16 kg Kong Reddy MD Work Phone: [facility] 01-03-2023 10:12-0400 Heart rate 74 /min Kong Reddy MD Work Phone: [facility] 01-03-2023 10:12-0400 SaO2% (BldA) [Mass fraction] 97 % Kong Reddy MD Work Phone: [facility] 12-13-2022 10:45-0400 Body height 165.1 cm Kong Reddy MD Work Phone: [facility] 12-13-2022 10:45-0400 Body mass index (BMI) [Ratio] 28.01 kg/m2 Kong Reddy MD Work Phone: [facility] 12-13-2022 10:45-0400 Body temperature 98.4 [degF] Kong Reddy MD Work Phone: [facility] 12-13-2022 10:45-0400 Body weight 76.34 kg Kong Reddy MD Work Phone: [facility] 12-13-2022 10:45-0400 Diastolic blood pressure 70 mm[Hg] Kong Reddy MD Work Phone: [facility] 12-13-2022 10:45-0400 Heart rate 81 /min Kong Reddy MD Work Phone: [facility] 12-13-2022 10:45-0400 SaO2% (BldA) [Mass fraction] 95 % Kong Reddy MD Work Phone: [facility] 12-13-2022 10:45-0400 Systolic blood pressure 106 mm[Hg] Kong Reddy MD Work Phone: [facility] 12-07-2022 13:51-0400 Diastolic blood pressure 98 mm[Hg] Brittney Torres MD Work Phone: [facility] 12-07-2022 13:51-0400 Systolic blood pressure 152 mm[Hg] Brittney Torres MD Work Phone: [facility] 12-07-2022 07:56-0400 Heart rate 57 /min Brittney Torres MD Work Phone: [facility] 12-07-2022 07:56-0400 SaO2% (BldA) [Mass fraction] 100 % Brittney Torres MD Work Phone: [facility] 12-07-2022 04:21-0400 Body temperature 98.1 [degF] Brittney Torres MD Work Phone: [facility] 12-07-2022 04:21-0400 Respiratory rate 20 /min Brittney Torres MD Work Phone: [facility] 12-05-2022 22:10-0400 Body height 165.1 cm Brittney Torres MD Work Phone: [facility] 12-05-2022 22:10-0400 Body mass index (BMI) [Ratio] 28.84 kg/m2 Brittney Torres MD Work Phone: [facility] 12-05-2022 22:10-0400 Body weight 78.61 kg Brittney Torres MD Work Phone: [facility] 04-09-2022 09:12-0500 Diastolic blood pressure 95 mm[Hg] Kong Reddy MD Work Phone: [facility] 04-09-2022 09:12-0500 Systolic blood pressure 171 mm[Hg] Kong Reddy MD Work Phone: [facility] 04-09-2022 08:57-0500 Body height 165.1 cm Kong Reddy MD Work Phone: [facility] 04-09-2022 08:57-0500 Body mass index (BMI) [Ratio] 30.45 kg/m2 Kong Reddy MD Work Phone: [facility] 04-09-2022 08:57-0500 Body temperature 98.4 [degF] Kong Reddy MD Work Phone: [facility] 04-09-2022 08:57-0500 Body weight 83.01 kg Kong Reddy MD Work Phone: [facility] 04-09-2022 08:57-0500 Heart rate 68 /min Kong Reddy MD Work Phone: [facility] 04-09-2022 08:57-0500 SaO2% (BldA) [Mass fraction] 97 % Kong Reddy MD Work Phone: [facility] 06-24-2020 21:48-0500 BP Diastolic 80 mm[Hg] [facility] 06-24-2020 21:48-0500 BP Systolic 130 mm[Hg] [facility] 06-24-2020 11:39-0500 BMI (Body Mass Index) 28.6 kg/m2 [facility] 06-24-2020 11:39-0500 Body Temperature 98.49 [degF] [facility] 06-24-2020 11:39-0500 Body weight 79.15 kg [facility] 06-24-2020 11:39-0500 Height 166.4 cm [facility] 06-24-2020 11:39-0500 Pulse (Heart Rate) 92 /min [facility] 10-19-2019 10:54-0400 BMI (Body Mass Index) 28.96 kg/m2 [facility] 10-19-2019 10:54-0400 Body Temperature 98.1 [degF] [facility] 10-19-2019 10:54-0400 Body weight 78.93 kg [facility] 10-19-2019 10:54-0400 BP Diastolic 84 mm[Hg] [facility] 10-19-2019 10:54-0400 BP Systolic 138 mm[Hg] [facility] 10-19-2019 10:54-0400 Height 165.1 cm [facility] 10-19-2019 10:54-0400 Pulse (Heart Rate) 74 /min [facility] 10-19-2019 10:54-0400 Pulse Oximetry 98 % [facility] 10-19-2019 10:54-0400 Respiratory Rate 18 /min Luis Eduardo Kelly [facility] 02-02-2019 08:54-0400 BP Diastolic 98 mm[Hg] [facility] 02-02-2019 08:54-0400 BP Systolic 148 mm[Hg] [facility] 02-02-2019 08:38-0400 BMI (Body Mass Index) 28.48 kg/m2 [facility] 02-02-2019 08:38-0400 Body Temperature 97.9 [degF] [facility] 02-02-2019 08:38-0400 Body weight 78.83 kg [facility] 02-02-2019 08:38-0400 Height 166.4 cm [facility] 02-02-2019 08:38-0400 Pulse (Heart Rate) 62 /min [facility] 01-01-2019 10:32-0400 BP Diastolic 88 mm[Hg] [facility] 01-01-2019 10:32-0400 BP Systolic 132 mm[Hg] [facility] 01-01-2019 10:01-0400 Pulse (Heart Rate) 61 /min [facility] 01-01-2019 09:55-0400 BMI (Body Mass Index) 27.68 kg/m2 [facility] 01-01-2019 09:55-0400 Body Temperature 98.4 [degF] [facility] 01-01-2019 09:55-0400 Body weight 76.61 kg [facility] 01-01-2019 09:55-0400 Height 166.4 cm [facility] 01-01-2019 09:55-0400 Respiratory Rate 14 /min [facility] 09-22-2018 11:22-0400 BP Diastolic 86 mm[Hg] [facility] 09-22-2018 11:22-0400 BP Systolic 136 mm[Hg] [facility] 09-22-2018 10:41-0400 BMI (Body Mass Index) 28.33 kg/m2 [facility] 09-22-2018 10:41-0400 Body Temperature 98.91 [degF] [facility] 09-22-2018 10:41-0400 Height 166.4 cm [facility] 09-22-2018 10:41-0400 Pulse (Heart Rate) 71 /min [facility] 09-22-2018 10:41-0400 Respiratory Rate 14 /min Kong [facility] 09-22-2018 10:41-0400 Weight 78.43 kg [facility] 04-18-2017 14:00-0500 BMI (Body Mass Index) 30.25 kg/m2 [facility] Work Phone: 04-18-2017 14:00-0500 Body Temperature 97.7 [degF] [facility] Work Phone: 04-18-2017 14:00-0500 BP Diastolic 74 mm[Hg] [facility] Work Phone: 04-18-2017 14:00-0500 BP Systolic 122 mm[Hg] [facility] Work Phone: 04-18-2017 14:00-0500 Height 163.83 cm [facility] Work Phone: 04-18-2017 14:00-0500 Pulse (Heart Rate) 84 /min [facility] Work Phone: 04-18-2017 14:00-0500 Weight 81.19 kg [facility] Work Phone: Encounters Encounter Date Encounter Type Care Provider Facility Start: 01-09-2025 ambulatory Mattie Anne Facilit y:[facility] Start: 01-08-2025 ambulatory Mattie Anne Facilit y:[facility] Start: 01-06-2025 End: 01-06-2025 ambulatory Mattie Anne Facility:[facility] Start: 01-01-2025 End: 01-01-2025 ambulatory Mattie Montemayoron Facility:[facility] Start: 12-25-2024 End: 12-25-2024 ambulatory Adela Skruck Facility:[facility] Start: 12-18-2024 End: 12-18-2024 ambulatory Adela Skruck Facility:[facility] Start: 12-11-2024 End: 12-11-2024 ambulatory Mattie Anne Facility:[facility] Start: 12-02-2024 End: 12-02-2024 ambulatory Mattie Anne Facility:[facility] Start: 11-27-2024 End: 11-27-2024 ambulatory Mattie Anne Facility:[facility] Start: 11-20-2024 End: 11-20-2024 ambulatory Mattie Anne Facility:[facility] Start: 11-10-2024 End: 11-10-2024 Emergency department patient visit Ed Physician Provider Facility:[facility] Start: 10-08-2024 End: 10-08-2024 ambulatory Mattie Anne Facility:[facility] Start: 10-01-2024 End: 10-01-2024 ambulatory Mattie Anne Facility:[facility] Start: 09-24-2024 End: 09-24-2024 ambulatory Mattie Anne Facility:[facility] Start: 09-10-2024 End: 09-10-2024 ambulatory Mattie Anne Facility:[facility] Start: 09-03-2024 ambulatory Mattie Anne Facilit y:[facility] Start: 09-01-2024 End: 09-01-2024 ambulatory Mattie Anne Facility:[facility] Start: 08-28-2024 End: 08-28-2024 ambulatory Mattie Anne Facility:[facility] Start: 08-20-2024 End: 08-20-2024 ambulatory Mattie Anne Facility:[facility] Start: 07-03-2024 End: 07-03-2024 ambulatory Mattie Anne Facility:[facility] Start: 04-25-2024 End: 04-25-2024 Emergency department patient visit Mattie Anne Facility:[facility] Start: 04-16-2024 End: 04-16-2024 ambulatory Nate Mckenzie Facility:[facility] Start: 03-27-2024 End: 03-27-2024 Kemi Reddy MD Work Phone: [facility] Start: 03-26-2024 End: 03-26-2024 Emergency department patient visit Nirav Alba Facility:[facility] Start: 01-24-2024 End: 01-24-2024 ambulatory Nate Mckenzie Facility:[facility] Start: 07-29-2023 End: 07-29-[address] Mattie Rodríguez Work Phone: [facility] Work Phone: Start: 07-29-2023 End: 07-29-[address] Mattie Rodríguez Work Phone: [facility] Work Phone: Start: 07-16-2023 End: 07-16-[address] Mattie Rodríguez Work Phone: [facility] Work Phone: Start: 07-16-2023 End: 07-16-[address] Mattie Rodríguez Work Phone: [facility] Work Phone: Start: 06-26-2023 End: 07-01-2023 ambulatory CHARMAINE JIMENEZ MD Facility:[facility] Start: 06-26-2023 End: 07-01-2023 Encounter for gynecological examination (general) (routine) without abnormal findings CHARMAINE JIMENEZ MD Facility:[facility] Start: 06-26-2023 End: 06-30-2023 Outreach Lab CHARMAINE JIMENEZ MD [facility] Start: 06-26-2023 End: 06-27-2023 ambulatory CHARMAINE JIMENEZ MD Facility:[facility] Start: 06-26-2023 End: 06-26-2023 Patient encounter procedure CHARMAINE JIMENEZ MD [facility] Start: 06-12-2023 End: 06-13-2023 ambulatory MATTIE RODRÍGUEZ [facility] Start: 06-12-2023 End: 06-12-2023 Subsequent hospital visit by physician Jose Alejandro [address] Comment on above: Abnormal electrocard iogram (ECG) (EKG) Start: 06-11-2023 End: 06-11-[address] Mattie Rodríguez Work Phone: [facility] Work Phone: Start: 06-11-2023 End: 06-11-[address] Mattie Rodríguez Work Phone: [facility] Work Phone: Start: 06-07-2023 Non-patient / Non-visit Dr. Steve Rodríguez Work Phone: [facility] Start: 06-07-[address] La Rodríguez Work Phone: [facility]Cardi[facility] Work Phone: Start: 05-16-2023 Refill Kong escobar MD Work Phone: [facility] Comment on above: Anxiety Start: 05-02-2023 Refill Kong escobar MD Work Phone: [facility] Physician [facility] Start: 03-27-2023 End: 03-31-2023 ambulatory KONG [facility] Start: 03-27-2023 End: 03-27-2023 Encounter for general adult medical examination without abnormal findings KONG [facility] Start: 03-27-2023 End: 03-27-2023 Periodic preventive med est patient 40-64yrs Kong Reddy MD Work Phone: [facility] Comment on above: Routine medical exam (Primary Dx); Hypertension, unspecified type; Hypercholesterolemia; Vitamin D deficiency; Fatigue, unspecified type; Encounter for screening for malignant neoplasm of breast, unspecified screening modality; Colon cancer screening; Cigarette nicotine dependence without complication; Needs flu shot; Need for vaccination Start: 03-18-2023 Refill Kong escobar MD Work Phone: [facility] Start: 03-04-2023 Refill Kong escobar MD Work Phone: [facility] Physician [facility] Comment on above: Hypertension, unspec ified type Start: 02-08-2023 ambulatory [facility] Start: 01-03-2023 End: 01-07-2023 [facility] Start: 01-03-2023 End: 01-03-2023 ambulatory [facility] Start: 01-03-2023 End: 01-03-2023 Office outpatient visit 25 minutes Kong Reddy MD Work Phone: [facility] Physician [facility] Comment on above: TIA (transient ische claudio attack) (Primary Dx); Hypertension, unspecified type; Hypercholesterolemia; Hypomagnesemia; Anxiety; Depression, unspecified depression type; History of alcohol use; Cigarette nicotine dependence without complication; Vitamin D deficiency Start: 12-13-2022 End: 12-17-2022 [facility] Start: 12-13-2022 End: 12-13-2022 ambulatory [facility] Start: 12-13-2022 End: 12-13-2022 Transitional care manage srvc 14 day discharge Kong Reddy MD Work Phone: [facility] Comment on above: Hypertension, unspec ified type (Primary Dx); Hypercholesterolemia; Edema of both lower legs; Hypomagnesemia; Anxiety; Depression, unspecified depression type; History of alcohol use; Allergic rhinitis, unspecified seasonality, unspecified trigger; Encounter for vitamin deficiency screening; Fatigue, unspecified type; TIA (transient ischemic attack) Start: 12-11-2022 ambulatory [facility] Start: 12-07-2022 [facility] Start: 12-06-2022 ambulatory [facility] Start: 12-06-2022 Evaluation and manag ement of inpatient SERVICE [facility] Start: 12-05-2022 Emergency department patient visit [facility] Start: 12-05-2022 End: 12-07-2022 Evaluation and management of inpatient Brittney L Aemisegger MD Work Phone: [facility] Comment on above: Hyponatremia (Primar y Dx); Numbness and tingling in both hands; Numbness and tingling of left side of face; Numbness and tingling of right side of face; Hypomagnesemia; History of alcohol use; Primary hypertension Start: 12-05-2022 End: 12-07-[address] [employer] [facility] Start: 11-30-2022 End: 12-01-[address] [facility] Start: 11-03-2022 ambulatory [facility] Start: 10-05-2022 Refill Kong escobar MD Work Phone: [facility] Comment on above: Hypertension, unspec ified type Start: 09-21-2022 ambulatory [facility] Start: 06-11-2022 End: 06-11-2022 Office outpatient visit 25 minutes Kong Reddy MD Work Phone: [facility] Comment on above: Gastroesophageal ref lux disease, unspecified whether esophagitis present (Primary Dx); Moderate alcohol use disorder (HCC); Anxiety; Depression, unspecified depression type; Hypertension, unspecified type Start: 06-11-2022 End: 06-11-2022 ambulatory [facility] Start: 05-22-2022 ambulatory [facility] Start: 04-26-2022 ambulatory [facility] Start: 04-18-2022 End: 04-18-2022 Office outpatient visit 15 minutes Sree Escalera MD Work Phone: [facility] Comment on above: Acute non-recurrent pansinusitis (Primary Dx); Acute bronchitis, unspecified organism Start: 04-18-2022 End: 04-18-2022 ambulatory SREE ESCALERA [facility] Ambulatory Start: 04-09-2022 End: 04-13-2022 Encounter for general adult medical examination without abnormal findings [facility] Start: 04-09-2022 End: 04-13-2022 ambulatory KONG REDDY [facility] Start: 04-09-2022 End: 04-09-2022 Patient encounter status Kong Reddy MD Work Phone: [facility] Start: 04-09-2022 End: 04-09-2022 Periodic preventive med est patient 40-64yrs Kong Reddy MD Work Phone: [facility] Comment on above: Routine medical exam (Primary Dx); Hypertension, unspecified type; Gastroesophageal reflux disease, unspecified whether esophagitis present; Colon cancer screening Start: 03-29-2022 ambulatory [facility]ksandra [facility] Start: 03-14-2022 End: 03-15-2022 ambulatory [facility] Start: 03-14-2022 End: 03-14-2022 Subsequent hospital visit by physician Aliyah Fuller APRN, CNP Work Phone: [facility] Comment on above: Screening mammogram, encounter for Start: 02-22-2022 End: 02-22-2022 ambulatory [facility] Start: 02-22-2022 Encounter for gynecological examination (general) (routine) without abnormal findings [facility] Start: 11-17-2021 Refill Kong escobar MD Work Phone: [facility] Start: 10-10-2021 Refill Luis Eduardo Marin MD Work Phone: [facility] Comment on above: Hypertension, unspec ified type (Primary Dx) Start: 08-09-2021 Refill Kong escobar MD Work Phone: [facility] Comment on above: Hypertension, unspec ified type Start: 07-25-2021 Orders Only Kong escobar MD Work Phone: [facility] Start: 06-26-2021 [facility] Start: 02-10-2021 End: 02-10-2021 Subsequent hospital visit by physician Aliyah King APRN SALES AND EVENTS COORDINATOR Work Phone: [facility] Comment on above: Screening mammogram, encounter for Start: 02-08-2021 End: 02-08-2021 Patient encounter status Aliyahjohn King APRN SALES AND EVENTS COORDINATOR Work Phone: [facility] Start: 02-08-2021 End: 02-08-2021 Subsequent hospital visit by physician Aliyah King APRN SALES AND EVENTS COORDINATOR Work Phone: [facility] Comment on above: Encounter for gyneco logical examination (general) (routine) without abnormal findings Start: 02-07-2021 Refill Kong escobar MD Work Phone: [facility] Comment on above: Hypertension, unspec ified type Start: 11-22-2020 End: 11-22-2020 Refill Kong Reddy MD Work Phone: [facility] Start: 10-17-2020 End: 10-17-2020 Refill Kong Reddy MD Work Phone: [facility] Start: 08-25-2020 End: 08-25-2020 Office outpatient visit 15 minutes Kong Reddy MD Work Phone: [facility] Comment on above: Pruritic rash (Prima ry Dx); Tick bite, subsequent encounter Start: 08-08-2020 End: 08-08-2020 Refill Kong Reddy MD Work Phone: [facility] Comment on above: Hypertension, unspec ified type Start: 06-30-2020 End: 06-30-2020 Office outpatient visit 15 minutes Kong Rdedy Work Phone: [facility] Comment on above: History of allergic reaction (Primary Dx); Anxiety; Hypertension, unspecified type Start: 06-24-2020 End: 06-24-2020 Office outpatient visit 25 minutes Sree Escalera Work Phone: [facility] Comment on above: Tick bite of buttock , initial encounter (Primary Dx) Start: 05-30-2020 End: 05-30-2020 Orders Only Kong Reddy Work Phone: [facility] Start: 05-10-2020 End: 05-10-2020 Orders Only Kong Reddy Work Phone: [facility] Start: 05-06-2020 End: 05-06-2020 Refill Kong Reddy Work Phone: [facility] Comment on above: Hypertension, unspec ified type Start: 02-10-2020 End: 02-10-2020 Subsequent hospital visit by physician Aliyah King Work Phone: [facility] Comment on above: Encounter for gyneco logical examination (general) (routine) without abnormal findings; Visit for screening mammogram Start: 10-19-2019 End: 10-19-2019 Emergency department patient visit Luis Eduardo Mendoza Work Phone: [facility] Comment on above: Wrist sprain, left, initial encounter (Primary Dx) Start: 07-17-2019 End: 07-17-2019 Patient encounter procedure Sree Ruiz Krystinaluis m Work Phone: [facility] Comment on above: Cellulitis of left t high (Primary Dx) Start: 02-25-2019 End: 02-25-2019 Subsequent hospital visit by physician Provider Not In System [facility] Radiology External Films Comment on above: Arrived Start: 02-17-2019 End: 02-18-2019 Patient encounter procedure KONG REDDY [facility] Start: 02-17-2019 End: 02-17-2019 Subsequent hospital visit by physician Kong Reddy Work Phone: [facility] Mammography Comment on above: Routine medical exam Start: 02-02-2019 End: 02-02-2019 Office outpatient visit 25 minutes Kong Reddy Work Phone: [facility] Comment on above: Hypertension, unspec ified type (Primary Dx); Gastroesophageal reflux disease, esophagitis presence not specified; Depression, unspecified depression type; Dizziness; Cigarette nicotine dependence without complication Start: 01-01-2019 End: 01-01-2019 Periodic preventive med est patient 40-64yrs Kong Juarez Reddy Work Phone: [facility] Comment on above: Routine medical exam (Primary Dx); Hypertension, unspecified type; Gastroesophageal reflux disease, esophagitis presence not specified; Depression, unspecified depression type; Cigarette nicotine dependence without complication Start: 09-22-2018 End: 09-22-2018 Office outpatient visit 25 minutes Kong Juarez Ke Work Phone: [facility] Comment on above: Laceration of scalp, initial encounter (Primary Dx); Abrasion, shoulder w/o infection; Abrasion of right lower extremity, initial encounter; Hypertension, unspecified type; Gastroesophageal reflux disease, esophagitis presence not specified Start: 04-21-2017 Ambulatory [facility] [employer] Start: 04-18-2017 End: 04-18-2017 Office/outpatient visit, est, level 4 Larry Sandersted Work Phone: [facility] Start: 01-21-2017 End: 01-21-2017 Kong Reddy Work Phone: [facility] Start: 11-30-2016 End: 11-30-2016 Kong Reddy Work Phone: [facility] Start: 09-28-2016 End: 09-28-2016 Kong Reddy Work Phone: [facility] Start: 06-22-2016 End: 06-22-2016 Luis Eduardo Marin Work Phone: [facility] Start: 05-03-2016 End: 05-03-2016 Kong Reddy Work Phone: [facility] Start: 11-07-2015 End: 11-07-2015 Kong Reddy Work Phone: [facility] Start: 05-27-2015 End: 05-27-2015 Luis Eduardo Marin Work Phone: [employer] Start: 08-30-2014 End: 08-30-2014 Kong Reddy Work Phone: [employer] Start: 08-26-2014 End: 08-26-2014 Kong Reddy Work Phone: [employer] Start: 07-12-2014 End: 07-12-2014 Kong Reddy Work Phone: [employer] Start: 06-14-2014 End: 06-14-2014 Kong Reddy Work Phone: [employer] Start: 03-10-2014 End: 03-10-2014 Kong Reddy Work Phone: [employer] Start: 02-17-2014 End: 02-17-2014 Kong Reddy Work Phone: [employer] Procedures Date Procedure Procedure Detail Performing Clinician Start: 07-16-[address] La Rodríguez Work Phone: Start: 06-26-2023 Microscopic observat ion [Identifier] in Cervix by Cyto stain Kong Reddy MD Work Phone: Start: 06-12-2023 CT CARDIAC SCORING W O IV CONTRAST MATTIE RODRÍGUEZ Start: 06-12-2023 Ct heart no contrast quant eval coronry calcium Mattie Rodríguez DO Work Phone: Start: 06-11-2023 End: 06-11-[address] Mattie ardon Work Phone: Start: 03-27-2023 Urnls dip stick/tabl et reagent auto microscopy Kong Reddy MD Work Phone: Start: 03-27-2023 Ecg routine ecg w/le ast 12 lds w/i&r Kong Reddy MD Work Phone: Start: 12-07-2022 Sodium serum plasma or whole blood Emerson Iyer MD Work Phone: Start: 12-07-2022 Basic metabolic pane l calcium total Emerson Iyer MD Work Phone: Start: 12-07-2022 LAVENDER TOP [facility] Generic Dept Provider Start: 12-07-2022 RAINBOW DRAW [facility] Generic Dept Provider Start: 12-07-2022 EXTRA TUBES Unlisted Halie castle MD Start: 12-07-2022 LAVENDER TOP Unlisted Halie castle MD Start: 12-07-2022 Sodium serum plasma or whole blood Emerson Iyer MD Work Phone: Start: 12-06-2022 Gluc bld gluc mntr d ev cleared fda spec home use Service [employer] Work Phone: Start: 12-06-2022 Gluc bld gluc mntr d ev cleared fda spec home use Service [employer] Work Phone: Start: 12-06-2022 Sodium serum plasma or whole blood Emerson Iyer MD Work Phone: Start: 12-06-2022 Gluc bld gluc mntr d ev cleared fda spec home use Service [employer] Work Phone: Start: 12-06-2022 Ct angiography head w/contrast/noncontrast Emerson Iyer MD Work Phone: Start: 12-06-2022 EXTRA TUBES Rebecca lee MD Work Phone: Start: 12-06-2022 LAVENDER TOP Rebecca lee MD Work Phone: Start: 12-06-2022 Cyanocobalamin vitamin b-12 Rebecca Alvares MD Work Phone: Start: 12-06-2022 Gluc bld gluc mntr d ev cleared fda spec home use Service [employer] Work Phone: Start: 12-06-2022 Basic metabolic pane l calcium total Emerson Iyer MD Work Phone: Start: 12-06-2022 Lipid panel Emerson cash MD Work Phone: Start: 12-06-2022 EXTRA TUBES Unlisted Halie castle MD Start: 12-06-2022 LAVENDER TOP Unlisted Halie castle MD Start: 12-06-2022 End: 12-06-2022 Sodium serum plasma or whole blood Emerson Iyer MD Work Phone: Start: 12-05-2022 Assay of urine sodium D chelsy Iyer MD Work Phone: Start: 12-05-2022 Urnls dip stick/tabl et reagent auto microscopy Brittney Torres MD Work Phone: Start: 12-05-2022 Ct head/brain w/o co ntrast material Subhash Urban DO Work Phone: Start: 12-05-2022 Basic metabolic pane l calcium total Subhash Urban DO Work Phone: Start: 12-05-2022 DARK GREEN TOP Subhash Urban DO Work Phone: Start: 12-05-2022 GOLD TOP Subhash Sm ith DO Work Phone: Start: 12-05-2022 Hepatic function panel Subhash Urban DO Work Phone: Start: 12-05-2022 LAVENDER TOP Subhash Sm ith DO Work Phone: Start: 12-05-2022 LIGHT BLUE TOP Subhash Urban DO Work Phone: Start: 12-05-2022 LIGHT GREEN TOP Subhash Urban DO Work Phone: Start: 12-05-2022 RAINBOW DRAW Subhash Sm ith DO Work Phone: Start: 12-05-2022 Ecg routine ecg w/le ast 12 lds trcg only w/o i&r Subhash Urban DO Work Phone: Start: 05-01-2022 Blood occult fecal h gb deter ia qual feces 1-3 Kong Reddy MD Work Phone: Start: 04-09-2022 Ecg routine ecg w/le ast 12 lds w/i&r Kong Reddy MD Work Phone: Start: 04-09-2022 Urnls dip stick/tabl et reagent auto microscopy Kong Reddy MD Work Phone: Start: 04-09-2022 Adult depression scr eening assessment Kong Reddy MD Work Phone: Start: 03-14-2022 End: 03-14-2022 Screening mammography bi 2-view breast inc cad Aliyah Catia PALOMINON SALES AND EVENTS COORDINATOR Work Phone: Start: 02-17-2021 Mammography Kong raya MD Work Phone: Start: 02-08-2021 Microscopic observat ion [Identifier] in Cervix by Cyto stain Kong Reddy MD Work Phone: Start: 01-30-2021 Adult depression scr eening assessment Kong Reddy MD Work Phone: Start: 02-10-2020 MG Breast - bilatera l screening Aliyah King Work Phone: Start: 02-10-2020 Mammography Kong raya Start: 10-19-2019 Radex wrist complete minimum 3 views Luis Eduardo Mendoza Work Phone: Start: 10-19-2019 Radex forearm 2 views Morris Crane Work Phone: Start: 05-15-2019 Colonoscopy Kong raya Start: 02-25-2019 Mammography External T ranscribed Start: 02-17-2019 Mammography Provider S ystem Start: 01-01-2019 Urinalysis Kong Reddy Work Phone: Start: 01-01-2019 12 lead ECG Kong Reddy Work Phone: Start: 01-01-2019 Adult depression scr eening assessment Kong Reddy Start: 10-07-2015 Mammography Luis Eduardo Cabrerachayo asencio Start: 09-28-2015 Microscopic observat ion [Identifier] in Cervix by Cyto stain Luis Eduardo Mendoza Ankle region structu re (body structure) CHARMAINE JIMENEZ MD Comment on above: fracture repair Cold knife cone biop sy of cervix CHARMAINE JIMENEZ MD Knee meniscus struct ure (body structure) CHARMAINE JIMENEZ MD Comment on above: bilateral knees Tonsillectomy and adenoidectomy CHARMAINE JIMENEZ MD Plan of Treatment Date Care Activity Detail Author Start: 05-15-2029 Screening for malign ant neoplasm of colon [facility] Start: 06-25-2028 Screening for malign ant neoplasm of cervix [facility] Start: 06-25-2026 Screening for malign ant neoplasm of cervix Pap Smear [facility] Start: 02-08-2026 Screening for malign ant neoplasm of cervix PAP SMEAR [facility] Start: 06-25-2024 History and physical examination, annual for health maintenance Wellness Visit [facility] Start: 06-11-2024 Screening for malign ant neoplasm of breast Mammogram [facility] Start: 05-15-2024 Screening for malign ant neoplasm of colon [facility] Start: 03-27-2024 History and physical examination, annual for health maintenance Wellness Visit [facility] Start: 02-09-2024 Screening for malign ant neoplasm of cervix Pap Smear [facility] Start: 12-22-2023 COVID-19 Vaccine ( season) COVID-19 Vaccine () [facility] Start: 12-22-2023 Influenza vaccination Influenza Vacc ine (#1) [facility] Start: 05-01-2023 Screening for malign ant neoplasm of colon Fecal occult blood test (FOBT,FIT) [facility] Start: 04-10-2023 ANNUAL WELLNESS VISIT ANNUAL WELLNES S VISIT [facility] Start: 04-09-2023 Depression screening using PHQ-9 (Patient Health Questionnaire 9) score [facility] Start: 04-09-2023 History and physical examination, annual for health maintenance Wellness Visit [facility] Start: 03-27-2023 End: 03-27-2023 Patient encounter procedure 03/27/2023 9:30 AM EST Office Visit [facility] [address], [address] [place] [address] Kong Reddy MD [address] [address] [facility] Start: 03-14-2023 Screening for malign ant neoplasm of breast Mammogram [facility] Start: 03-14-2023 Screening mammography MAMMOGRAM [facility] Start: 02-26-2023 End: 02-26-2023 Patient encounter procedure [facility] Start: 02-23-2023 ANNUAL WELLNESS VISIT ANNUAL WELLNES S VISIT [facility] Start: 01-03-2023 End: 01-03-2023 Patient encounter procedure 01/03/2023 9:45 AM EDT Office Visit [facility] [address], [address] [place] [address] Kong Reddy MD [address] [address] [facility] Start: 12-21-2022 COVID-19 Vaccine ( season) COVID-19 Vaccine ( season) [facility] Start: 12-21-2022 Influenza vaccination Sequenti al Influenza Vaccine (#1) [facility] Start: 12-21-2022 Influenza vaccinatio n given INFLUENZA VACCINE (#1) [facility] Start: 12-11-2022 End: 12-11-2022 Patient encounter procedure 12/11/2022 10:30 AM EDT Appointment [facility] [address] [place] [address] Provider, [facility] Generic Dept Discharge Disposition: Home or Self Care [facility] Care [facility] Start: 04-16-2022 End: 07-08-2022 Hemoglobin.gastrointest inal [Presence] in Stool POC Immunochemical Occult Blood Stool-iFOB (FIT), Screening Point of Care Testing Routine Colon cancer screening Expected: 04/16/2022 (Approximate), Expires: 07/08/2022 [facility] Work Phone: Comment on above: Expected: 04/16/2022 (Approximate), Expires: 07/08/2022 Start: 02-17-2022 Screening for malign ant neoplasm of breast Mammogram [facility] Start: 02-14-2022 End: 02-14-2022 Patient encounter procedure 02/14/2022 Office Visit Obstetrics and Gynecology Aliyah King APRN SALES AND EVENTS COORDINATOR [address] [place] [address] [facility] Start: 02-09-2022 ANNUAL WELLNESS VISIT ANNUAL WELLNES S VISIT [facility] Start: 02-08-2022 History and physical examination, annual for health maintenance Wellness Visit [facility] Start: 01-30-2022 Depression screening using PHQ-9 (Patient Health Questionnaire 9) score Depression Screening (PHQ-2/9) [facility] Start: 12-21-2021 Influenza vaccination [facility] Start: 12-21-2021 Influenza vaccinatio n given INFLUENZA VACCINE (#1) [facility] Start: 02-09-2021 Screening for malign ant neoplasm of breast Mammogram [facility] Start: 02-09-2021 Screening mammography Mammogram [facility] Start: 02-08-2021 ANNUAL WELLNESS VISIT ANNUAL WELLNES S VISIT [facility] Start: 02-08-2021 End: 02-08-2021 Office Visit 02/08/2021 Office Visit Obstetrics and Gynecology Aliyah iKng APRN SALES AND EVENTS COORDINATOR [address] [place] [address] [phone] [facility] Start: 01-21-2021 COVID-19 Vaccine (3 - Pfizer booster) COVID-19 Vaccine (3 - Pfizer booster) [facility] Start: 12-22-2020 COVID-19 Vaccine (3 - Booster for Pfizer series) COVID-19 Vaccine (3 - Booster for Pfizer series) [facility] Start: 12-21-2020 Influenza vaccination Sequenti al Influenza Vaccine (#1) [facility] Start: 12-21-2020 Influenza vaccinatio n given INFLUENZA VACCINE (#1) [facility] Start: 09-27-2020 Human papilloma viru s screening PAP SMEAR [facility] Start: 09-27-2020 Screening for malign ant neoplasm of cervix PAP SMEAR [facility] Start: 09-16-2020 COVID-19 VACCINE (3 - Booster for Pfizer series) COVID-19 VACCINE (3 - Booster for Pfizer series) [facility] Start: 09-16-2020 COVID-19 VACCINE (3 - Pfizer series) COVID-19 VACCINE (3 - Pfizer series) [facility] Start: 02-18-2020 Screening mammography Mammogram [facility] Start: 02-08-2020 End: 02-08-2020 Office Visit 02/08/2020 Office Visit Obstetrics and Gynecology Malissa Gabriel MD [address] [place], [place] [id number] [facility] Start: 02-05-2020 ANNUAL WELLNESS VISIT ANNUAL WELLNES S VISIT [facility] Start: 01-02-2020 Depression screening using PHQ-9 (Patient Health Questionnaire 9) score DEPRESSION SCREENING (PHQ9) [facility] Start: 01-02-2020 History and physical examination, annual for health maintenance Wellness Visit [facility] Start: 12-22-2019 Influenza vaccinatio n given INFLUENZA VACCINE (Season Ended) [facility] Start: 02-17-2019 End: 02-17-2019 Appointment 02/17/2019 Appointment Radiology Kong Reddy MD [facility] [address] [address] [phone] [facility] Mamm[facility] Start: 01-07-2019 End: 04-01-2019 Hemoglobin.gastrointest inal Ql (Stl) POC Immunochemical Occult Blood Stool-iFOB (FIT), Screening Point of Care Testing Routine Routine medical exam Expected: 01/07/2019 (Approximate), Expires: 04/01/2019 [facility] Comment on above: Expected: 01/07/2019 (Approximate), Expires: 04/01/2019 Start: 01-01-2019 End: 03-03-2020 MG Breast - bilateral screening Mammography Screening Bilateral Imaging Routine Routine medical exam Expected: 01/01/2019, Expires: 03/03/2020 [facility] Comment on above: Expected: 01/01/2019 , Expires: 03/03/2020 Start: 12-30-2018 End: 12-30-2018 Office Visit 12/30/2018 Office Visit Primary Care Kong Reddy MD [facility] [place] [address] [phone] [facility] Start: 12-21-2018 Influenza vaccinatio n given [facility] Start: 04-18-2017 Patient Education Bruises: Car e Instructions [employer] Work Phone: Start: 04-18-2017 End: 04-18-2017 Dietary management education, guidance, and counseling Dietary management education, guidance, and counseling [employer] Work Phone: Start: 10-06-2016 Screening mammography MAMMOGRAM [facility] Start: 06-22-2016 Patient Education Cough: Care Instru ctions [employer] Work Phone: Start: 06-22-2016 End: 06-22-2016 Smoking cessation education Tobacco cessation counseling [employer] Work Phone: Start: 11-07-2015 Patient Education Musculoskele richardson Pain: Care Instruction [employer] Work Phone: Start: 11-07-2015 End: 11-07-2015 Dietary management education, guidance, and counseling Dietary management education, guidance, and counseling [employer] Work Phone: Start: 11-07-2015 End: 11-07-2015 Patient referral [employer] Work Phone: Start: 11-07-2015 End: 11-07-2015 Smoking cessation education Tobacco cessation counseling [employer] Work Phone: Start: 05-27-2015 Patient Education Earache: Car e Instructions [employer] Work Phone: Start: 05-27-2015 End: 05-27-2015 Dietary management education, guidance, and counseling Dietary management education, guidance, and counseling [employer] Work Phone: Start: 2015 Administration of herpes zoster vaccine Zoster Vaccines (1 of 2) [facility] Start: 2015 Colonoscopy COLONOSCOPY 10 YR [facility] Start: 2015 Screening for malign ant neoplasm of colon [facility] Start: 2015 Zoster vaccine hzv l timoteo for subcutaneous use ZOSTER (SHINGLES) VACCINE (1 of 2) [facility] Start: 2015 Zoster Vaccines (1 o f 2) Zoster Vaccines (1 of 2) [facility] Start: 08-30-2014 End: 08-30-2014 Patient referral Referrals: Cardiology. Diagnostic testing [employer] Work Phone: Start: 08-26-2014 Patient Education Rash: After Your V isit [employer] Work Phone: Start: 08-26-2014 End: 08-26-2014 Dietary management education, guidance, and counseling Dietary management education, guidance, and counseling [employer] Work Phone: Start: 08-26-2014 End: 08-26-2014 Smoking cessation education Tobacco cessation counseling [employer] Work Phone: Start: 07-12-2014 Patient Education Rash: After Your V isit [employer] Work Phone: Start: 07-12-2014 End: 07-12-2014 Dietary management education, guidance, and counseling Dietary management education, guidance, and counseling [employer] Work Phone: Start: 07-12-2014 End: 07-12-2014 Patient referral [employer] Work Phone: Start: 06-14-2014 Patient Education Allergies: A fter Your Visit [employer] Work Phone: Start: 06-14-2014 End: 06-14-2014 Dietary management education, guidance, and counseling Dietary management education, guidance, and counseling [employer] Work Phone: Start: 03-10-2014 Patient Education Tick Bite: A fter Your Visit [employer] Work Phone: Start: 03-10-2014 End: 03-10-2014 Dietary management education, guidance, and counseling Dietary management education, guidance, and counseling [employer] Work Phone: Start: 03-10-2014 End: 03-10-2014 Smoking cessation education Tobacco cessation counseling [employer] Work Phone: Start: 02-17-2014 End: 02-17-2014 Dietary management education, guidance, and counseling Dietary management education, guidance, and counseling [employer] Work Phone: Start: 2010 Screening for malign ant neoplasm of colon [facility] Start: 1987 DTaP/Tdap/Td Vaccine s (1 - Tdap) DTaP/Tdap/Td Vaccines (1 - Tdap) [facility] Start: 1986 Screening for malign ant neoplasm of cervix [facility] Start: 1983 Hepatitis C antibody , confirmatory test Hepatitis C Screening [facility] Start: 1983 Hepatitis C screening Hepatitis C Sc reening [facility] Start: 1981 COVID-19 Vaccine (1 of 2) COVID-19 Vaccine (1 of 2) [facility] Start: 1981 COVID-19 Vaccine (1) COVID-19 Vaccin e (1) [facility] Start: 1980 HIV screening HIV Screening [facility] Start: 1977 Adolescent depressio n screening assessment Depression Screening (PHQ9) [facility] Start: 1977 Adult depression screening assessment DEPRESSION SCREENING [facility] Start: 1977 Depression screening using PHQ-9 (Patient Health Questionnaire 9) score [facility] Start: 1976 Administration of diphtheria + tetanus + acellular pertussis vaccine DTAP/TDAP/TD VACCINE (1 - Tdap) [facility] Start: 1976 Diphtheria + pertuss is + tetanus vaccine (product) DTAP/TDAP/TD VACCINE (1 - Tdap) [facility] Start: 1971 Pneumococcal Vaccine : Ped or At-Risk (1 - PCV) Pneumococcal Vaccine: Ped or At-Risk (1 - PCV) [facility] Start: 1971 Pneumococcal Vaccine : Ped or At-Risk (1 of 2 - PCV) Pneumococcal Vaccine: Ped or At-Risk (1 of 2 - PCV) [facility] Start: 1971 Pneumococcal Vaccine : Ped or At-Risk (1 of 2 - PPSV23) Pneumococcal Vaccine: Ped or At-Risk (1 of 2 - PPSV23) [facility] Start: 1968 History and physical examination, annual for health maintenance Wellness Visit [facility] Start: 1966 MMR Vaccines (1 of 1 - Standard series) MMR Vaccines (1 of 1 - Standard series) [facility] Start: 1965 Hepatitis B Vaccines (1 of 3 - 3-dose series) Hepatitis B Vaccines (1 of 3 - 3-dose series) [facility] Start: 1965 Hepatitis C antibody , confirmatory test HEPATITIS C SCREENING [facility] Start: 1965 Hepatitis C screening HEPATITIS C SC REENING [facility] Start: 1965 HIV screening HIV Screening [facility] Start: 1965 Lipid panel Lipid Panel [facility] Start: 1965 Protein mass conc [facility]ammogram [facility] Start: 1965 Screening for malign ant neoplasm of cervix PAP SMEAR [facility] Start: 1965 Screening for malign ant neoplasm of colon [facility] Start: 1965 Screening for malign ant neoplasm of lung Low-dose CT Lung Cancer Screen [facility] Start: 1965 Screening for substa nce abuse SUBSTANCE ABUSE SCREENING (AUDIT-C) [facility] Start: 1965 Screening mammography Mammogram [facility] Start: 1965 Tetanus vaccination [facility] Start: 1965 Yearly Adult Physical Yearly Adult P [facility] Basic metabolic pane l aka Chem 8 Basic metabolic panel aka Chem 8 Lab Routine Daily 0500 until discontinued starting 12/06/2022, 2 completed [facility] Work Phone: Comment on above: Daily 0500 until dis continued starting 12/06/2022, 2 completed End: 12-08-2022 CBC W Auto Differential panel - Blood CBC with Differential Lab Routine Tomorrow AM for 1 Occurrences starting 12/08/2022 until 12/08/2022 [facility] Work Phone: Comment on above: Tomorrow AM for 1 Oc currences starting 12/08/2022 until 12/08/2022 End: 03-26-2024 Complete blood count with white cell differential, manual CBC and Differential Lab Routine Routine medical exam 1 Occurrences starting 03/26/2023 until 03/26/2024 [facility] Work Phone: Comment on above: 1 Occurrences starti ng 03/26/2023 until 03/26/2024 Complete blood count with white cell differential, manual CBC and Differential Lab Routine Routine medical exam 03/27/2023 10:15 AM [facility] End: 12-08-2022 Comprehensive metabolic 2000 panel - Serum or Plasma Comprehensive metabolic panel aka [facility] Lab Routine Tomorrow AM for 1 Occurrences starting 12/08/2022 until 12/08/2022 [facility] Comment on above: Tomorrow AM for 1 Oc currences starting 12/08/2022 until 12/08/2022 End: 03-26-2024 Comprehensive metabolic 2000 panel - Serum or Plasma Comprehensive Metabolic Panel Lab Routine Routine medical exam 1 Occurrences starting 03/26/2023 until 03/26/2024 [facility] Comment on above: 1 Occurrences starti ng 03/26/2023 until 03/26/2024 Comprehensive metabo lic 2000 panel - Serum or Plasma Comprehensive Metabolic Panel Lab Routine Routine medical exam 03/27/2023 10:15 AM [facility] End: 12-05-2022 Glucose [Mass/volume] in Serum or Plasma POCT glucose Point of Care Testing STAT One Time for 1 Occurrences starting 12/05/2022 until 12/05/2022 [facility] Comment on above: One Time for 1 Occur rences starting 12/05/2022 until 12/05/2022 End: 03-26-2024 Hemoglobin.gastrointest inal [Presence] in Stool POC Immunochemical Occult Blood Stool-iFOB (FIT), Screening Point of Care Testing Routine Colon cancer screening 1 Occurrences starting 03/26/2023 until 03/26/2024 [facility] Comment on above: 1 Occurrences starti ng 03/26/2023 until 03/26/2024 End: 02-10-2021 Human papilloma virus DNA [Presence] in Unspecified specimen by Probe with amplification [facility] Work Phone: Comment on above: 1 Occurrences starti ng 02/10/2021 until 02/10/2021 End: 03-26-2024 Lipid 1996 panel - Serum or Plasma Lipid Panel Lab Routine Routine medical exam 1 Occurrences starting 03/26/2023 until 03/26/2024 [facility] Comment on above: 1 Occurrences starti ng 03/26/2023 until 03/26/2024 Lipid 1996 panel - Serum or Plasma Lipid Panel Lab Routine Routine medical exam 03/27/2023 10:15 AM EST [facility] End: 02-17-2019 MG Breast - bilateral screening Mammography Screening [facility] Routine Routine medical exam Once for 1 Occurrences starting 02/17/2019 until 02/17/2019 [facility] Comment on above: Once for 1 Occurrenc es starting 02/17/2019 until 02/17/2019 MG Breast - bilatera l screening Mammography Screening [facility] Bilateral Imaging Routine Routine medical exam 02/17/2019 10:42 AM EDT [facility] End: 02-10-2021 MG Breast - bilateral Screening [facility] Work Phone: Comment on above: 1 Occurrences starti ng 02/10/2021 until 02/10/2021 End: 03-26-2024 MG Breast - bilateral Screening Mammography Screening [facility] Imaging Routine Encounter for screening for malignant neoplasm of breast, unspecified screening modality 1 Occurrences starting 03/26/2023 until 03/26/2024 [facility] Comment on above: 1 Occurrences starti ng 03/26/2023 until 03/26/2024 End: 02-10-2021 Microscopic observation [Identifier] in Cervix by Cyto stain Pap Smear Pathology and Cytology Routine Encounter for gynecological examination (general) (routine) without abnormal findings 1 Occurrences starting 02/10/2021 until 02/10/2021 [facility] Comment on above: 1 Occurrences starti ng 02/10/2021 until 02/10/2021 Platelet count every other day starting day 3 Platelet count every other day starting day 3 Lab Routine Every Other Day until discontinued starting 12/08/2022 [facility] Comment on above: Every Other Day unti l discontinued starting 12/08/2022 Sodium [Moles/volume ] in Serum or Plasma Sodium Lab Add-On Now Then Every 8hr until discontinued starting 12/05/2022, [address] [facility] Comment on above: Now Then Every 8hr u ntil discontinued starting 12/05/2022, 5 completed End: 03-26-2024 Thyrotropin [Units/volume] in Serum or Plasma TSH with Reflex Free T4 Lab Routine Routine medical exam 1 Occurrences starting 03/26/2023 until 03/26/2024 [facility] Comment on above: 1 Occurrences starti ng 03/26/2023 until 03/26/2024 Thyrotropin [Units/volume] in Serum or Plasma TSH with Reflex Free T4 Lab Routine Routine medical exam 03/27/2023 10:15 AM EST [facility] End: 12-06-2022 Vitamin D 1,25 dihydroxy [facility] Work Phone: Comment on above: One Time for 1 Occur rences starting 12/06/2022 until 12/06/2022 End: 03-26-2024 Vitamin D, 25-hydroxy measurement Vitamin D, Total, 25-OH Lab Routine Vitamin D deficiency 1 Occurrences starting 03/26/2023 until 03/26/2024 [facility] Comment on above: 1 Occurrences starti ng 03/26/2023 until 03/26/2024 Vitamin D, 25-hydrox y measurement Vitamin D, Total, 25-OH Lab Routine Vitamin D deficiency 03/27/2023 10:15 AM [facility] Immunizations Immunization Date Immunization Notes Care Provider Rafat campos 03-27-2023 influenza, injectabl e, quadrivalent, preservative free Kong Reddy MD Work Phone: [facility] 03-27-2023 Moderna 2022- COVID-19 vaccine Kong Redyd MD Work Phone: [facility] 03-27-2023 Moderna Seasonal COVID-19 vaccine Kong Reddy MD Work Phone: [facility] 03-27-2023 flu vacc [id number] 6 mos up,PF, (FLUZONE QUAD/FLULAVAL QUAD/FLUARIX QUAD) 60 mcg (15 mcg x 4)/0.5 mL Syrg syringe Kong Reddy MD Work Phone: [facility] 03-27-2023 influenza virus vaccine, unspecified formulation Kong Reddy MD Work Phone: [facility] 01-28-2022 influenza, injectabl e, quadrivalent, preservative free Kong Reddy MD Work Phone: [facility] 03-25-2021 Seasonal, quadrivale nt, recombinant, injectable influenza vaccine, preservative free Kong Reddy MD Work Phone: [facility] 07-22-2020 Pfizer-biontech Covid-19 Vaccine Aliyah King APRN SALES AND EVENTS COORDINATOR Work Phone: [facility] 07-01-2020 Pfizer-biontech Covid-19 Vaccine Aliyah King APRN SALES AND EVENTS COORDINATOR Work Phone: [facility] 01-08-2020 influenza, injectabl e, quadrivalent, preservative free Kong Reddy [facility] 01-08-2020 influenza virus vaccine, unspecified formulation Aliyah Fernando MURRELL SALES AND EVENTS COORDINATOR Work Phone: [facility] COVID ext05-43,12up,,andu,,PF , (SPIKEVAX) injection Kong Reddy MD Work Phone: [facility] Payers Date Payer Category Payer Self-pay 2021 Blue Cross Blue Shie ld (Indemnity or Managed Care) - Out of State BCBS OUT OF STATE [facility] [id number] 2016 Unknown [id number] 2016 Unknown [id number] [id number]. [id number] 2016 Unknown [id number]. 1.13.385.2. 7.3.714197.315 2014 Unknown [id number] 1.2.840.997068.1.13.385.2. 7.3.474472.315 2014 Unknown [id number] 1.2.840.904735.1.13.385.2. 7.3.301994.315 2014 Unknown [id number] 1965 Unknown [id number] 2.16.840.1.660114.3.579.2. 902 1965 Unknown [id number] 2.16.840.1.535043.3.579.2. 1079 1965 Unknown [id number] 2.16.840.1.165819.3.579.2. 1079 1965 Unknown [id number] 2.16.840.1.968962.3.579.2. 1079 1965 Unknown [id number] 2.16.840.1.770114.3.579.2. 297 1965 Unknown [id number] 2.16.840.1.355138.3.579.2. 297 1965 Unknown [id number] 2.16.840.1.209620.3.579.2. 297 1965 Unknown [id number] 2.16.840.1.935360.3.579.2. 297 1965 Unknown [id number] 2.16.840.1.321463.3.579.2. 297 1965 Unknown [id number] 2.16.840.1.976136.3.579.2. 297 1965 Unknown [id number] 2.16.840.1.119263.3.579.2. 297 1965 Unknown [id number] 2.16.840.1.022719.3.579.2. 297 1965 Unknown [id number] 2.16.840.1.040918.3.579.2. 297 1965 Unknown [id number] 2.16.840.1.297803.3.579.2. 297 1965 Unknown [id number] 2.16.840.1.839942.3.579.2. 903 1965 Unknown [id number] 2.16.840.1.186454.3.579.2. 90 1965 Unknown [id number] 2.16840.1.354791.3.579.2. 90 1965 Unknown [id number] 2.16840.1.134909.3.579.2. 90 1965 Unknown [id number] 2.16.840.1.984871.3.579.2. 903 1965 Unknown [id number] 2.16.840.1.895755.3.579.2. 903 1965 Unknown [id number] 2.16.840.1.643256.3.579.2. 903 1965 Unknown [id number] 2.16.840.1.575060.3.579.2. 90 1965 Unknown [id number] 2.16.840.1.340658.3.579.2. 903 1965 Unknown [id number] 2.16.840.1.581210.3.579.2 90 1965 Unknown [id number] 2.16.840.1.056736.3.579.2. 903 1965 Unknown [id number] 2.16.840.1.272812.3.579.2. 900 1965 Unknown [id number] 2.840.1.550160.3.579.2. 900 1965 Unknown [id number] 2.16840.1.917227.3.579.2. 900 1965 Unknown [id number] 2.840.1.251201.3.579.2. 900 1965 Unknown [id number] 2.840.1.986143.3.579.2. 1243 1965 Unknown [id number] 2.840.1.258681.3.579.2. 627 1965 Unknown [id number] 2.840.1.734479.3.579.2. 627 Unknown [id number] 2.840.1.689381.3.579.2. 462 Unknown [id number] 2.840.1.834723.3.579.2. 462 Unknown [id number] .840.1.868899.3.579.2. 462 Unknown [id number] .840.1.029806.3.579.2. 462 Unknown [id number] .840.1.005120.3.579.2. 462 Unknown [id number] .840.1.415124.3.579.2. 462 Unknown [id number] .840.1.844580.3.579.2. 462 Unknown [id number] .840.1.285308.3.579.2. 462 Unknown [id number] .840.1.209190.3.579.2. 462 Unknown [id number] 2.840.1.111311.3.579.2. 462 Unknown [id number] 2.840.1.879742.3.579.2. 462 Unknown [id number] 2.16.840.1.675868.3.579.2. 462 Unknown [id number] 2.16.840.1.968430.3.579.2. 462 Unknown [id number] 2.16.840.1.425216.3.579.2. 462 Unknown [id number] 2.16.840.1.305862.3.579.2. 462 Unknown [id number] 2.16.840.1.753784.3.579.2. 462 Unknown [id number] 2.16.840.1.627959.3.579.2. 462 Unknown [id number] 2.16.840.1.648965.3.579.2. 462 Unknown [id number] 2.16.840.1.723682.3.579.2. 462 Unknown [id number] 2.16.840.1.750427.3.579.2. 462 Unknown [id number] 2.16.840.1.875176.3.579.2. 462 Unknown [id number] 2.16.840.1.658147.3.579.2. 462 Unknown [id number] 2.16.840.1.063655.3.579.2. 462 Unknown [id number] 2.16.840.1.426993.3.579.2. 462 Social History Date Type Detail Facility Start: 06-26-2023 Heavy tobacco smoker [facility] Start: 09-23-2018 End: 04-09-2022 Tobacco smoking status MNIS Current every day smoker [facility] Work Phone: Start: 1965 Sex Assigned At Not on file [facility] Start: 01-01-2019 End: 12-05-2022 Alcohol intake Current drinker of alcohol (finding) [facility] Start: 01-01-2019 End: 04-09-2022 History SDOH Alcohol Frequency 2 [facility] Start: 01-01-2019 End: 04-09-2022 History SDOH Alcohol Std Drinks 1 [facility] History of tobacco use Cigarette Smoker [facility] Start: 10-19-2019 End: 04-09-2022 Cigarettes smoked current (pack per day) - Reported [facility] Start: 09-28-2015 End: 10-19-2019 Tobacco use and exposure Current user [facility] Start: 09-28-2015 Alcohol Comment twice weekly [facility] Start: 03-19-2020 End: 04-09-2022 Tobacco use and exposure Never used [facility] Start: 03-25-2022 End: 06-12-2023 Exposure to SARS-CoV-2 (event) Not sure [facility] Start: 04-08-2022 End: 04-18-2022 Exposure to SARS-CoV-2 (event) Unable to assess [facility] Start: 04-09-2022 History SDOH Financial 5 [facility] Start: 06-24-2020 End: 04-09-2022 Alcohol Use Disorder Identification Test - Consumption [AUDIT-C] [facility] How often to you hav e a drink containing alcohol? Monthly or less [facility] How many standard dr inks containing alcohol do you have on a typical day? 1 or 2 [facility] How often do you hav e 6 or more drinks on 1 occasion? Never [facility] How hard is it for y ou to pay for the very basics like food, housing, medical care, and heating Not hard at all [facility] (I/We) worried carlo er (my/our) food would run out before (I/we) got money to buy more. Never true [facility] Start: 03-24-2018 Gender identity Identifies as female gender (finding) [facility] Start: 03-24-2018 Sexual orientation Heterosexua l (finding) [facility] Within the last year , have you been afraid of your partner or ex-partner? No [facility] Are you now , , , , never or living with a partner? [facility] How often to you hav e a drink containing alcohol? 4 or more times a week [facility] How many standard dr inks containing alcohol do you have on a typical day? 3 or 4 [facility] How often do you hav e 6 or more drinks on 1 occasion? Weekly [facility] Do you feel stress - tense, restless, nervous, or anxious, or unable to sleep at night because your mind is troubled all the time - these days [OSQ] Very much [facility] Start: 12-13-2022 End: 03-27-2023 Alcohol intake Ex-drinker (finding) [facility] Start: 01-03-2023 Alcohol Comment Stopped drinkhenri morrison after stroke 11/2022 [facility] Start: 07-05-2023 End: 07-29-2023 Tobacco smoking status NHIS Tobacco smoking consumption unknown [facility] Start: 1965 Sex Assigned At Female W [facility] NEGATED: Highlighted row Alcohol intake [employer] Work Phone: Clinical Notes 08-08-2020 to 03-27-2024 Telephone Encounter - Sheba Mckinney LPN - 03/27/2024 3:51 PM ESTTelephone Encounter - Sheba Mckinney LPN - 03/27/2024 3:51 PM ESTTelephone Encounter - Leah Reynolds MA - 05/16/2023 4:52 PM EST Note Date & Type Note Facility 03-27-2024 Telephone encounter Note Margo is requesting a refill for Requested Prescriptions Pending Prescriptions Disp Refills traZODone (DESYREL) 50 MG tablet 90 tablet 3 Sig: Take 1 (one) tablet (50 mg total) by mouth nightly as needed for depression . Last refill: 03/04/23 Last appt: 03/27/23 Upcoming appt (when is it due or is it scheduled): NOT SCHEDULED Please send to [address] [address] Follow up: Refill pending for review without additional follow up based on information above. [facility] 03-27-2024 Miscellaneous Notes Margo is requesting a refill for Requested Prescriptions Pending Prescriptions Disp Refills traZODone (DESYREL) 50 MG tablet 90 tablet 3 Sig: Take 1 (one) tablet (50 mg total) by mouth nightly as needed for depression . Last refill: 03/04/23 Last appt: 03/27/23 Upcoming appt (when is it due or is it scheduled): NOT SCHEDULED Please send to [facility] [address] [place], [place] [id number] Follow up: Refill pending for review without additional follow up based on information above. documented in this encounter [facility] 05-16-2023 Telephone encounter Note Last date seen:03/27/2023 Last labs:03/27/2023 Appointment made: Viridiana request. LIZS/Citlalli Report Received and Assessed: No data found Date controlled substance agreement signed: No data found Date of last drug screen: No data found Functional Assessment: No data found ----- Message from Juanita Brunner sent at 05/16/2023 2:35 PM EST ----- Regarding: refill Contact: MEDICATION REFILL REQUEST: PCP: Kong Reddy MD Patient called 05/16/23 and is requesting a medication refill for citalopram (CELEXA) 40 MG tablet () . This was confirmed from the current medication list found in the patients chart. Supply Requested: # of days: 30 days Method of receiving: Send to pharmacy Last set of flowsheet rows for OARRS report: OARRS/NARxCHECK Report Received and Assessed: No data found Date controlled substance agreement signed: No data found Date of last drug screen: No data found Functional Assessment: No data found Will this refill be sent to the preferred pharmacy listed below? Yes Preferred pharmacies: [facility] [address] [place], [place] [id number] Pt Call Back Number Home Phone Not on file. Patient call back message sent to the primary care clinical pool. Juanita Brunner [facility] 05-16-2023 Miscellaneous Notes Last date seen:03/27/2023 Last labs:03/27/2023 Appointment made: Surescripts request. OARRS/NARxCHECK Report Received and Assessed: No data found Date controlled substance agreement signed: No data found Date of last drug screen: No data found Functional Assessment: No data found ----- Message from Juanita Brunner sent at 05/16/2023 2:35 PM EST ----- Regarding: refill Contact: MEDICATION REFILL REQUEST: PCP: Kong Reddy MD Patient called 05/16/23 and is requesting a medication refill for citalopram (CELEXA) 40 MG tablet () . This was confirmed from the current medication list found in the patients chart. Supply Requested: # of days: 30 days Method of receiving: Send to pharmacy Last set of flowsheet rows for OARRS report: OARRS/NARxCHECK Report Received and Assessed: No data found Date controlled substance agreement signed: No data found Date of last drug screen: No data found Functional Assessment: No data found Will this refill be sent to the preferred pharmacy listed below? Yes Preferred pharmacies: [facility] [address] [place], [place] [phone] Pt Call Back Number Home Phone Not on file. Patient call back message sent to the [facility]. Juanita Brunner documented in this encounter [facility] 05-02-2023 Telephone encounter Note Last date seen:03/27/2023 Last labs:03/27/2023 Appointment made: Surescripts request. OARRS/NARxCHECK Report Received and Assessed: No data found Date controlled substance agreement signed: No data found Date of last drug screen: No data found Functional Assessment: No data found ----- Message from Sara Bearden sent at 05/02/2023 2:18 PM EST ----- Regarding: Pt wanted to double check PCP still wants her to take this RX MEDICATION REFILL REQUEST: PCP: Kong Reddy MD Patient called 05/02/23 and is requesting a medication refill for . thiamine (vitamin B-1) 100 MG tablet This was confirmed from the current medication list found in the patients chart. Supply Requested: # of days: 30 days Method of receiving: Send to pharmacy Last set of flowsheet rows for OARRS report: OARRS/NARxCHECK Report Received and Assessed: No data found Date controlled substance agreement signed: No data found Date of last drug screen: No data found Functional Assessment: No data found Will this refill be sent to the preferred pharmacy listed below? Yes Preferred pharmacies: [address] [address] Pt Call Back Number Home Phone Not on file. Pt wanted to double check PCP still wants her to take this RX Patient call back message sent to the primary care clinical pool. Sara Bearden [facility] 05-02-2023 Miscellaneous Notes Last date seen:03/27/2023 Last labs:03/27/2023 Appointment made: Viridiana request. OARRS/NARxCHECK Report Received and Assessed: No data found Date controlled substance agreement signed: No data found Date of last drug screen: No data found Functional Assessment: No data found ----- Message from Sara Bearden sent at 05/02/2023 2:18 PM EST ----- Regarding: Pt wanted to double check PCP still wants her to take this RX MEDICATION REFILL REQUEST: PCP: Kong Reddy MD Patient called 05/02/23 and is requesting a medication refill for . thiamine (vitamin B-1) 100 MG tablet This was confirmed from the current medication list found in the patients chart. Supply Requested: # of days: 30 days Method of receiving: Send to pharmacy Last set of flowsheet rows for OARRS report: OARRS/NARxCHECK Report Received and Assessed: No data found Date controlled substance agreement signed: No data found Date of last drug screen: No data found Functional Assessment: No data found Will this refill be sent to the preferred pharmacy listed below? Yes Preferred pharmacies: [facility] [address] [place] [id number] Pt Call Back Number Home Phone Not on file. Pt wanted to double check PCP still wants her to take this RX Patient call back message sent to the primary care clinical pool. Sara Bearden documented in this encounter [facility] 03-27-2023 History of Presen t illness Narrative HPI Patient presenting today for physical examination and full lab work. She is doing fairly well at this time. She denies any chest pain or shortness of breath. She is trying to work more on diet and exercise efforts. Patient unfortunate continues to smoke. She does have a history of hypertension as well. Chief Complaint Patient presents with Annual Exam Past Medical History: Diagnosis Date Arthritis Colitis Depression GERD (gastroesophageal reflux disease) Hypertension Past Surgical History: Procedure Laterality Date CARPAL TUNNEL RELEASE Bilateral 12/30/2017 KNEE SURGERY Left Social History Socioeconomic History Marital status: Tobacco Use Smoking status: Every Day Packs/day: 1.00 Years: 43.00 Additional pack years: 0.00 Total pack years: 43.00 Types: Cigarettes Smokeless tobacco: Never Vaping Use Vaping Use: Never used Substance and Sexual Activity Alcohol use: Not Currently Alcohol/week: 2.0 standard drinks of alcohol Types: 2 Glasses of wine per week Comment: Stopped drinking after stroke 11/2022 Drug use: No Sexual activity: Not Currently Partners: Male control/protection: I.U.D. Comment: Years Social Determinants of Health Financial Resource Strain: Low Risk (04/09/2022) Overall Financial Resource Strain (CARDIA) Difficulty of Paying Living Expenses: Not hard at all Food Insecurity: No Food Insecurity (04/09/2022) Hunger Vital Sign Worried About Running Out of Food in the Last Year: Never true Ran Out of Food in the Last Year: Never true Transportation Needs: No Transportation Needs (04/09/2022) PRAPARE - Transportation Lack of Transportation (Medical): No Lack of Transportation (Non-Medical): No Review of Systems Constitutional: Negative for activity change, appetite change, fatigue and fever. HENT: Negative for congestion, ear pain, hearing loss and sore throat. Eyes: Negative for pain and visual disturbance. Respiratory: Negative for cough, chest tightness and shortness of breath. Cardiovascular: Negative for chest pain, palpitations and leg swelling. Gastrointestinal: Negative for abdominal pain, blood in stool, constipation, diarrhea, nausea and vomiting. Endocrine: Negative for cold intolerance and heat intolerance. Genitourinary: Negative for difficulty urinating and dysuria. Musculoskeletal: Negative for arthralgias and myalgias. Skin: Negative for color change and rash. Neurological: Negative for dizziness and light-headedness. Hematological: Negative for adenopathy. Psychiatric/Behavioral: Negative for behavioral problems, decreased concentration, dysphoric mood and sleep disturbance. The patient is not nervous/anxious. Physical Exam Vitals and nursing note reviewed. Constitutional: General: She is not in acute distress. Appearance: Normal appearance. She is well-developed and normal weight. She is not ill-appearing, toxic-appearing or diaphoretic. HENT: Head: Normocephalic and atraumatic. Right Ear: Tympanic membrane, ear canal and external ear normal. There is no impacted cerumen. Left Ear: Tympanic membrane, ear canal and external ear normal. There is no impacted cerumen. Nose: Nose normal. No congestion or rhinorrhea. Mouth/Throat: Mouth: Mucous membranes are moist. Pharynx: Oropharynx is clear. No oropharyngeal exudate or posterior oropharyngeal erythema. Eyes: General: No scleral icterus. Right eye: No discharge. Left eye: No discharge. Conjunctiva/sclera: Conjunctivae normal. Pupils: Pupils are equal, round, and reactive to light. Neck: Thyroid: No thyromegaly. Vascular: No carotid bruit. Trachea: No tracheal deviation. Cardiovascular: Rate and Rhythm: Normal rate and regular rhythm. Pulses: Normal pulses. Heart sounds: Normal heart sounds. No murmur heard. Pulmonary: Effort: Pulmonary effort is normal. No respiratory distress. Breath sounds: Normal breath sounds. No wheezing or rales. Chest: Chest wall: No tenderness. Abdominal: General: Bowel sounds are normal. There is no distension. Palpations: Abdomen is soft. There is no mass. Tenderness: There is no abdominal tenderness. There is no guarding or rebound. Hernia: No hernia is present. Musculoskeletal: General: No swelling or tenderness. Normal range of motion. Cervical back: Normal range of motion and neck supple. No rigidity or tenderness. No muscular tenderness. Right lower leg: No edema. Left lower leg: No edema. Lymphadenopathy: Cervical: No cervical adenopathy. Skin: General: Skin is warm and dry. Findings: No erythema or rash. Neurological: General: No focal deficit present. Mental Status: She is alert and oriented to person, place, and time. Mental status is at baseline. Cranial Nerves: No cranial nerve deficit. Sensory: No sensory deficit. Motor: No abnormal muscle tone. Coordination: Coordination normal. Psychiatric: Mood and Affect: Mood normal. Behavior: Behavior normal. Thought Content: Thought content normal. Judgment: Judgment normal. BP 120/77 Pulse 65 Temp 98.5 F (36.9 C) Ht 5' 4.75" Wt 74.2 kg (163 lb 9.6 oz) LMP (LMP Unknown) SpO2 97% BMI 27.44 kg/m Impression/Plan Discussed all issues the patient here today. Will check full lab work and follow-up on all results. She will be notified. Continue current medication for hypertension. Monitor home blood pressure. This was elevated when she originally got here today. Continue current medication for hypercholesterolemia. She is encouraged to stop smoking. Smoking cessation discussed for 3 minutes. She understands the importance of making an effort here. She will stay up-to-date with mammogram and Pap smear and colonoscopy. She will get a flu shot and COVID shot here today. Call any other issues or concerns and we will see her back for follow-up thereafter otherwise. Take meds monitor home bp Problem List Items Addressed This Visit None Visit Diagnoses Routine medical exam - Primary Relevant Orders CBC and Differential TSH with Reflex Free T4 Lipid Panel Comprehensive Metabolic Panel Urinalysis ECG 12 Lead (Completed) Hypertension, unspecified type Hypercholesterolemia Vitamin D deficiency Relevant Orders Vitamin D, Total, 25-OH Fatigue, unspecified type Encounter for screening for malignant neoplasm of breast, unspecified screening modality Relevant Orders Mammography Screening Gabe Bilateral Colon cancer screening Relevant Orders POC Immunochemical Occult Blood Stool-iFOB (FIT), Screening Cigarette nicotine dependence without complication Needs flu shot Relevant Medications flu vacc [id number] 6mos up,PF, (FLUZONE QUAD/FLULAVAL QUAD/FLUARIX QUAD) 60 mcg (15 mcg x 4)/0.5 mL Syrg syringe Other Relevant Orders Influenza IIV4 6mo or >,Fluzone Quad (Completed) Need for vaccination Relevant Medications COVID [id number],12up,,andu,,PF, (SPIKEVAX) injection Other Relevant Orders MODERNA COVID-19 VACCINE ([id number] 12+ YEARS) MRNA (Completed) Discussed elevated Body Mass Index (BMI): Advised regular exercise. Discussed elevated Body Mass Index (BMI): Advised healthy and appropriate diet. Rationale: Overweight (Findings) BMI Return in about 1 year (around 03/27/2024), or if symptoms worsen or fail to improve, for Follow Up, Re-check, Annual Exam. For any new medications prescribed today, patient was educated about indications for the medication, how to take the medication and potential side effects of the medications. Kong Reddy MD documented in this encounter [facility] 03-18-2023 Telephone encounter Note Last date seen: 01/03/23 Last labs: Appointment made: 03/27/23 Surescripts request. OARRS/NARxCHECK Report Received and Assessed: No data found Date controlled substance agreement signed: No data found Date of last drug screen: No data found Functional Assessment: No data found ----- Message from Tanmay Maki MA sent at 03/18/2023 9:24 AM EST ----- Regarding: rx refill MEDICATION REFILL REQUEST: PCP: Kong Reddy MD Patient called 03/18/23 and is requesting a medication refill for cloNIDine HCL (CATAPRES) 0.1 MG tablet This was confirmed from the current medication list found in the patients chart. Supply Requested: # of days: 90 days Method of receiving: Send to pharmacy Last set of flowsheet rows for OARRS report: OARRS/NARxCHECK Report Received and Assessed: No data found Date controlled substance agreement signed: No data found Date of last drug screen: No data found Functional Assessment: No data found Will this refill be sent to the preferred pharmacy listed below? Yes Preferred pharmacies: [facility] [address] [place] [id number] Pt Call Back Number Home Phone Not on file. Patient call back message sent to the primary care clinical pool. Tanmay Maki [facility] 03-18-2023 Miscellaneous Notes Last date seen: 01/03/23 Last labs: Appointment made: 03/27/23 Surescripts request. OARRS/WILFREDOxCHEGIOVANNA Report Received and Assessed: No data found Date controlled substance agreement signed: No data found Date of last drug screen: No data found Functional Assessment: No data found ----- Message from Tanmay Maki MA sent at 03/18/2023 9:24 AM EST ----- Regarding: rx refill MEDICATION REFILL REQUEST: PCP: Kong Reddy MD Patient called 03/18/23 and is requesting a medication refill for cloNIDine HCL (CATAPRES) 0.1 MG tablet This was confirmed from the current medication list found in the patients chart. Supply Requested: # of days: 90 days Method of receiving: Send to pharmacy Last set of flowsheet rows for OARRS report: OARRS/NARxCHECK Report Received and Assessed: No data found Date controlled substance agreement signed: No data found Date of last drug screen: No data found Functional Assessment: No data found Will this refill be sent to the preferred pharmacy listed below? Yes Preferred pharmacies: [facility] [address] [place] [id number] Pt Call Back Number Home Phone Not on file. Patient call back message sent to the [facility]. Tanmay Maki documented in this encounter [facility] 03-04-2023 Telephone encounter Note Last date seen: 01/03/23 Last labs: 01/03/23 Appointment made: 03/27/23 Surescripts request. OARRS/NARxCHECK Report Received and Assessed: No data found Date controlled substance agreement signed: No data found Date of last drug screen: No data found Functional Assessment: No data found ----- Message from Kael Storey sent at 03/04/2023 10:01 AM EST ----- Regarding: Rx refill Contact: Pt # [phone] MEDICATION REFILL REQUEST: PCP: Kong Reddy MD Patient called 03/04/23 and is requesting a medication refill for lisinopriL (PRINIVIL,ZESTRIL) 20 MG tablet Requesting update on script for 2x a day Pt is currently out of medication hydrALAZINE (APRESOLINE) 50 MG tablet traZODone (DESYREL) 50 MG tablet This was confirmed from the current medication list found in the patients chart. Supply Requested: # of days: 90 days Method of receiving: Send to pharmacy Last set of flowsheet rows for OARRS report: OARRS/NARxCHECK Report Received and Assessed: No data found Date controlled substance agreement signed: No data found Date of last drug screen: No data found Functional Assessment: No data found Will this refill be sent to the preferred pharmacy listed below? No, preferred pharmacy needs to be updated. Please update the patient's medical record with the new pharmacy name and address - [facility] [address] [address], [place] [address] Pt Call Back Number Home Phone Not on file. Patient call back message sent to the [facility]. Kael Storey [facility] 03-04-2023 Miscellaneous Notes Last date seen: 01/03/23 Last labs: 01/03/23 Appointment made: 03/27/23 Surescripts request. OARRS/NARxCHECK Report Received and Assessed: No data found Date controlled substance agreement signed: No data found Date of last drug screen: No data found Functional Assessment: No data found ----- Message from Kael Storey sent at 03/04/2023 10:01 AM EST ----- Regarding: Rx refill Contact: Pt # [phone] MEDICATION REFILL REQUEST: PCP: Kong Reddy MD Patient called 03/04/23 and is requesting a medication refill for lisinopriL (PRINIVIL,ZESTRIL) 20 MG tablet Requesting update on script for 2x a day Pt is currently out of medication hydrALAZINE (APRESOLINE) 50 MG tablet traZODone (DESYREL) 50 MG tablet This was confirmed from the current medication list found in the patients chart. Supply Requested: # of days: 90 days Method of receiving: Send to pharmacy Last set of flowsheet rows for OARRS report: OARRS/NARxCHECK Report Received and Assessed: No data found Date controlled substance agreement signed: No data found Date of last drug screen: No data found Functional Assessment: No data found Will this refill be sent to the preferred pharmacy listed below? No, preferred pharmacy needs to be updated. Please update the patient's medical record with the new pharmacy name and address - [address] [address] Pt Call Back Number Home Phone Not on file. Patient call back message sent to the primary care clinical pool. Kael Storey documented in this encounter [facility] 01-03-2023 History of Presen t illness Narrative Subjective Patient ID: Margo Sebastian is a 57 y.o. female. Patient presenting here today for another follow-up status post TIA. This occurred while she was out of town. We had seen her back for follow-up weeks ago. She is doing much better. She has not had any dizziness or headache. No lightheadedness. No chest pain or shortness of breath. Overall feeling well and back to her baseline. Unfortunately she does continue to smoke cigarettes on a regular basis. She has stopped drinking alcohol entirely which is good. Chief Complaint Patient presents with Follow-up Pt states she had 2 mini strokes 3-4 weeks ago. Pt states she feels back to normal except for when she gets tired she slurs her words a bit. The following portions of the patient's history were reviewed and updated as appropriate: allergies, current medications, past family history, past medical history, past social history, past surgical history and problem list. Social History Tobacco Use Smoking Status Every Day Packs/day: 1.00 Years: 43.00 Additional pack years: 0.00 Total pack years: 43.00 Types: Cigarettes Smokeless Tobacco Never Review of Systems Constitutional: Negative for activity change, fatigue and fever. HENT: Negative for congestion. Respiratory: Negative for cough, chest tightness and shortness of breath. Cardiovascular: Negative for chest pain, palpitations and leg swelling. Gastrointestinal: Negative for abdominal pain. Genitourinary: Negative for difficulty urinating. Musculoskeletal: Negative for arthralgias and myalgias. Skin: Negative for rash. Neurological: Negative for dizziness and light-headedness. Hematological: Negative for adenopathy. Psychiatric/Behavioral: Negative for decreased concentration and dysphoric mood. The patient is not nervous/anxious. Objective Physical Exam Vitals and nursing note reviewed. Constitutional: General: She is not in acute distress. Appearance: Normal appearance. She is well-developed and normal weight. She is not ill-appearing, toxic-appearing or diaphoretic. HENT: Head: Normocephalic and atraumatic. Right Ear: External ear normal. Left Ear: External ear normal. Eyes: Conjunctiva/sclera: Conjunctivae normal. Neck: Thyroid: No thyromegaly. Cardiovascular: Rate and Rhythm: Normal rate and regular rhythm. Pulses: Normal pulses. Heart sounds: Normal heart sounds. No murmur heard. Pulmonary: Effort: Pulmonary effort is normal. No respiratory distress. Breath sounds: Normal breath sounds. No wheezing or rales. Chest: Chest wall: No tenderness. Musculoskeletal: General: No tenderness. Normal range of motion. Cervical back: Normal range of motion and neck supple. No rigidity or tenderness. Right lower leg: No edema. Left lower leg: No edema. Comments: Bilateral lower extremity edema much improved versus previous visit Lymphadenopathy: Cervical: No cervical adenopathy. Skin: General: Skin is warm and dry. Findings: No rash. Neurological: General: No focal deficit present. Mental Status: She is alert and oriented to person, place, and time. Mental status is at baseline. Motor: No abnormal muscle tone. Coordination: Coordination normal. Psychiatric: Mood and Affect: Mood normal. Behavior: Behavior normal. Thought Content: Thought content normal. Judgment: Judgment normal. BP 102/67 (BP Location: Left arm, Patient Position: Sitting, BP Cuff Size: X-large Adult) Pulse 74 Temp 98.6 F (37 C) Wt 76.2 kg (167 lb 14.4 oz) LMP (Approximate) SpO2 97% BMI 27.94 kg/m Assessment/Plan Discussed all issues with patient today. We will continue current medication at this time. Continue to monitor home blood pressure. We will adjust dosing accordingly. Avoid any issues with hypotension. We will check metabolic panel and magnesium here today. Check vitamin D as well. Continue with all medications as directed at this time. She is doing well with regards to anxiety and depression currently. She has stopped drinking alcohol entirely. We discussed smoking cessation for 3 minutes. She understands the importance of cutting back on this. She will try to make an effort there. We will see her back in 3 months for follow-up and recheck. Call any other issues or concerns in the meantime. Problem List Items Addressed This Visit None Visit Diagnoses TIA (transient ischemic attack) - Primary Hypertension, unspecified type Relevant Orders Comprehensive Metabolic Panel Hypercholesterolemia Hypomagnesemia Relevant Orders Magnesium Anxiety Depression, unspecified depression type History of alcohol use Cigarette nicotine dependence without complication Vitamin D deficiency Relevant Orders Vitamin D, Total, 25-OH Return in about 3 months (around 04/04/2023), or if symptoms worsen or fail to improve, for Follow Up, Re-check. For any new medications prescribed today, patient was educated about indications for the medication, how to take the medication and potential side effects of the medications. Kong Reddy MD documented in this encounter [facility] 12-13-2022 History of Presen t illness Narrative Subjective Patient ID: Margo Sebastian is a 57 y.o. female. Patient presenting today for evaluation after being seen out of town for issues regarding elevated blood pressure and possible TIA. Blood pressure has since improved. She is taking medications as directed. She has had increased swelling in her lower extremities. She was prescribed amlodipine. This certainly could be playing a role. Patient did have right knee surgery 3 weeks ago as well. She has not had any signs of DVT previous to this. She was not having this type of swelling prior to the amlodipine. She denies any chest pain or shortness of breath. Blood pressure is much improved now at this time. She is not having headache. No vision changes or other issues there. She is staying well-hydrated and overall feeling better. Chief Complaint Patient presents with Follow-up Transition of care post double mini stroke. Told she can no longer take advil/ibuprofen. Wants to know if she can take tumeric for swelling. Takes baby aspirin and wants to know if she can take regular aspirin. Told to start taking statins but wants to know if she needs them since she has never had cholesterol issues before. The following portions of the patient's history were reviewed and updated as appropriate: allergies, current medications, past family history, past medical history, past social history, past surgical history and problem list. Social History Tobacco Use Smoking Status Every Day Packs/day: 1.00 Years: 43.00 Additional pack years: 0.00 Total pack years: 43.00 Types: Cigarettes Smokeless Tobacco Never Review of Systems Constitutional: Positive for fatigue. Negative for activity change and fever. HENT: Negative for congestion. Respiratory: Negative for cough, chest tightness and shortness of breath. Cardiovascular: Positive for leg swelling. Negative for chest pain and palpitations. Gastrointestinal: Negative for abdominal pain. Genitourinary: Negative for difficulty urinating. Musculoskeletal: Negative for arthralgias and myalgias. Skin: Negative for rash. Neurological: Negative for dizziness and light-headedness. Hematological: Negative for adenopathy. Psychiatric/Behavioral: Negative for decreased concentration and dysphoric mood. The patient is not nervous/anxious. Objective Physical Exam Vitals and nursing note reviewed. Constitutional: General: She is not in acute distress. Appearance: Normal appearance. She is well-developed and normal weight. She is not ill-appearing, toxic-appearing or diaphoretic. HENT: Head: Normocephalic and atraumatic. Right Ear: External ear normal. Left Ear: External ear normal. Eyes: Conjunctiva/sclera: Conjunctivae normal. Neck: Thyroid: No thyromegaly. Cardiovascular: Rate and Rhythm: Normal rate and regular rhythm. Pulses: Normal pulses. Heart sounds: Normal heart sounds. No murmur heard. Pulmonary: Effort: Pulmonary effort is normal. No respiratory distress. Breath sounds: Normal breath sounds. No wheezing or rales. Chest: Chest wall: No tenderness. Musculoskeletal: General: No tenderness. Normal range of motion. Cervical back: Normal range of motion and neck supple. No rigidity or tenderness. Right lower leg: Edema present. Left lower leg: Edema present. Comments: Lower extremity edema, right greater than left Lymphadenopathy: Cervical: No cervical adenopathy. Skin: General: Skin is warm and dry. Findings: No rash. Comments: Surgical scar right knee Neurological: General: No focal deficit present. Mental Status: She is alert and oriented to person, place, and time. Mental status is at baseline. Motor: No abnormal muscle tone. Coordination: Coordination normal. Psychiatric: Mood and Affect: Mood normal. Behavior: Behavior normal. Thought Content: Thought content normal. Judgment: Judgment normal. BP 106/70 (BP Location: Right arm, Patient Position: Sitting, BP Cuff Size: X-large Adult) Pulse 81 Temp 98.4 F (36.9 C) Ht 5' 5" Wt 76.3 kg (168 lb 4.8 oz) SpO2 95% BMI 28.01 kg/m Assessment/Plan: Reviewed and discussed all issues with the patient today. Lengthy discussion regarding medications and how to proceed moving forward. Patient has also stopped using alcohol. She is feeling much better since that time. She has lost weight. She has reinitiated diuretic which has been helpful to some degree of lower extremity edema. Some of this may be doing indeed to amlodipine. We will have her stop this medication. She will take her lisinopril twice daily. She will take her diuretic as directed. Check lab work here today. Check electrolytes and magnesium level. This was low while she was in the hospital. We will check lipid panel. She has been initiated on a atorvastatin. Continue current medications for anxiety and depression. She has been stable there. Follow-up on all results and proceed accordingly. She will stay active with diet and exercise without overexertion. We will see her back in coming weeks for follow-up and recheck of blood pressure and electrolytes again and to see how she is doing overall. She will let us know of any other issues or concerns in the meantime. Consider neurology or cardiology evaluation if any recurrent issues. Problem List Items Addressed This Visit None Visit Diagnoses Hypertension, unspecified type - Primary Relevant Medications amLODIPine (NORVASC) 10 MG tablet cloNIDine HCL (CATAPRES) 0.1 MG tablet hydrALAZINE (APRESOLINE) 50 MG tablet Other Relevant Orders CBC and Differential Comprehensive Metabolic Panel Hypercholesterolemia Relevant Medications atorvastatin (LIPITOR) 40 MG tablet Other Relevant Orders Lipid Panel Edema of both lower legs Hypomagnesemia Relevant Orders Magnesium Anxiety Depression, unspecified depression type Relevant Medications traZODone (DESYREL) 50 MG tablet History of alcohol use Allergic rhinitis, unspecified seasonality, unspecified trigger Relevant Medications loratadine (CLARITIN) 10 mg tablet fexofenadine (RUTH) 180 MG tablet dgidmtts-[id number]-[id number]-kadi (Glucosamine-Chondroitin Complx) 750-625-1,000 mg-mg-unit Tab Encounter for vitamin deficiency screening Relevant Orders Vitamin D, Total, 25-OH Vitamin B12 Fatigue, unspecified type Relevant Orders TSH with Reflex Free T4 TIA (transient ischemic attack) Discussed elevated Body Mass Index (BMI): Advised regular exercise. Discussed elevated Body Mass Index (BMI): Advised healthy and appropriate diet. Rationale: Overweight (Findings) BMI Return in about 1 month (around 01/13/2023), or if symptoms worsen or fail to improve, for Follow Up, Re-check. For any new medications prescribed today, patient was educated about indications for the medication, how to take the medication and potential side effects of the medications. Kong Reddy MD documented in this encounter [facility] 12-07-2022 Nurse Note Patient's discharge instructions reviewed and signed. All questions answered. Patient chooses to walk out of facility; declines wheelchair. [facility] 12-07-2022 Miscellaneous Notes Restricted notes were excluded Patient's discharge instructions reviewed and signed. All questions answered. Patient chooses to walk out of facility; declines wheelchair. EOS: pt resting in bed, call light within reach. Pt updates family at will. Pt denies needing anything at this time. End of shift note: CTH/N: no acute intracranial; Phenobarbital taper; RAUL completed; Na: 132. Ciwa: 0 all day. updated in the room. All questions answered. Case Management (CM) has reviewed Early Screening for Discharge Planning (ESDP). Patient has been identified as low risk Patient chart has been reviewed. CM introduced self to patient, explained the role of CM and answered any questions. CM provided patient with contact information. No discharge planning needs identified at this time. Please contact/consult CM if needs arise, patient has a change in condition, or patient/family requests assistance with discharge planning. Patient resides with , she reports being independent with Ambulating, ADLs, drives. Patient uses [employer]. Spouse will transport at [place]. Medical Nutrition Therapy Assessment: Interventions: Food and/or Nutrient Delivery: Meals Provided Nutrition Education: Will be available if needs arise Nutrition Diagnosis: NO: No nutrition diagnosis at this time Malnutrition Assessment/Nutrition Diagnosis: Does not meet ASPEN criteria for malnutrition Monitoring/Evaluation: Monitoring/Evaluation: Patient with good oral intakes reported and no additional nutritional needs evident at this time. Will be available if needs arise. Assessment: Assessment Due To: Nutrition Screen received for poor oral intake due to poor appetite and unplanned weight loss Subjective: Pt reported weight went from 185-173 lbs over a couple of months and happy with it. Wants to loose more. At home eating half of normal food, eating till full, and thinks she was eating enough. Denied any nutrition questions/concerns. Anthropometric Measurements: Height: 5' 5" (165.1 cm) Weight: 78.6 kg (173 lb 4.8 oz) Wt Scale Type: Standing/upright BMI (Calculated) : 28.84 kg/m Past recorded weight: 182 lbs (02/22/22) - 4.9% (9 lbs) in 10 months 173 lbs (12/05/22) Diet Orders: Diet Orders (From admission, onward) Start Ordered 12/05/222044 Regular Diet DIET EFFECTIVE NOW 12/05/222045 DIETARY SUPPLEMENT/TUBE FEED ORDERS (From admission, onward) None Intakes Recorded: No data found. Documented Medical Information, Test and Procedures: Principal Problem: Hyponatremia Admission Diagnosis: Hypomagnesemia Hyponatremia History of alcohol use Numbness and tingling of right side of face Numbness and tingling of left side of face Numbness and tingling in both hands Pertinent Laboratory Values:. Lab Results Component Value Date/Time GLU 99 12/06/2022 0330 BUN 6 (L) 12/06/2022 0330 CREATININE 0.59 12/06/2022 0330 K 3.9 12/06/2022 0330 MG 1.5 (L) 12/05/20221813 NA 132 (L) 12/06/2022 0330 HGB 11.6 (L) 12/05/20221813 Medications: Current Facility-Administered Medications Medication 0.9% NaCl infusion acetaminophen (TYLENOL) tablet 650 mg aluminum-magnesium hydroxide 200-200 MG/5ML suspension 30 mL amLODIPine (NORVASC) tablet 5 mg aspirin chewable tablet 81 mg atorvastatin (LIPITOR) tablet 40 mg bisacodyl (DULCOLAX) suppository 10 mg calcium carbonate (TUMS) chewable tablet 1,000 mg citalopram (CELEXA) tablet 40 mg folic acid (FOLVITE) tablet 400 mcg For electrolyte abnormalities subsequent to initial labs (refer to the [facility] Electrolyte Replacement Orders) 1 each For electrolyte abnormalities subsequent to initial labs (refer to the [facility] Electrolyte Replacement Orders) heparin (porcine) injection 5,000 Units hydrALAZINE (APRESOLINE) tablet 25 mg lisinopril (PRINIVIL,ZESTRIL) tablet 20 mg loperamide (IMODIUM) capsule 2 mg loratadine (CLARITIN) tablet 10 mg LORazepam (ATIVAN) tablet 0-4 mg Or LORazepam injection 0-4 mg LORazepam injection 2 mg melatonin tablet 3 mg Multivitamin (THERA) tablet 1 tablet naphazoline-pheniramine (NAPHCON-A) 0.025-0.3 % ophthalmic solution 1 drop nicotine (NICODERM CQ) 21 MG/24HR 1 patch nicotine polacrilex (COMMIT) lozenge 4 mg Ondansetron (ZOFRAN-ODT) disintegrating tablet 4 mg Or ondansetron hcl (ZOFRAN) injection 4 mg oxyCODONE (ROXICODONE) immediate release tablet 5 mg pantoprazole (PROTONIX) EC tablet 40 mg PHENobarbital (LUMINAL) tablet 60 mg Followed by PHENobarbital (LUMINAL) tablet 60 mg Followed by [START ON 12/08/2022] PHENobarbital (LUMINAL) tablet 30 mg polyethylene glycol 3350 (GLYCOLAX, MIRALAX) packet 17 g Senna (SENOKOT) tablet 17.2 mg Thiamine Mononitrate (VITAMIN B-1) tablet 100 mg traZODone (DESYREL) tablet 50 mg traZODone (DESYREL) tablet 50 mg Nursing Physical Findings from Flowsheets: Gastrointestinal (WDL): Unchanged Bowel Movement: Last BM: 12/05/22 Leobardo Scale Nutrition: Adequate Integumentary Skin Color (WDL): Within Defined Limits Skin Integrity (WDL): Within Defined Limits Skin Checked Under Medical Devices?: Yes Medical Devices in place (select all that apply): IV Tubing, Telemetry Wires/Box Skin Checked under IV tubing: Intact - No Skin Protocol Needed Skin Checked under Telemetry Wires/Box: Intact - No Skin Protocol Needed Skin Condition (WDL): Exceptions to WDL Skin Condition: Abrasion Location: Scattered Orientation: Right, Left Multiple Sites: 2 Completed skin assessment as the second nurse and reviewed with the primary nurse: Yes Wounds/NPWT Active Wound / Wound Therapy None Peripheral Vascular Peripheral Vascular (WDL): Within Defined Limits Edema: None noted End of Shift: Patient resting quietly in bed at this time. No acute changes noted throughout the night. Patient states she is feeling better and a lot more calm since arrival to ED. CIWAs 0. Significant other at bedside this shift and updates provided. No needs expressed at this time. Call light placed in reach. Patient arrives from ED by cot to room 3117. Transferred to bed with the assistance of self. Patient is accompanied by . Patient's current mental status AOx4. documented in this encounter [facility] 12-07-2022 Hospital course Narrative [facility] / [facility] Discharge Summary Margo Sebastian Account: [id number] Admitted: 12/05/2022 Discharge Date/Time: 12/07/22 / 3:10 PM Handoff to PCP Routine hospital follow up [facility] clinic on Saturday12/10/22 for Fu HTN, Hyponatremia. DC home with Norvasc, Lisinopril and Hydralazine with prn clonidine.Check BP daily and Keep under SBP 140-150 and Keep a log. ETOH cessation ( CWA 0 on DC) Tobacco cessation Stopped Triamterene Hctz on DC Clinical Summary Margo Sebastian is a 57 y.o. female with a history of anxiety, alcohol abuse, hypertension who presented to [facility] 12/05/2022 with bilateral facial paresthesias. Admitted for acute hyponatremia Acute Hyponatremia: Na 121 on admit , improved to 135. Suspected from hctz and alcohol abuse. Held thiazide diuretics on DC. 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 CTA non acute. B 12 levels normal Lacunar Infarcts: Old, on admission CT. CTA H&N non acute . Cont with ASA, stain and BP Mx. Hypertensive urgency: Stable per Meds as above Alcohol Abuse: Had previously been on Naltrexone but stopped after recent R ACL surgery three weeks FISH CUTTER. Reports drinking > 1 bottle of wine daily. CWA "0", continued thiamine and FA on DC. Depression with anxiety: Very sever on admission. Continued lexapro,Psych referral done as OP Code Status: Full Code Disposition: Home Discharge Medications Medication List STOP taking these previous medications triamterene-hydrochlorothiazide 37.5-25 MG per tablet Commonly known as: MAXZIDE-25 START taking these medications Last dose given Next dose due amLODIPine 10 MG tablet Dose: 10 mg Quantity: 30 tablet Refills: 2 Take 1 tablet by mouth daily. Commonly known as: NORVASC Start taking on: December 08, 2022 aspirin 81 MG chewable tablet Dose: 81 mg Quantity: 30 tablet Refills: 2 Take 1 tablet by mouth daily for 30 days. Start taking on: December 08, 2022 atorvastatin 40 MG tablet Dose: 40 mg Quantity: 30 tablet Refills: 11 Take 1 tablet by mouth nightly. Commonly known as: LIPITOR cloNIDine 0.1 MG tablet Dose: 0.1 mg Quantity: 90 tablet Refills: 0 Take 1 tablet by mouth every 8 hours as needed for Hypertension (>=140/90) for up to 30 days. Commonly known as: CATAPRES folic acid 400 MCG tablet Dose: 400 mcg Quantity: 30 tablet Refills: 2 Take 1 tablet by mouth daily for 30 doses. Commonly known as: FOLVITE Start taking on: December 08, 2022 hydrALAZINE 50 MG tablet Dose: 50 mg Quantity: 90 tablet Refills: 2 Take 1 tablet by mouth every 8 hours for 30 days. Commonly known as: APRESOLINE loratadine 10 MG tablet Dose: 10 mg Quantity: 30 tablet Refills: 2 Take 1 tablet by mouth daily. Commonly known as: CLARITIN Start taking on: December 08, 2022 nicotine 21 MG/24HR Dose: 1 patch Quantity: 28 patch Refills: 2 Place 1 patch onto the skin every 24 hours. Commonly known as: NICODERM CQ Start taking on: December 08, 2022 traZODone 50 MG tablet Dose: 50 mg Quantity: 30 tablet Refills: 2 Take 1 tablet by mouth nightly for 30 days. Commonly known as: DESYREL vitamin B-1 100 MG tablet Dose: 100 mg Quantity: 30 tablet Refills: 2 Take 1 tablet by mouth daily for 30 doses. Start taking on: December 08, 2022 CONTINUE these medications which have CHANGED or have new prescriptions Last dose given Next dose due lisinopril 20 MG tablet Dose: 20 mg Quantity: 30 tablet Refills: 2 Take 1 tablet by mouth daily for 30 days. Commonly known as: PRINIVIL,ZESTRIL Start taking on: December 08, 2022 What changed: medication strength how much to take Another medication with the same name was removed. Continue taking this medication, and follow the directions you see here. This is the list of medications that you provided. Last dose given Next dose due citalopram 40 MG tablet Dose: 40 mg Refills: 0 Take 1 tablet by mouth daily. Commonly known as: CELEXA EYE ALLERGY RELIEF OP Refills: 0 Apply to eye. fexofenadine 180 MG tablet Dose: 180 mg Refills: 0 Take 1 tablet by mouth daily. Commonly known as: RUTH Fluticasone propionate 50 MCG/ACT nasal spray Dose: 1 spray Refills: 0 1 spray by Nasal route daily. Commonly known as: FLONASE Glucosamine-Chondroitin 750-600 MG Tabs Dose: 1 tablet Refills: 0 Take 1 tablet by mouth daily. pantoprazole 40 MG tablet Dose: 40 mg Refills: 0 Take 1 tablet by mouth daily. Commonly known as: PROTONIX Physician(s) Family: Kong Reddy MD, , Address: [address] [place] [address] / [facility] [address] Follow Up: Kong Reddy MD [address] [place] [id number] Follow up on 12/13/2022 at 10:30am. [place] [address] Follow up on 12/11/2022 at 10:30am. Future Appointments Date Time Provider Department [place] 12/11/2022 10:30 AM Provider, [facility] Generic Dept [facility] g 02/26/2023 1:00 PM Aliyah King APRN CNP G PERSONNEL ASSISTANT [facility] [place] A face to face visit was performed with the patient on the day of discharge. For more detailed information including patient medical records, please contact [phone] or go to [email or web address] Patient instructions, including activity, were given to the patient/family at discharge. Please see the After Visit Summary in the medical record for details. Time spent on discharge: > 30 Minutes Completed by: Ene Dias MD on 12/07/22, 3:10 PM documented in this encounter [facility] 12-07-2022 Nurse Note EOS: pt resting in bed, call light within reach. Pt updates family at will. Pt denies needing anything at this time. [facility] 12-06-2022 Nurse Note End of shift note: CTH/N: no acute intracranial; Phenobarbital taper; RAUL completed; Na: 132. Ciwa: 0 all day. updated in the room. All questions answered. [facility] 12-06-2022 History of Presen t illness Narrative [facility] Medicine / [facility] Inpatient Progress Note 12/06/2022 Margo Sebastian 1965 [id number] Assessment/Plan: Margo Sebastian is a 57 y.o. female with a history of anxiety, alcohol abuse, hypertension who presented to [facility] 12/05/2022 with bilateral facial paresthesias. Admitted fofr acute hyponatremia Acute Hyponatremia: Na 121 on admit , improved to 132 by 8/17. Held thiazide diuretics. Trend Facial paresthesias: Long-standing h/o bilateral carpal tunnel and recent R ACL surgery 3 weeks FISH CUTTER, multifactorial. CTA non acute. Pending B12, Vi D levels Lacunar Infarcts: Old, on admission CT. CTA H&N non acute . Cont with ASA, stain and BP Mx. Hypertensive urgency: Continue lisinopril, initiated amlodipine, anxiety meds as below, PRN hydralazine. Alcohol Abuse: Had previously been on Naltrexone but stopped after recent R ACL surgery three weeks FISH CUTTER. Reports drinking > 1 bottle of wine daily. On Phenobarb taper, CIWA, vitamin supplementation Depression with anxiety: Very sever on admission. Continue lexapro, CIWA. Would benefit from outpatient cognitive behavioral therapy Code Status: Full Code DVT Prophylaxis: heparin Current living situation: home Expected Disposition: home Estimated discharge date: 12/07/22 Subjective: Patient new to me, seen and examined at bedside. Denies headache or blurry vision or double vision. Denies tingling or numbness into the extremities. Facial paresthesias which she had on presentation had improved. She feels anxious but no panic episodes. No seizure-like activity or tremors. Feels sleepy and wants to sleep all day. No nausea or vomiting or abdominal pain or diarrhea or constipation. Physical Exam: Visit Vitals BP (!) 170/94 (Patient Position: Lying) Pulse 67 Temp 97.6 F (36.4 C) (forehead) Resp 16 Ht 5' 5" (1.651 m) Wt 78.6 kg (173 lb 4.8 oz) SpO2 98% BMI 28.84 kg/m General: NAD Eyes: EOMI ENT: neck supple Cardiovascular: Regular rate. Respiratory: Clear to auscultation Gastrointestinal: Soft, non tender Genitourinary: no suprapubic tenderness Musculoskeletal: No edema. Skin: warm, dry Neuro: Alert. Psych: Mood appropriate. Current Medications: amLODIPine 5 mg Oral Daily aspirin 81 mg Oral Daily atorvastatin 40 mg Oral Nightly citalopram 40 mg Oral Daily folic acid 400 mcg Oral Daily heparin (porcine) 5,000 Units Subcutaneous 2 times per day lisinopril 20 mg Oral Daily loratadine 10 mg Oral Daily Multivitamin 1 tablet Oral Daily nicotine 21 mg Transdermal Daily pantoprazole 40 mg Oral Daily PHENobarbital 60 mg Oral Q6H Followed by [START ON 12/08/2022] PHENobarbital 30 mg Oral Q6H Thiamine Mononitrate 100 mg Oral Daily traZODone 50 mg Oral Nightly Labs, Imaging and Studies reviewed: Recent Labs Lab 12/06/22 0110 12/05/22 1814 HGB -- 11.6* HCT -- 34.0 PLT 403* 418* Recent Labs Lab 12/06/22 0909 12/06/22 0330 12/06/22 0049 12/05/22 1814 NA 132* 132* 128* 121* K -- 3.9 -- 3.7 CL -- 97 -- 86* BUN -- 6* -- 9 CREATININE -- 0.59 -- 0.64 EGFR -- >90.0 -- >90.0 CALCIUM -- 9.0 -- 9.2 LABALBU -- -- -- 4.5 Recent Labs Lab 12/05/221813 ALT 32 AST 49* ALKPHOS 115 BILITOT 0.6 Recent Labs Lab 12/05/221813 INR 0.94 documented in this encounter [employer] 12-06-2022 Plan of care note Case Management (CM) has reviewed Early Screening for Discharge Planning (ESDP). Patient has been identified as low risk Patient chart has been reviewed. CM introduced self to patient, explained the role of CM and answered any questions. CM provided patient with contact information. No discharge planning needs identified at this time. Please contact/consult CM if needs arise, patient has a change in condition, or patient/family requests assistance with discharge planning. Patient resides with , she reports being independent with Ambulating, ADLs, drives. Patient uses [employer]. Spouse will transport at [place]. [employer] Work Phone: 12-06-2022 Evaluation + Plan note Medical Nutrition Therapy Assessment: Interventions: Food and/or Nutrient Delivery: Meals Provided Nutrition Education: Will be available if needs arise Nutrition Diagnosis: NO: No nutrition diagnosis at this time Malnutrition Assessment/Nutrition Diagnosis: Does not meet ASPEN criteria for malnutrition Monitoring/Evaluation: Monitoring/Evaluation: Patient with good oral intakes reported and no additional nutritional needs evident at this time. Will be available if needs arise. Assessment: Assessment Due To: Nutrition Screen received for poor oral intake due to poor appetite and unplanned weight loss Subjective: Pt reported weight went from 185-173 lbs over a couple of months and happy with it. Wants to loose more. At home eating half of normal food, eating till full, and thinks she was eating enough. Denied any nutrition questions/concerns. Anthropometric Measurements: Height: 5' 5" (165.1 cm) Weight: 78.6 kg (173 lb 4.8 oz) Wt Scale Type: Standing/upright BMI (Calculated) : 28.84 kg/m Past recorded weight: 182 lbs (02/22/22) - 4.9% (9 lbs) in 10 months 173 lbs (12/05/22) Diet Orders: Diet Orders (From admission, onward) Start Ordered 12/05/222044 Regular Diet DIET EFFECTIVE NOW 12/05/222045 DIETARY SUPPLEMENT/TUBE FEED ORDERS (From admission, onward) None Intakes Recorded: No data found. Documented Medical Information, Test and Procedures: Principal Problem: Hyponatremia Admission Diagnosis: Hypomagnesemia Hyponatremia History of alcohol use Numbness and tingling of right side of face Numbness and tingling of left side of face Numbness and tingling in both hands Pertinent Laboratory Values:. Lab Results Component Value Date/Time GLU 99 12/06/2022 0330 BUN 6 (L) 12/06/2022 0330 CREATININE 0.59 12/06/2022 0330 K 3.9 12/06/2022 0330 MG 1.5 (L) 12/05/20221813 NA 132 (L) 12/06/2022 0330 HGB 11.6 (L) 12/05/20221813 Medications: Current Facility-Administered Medications Medication 0.9% NaCl infusion acetaminophen (TYLENOL) tablet 650 mg aluminum-magnesium hydroxide 200-200 MG/5ML suspension 30 mL amLODIPine (NORVASC) tablet 5 mg aspirin chewable tablet 81 mg atorvastatin (LIPITOR) tablet 40 mg bisacodyl (DULCOLAX) suppository 10 mg calcium carbonate (TUMS) chewable tablet 1,000 mg citalopram (CELEXA) tablet 40 mg folic acid (FOLVITE) tablet 400 mcg For electrolyte abnormalities subsequent to initial labs (refer to the [facility] Electrolyte Replacement Orders) 1 each For electrolyte abnormalities subsequent to initial labs (refer to the [facility] Electrolyte Replacement Orders) heparin (porcine) injection 5,000 Units hydrALAZINE (APRESOLINE) tablet 25 mg lisinopril (PRINIVIL,ZESTRIL) tablet 20 mg loperamide (IMODIUM) capsule 2 mg loratadine (CLARITIN) tablet 10 mg LORazepam (ATIVAN) tablet 0-4 mg Or LORazepam injection 0-4 mg LORazepam injection 2 mg melatonin tablet 3 mg Multivitamin (THERA) tablet 1 tablet naphazoline-pheniramine (NAPHCON-A) 0.025-0.3 % ophthalmic solution 1 drop nicotine (NICODERM CQ) 21 MG/24HR 1 patch nicotine polacrilex (COMMIT) lozenge 4 mg Ondansetron (ZOFRAN-ODT) disintegrating tablet 4 mg Or ondansetron hcl (ZOFRAN) injection 4 mg oxyCODONE (ROXICODONE) immediate release tablet 5 mg pantoprazole (PROTONIX) EC tablet 40 mg PHENobarbital (LUMINAL) tablet 60 mg Followed by PHENobarbital (LUMINAL) tablet 60 mg Followed by [START ON 12/08/2022] PHENobarbital (LUMINAL) tablet 30 mg polyethylene glycol 3350 (GLYCOLAX, MIRALAX) packet 17 g Senna (SENOKOT) tablet 17.2 mg Thiamine Mononitrate (VITAMIN B-1) tablet 100 mg traZODone (DESYREL) tablet 50 mg traZODone (DESYREL) tablet 50 mg Nursing Physical Findings from Flowsheets: Gastrointestinal (WDL): Unchanged Bowel Movement: Last BM: 12/05/22 Leobardo Scale Nutrition: Adequate Integumentary Skin Color (WDL): Within Defined Limits Skin Integrity (WDL): Within Defined Limits Skin Checked Under Medical Devices?: Yes Medical Devices in place (select all that apply): IV Tubing, Telemetry Wires/Box Skin Checked under IV tubing: Intact - No Skin Protocol Needed Skin Checked under Telemetry Wires/Box: Intact - No Skin Protocol Needed Skin Condition (WDL): Exceptions to WDL Skin Condition: Abrasion Location: Scattered Orientation: Right, Left Multiple Sites: 2 Completed skin assessment as the second nurse and reviewed with the primary nurse: Yes Wounds/NPWT Active Wound / Wound Therapy None Peripheral Vascular Peripheral Vascular (WDL): Within Defined Limits Edema: None noted [facility] 12-06-2022 Nurse Note End of Shift: Patient resting quietly in bed at this time. No acute changes noted throughout the night. Patient states she is feeling better and a lot more calm since arrival to ED. CIWAs 0. Significant other at bedside this shift and updates provided. No needs expressed at this time. Call light placed in reach. [facility] 12-06-2022 Physician Emergency department Note ED Diagnosis and Summary 1. Hyponatremia 2. Numbness and tingling in both hands 3. Numbness and tingling of left side of face 4. Numbness and tingling of right side of face 5. Hypomagnesemia 6. History of alcohol use ED Summary History Chief Complaint Patient presents with Numbness Patient's medications, allergies, past medical, surgical, social and family histories were reviewed and updated as appropriate. HPI This is a 57-year-old female smoker with a history of HTN, GERD, anxiety, and depression who presents to the emergency department today with her for evaluation. The patient reports numbness/tingling to both cheeks and both hands. Onset this morning. No focal weakness. No speech changes or difficulty swallowing. She reports that she is hung over today. She reports that she drank too much alcohol last night and did not eat. She denies fall/injury and LOC. No neck pain. She denies vision changes. No speech changes or difficulty swallowing. No treatments have been tried. No chest pain or shortness of breath. She feels like her brain is in a fog today. She remains ambulatory. Some lightheadedness. Review of Systems Constitutional: Positive for fatigue. Negative for fever. HENT: Negative for rhinorrhea, sore throat, trouble swallowing and voice change. Eyes: Negative for visual disturbance. Respiratory: Negative for cough and shortness of breath. Cardiovascular: Negative for chest pain. Gastrointestinal: Negative for abdominal pain, diarrhea, nausea and vomiting. Genitourinary: Negative for decreased urine volume and difficulty urinating. Musculoskeletal: Negative for gait problem. Skin: Negative for rash. Neurological: Positive for light-headedness and numbness. Negative for syncope, speech difficulty, weakness and headaches. Psychiatric/Behavioral: Negative for confusion. Physical Exam ED Triage Vitals [12/05/22 1752] BP (!) 242/119 Heart Rate 94 Resp 18 Temp 98.4 F (36.9 C) Temp src FOREHEAD SpO2 99 % Weight 182 lb (82.6 kg) Height 5' 5" (1.651 m) BMI (Calculated) 30.29 Physical Exam Vitals and nursing note reviewed. Constitutional: General: She is not in acute distress. Appearance: She is well-developed. She is not diaphoretic. HENT: Head: Normocephalic and atraumatic. Mouth/Throat: Mouth: Mucous membranes are moist. Pharynx: Oropharynx is clear. Eyes: General: No scleral icterus. Extraocular Movements: Extraocular movements intact. Conjunctiva/sclera: Conjunctivae normal. Pupils: Pupils are equal, round, and reactive to light. Cardiovascular: Rate and Rhythm: Normal rate and regular rhythm. Pulses: Normal pulses. Heart sounds: Normal heart sounds. No murmur heard. Pulmonary: Effort: Pulmonary effort is normal. No respiratory distress. Breath sounds: Normal breath sounds. Abdominal: General: Bowel sounds are normal. Palpations: Abdomen is soft. Tenderness: There is no abdominal tenderness. Musculoskeletal: General: No tenderness (no calf tenderness). Cervical back: Neck supple. Right lower leg: No edema. Left lower leg: No edema. Skin: General: Skin is warm and dry. Capillary Refill: Capillary refill takes less than 2 seconds. Findings: No rash. Neurological: Mental Status: She is alert and oriented to person, place, and time. Sensory: Sensation is intact. Motor: Motor function is intact. No tremor or seizure activity. Coordination: Coordination is intact. Comments: Moves all extremities, follows commands appropriately. PERRL. EOMI. No facial droop. Symmetric smile. Normal facial sensation. Tongue midline. Symmetric rise of palate. Strong bilateral shoulder shrug. Clear speech. Psychiatric: Attention and Perception: Attention normal. Speech: Speech is not rapid and pressured or slurred. Behavior: Behavior is cooperative. ED Course Procedures Medical Decision Making Amount and/or Complexity of Data Reviewed Independent Historian: spouse Labs: ordered. Radiology: ordered. ECG/medicine tests: ordered and independent interpretation performed. Details: SR, no injury Risk Decision regarding hospitalization. Hyponatremia and hypomag in the setting of alcohol use. HCT negative for acute pathology - old lacunar infarcts noted. Symptoms are bilateral. Unlikely CVA. NIH 0. Will admit for further evaluation and treatment. Some or all of this note was created using voice recognition software. Efforts were made to proofread, but errors in grammar, syntax, punctuation as well as transcriptional errors may persist. Brittney Torres MD 12/06/[address] [facility] 12-06-2022 Emergency department Note ED Diagnosis and Summary 1. Hyponatremia 2. Numbness and tingling in both hands 3. Numbness and tingling of left side of face 4. Numbness and tingling of right side of face 5. Hypomagnesemia 6. History of alcohol use ED Summary History Chief Complaint Patient presents with Numbness Patient's medications, allergies, past medical, surgical, social and family histories were reviewed and updated as appropriate. HPI This is a 57-year-old female smoker with a history of HTN, GERD, anxiety, and depression who presents to the emergency department today with her for evaluation. The patient reports numbness/tingling to both cheeks and both hands. Onset this morning. No focal weakness. No speech changes or difficulty swallowing. She reports that she is hung over today. She reports that she drank too much alcohol last night and did not eat. She denies fall/injury and LOC. No neck pain. She denies vision changes. No speech changes or difficulty swallowing. No treatments have been tried. No chest pain or shortness of breath. She feels like her brain is in a fog today. She remains ambulatory. Some lightheadedness. Review of Systems Constitutional: Positive for fatigue. Negative for fever. HENT: Negative for rhinorrhea, sore throat, trouble swallowing and voice change. Eyes: Negative for visual disturbance. Respiratory: Negative for cough and shortness of breath. Cardiovascular: Negative for chest pain. Gastrointestinal: Negative for abdominal pain, diarrhea, nausea and vomiting. Genitourinary: Negative for decreased urine volume and difficulty urinating. Musculoskeletal: Negative for gait problem. Skin: Negative for rash. Neurological: Positive for light-headedness and numbness. Negative for syncope, speech difficulty, weakness and headaches. Psychiatric/Behavioral: Negative for confusion. Physical Exam ED Triage Vitals [12/05/22 1752] BP (!) 242/119 Heart Rate 94 Resp 18 Temp 98.4 F (36.9 C) Temp src FOREHEAD SpO2 99 % Weight 182 lb (82.6 kg) Height 5' 5" (1.651 m) BMI (Calculated) 30.29 Physical Exam Vitals and nursing note reviewed. Constitutional: General: She is not in acute distress. Appearance: She is well-developed. She is not diaphoretic. HENT: Head: Normocephalic and atraumatic. Mouth/Throat: Mouth: Mucous membranes are moist. Pharynx: Oropharynx is clear. Eyes: General: No scleral icterus. Extraocular Movements: Extraocular movements intact. Conjunctiva/sclera: Conjunctivae normal. Pupils: Pupils are equal, round, and reactive to light. Cardiovascular: Rate and Rhythm: Normal rate and regular rhythm. Pulses: Normal pulses. Heart sounds: Normal heart sounds. No murmur heard. Pulmonary: Effort: Pulmonary effort is normal. No respiratory distress. Breath sounds: Normal breath sounds. Abdominal: General: Bowel sounds are normal. Palpations: Abdomen is soft. Tenderness: There is no abdominal tenderness. Musculoskeletal: General: No tenderness (no calf tenderness). Cervical back: Neck supple. Right lower leg: No edema. Left lower leg: No edema. Skin: General: Skin is warm and dry. Capillary Refill: Capillary refill takes less than 2 seconds. Findings: No rash. Neurological: Mental Status: She is alert and oriented to person, place, and time. Sensory: Sensation is intact. Motor: Motor function is intact. No tremor or seizure activity. Coordination: Coordination is intact. Comments: Moves all extremities, follows commands appropriately. PERRL. EOMI. No facial droop. Symmetric smile. Normal facial sensation. Tongue midline. Symmetric rise of palate. Strong bilateral shoulder shrug. Clear speech. Psychiatric: Attention and Perception: Attention normal. Speech: Speech is not rapid and pressured or slurred. Behavior: Behavior is cooperative. ED Course Procedures Medical Decision Making Amount and/or Complexity of Data Reviewed Independent Historian: spouse Labs: ordered. Radiology: ordered. ECG/medicine tests: ordered and independent interpretation performed. Details: SR, no injury Risk Decision regarding hospitalization. Hyponatremia and hypomag in the setting of alcohol use. HCT negative for acute pathology - old lacunar infarcts noted. Symptoms are bilateral. Unlikely CVA. NIH 0. Will admit for further evaluation and treatment. Some or all of this note was created using voice recognition software. Efforts were made to proofread, but errors in grammar, syntax, punctuation as well as transcriptional errors may persist. Brittney Torres MD 12/06/22 0145 Report given to EMANUEL Palomares. 3w 3117 BED REQUESTED Awaiting Med One admission order Patient to CT scan with transport. [facility] Emergency Department Triage Brief Evaluation: Dr Suhbash Urban D.O. Emergency Medicine Attending 57-year-old female presents emergency room for numbness complaints. History of aneurysm she states and the family. She was concerned about that. She started having bilateral facial numbness earlier today. She was also having some bilateral arm and hand numbness. She does not feel any new numbness distribution in her lower extremities. She had recent right ACL surgery . She denies any chest pain. No shortness of breath. She denies any tongue abnormalities although she thought she might have a slurred speech. She did admit to drinking 2 large bottles of wine last night and has felt hung over most of the day in addition to these complaints. Screening lab work has been ordered. Her symptoms are not unilateral but seem to be more bilateral. Her blood pressure is elevated in triage. Subhash Urban DO 12/05/22 7765 Pt reports to ED ambulatory with complaints of bilateral sided facial numbness and bilateral hand numbness that started this morning. Pt tearful during triage. Skin pink and clammy. NAD at this time. Respirs easy and unlabored. documented in this encounter [facility] 12-05-2022 Nurse Note Patient arrives from ED by cot to room 3117. Transferred to bed with the assistance of self. Patient is accompanied by . Patient's current mental status AOx4. [facility] 12-05-2022 Emergency department Note Report given to EMANUEL Palomares. [facility] 12-05-2022 History and physical note [facility] / [facility] History and Physical 12/05/22 Margo Raya Romulo [id number] Assessment/Plan: Margo Sebastian is a 57 y.o. female with a history of anxiety, alcohol abuse, hypertension who presented to [facility] 12/05/2022 with bilateral facial paresthesias. 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 Labs with Na 121, Cl 86. Hyponatremia: Na 121 on arrival in setting of alcohol abuse, poor oral intake, frequent home NSAID use. Also on Celexa and HCTZ, but chronically. Continue NS at 75 mL/hr, urine osmolality/sodium pending, holding HCTZ. Goal 6-8 mEq correction per 24 hours. 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 Symptoms do not localize, likely due to hypomagnesemia, anxiety, and hyponatremia. Addressing individual issues Lacunar Infarcts: Old, on admission CT. Patient reports very poor chronic BP control with SBP 170s-180s. Will check CTA, lipid panel, A1c for stroke reduction. Initiated 81 mg ASA, statin. Defer MRI with severe anxiety and non-localizing symptoms on admission Hypertensive urgency: With baseline poorly controlled BP on home triamterine/HCTZ and lisinopril. Exacerbated by anxiety. Continue lisinopril, initiated amlodipine, anxiety meds as below, PRN hydralazine. 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 Reports drinking > 1 bottle of wine daily. Phenobarb taper, CIWA, vitamin supplementation Depression with anxiety: Very sever on admission. Continue lexapro, CIWA. Would benefit from outpatient cognitive behavioral therapy Code Status: Full Code DVT Prophylaxis: heparin Current living situation: home Expected Disposition: home Estimated discharge date: TBD Chief Complaint: Hyponatremia, Paresthesias History of Present Illness: Pt is a pleasant 57 YO F with a h/o poorly controlled HTN, alcohol abuse, depression who presented with bilateral facial paresthesias. She also reports bilateral distal UE and RLE paresthesias but these are old. High anxiety b/c an aunt of cerebral hemorrhage. NO weakness. 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 Also reports poor oral intake for 2 days FISH CUTTER and continued home triamterine/hctz. Admission CT with old bilateral internal capsule lacunar infarcts-new diagnosis for patient. Discussed in detail plan of care for hyponatremia, stroke risk modification, and blood pressure and patient agreeeable to plan of care. SBP melita to 240s during interview as she became more anxious upon hearing of discovery of old lacunar infarcts. ROS: 10 systems were reviewed and negative, except as noted above Past Medical, Surgical, Social, Family History: Past Medical History: Diagnosis Date Anxiety Cervical dysplasia Depression GERD (gastroesophageal reflux disease) Hypertension Past Surgical History: Procedure Laterality Date CARPAL TUNNEL RELEASE Bilateral 2018 CERVICAL CONE BIOPSY age 20 TONSILLECTOMY AND ADENOIDECTOMY WISDOM TOOTH EXTRACTION Social History Socioeconomic History Marital status: Spouse name: Not on file Number of children: Not on file Years of education: Not on file Highest education level: Not on file Occupational History Not on file Tobacco Use Smoking status: Every Day Packs/day: 1.00 Years: 32.00 Pack years: 32.00 Types: Cigarettes Smokeless tobacco: Never Vaping Use Vaping Use: Never used Substance and Sexual Activity Alcohol use: Yes Alcohol/week: 2.0 standard drinks of alcohol Types: 2 Glasses of wine per week Comment: twice weekly Drug use: No Sexual activity: Not on file Other Topics Concern Not on file Social History Narrative Not on file Social Determinants of Health Financial Resource Strain: Not on file Food Insecurity: Not on file Transportation Needs: Not on file Physical Activity: Not on file Stress: Not on file Social Connections: Not on file Intimate Partner Violence: Not on file Housing Stability: Not on file Family History Problem Relation Age of Onset Cancer Mother melenoma Cancer Father ESOPHAGUS Cancer Maternal Aunt uterine\\ Cancer Other uterine, maternal aunt Home Medications: No current facility-administered medications on file prior to encounter. Current Outpatient Medications on File Prior to Encounter Medication Sig Dispense Refill cetirizine (ZYRTEC) 10 MG tablet Take 1 tablet by mouth daily. citalopram (CELEXA) 40 MG tablet Take 1 tablet by mouth daily. [DISCONTINUED] clobetasol (TEMOVATE) 0.05 % cream Apply topically two times a day. (Patient not taking: Reported on 02/13/2021) Fluticasone propionate (FLONASE) 50 MCG/ACT nasal spray 1 spray by Nasal route daily. Glucosamine-Chondroitin 750-600 MG TABS Take 1 tablet by mouth daily. lisinopril (PRINIVIL,ZESTRIL) 10 MG tablet Take 1 tablet by mouth daily. Naphazoline-Pheniramine (EYE ALLERGY RELIEF OP) Apply to eye. pantoprazole (PROTONIX) 40 MG tablet Take 1 tablet by mouth daily. triamterene-hydrochlorothiazide (MAXZIDE-25) 37.5-25 MG per tablet Take 1 tablet by mouth every morning. Allergies Allergen Reactions Bacitracin Rash Bactrim [Sulfamethoxazole-Trimethoprim] Rash Neosporin [Bacitracin-Polymyxin B] Rash Physical Exam: Visit Vitals BP 200/81 Pulse 65 Temp 98.4 F (36.9 C) (forehead) Resp 18 Ht 5' 5" (1.651 m) Wt 82.6 kg (182 lb) SpO2 100% BMI 30.29 kg/m General: NAD Eyes: EOMI ENT: neck supple Cardiovascular: Regular rate. Respiratory: Clear to auscultation Gastrointestinal: Soft, non tender Genitourinary: no suprapubic tenderness Musculoskeletal: No edema Skin: warm, dry Neuro: mildly slurred speech, CN II-XII intact Psych: Extremely anxious, tearful Labs, Imaging, and Studies reviewed: Recent Labs Lab 12/05/22 181 HGB 11.6* HCT 34.0 PLT 418* Recent Labs Lab 12/05/22 1814 NA 121* K 3.7 CL 86* BUN 9 CREATININE 0.64 EGFR >90.0 CALCIUM 9.2 LABALBU 4.5 Recent Labs Lab 12/05/22 1814 ALT 32 AST 49* ALKPHOS 115 BILITOT 0.6 No results for input(s): INR in the last [address] [facility] 12-05-2022 History and physical note [facility] History and Physical 12/05/22 Margo Sebastian [id number] Assessment/Plan: Margo Sebastian is a 57 y.o. female with a history of anxiety, alcohol abuse, hypertension who presented to [facility] 12/05/2022 with bilateral facial paresthesias. 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 Labs with Na 121, Cl 86. Hyponatremia: Na 121 on arrival in setting of alcohol abuse, poor oral intake, frequent home NSAID use. Also on Celexa and HCTZ, but chronically. Continue NS at 75 mL/hr, urine osmolality/sodium pending, holding HCTZ. Goal 6-8 mEq correction per 24 hours. 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 Symptoms do not localize, likely due to hypomagnesemia, anxiety, and hyponatremia. Addressing individual issues Lacunar Infarcts: Old, on admission CT. Patient reports very poor chronic BP control with SBP 170s-180s. Will check CTA, lipid panel, A1c for stroke reduction. Initiated 81 mg ASA, statin. Defer MRI with severe anxiety and non-localizing symptoms on admission Hypertensive urgency: With baseline poorly controlled BP on home triamterine/HCTZ and lisinopril. Exacerbated by anxiety. Continue lisinopril, initiated amlodipine, anxiety meds as below, PRN hydralazine. 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 Reports drinking > 1 bottle of wine daily. Phenobarb taper, CIWA, vitamin supplementation Depression with anxiety: Very sever on admission. Continue lexapro, CIWA. Would benefit from outpatient cognitive behavioral therapy Code Status: Full Code DVT Prophylaxis: heparin Current living situation: home Expected Disposition: home Estimated discharge date: TBD Chief Complaint: Hyponatremia, Paresthesias History of Present Illness: Pt is a pleasant 57 YO F with a h/o poorly controlled HTN, alcohol abuse, depression who presented with bilateral facial paresthesias. She also reports bilateral distal UE and RLE paresthesias but these are old. High anxiety b/c an aunt of cerebral hemorrhage. NO weakness. 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 Also reports poor oral intake for 2 days FISH CUTTER and continued home triamterine/hctz. Admission CT with old bilateral internal capsule lacunar infarcts-new diagnosis for patient. Discussed in detail plan of care for hyponatremia, stroke risk modification, and blood pressure and patient agreeeable to plan of care. SBP melita to 240s during interview as she became more anxious upon hearing of discovery of old lacunar infarcts. ROS: 10 systems were reviewed and negative, except as noted above Past Medical, Surgical, Social, Family History: Past Medical History: Diagnosis Date Anxiety Cervical dysplasia Depression GERD (gastroesophageal reflux disease) Hypertension Past Surgical History: Procedure Laterality Date CARPAL TUNNEL RELEASE Bilateral 2018 CERVICAL CONE BIOPSY age 20 TONSILLECTOMY AND ADENOIDECTOMY WISDOM TOOTH EXTRACTION Social History Socioeconomic History Marital status: Spouse name: Not on file Number of children: Not on file Years of education: Not on file Highest education level: Not on file Occupational History Not on file Tobacco Use Smoking status: Every Day Packs/day: 1.00 Years: 32.00 Pack years: 32.00 Types: Cigarettes Smokeless tobacco: Never Vaping Use Vaping Use: Never used Substance and Sexual Activity Alcohol use: Yes Alcohol/week: 2.0 standard drinks of alcohol Types: 2 Glasses of wine per week Comment: twice weekly Drug use: No Sexual activity: Not on file Other Topics Concern Not on file Social History Narrative Not on file Social Determinants of Health Financial Resource Strain: Not on file Food Insecurity: Not on file Transportation Needs: Not on file Physical Activity: Not on file Stress: Not on file Social Connections: Not on file Intimate Partner Violence: Not on file Housing Stability: Not on file Family History Problem Relation Age of Onset Cancer Mother melenoma Cancer Father ESOPHAGUS Cancer Maternal Aunt uterine\\ Cancer Other uterine, maternal aunt Home Medications: No current facility-administered medications on file prior to encounter. Current Outpatient Medications on File Prior to Encounter Medication Sig Dispense Refill cetirizine (ZYRTEC) 10 MG tablet Take 1 tablet by mouth daily. citalopram (CELEXA) 40 MG tablet Take 1 tablet by mouth daily. [DISCONTINUED] clobetasol (TEMOVATE) 0.05 % cream Apply topically two times a day. (Patient not taking: Reported on 02/13/2021) Fluticasone propionate (FLONASE) 50 MCG/ACT nasal spray 1 spray by Nasal route daily. Glucosamine-Chondroitin 750-600 MG TABS Take 1 tablet by mouth daily. lisinopril (PRINIVIL,ZESTRIL) 10 MG tablet Take 1 tablet by mouth daily. Naphazoline-Pheniramine (EYE ALLERGY RELIEF OP) Apply to eye. pantoprazole (PROTONIX) 40 MG tablet Take 1 tablet by mouth daily. triamterene-hydrochlorothiazide (MAXZIDE-25) 37.5-25 MG per tablet Take 1 tablet by mouth every morning. Allergies Allergen Reactions Bacitracin Rash Bactrim [Sulfamethoxazole-Trimethoprim] Rash Neosporin [Bacitracin-Polymyxin B] Rash Physical Exam: Visit Vitals BP 200/81 Pulse 65 Temp 98.4 F (36.9 C) (forehead) Resp 18 Ht 5' 5" (1.651 m) Wt 82.6 kg (182 lb) SpO2 100% BMI 30.29 kg/m General: NAD Eyes: EOMI ENT: neck supple Cardiovascular: Regular rate. Respiratory: Clear to auscultation Gastrointestinal: Soft, non tender Genitourinary: no suprapubic tenderness Musculoskeletal: No edema Skin: warm, dry Neuro: mildly slurred speech, CN II-XII intact Psych: Extremely anxious, tearful Labs, Imaging, and Studies reviewed: Recent Labs Lab 12/05/221813 HGB 11.6* HCT 34.0 PLT 418* Recent Labs Lab 12/05/22 181 NA 121* K 3.7 CL 86* BUN 9 CREATININE 0.64 EGFR >90.0 CALCIUM 9.2 LABALBU 4.5 Recent Labs Lab 12/05/221813 ALT 32 AST 49* ALKPHOS 115 BILITOT 0.6 No results for input(s): INR in the last 168 hours. documented in this encounter [facility] 12-05-2022 Emergency department Note 3w [address] [facility] 12-05-2022 Emergency department Note BED REQUESTED [facility] 12-05-2022 Emergency department Note Awaiting Med One admission order [facility] 12-05-2022 Emergency department Note Patient to CT scan with transport. [facility] 12-05-2022 Emergency department Note [facility] Emergency Department Triage Brief Evaluation: Dr Subhash Urban D.O. Emergency Medicine Attending 57-year-old female presents emergency room for numbness complaints. History of aneurysm she states and the family. She was concerned about that. She started having bilateral facial numbness earlier today. She was also having some bilateral arm and hand numbness. She does not feel any new numbness distribution in her lower extremities. She had recent right ACL surgery . She denies any chest pain. No shortness of breath. She denies any tongue abnormalities although she thought she might have a slurred speech. She did admit to drinking 2 large bottles of wine last night and has felt hung over most of the day in addition to these complaints. Screening lab work has been ordered. Her symptoms are not unilateral but seem to be more bilateral. Her blood pressure is elevated in triage. Subhash Urban DO 12/05/[address] [facility] Work Phone: 12-05-2022 Emergency department Triage note Pt reports to ED ambulatory with complaints of bilateral sided facial numbness and bilateral hand numbness that started this morning. Pt tearful during triage. Skin pink and clammy. NAD at this time. Respirs easy and unlabored. [facility] 10-05-2022 Telephone encounter Note Last date seen: 06/11/22 Last labs: 04/09/22 Appointment made: none Surescripts request. OARRS/NARxCHECK Report Received and Assessed: No data found Date controlled substance agreement signed: No data found Date of last drug screen: No data found Functional Assessment: No data found ----- Message from Amy Kulkarni sent at 10/05/2022 9:34 AM EDT ----- Regarding: rx refill Contact: margo MEDICATION REFILL REQUEST: PCP: Kong Reddy MD Patient called 10/05/22 and is requesting a medication refill for triamterene-hydrochlorothiazide (MAXZIDE-25) 37.5-25 mg per tablet. This was confirmed from the current medication list found in the patients chart. Supply Requested: # of days: 30 days Method of receiving: Send to pharmacy Last set of flowsheet rows for OARRS report: OARRS/NARxCHECK Report Received and Assessed: No data found Date controlled substance agreement signed: No data found Date of last drug screen: No data found Functional Assessment: No data found Will this refill be sent to the preferred pharmacy listed below? Yes Preferred pharmacies: [facility] [address] [place] [phone] [place] [phone] [facility] [phone] Pt Call Back Number Patient call back message sent to the primary care clinical pool. Amy Kulkarni [facility] 10-05-2022 Miscellaneous Notes Last date seen: 06/11/22 Last labs: 04/09/22 Appointment made: none Thomasrialondra request. OARRS/NARxCHECK Report Received and Assessed: No data found Date controlled substance agreement signed: No data found Date of last drug screen: No data found Functional Assessment: No data found ----- Message from Amy Kulkarni sent at 10/05/2022 9:34 AM EDT ----- Regarding: rx refill Contact: margo MEDICATION REFILL REQUEST: PCP: Kong Reddy MD Patient called 10/05/22 and is requesting a medication refill for triamterene-hydrochlorothiazide (MAXZIDE-25) 37.5-25 mg per tablet. This was confirmed from the current medication list found in the patients chart. Supply Requested: # of days: 30 days Method of receiving: Send to pharmacy Last set of flowsheet rows for OARRS report: OARRS/NARxCHECK Report Received and Assessed: No data found Date controlled substance agreement signed: No data found Date of last drug screen: No data found Functional Assessment: No data found Will this refill be sent to the preferred pharmacy listed below? Yes Preferred pharmacies: [facility] [address] [place] [phone] [place] [phone] [place] [phone] Pt Call Back Number Patient call back message sent to the primary care clinical pool. Amy Kulkarni documented in this encounter [facility] 06-11-2022 History of Presen t illness Narrative Video Visit [facility] [address] [place] [phone] Via Real-time Synchronous Audiovisual [facility] 06/11/2022 Kong Reddy MD Provider Location: Office Patient Location Specialty Therapist: None Patient Location: Patient's Home Patient: Margo Sebastian Date of : 1965 (57 y.o. female) PCP: Kong Reddy MD Video Visit Consent Statement: I discussed risks, benefits and alternatives of a real-time synchronous audiovisual consultation with the patient (and any accompanying persons) including the risks that the patient s personal health details and medical records will be discussed over real-time, synchronous, interactive video/audio/telecommunication technology, the visit will not be recorded without the express consent of both the provider and the patient, and that there are some limitations compared to riji-eu-ohrt evaluations. We elected to proceed. Subjective Patient ID: Margo Sebastian is a 57 y.o. female. Patient presenting here today for video visit for evaluation for multiple issues. She has been having issues with acid reflux symptoms. She has been trying to make some dietary adjustments to address this but her symptoms have been pretty significant at times. Patient does continue to use alcohol on a regular basis. Unfortunately she is now drinking 4 to 6 glasses of wine on a daily basis. She is can be following up with a counselor to address these issues. She is definitely interested in cutting back and stopping alcohol at this point and would like to take steps to do so. She was interested in taking oral naltrexone to assist with this. No chief complaint on file. The following portions of the patient's history were reviewed and updated as appropriate: allergies, current medications, past family history, past medical history, past social history, past surgical history and problem list. Social History Tobacco Use Smoking Status Every Day Packs/day: 1.00 Years: 43.00 Pack years: 43.00 Types: Cigarettes Smokeless Tobacco Never Review of Systems Constitutional: Negative for activity change, fatigue and fever. HENT: Negative for congestion. Respiratory: Negative for cough, chest tightness and shortness of breath. Cardiovascular: Negative for chest pain, palpitations and leg swelling. Gastrointestinal: Negative for abdominal pain. GERD symptoms Genitourinary: Negative for difficulty urinating. Musculoskeletal: Negative for arthralgias and myalgias. Skin: Negative for rash. Neurological: Negative for dizziness and light-headedness. Hematological: Negative for adenopathy. Psychiatric/Behavioral: Negative for decreased concentration and dysphoric mood. The patient is not nervous/anxious. Objective Physical Exam Constitutional: General: She is not in acute distress. Appearance: Normal appearance. She is well-developed and normal weight. She is not ill-appearing, toxic-appearing or diaphoretic. HENT: Head: Normocephalic and atraumatic. Right Ear: External ear normal. Left Ear: External ear normal. Nose: Nose normal. Pulmonary: Effort: Pulmonary effort is normal. No respiratory distress. Musculoskeletal: General: Normal range of motion. Skin: Findings: No rash. Neurological: Mental Status: She is alert and oriented to person, place, and time. Coordination: Coordination normal. Psychiatric: Mood and Affect: Mood normal. Behavior: Behavior normal. Thought Content: Thought content normal. Judgment: Judgment normal. There were no vitals taken for this visit. Assessment/Plan: Reviewed and discussed all issues in depth with patient here today. She will use Protonix 40 mg daily for acid reflux issues. She will adjust her diet and avoid trigger foods. She is going to be getting more active and work on weight loss and diet and exercise efforts. She will increase hydration. Continue citalopram for anxiety and depression symptoms. Continue lisinopril for hypertension. Monitor blood pressure at home. With regards to her alcohol. She should definitely continue with her counselor on a regular basis. She can start weaning back from the alcohol. I have advised her not to stop this cold turkey. She understands these instructions. She will start to wean down on her amount of alcohol intake with the hopes of eventually stopping here in the near future. She was given prescription for oral naltrexone to decrease cravings. She is advised that she needs to stop drinking before starting this medication. She understands this. We are going to see her back in coming weeks for follow-up and recheck. Call any other issues or concerns whatsoever in the meantime Problem List Items Addressed This Visit None Visit Diagnoses Gastroesophageal reflux disease, unspecified whether esophagitis present - Primary Relevant Medications pantoprazole (PROTONIX) 40 MG tablet Moderate alcohol use disorder (HCC) Relevant Medications naltrexone (DEPADE, REVIA) 50 mg tablet Anxiety Depression, unspecified depression type Hypertension, unspecified type Return in about 3 weeks (around 07/02/2022), or if symptoms worsen or fail to improve, for Follow Up, Re-check. For any new medications prescribed today, patient was educated about indications for the medication, how to take the medication and potential side effects of the medications. Kong Reddy MD documented in this encounter [facility] 04-18-2022 History of Presen t illness Narrative Video Visit [facility], [address] [facility] [phone] Via Real-time Synchronous Audiovisual [facility] 04/18/2022 Sree Escalera MD Provider Location: office Patient Location Specialty Therapist: None Patient Location: Patient's Home Patient: Margo Sebastian Date of : 1965 (57 y.o. female) PCP: Kong Reddy MD Video Visit Consent Statement: I discussed risks, benefits and alternatives of a real-time synchronous audiovisual consultation with the patient (and any accompanying persons) including the risks that the patient s personal health details and medical records will be discussed over real-time, synchronous, interactive video/audio/telecommunication technology, the visit will not be recorded without the express consent of both the provider and the patient, and that there are some limitations compared to qglv-my-ttus evaluations. We elected to proceed. Subjective Patient ID: Margo Sebastian is a 57 y.o. female. This is a 57-year-old female presents with a several day history of head congestion, sore throat, sinus pain and pressure, lung congestion, coughing, and fatigue. All the symptoms are getting worse and drrl-gkw-sliednl medicines are not helping. She has not had high fever. She feels the same as when she has had sinus infection and bronchitis in the past. No chief complaint on file. The following portions of the patient's history were reviewed and updated as appropriate: allergies, current medications, past family history, past medical history, past social history, past surgical history and problem list. Social History Tobacco Use Smoking Status Every Day Packs/day: 1.00 Years: 43.00 Pack years: 43.00 Types: Cigarettes Smokeless Tobacco Never Review of Systems Constitutional: Positive for fatigue. HENT: Positive for congestion, sinus pressure, sinus pain and sore throat. Respiratory: Positive for cough. Negative for wheezing. Cardiovascular: Negative for chest pain. Gastrointestinal: Negative for abdominal pain, diarrhea and nausea. Skin: Negative for rash. Objective Physical Exam Vitals and nursing note reviewed. Constitutional: Appearance: She is ill-appearing. HENT: Head: Normocephalic and atraumatic. Eyes: Extraocular Movements: Extraocular movements intact. Pupils: Pupils are equal, round, and reactive to light. Skin: General: Skin is dry. Neurological: Mental Status: She is alert and oriented to person, place, and time. Psychiatric: Mood and Affect: Mood normal. Behavior: Behavior normal. There were no vitals taken for this visit. Assessment/Plan: Problem List Items Addressed This Visit None Visit Diagnoses Acute non-recurrent pansinusitis - Primary Acute bronchitis, unspecified organism Start the antibiotic today. Use an otc decongestant as needed. Use Tylenol as needed for pain/fever. Return if symptoms worsen or fail to improve. For any new medications prescribed today, patient was educated about indications for the medication, how to take the medication and potential side effects of the medications. Sree Escalera MD documented in this encounter [facility] 04-09-2022 History of Presen t illness Narrative HPI Patient present here today for physical examination and full lab work. She doing fairly well at this time. She denies any chest pain or shortness of breath. No fever chills or cough. She has not taken her blood pressure medication here this morning over the past couple days. It is elevated today. She is can get back on track with this and monitor blood pressure at home. She is can work on diet and exercise efforts. She does have history of multiple tick bites. She has been taking her medication there appropriately with doxycycline. Chief Complaint Patient presents with Annual Exam Past Medical History: Diagnosis Date Arthritis Colitis Depression GERD (gastroesophageal reflux disease) Hypertension Past Surgical History: Procedure Laterality Date CARPAL TUNNEL RELEASE Bilateral 12/30/2017 KNEE SURGERY Left Social History Socioeconomic History Marital status: Tobacco Use Smoking status: Every Day Packs/day: 1.00 Years: 43.00 Pack years: 43.00 Types: Cigarettes Smokeless tobacco: Never Vaping Use Vaping Use: Never used Substance and Sexual Activity Alcohol use: Yes Alcohol/week: 2.0 standard drinks Types: 2 Glasses of wine per week Drug use: No Sexual activity: Not Currently Partners: Male control/protection: I.U.D. Social Determinants of Health Financial Resource Strain: Low Risk Difficulty of Paying Living Expenses: Not hard at all Food Insecurity: No Food Insecurity Worried About Running Out of Food in the Last Year: Never true Ran Out of Food in the Last Year: Never true Transportation Needs: No Transportation Needs Lack of Transportation (Medical): No Lack of Transportation (Non-Medical): No Review of Systems Constitutional: Negative for activity change, appetite change, fatigue and fever. HENT: Negative for congestion, ear pain, hearing loss and sore throat. Eyes: Negative for pain and visual disturbance. Respiratory: Negative for cough, chest tightness and shortness of breath. Cardiovascular: Negative for chest pain, palpitations and leg swelling. Gastrointestinal: Negative for abdominal pain, blood in stool, constipation, diarrhea, nausea and vomiting. GERD symptoms Endocrine: Negative for cold intolerance and heat intolerance. Genitourinary: Negative for difficulty urinating and dysuria. Musculoskeletal: Negative for arthralgias and myalgias. Skin: Negative for color change and rash. Hx multiple tick bites Neurological: Negative for dizziness and light-headedness. Hematological: Negative for adenopathy. Psychiatric/Behavioral: Negative for behavioral problems, decreased concentration, dysphoric mood and sleep disturbance. The patient is not nervous/anxious. Physical Exam Vitals and nursing note reviewed. Constitutional: General: She is not in acute distress. Appearance: Normal appearance. She is well-developed and normal weight. She is not ill-appearing, toxic-appearing or diaphoretic. HENT: Head: Normocephalic and atraumatic. Right Ear: Tympanic membrane, ear canal and external ear normal. There is no impacted cerumen. Left Ear: Tympanic membrane, ear canal and external ear normal. There is no impacted cerumen. Nose: Nose normal. No congestion or rhinorrhea. Mouth/Throat: Mouth: Mucous membranes are moist. Pharynx: Oropharynx is clear. No oropharyngeal exudate or posterior oropharyngeal erythema. Eyes: General: No scleral icterus. Right eye: No discharge. Left eye: No discharge. Conjunctiva/sclera: Conjunctivae normal. Pupils: Pupils are equal, round, and reactive to light. Neck: Thyroid: No thyromegaly. Vascular: No carotid bruit. Trachea: No tracheal deviation. Cardiovascular: Rate and Rhythm: Normal rate and regular rhythm. Pulses: Normal pulses. Heart sounds: Normal heart sounds. No murmur heard. Pulmonary: Effort: Pulmonary effort is normal. No respiratory distress. Breath sounds: Normal breath sounds. No wheezing or rales. Chest: Chest wall: No tenderness. Abdominal: General: Bowel sounds are normal. There is no distension. Palpations: Abdomen is soft. There is no mass. Tenderness: There is no abdominal tenderness. There is no guarding or rebound. Hernia: No hernia is present. Musculoskeletal: General: No swelling or tenderness. Normal range of motion. Cervical back: Normal range of motion and neck supple. No rigidity or tenderness. No muscular tenderness. Right lower leg: No edema. Left lower leg: No edema. Lymphadenopathy: Cervical: No cervical adenopathy. Skin: General: Skin is warm and dry. Findings: No erythema or rash. Comments: Scarring noted on extremities previous insect bites Neurological: General: No focal deficit present. Mental Status: She is alert and oriented to person, place, and time. Mental status is at baseline. Cranial Nerves: No cranial nerve deficit. Sensory: No sensory deficit. Motor: No abnormal muscle tone. Coordination: Coordination normal. Psychiatric: Mood and Affect: Mood normal. Behavior: Behavior normal. Thought Content: Thought content normal. Judgment: Judgment normal. BP (!) 171/95 (BP Location: Left arm, Patient Position: Sitting, BP Cuff Size: X-large Adult) Pulse 68 Temp 98.4 F (36.9 C) Ht 5' 5" Wt 83 kg (183 lb) SpO2 97% BMI 30.45 kg/m Impression/Plan Discussed all issues with patient today. We will check full lab work and follow-up on all results. She will work on diet and exercise and weight loss efforts. She will get back on track with taking her blood pressure medication consistently. If it is elevated at all at home, we will just increase her medication. We will set her up for an EGD given issues with persistent GERD symptoms. She will take medication as directed. Adjust diet accordingly. Check Hemoccult for colon cancer screening. Call any other issues or concerns and we will see her back in 3 months for recheck. Problem List Items Addressed This Visit None Visit Diagnoses Routine medical exam - Primary Relevant Orders CBC and Differential (Completed) Comprehensive Metabolic Panel (Completed) ECG 12 Lead (Completed) Lipid Panel (Completed) Urinalysis (Completed) TSH (Completed) Hypertension, unspecified type Gastroesophageal reflux disease, unspecified whether esophagitis present Relevant Orders Ambulatory referral to Gastroenterology Colon cancer screening Relevant Orders POC Immunochemical Occult Blood Stool-iFOB (FIT), Screening Discussed elevated Body Mass Index (BMI): Advised regular exercise. Discussed elevated Body Mass Index (BMI): Advised healthy and appropriate diet. Rationale: Overweight (Findings) BMI Return in about 3 months (around 07/08/2022), or if symptoms worsen or fail to improve, for Follow Up, Re-check. For any new medications prescribed today, patient was educated about indications for the medication, how to take the medication and potential side effects of the medications. Kong Reddy MD documented in this encounter [facility] 11-17-2021 Telephone encounter Note Last date seen:01/30/21 Last labs: Appointment made: Surescripts request. OARRS/NARxCHECK Report Received and Assessed: No data found Date controlled substance agreement signed: No data found Date of last drug screen: No data found Functional Assessment: No data found ----- Message from Wilner Loaiza sent at 11/17/2021 3:00 PM EDT ----- Regarding: Mediction Refill Contact: Pt [phone] MEDICATION REFILL REQUEST: PCP: Kong Reddy MD Patient called 11/17/21 and is requesting a medication refill for citalopram (CELEXA) 40 MG tablet This was confirmed from the current medication list found in the patients chart. Supply Requested: # of days: 90 days Method of receiving: Send to pharmacy Last set of flowsheet rows for OARRS report: OARRS/NARxCHECK Report Received and Assessed: No data found Date controlled substance agreement signed: No data found Date of last drug screen: No data found Functional Assessment: No data found Will this refill be sent to the preferred pharmacy listed below? Yes Preferred pharmacies: [facility] [address] [place] [phone] [place] [phone] Pt Call Back Number Patient call back message sent to the primary care clinical pool. Wilner Loaiza [facility] 11-17-2021 Miscellaneous Notes Last date seen:01/30/21 Last labs: Appointment made: Surescripts request. OARRS/NARxCHECK Report Received and Assessed: No data found Date controlled substance agreement signed: No data found Date of last drug screen: No data found Functional Assessment: No data found ----- Message from Wilner Loaiza sent at 11/17/2021 3:00 PM EDT ----- Regarding: Mediction Refill Contact: Pt [phone] MEDICATION REFILL REQUEST: PCP: Kong Reddy MD Patient called 11/17/21 and is requesting a medication refill for citalopram (CELEXA) 40 MG tablet This was confirmed from the current medication list found in the patients chart. Supply Requested: # of days: 90 days Method of receiving: Send to pharmacy Last set of flowsheet rows for OARRS report: OARRS/NARxCHECK Report Received and Assessed: No data found Date controlled substance agreement signed: No data found Date of last drug screen: No data found Functional Assessment: No data found Will this refill be sent to the preferred pharmacy listed below? Yes Preferred pharmacies: [facility] [address] [place] [phone] [place] [phone] Pt Call Back Number Patient call back message sent to the primary care clinical pool. Wilner Loaiza documented in this encounter [facility] 10-10-2021 Telephone encounter Note Last date seen:02/09/2021 Last labs: Appointment made: Surescripts request. OARRS/NARxCHECK Report Received and Assessed: No data found Date controlled substance agreement signed: No data found Date of last drug screen: No data found Functional Assessment: No data found [facility] 10-10-2021 Miscellaneous Notes Last date seen:02/09/2021 Last labs: Appointment made: Surescripts request. OARRS/NARxCHECK Report Received and Assessed: No data found Date controlled substance agreement signed: No data found Date of last drug screen: No data found Functional Assessment: No data found ----- Message from Maria Victoria Agosto sent at 10/09/2021 3:11 PM EDT ----- Regarding: rx refill Contact: self [phone] MEDICATION REFILL REQUEST: PCP: Kong Reddy MD Patient called 10/09/21 and is requesting a medication refill for . triamterene-hydrochlorothiazide (MAXZIDE-25) 37.5-25 mg per tablet This was confirmed from the current medication list found in the patients chart. Supply Requested: # of days: 90 days Method of receiving: Send to pharmacy Last set of flowsheet rows for OARRS report: OARRS/NARxCHECK Report Received and Assessed: No data found Date controlled substance agreement signed: No data found Date of last drug screen: No data found Functional Assessment: No data found Will this refill be sent to the preferred pharmacy listed below? Yes Preferred pharmacies: [facility] [address] [place] [phone] [place] [phone] [place] [phone] Pt Call Back Number Patient call back message sent to the primary care clinical pool. Maria Victoria Agosto documented in this encounter [facility] 10-10-2021 Telephone encounter Note ----- Message from Maria Victoria Agosto sent at 10/09/2021 3:11 PM EDT ----- Regarding: rx refill Contact: self [phone] MEDICATION REFILL REQUEST: PCP: Kong Reddy MD Patient called 10/09/21 and is requesting a medication refill for . triamterene-hydrochlorothiazide (MAXZIDE-25) 37.5-25 mg per tablet This was confirmed from the current medication list found in the patients chart. Supply Requested: # of days: 90 days Method of receiving: Send to pharmacy Last set of flowsheet rows for OARRS report: OARRS/NARxCHECK Report Received and Assessed: No data found Date controlled substance agreement signed: No data found Date of last drug screen: No data found Functional Assessment: No data found Will this refill be sent to the preferred pharmacy listed below? Yes Preferred pharmacies: [place] [id number] Pt Call Back Number Patient call back message sent to the primary care clinical pool. Maria Victoria Agosto [facility] 08-09-2021 Telephone encounter Note Last seen 01/30/21 ----- Message from Edda Campos sent at 08/09/2021 10:25 AM EDT ----- MEDICATION REFILL REQUEST: PCP: Kong Reddy MD Patient called 08/09/21 and is requesting a medication refill for lisinopriL (PRINIVIL,ZESTRIL) 20 MG tablet 90 tablet 1 02/07/2021 02/07/2022 Sig - Route: Take 1 (one) tablet (20 mg total) by mouth daily . - Oral This was confirmed from the current medication list found in the patients chart. Supply Requested: # of days: 90 days Method of receiving: Send to pharmacy Last set of flowsheet rows for OARRS report: OARRS/NARxCHECK Report Received and Assessed: No data found Date controlled substance agreement signed: No data found Date of last drug screen: No data found Functional Assessment: No data found Will this refill be sent to the preferred pharmacy listed below? Yes Preferred pharmacies: [place] [phone] Pt Call Back Number Patient call back message sent to the [facility] [place]. Edda Campos [facility] 08-09-2021 Miscellaneous Notes Last seen 01/30/21 ----- Message from Edda Campos sent at 08/09/2021 10:25 AM EDT ----- MEDICATION REFILL REQUEST: PCP: Kong Reddy MD Patient called 08/09/21 and is requesting a medication refill for lisinopriL (PRINIVIL,ZESTRIL) 20 MG tablet 90 tablet 1 02/07/2021 02/07/2022 Sig - Route: Take 1 (one) tablet (20 mg total) by mouth daily . - Oral This was confirmed from the current medication list found in the patients chart. Supply Requested: # of days: 90 days Method of receiving: Send to pharmacy Last set of flowsheet rows for OARRS report: OARRS/NARxCHECK Report Received and Assessed: No data found Date controlled substance agreement signed: No data found Date of last drug screen: No data found Functional Assessment: No data found Will this refill be sent to the preferred pharmacy listed below? Yes Preferred pharmacies: [facility] [address] [place] [phone] Pt Call Back Number Patient call back message sent to the [facility] [place]. Edda Campos documented in this encounter [facility] 02-07-2021 Miscellaneous Notes Patient My Chart Message for a refill of Requested Prescriptions Pending Prescriptions Disp Refills lisinopriL (PRINIVIL,ZESTRIL) 20 MG tablet 90 tablet 1 Sig: Take 1 (one) tablet (20 mg total) by mouth daily . Prescription last refilled: 08/08/20 Last Office Visit: 01/30/21 Upcoming Office Visit: None documented in this encounter [facility] 11-22-2020 Miscellaneous Notes Last date seen:08/25/2020 Last labs: Appointment made: [place] request. OARRS/NARxCHECK Report Received and Assessed: No data found Date controlled substance agreement signed: No data found Date of last drug screen: No data found Functional Assessment: No data found ----- Message from Ling Cortes sent at 11/22/2020 10:35 AM EDT ----- Regarding: rx refill Contact: self [phone] MEDICATION REFILL REQUEST: PCP: Kong Reddy MD Patient called 11/22/20 and is requesting a medication refill for citalopram (CELEXA) 40 MG tablet This was confirmed from the current medication list found in the patients chart. Supply Requested: # of days: 90 days Method of receiving: Send to pharmacy Last set of flowsheet rows for OARRS report: OARRS/NARxCHECK Report Received and Assessed: No data found Date controlled substance agreement signed: No data found Date of last drug screen: No data found Functional Assessment: No data found Will this refill be sent to the preferred pharmacy listed below? Yes Preferred pharmacies: [facility] [address] [place], [place] [phone] Pt Call Back Number [place] [phone] Patient call back message sent to the primary care clinical pool. Ling Cortes documented in this encounter [facility] 10-17-2020 Miscellaneous Notes Requested Prescriptions Pending Prescriptions Disp Refills triamterene-hydrochlorothiazide (MAXZIDE-25) 37.5-25 mg per tablet 90 tablet 3 Sig: Take 1 (one) tablet by mouth daily . Last date seen: 08/25/20-telehealth Last labs: 01/01/19 Appointment made: none Surescripts requests OARRS/NARxCHECK Report Received and Assessed: No data found Date controlled substance agreement signed: No data found Date of last drug screen: No data found Functional Assessment: No data found ----- Message from Eugenia Livingston sent at 10/17/2020 8:33 AM EDT ----- Regarding: rx refill - pat ient is out of mediecation and this may need a PA per patient Contact: MARGO SEBASTIAN [[phone]] MEDICATION REFILL REQUEST: PCP: Kong Reddy MD Patient called 10/17/20 and is requesting a medication refill for triamterene-hydrochlorothiazide (MAXZIDE-25) 37.5-25 mg per tablet. This was confirmed from the current medication list found in the patients chart. Supply Requested: # of days: 90 days Method of receiving: Send to pharmacy Last set of flowsheet rows for OARRS report: OARRS/NARxCHECK Report Received and Assessed: No data found Date controlled substance agreement signed: No data found Date of last drug screen: No data found Functional Assessment: No data found Will this refill be sent to the preferred pharmacy listed below? Yes Preferred pharmacies: [facility] [address] [place] [phone] [place] [phone] [place] [phone] Pt Call Back Number Patient call back message sent to the primary care clinical pool. Eugenia Livingston documented in this encounter [facility] 08-26-2020 Instructions Kong Reddy MD - 08/26/2020 4:07 PM EDT Tick Bite: Care Instructions Your Care Instructions Ticks are small spiderlike animals. They bite to fasten themselves onto your skin and feed on your blood. Ticks can carry diseases. But most ticks do not carry diseases, and most tick bites do not cause serious health problems. Some people may have an allergic reaction to a tick bite. This reaction may be mild, with symptoms like itching and swelling. In rare cases, a severe allergic reaction may occur. Most of the time, all you need to do for a tick bite is relieve any symptoms you may have. Follow-up care is a hathaway part of your treatment and safety. Be sure to make and go to all appointments, and call your doctor if you are having problems. It's also a good idea to know your test results and keep a list of the medicines you take. How can you care for yourself at home? Put ice or a cold pack on the bite for 15 to 20 minutes once an hour. Put a thin cloth between the ice and your skin. Try an smcl-bzj-rmzpjco medicine to relieve itching, redness, swelling, and pain. Be safe with medicines. Read and follow all instructions on the label. ? Take an antihistamine medicine, such as a nondrowsy one like loratadine (Claritin) or one that might make you sleepy like diphenhydramine (Benadryl). These medicines may help relieve itching, redness, and swelling. ? Use a spray of local anesthetic that contains benzocaine, such as Solarcaine. It may help relieve pain. If your skin reacts to the spray, stop using it. ? Put calamine lotion on the skin. It may help relieve itching. To avoid tick bites Avoid ticks: ? Learn where ticks are found in your community, and stay away from those areas if possible. ? Cover as much of your body as possible when you work or play in grassy or wooded areas. ? Use insect repellents, such as products containing DEET. You can spray them on your skin. ? Take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 at site of laceration Psychiatric: She has a normal mood and affect. Her behavior is normal. Judgment and thought contentnormal. Nursing note and vitals reviewed. BP 136/86 Pulse 71 Temp 98.9 F (37.2 C) (Temporal) Resp 14 Ht 5' 5.5" Wt 78.4 kg (172 lb 14.4 oz) BMI 28.33 kg/m Assessment/Plan: Discussed all issues with the patient here today. She is to continue to monitor carefully for any issues with headache or nausea or vision changes. If she has any issues like this [facility] her head to rule out any sort of subdural bleed. 7 oliva were removed here today without difficulty. She does have thick dried scabbing and blood in the a amy. I do have some concern that there may be other oliva also buried beneath this. She will gently cleanse the area at home this evening and still if away any scabbing, without pulling or peeling forcefully. If any oliva are noted after doing so she is to go to a local urgent care to have the last few removed. She understands these instructions. She will monitor things carefully overall and call us if any further issues. We are going to have her finish out her current antibiotic and she does have a prescription for doxycycline to take for possible cellulitis on right anterior thigh abrasion. She will continue with regular dressing changes and cleanse the area appropriately twice daily.Call if any other issues at all and she does know to go to the ER if any persistent symptoms. Problem List Items Addressed This Visit None Visit Diagnoses Laceration of scalp, initial encounter - Primary Relevant Orders Remove oliva Abrasion, shoulder w/o infection Abrasion of right lower extremity, initial encounter Relevant Medications doxycycline hyclate (VIBRAMYCIN) 100 MG capsule Hypertension, unspecified type Gastroesophageal reflux disease, esophagitis presence not specified Discussed elevated Body Mass Index (BMI): Advised regular exercise. Discussed elevated Body Mass Index (BMI): Advised healthy and appropriate diet. Rationale: Overweight (Findings) BMI Return in about 2 weeks (around 10/06/2018), or if symptoms worsen or fail to improve, for Follow Up, Re-check. For any new medications prescribed today, patient was educated about indications for the medication, how to take the medication and potential side effects of the medications. Kong Reddy MD documented in this encounter* Kong Reddy MD - 01/01/2019 10:00 AM EDT HPI Patient presenting here today for physical examination and full lab work. She is doing fairly well at this time. She denies any chest pain or shortness of breath. She is not exercising a ton at this time and she knows she needs to increase this a bit. She is still smoking up to a pack a day. She knows she needs to cut back on this as well. She does have a history of hypertension as well as acid reflux and depression and is taking all her medications for these issues. Her Chief Complaint Patient presents with Annual Exam Past Medical History: Diagnosis Date Colitis Depression Hypertension Past Surgical History: Procedure Laterality Date CARPAL TUNNEL RELEASE Bilateral 12/30/2017 KNEE SURGERY Left Social History Socioeconomic History Marital status: Spouse name: Not on file Number of children: Not on file Years of education: Not on file Highest education level: Not on file Occupational History Not on file Social Needs Financial resource strain: Not on file Food insecurity: Worry: Never true Inability: Never true Transportation needs: Medical: No Non-medical: No Tobacco Use Smoking status: Current Every Day Smoker Packs/day: 0.00 Smokeless tobacco: Never Used Substance and Sexual Activity Alcohol use: Yes Frequency: Monthly or less Drinks per session: 1 or 2 Binge frequency: Never Drug use: No Sexual activity: Not Currently Partners: Male Lifestyle Physical activity: Days per week: Not on file Minutes per session: Not on file Stress: Not on file Relationships Social connections: Talks on phone: Not on file Gets together: Not on file Attends sikh service: Not on file Active member of club or organization: Not on file Attends meetings of clubs or organizations: Not on file Relationship status: Not on file Other Topics Concern Not on file Social History Narrative Not on file Review of Systems Constitutional: Negative for activity change, appetite change and fatigue. HENT: Negative for congestion, ear pain, hearing loss and sore throat. Eyes: Negative for pain and visual disturbance. Respiratory: Negative for chest tightness and shortness of breath. Cardiovascular: Negative for chest pain, palpitations and leg swelling. Gastrointestinal: Negative for abdominal pain, blood in stool, constipation, diarrhea, nausea and vomiting. Endocrine: Negative for cold intolerance and heat intolerance. Genitourinary: Negative for difficulty urinating and dysuria. Musculoskeletal: Negative for arthralgias and myalgias. Skin: Negative for color change and rash. Neurological: Negative for dizziness and light-headedness. Hematological: Negative for adenopathy. Psychiatric/Behavioral: Negative for behavioral problems and sleep disturbance. Physical Exam Vitals signs and nursing note reviewed. Constitutional: General: She is not in acute distress. Appearance: Normal appearance. She is well-developed and normal weight. She is not ill-appearing, toxic-appearing or diaphoretic. HENT: Head: Normocephalic and atraumatic. Right Ear: Tympanic membrane, ear canal and external ear normal. There is no impacted cerumen. Left Ear: Tympanic membrane, ear canal and external ear normal. There is no impacted cerumen. Nose: Nose normal. No congestion or rhinorrhea. Mouth/Throat: Mouth: Mucous membranes are moist. Pharynx: Oropharynx is clear. No oropharyngeal exudate or posterior oropharyngeal erythema. Eyes: General: No scleral icterus. Right eye: No discharge. Left eye: No discharge. Conjunctiva/sclera: Conjunctivae normal. Pupils: Pupils are equal, round, and reactive to light. Neck: Musculoskeletal: Normal range of motion and neck supple. No muscular tenderness. Thyroid: No thyromegaly. Vascular: No carotid bruit. Trachea: No tracheal deviation. Cardiovascular: Rate and Rhythm: Normal rate and regular rhythm. Heart sounds: Normal heart sounds. No murmur. Pulmonary: Effort: Pulmonary effort is normal. No respiratory distress. Breath sounds: Normal breath sounds. No wheezing or rales. Chest: Chest wall: No tenderness. Abdominal: General: Bowel sounds are normal. There is no distension. Palpations: Abdomen is soft. There is no mass. Tenderness: There is no tenderness. There is no guarding or rebound. Hernia: No hernia is present. Musculoskeletal: Normal range of motion. General: No swelling or tenderness. Right lower leg: No edema. Left lower leg: No edema. Lymphadenopathy: Cervical: No cervical adenopathy. Skin: General: Skin is warm and dry. Findings: No erythema or rash. Neurological: Mental Status: She is alert and oriented to person, place, and time. Cranial Nerves: No cranial nerve deficit. Motor: No abnormal muscle tone. Coordination: Coordination normal. Psychiatric: Mood and Affect: Mood normal. Behavior: Behavior normal. Thought Content: Thought content normal. Judgment: Judgment normal. BP 132/88 Pulse 61 Temp 98.4 F (36.9 C) (Temporal) Resp 14 Ht 5' 5.5" Wt 76.6 kg (168 lb 14.4 oz) BMI 27.68 kg/m Impression/Plan Reviewed and discussed all issues with the patient here today. We are going to set her up for a colonoscopy as well as a mammogram. She will check all lab work today and follow-up on these results. She is encouraged to stop smoking. We discussed smoking cessation for over 4 minutes here today. She understands the need to cut back and eventually quit. Continue all current medications as prescribedat this time. Call any other issues and we will see her back within 6 months. Problem List Items Addressed This Visit None Visit Diagnoses Routine medical exam - Primary Relevant Orders CBC and Differential (Completed) Comprehensive Metabolic Panel (Completed) Lipid Panel (Completed) ECG 12 Lead (Completed) Urinalysis (Completed) TSH (Completed) POC Immunochemical Occult Blood Stool-iFOB (FIT), Screening Ambulatory referral to Gastroenterology Mammography Screening Bilateral Hypertension, unspecified type Gastroesophageal reflux disease, esophagitis presence not specified Depression, unspecified depression type Cigarette nicotine dependence without complication Discussed elevated Body Mass Index (BMI): Advised regular exercise. Discussed elevated Body Mass Index (BMI): Advised healthy and appropriate diet. Rationale: Overweight (Findings) BMI Return in about 6 months (around 07/02/2019), or if symptoms worsen or fail to improve, for Follow Up, Re-check. For any new medications prescribed today, patient was educated about indications for the medication, how to take the medication and potential side effects of the medications. Kong Reddy MD documented in this encounter* Kong Reddy MD - 02/02/2019 8:45 AM EDT Subjective Patient ID: Margo Sebastian is a 53 y.o. female. Patient having issues with short bouts of dizziness, lasting only a second, which occur when she isturning her head upward or rising quickly. She denies any chest pain or shortness of breath. Her blood pressure has been elevated here recently as well which may be contributing to her issues. She has had no headache or vision changes or nausea. No recurrent symptoms since her concussion several months ago. She does continue to smoke upwards of a pack a day and knows she needs to stop doing so. Chief Complaint Patient presents with Dizziness The following portions of the patient's history were reviewed and updated as appropriate: allergies, current medications, past family history, past medical history, past social history, past surgicalhistory and problem list. Social History Tobacco Use Smoking Status Current Every Day Smoker Packs/day: 0.00 Smokeless Tobacco Never Used Review of Systems Constitutional: Negative for activity change and fatigue. HENT: Negative for congestion. Respiratory: Negative for chest tightness and shortness of breath. Cardiovascular: Negative for chest pain, palpitations and leg swelling. Gastrointestinal: Negative for abdominal pain. Genitourinary: Negative for difficulty urinating. Musculoskeletal: Negative for arthralgias and myalgias. Skin: Negative for rash. Neurological: Positive for dizziness. Negative for syncope, light-headedness and headaches. Hematological: Negative for adenopathy. Psychiatric/Behavioral: Negative for decreased concentration. The patient is not nervous/anxious. Objective Physical Exam Constitutional: She is oriented to person, place, and time. She appears well- developed and well-nourished. No distress. HENT: Head: Normocephalic and atraumatic. Right Ear: External ear normal. Left Ear: External ear normal. Nose: Nose normal. Mouth/Throat: Oropharynx is clear and moist. No oropharyngeal exudate. Eyes: Pupils are equal, round, and reactive to light. Conjunctivae and EOM are normal. Neck: Normal range of motion. Neck supple. No thyromegaly present. Cardiovascular: Normal rate, regular rhythm, normal heart sounds and intact distal pulses. No murmur heard. Pulmonary/Chest: Effort normal and breath sounds normal. No respiratory distress. She has no wheezes. She has no rales. She exhibits no tenderness. Musculoskeletal: Normal range of motion. General: No tenderness or edema. Lymphadenopathy: She has no cervical adenopathy. Neurological: She is alert and oriented to person, place, and time. Skin: Skin is warm and dry. No rash noted. She is not diaphoretic. Psychiatric: She has a normal mood and affect. Her behavior is normal. Judgment and thought contentnormal. Nursing note and vitals reviewed. BP (!) 148/98 Pulse 62 Temp 97.9 F (36.6 C) (Temporal) Ht 5' 5.5" Wt 78.8 kg (173 lb 12.8 oz) BMI 28.48 kg/m Assessment/Plan: Discussed all issues with the patient here today. We will increase her lisinopril to 20 mg daily. She will monitor home blood pressure. She is to work on diet and exercise efforts. We are set to see her in a couple months for recheck of elevated cholesterol readings per she has no chest pain or shortness of breath. Overall she is feeling fairly well. She is to stop smoking. She will continue all other medications as directed. We will see her back within the next month for recheck of blood pressure. If she has any persistent symptoms she is to let us know. She will call if any other issues at all. Problem List Items Addressed This Visit None Visit Diagnoses Hypertension, unspecified type - Primary Relevant Medications lisinopril (PRINIVIL,ZESTRIL) 20 MG tablet Gastroesophageal reflux disease, esophagitis presence not specified Depression, unspecified depression type Dizziness Cigarette nicotine dependence without complication Discussed elevated Body Mass Index (BMI): Advised regular exercise. Discussed elevated Body Mass Index (BMI): Advised healthy and appropriate diet. Rationale: Overweight (Findings) BMI Return in about 1 month (around 03/05/2019), or if symptoms worsen or fail to improve, for Follow Up, Re-check. For any new medications prescribed today, patient was educated about indications for the medication, how to take the medication and potential side effects of the medications. Kong Reddy MD documented in this encounter* Sree Escalera MD - 07/17/2019 9:02 AM EDT Telephone Visit Via Phone Call Patient ID: Margo Sebastian is a 54 y.o. female on the phone for a sick visit Patient phone : [phone] This visit has been fully reviewed with the patient and verbal consent has been obtained. This is a 54-year-old white female who was carrying wood into her house a few days ago when she felt a sting along her left thigh. The next morning she looked in the area and there was a small blister there. The next day it opened up and it developed into a sore. It also developed a 2 inch area of swelling and redness and pain around it, she states. She states today it is looking worse. She does not have a fever. The following portions of the patient's history were reviewed and updated as appropriate: allergies, current medications, past family history, past medical history, past social history, past surgicalhistory and problem list. Review of Systems Constitutional: Positive for fatigue. Negative for fever. HENT: Negative for sore throat. Respiratory: Negative for cough. Cardiovascular: Negative for chest pain. Gastrointestinal: Negative for abdominal pain. Skin: Positive for wound. Patient's Medications New Prescriptions DOXYCYCLINE HYCLATE (VIBRAMYCIN) 100 MG CAPSULE Take 1 (one) capsule (100 mg total) by mouth 2 (two) times a day for 10 days . Previous Medications [id number] (JOINT HEALTH) 40-10-5-3.3 MG TAB Take 1 tablet by mouth . CETIRIZINE (ZYRTEC) 10 MG TABLET Take 10 mg by mouth daily . CITALOPRAM (CELEXA) 40 MG TABLET Take 1 (one) tablet (40 mg total) by mouth daily . CLOBETASOL (TEMOVATE) 0.05 % CREAM Apply topically 2 (two) times a day as needed . DOXYCYCLINE HYCLATE (VIBRAMYCIN) 100 MG CAPSULE 1 capsule PO BID . FLUTICASONE (FLONASE) 50 MCG/ACTUATION NASAL SPRAY Instill 2 sprays into each nostril daily . LEVONORGESTREL (MIRENA) 20 MCG/24 HOURS (5 YRS) 52 MG IUD 1 each by Intrauterine route once . LISINOPRIL (PRINIVIL,ZESTRIL) 20 MG TABLET Take 1 (one) tablet (20 mg total) by mouth daily . PANTOPRAZOLE (PROTONIX) 40 MG TABLET Take 1 (one) tablet (40 mg total) by mouth daily . TRIAMTERENE-HYDROCHLOROTHIAZIDE (MAXZIDE-25) 37.5-25 MG PER TABLET Take 1 (one) tablet by mouth daily . Modified Medications No medications on file Discontinued Medications No medications on file Assessment/Plan: Diagnoses and all orders for this visit: Cellulitis of left thigh Other orders - doxycycline hyclate (VIBRAMYCIN) 100 MG capsule; Take 1 (one) capsule (100 mg total) by mouth 2 (two) times a day for 10 days . It definitely sounds like you are developing an abscess on your thigh. This could have been a spider bite when you were caring the wood. I will call in an antibiotic to start taking twice a day. Apply hydrogen peroxide to the wound once a day. Let me know in 3 or 4 days if it is getting worse instead of better. Provider location: [facility] [address] [place] [phone] Patient location: [address] [place] [address] I have spent 11-20 minutes with the patient discussing current HPI. documented in this encounter* Sree Escalera MD - 06/24/2020 9:45 PM EST Subjective Patient ID: Margo Sebastian is a 55 y.o. female. This is a 55-year-old female who found an engorged tick on her right buttock yesterday after spending the day outside. She pulled out. But this morning there is a lot of erythema and swelling around it. She wanted me to check it. She does not feel sick. She has no fever. Chief Complaint Patient presents with Tick Removal right side The following portions of the patient's history were reviewed and updated as appropriate: allergies, current medications, past family history, past medical history, past social history, past surgicalhistory and problem list. Social History Tobacco Use Smoking Status Current Every Day Smoker Smokeless Tobacco Never Used Review of Systems Constitutional: Negative for fatigue and fever. HENT: Negative for congestion. Respiratory: Negative for cough. Cardiovascular: Negative for chest pain. Gastrointestinal: Negative for abdominal pain. Musculoskeletal: Negative for arthralgias and myalgias. Skin: Positive for rash. Neurological: Negative for dizziness and headaches. Objective Physical Exam Vitals signs and nursing note reviewed. Constitutional: Appearance: She is well-developed. HENT: Head: Normocephalic and atraumatic. Eyes: Conjunctiva/sclera: Conjunctivae normal. Pupils: Pupils are equal, round, and reactive to light. Cardiovascular: Rate and Rhythm: Normal rate and regular rhythm. Heart sounds: Normal heart sounds. Pulmonary: Effort: Pulmonary effort is normal. Breath sounds: Normal breath sounds. Musculoskeletal: Comments: At the superior aspect of the right buttock there is a small open wound that is surrounded by erythema. There are some erythema and edema extending towards the right hip from this area. Following sterile prep and drape I explored the wound with forceps and pulled out 2 small pieces of thetick. I then irrigated the wound and placed a bandage. I applied no antibiotic ointment because sheis allergic to it. Skin: General: Skin is warm and dry. Neurological: Mental Status: She is alert and oriented to person, place, and time. Psychiatric: Mood and Affect: Mood normal. Behavior: Behavior normal. Thought Content: Thought content normal. Judgment: Judgment normal. BP 130/80 (BP Location: Left arm, Patient Position: Sitting, BP Cuff Size: Adult) Pulse 92 Temp98.5 F (36.9 C) (Temporal) Ht 5' 5.5" Wt 79.2 kg (174 lb 8 oz) BMI 28.60 kg/m Assessment/Plan: Problem List Items Addressed This Visit None Visit Diagnoses Tick bite of buttock, initial encounter - Primary Apply hydroperoxide to the wound every day after your shower. Then place a bandage. I will place you on doxycycline for 2 weeks. This will ensure that you get no tickborne diseases. Let us know in a few days if the wound is not getting better. Return if symptoms worsen or fail to improve. For any new medications prescribed today, patient was educated about indications for the medication, how to take the medication and potential side effects of the medications. Sree Escalera MD documented in this encounter* Kong Reddy MD - 06/30/2020 2:35 PM EST Video Visit [facility] [address] [place] [phone] Via Real-time Synchronous Audiovisual [facility] 06/30/2020 Kong Reddy MD Provider Location: Office Patient Location Specialty Therapist: None Patient Location: Patient's Home Patient: Margo Sebastian Date of : 1965 (55 y.o. female) PCP: Kong Reddy MD Video Visit Consent Statement: I discussed risks, benefits and alternatives of a real-time synchronous audiovisual consultation with the patient (and any accompanying persons) including the risks that the patient s personal health details and medical records will be discussed over real-time, synchronous, interactive video/audio/telecommunication technology, the visit will not be recorded without the express consent of both the provider and the patient, and that there are some limitations compared to [id number] evaluations. We elected to proceed. Subjective Patient ID: Margo Sebastian is a 55 y.o. female. Patient presenting here today for evaluation for issues with concerns regarding the Covid vaccine. She is set to get her Covid vaccine in the next couple days. She is concerned about her history of allergic reactions to other medications and other vaccines. She was concerned that she is can have a reaction to the Covid vaccine. She is currently feeling well at this time. She is taking all medication as directed. Denies chest pain shortness of breath fever chills cough or other issues. No chief complaint on file. The following portions of the patient's history were reviewed and updated as appropriate: allergies, current medications, past family history, past medical history, past social history, past surgicalhistory and problem list. Social History Tobacco Use Smoking Status Current Every Day Smoker Smokeless Tobacco Never Used Review of Systems Constitutional: Negative for activity change, fatigue and fever. HENT: Negative for congestion. Respiratory: Negative for cough, chest tightness and shortness of breath. Cardiovascular: Negative for chest pain, palpitations and leg swelling. Gastrointestinal: Negative for abdominal pain. Genitourinary: Negative for difficulty urinating. Musculoskeletal: Negative for arthralgias and myalgias. Skin: Negative for rash. Neurological: Negative for dizziness and light-headedness. Hematological: Negative for adenopathy. Psychiatric/Behavioral: Negative for decreased concentration and dysphoric mood. The patient is notnervous/anxious. Objective Physical Exam Constitutional: She is oriented to person, place, and time. She appears well- developed and well-nourished. No distress. HENT: Head: Normocephalic and atraumatic. Right Ear: External ear normal. Left Ear: External ear normal. Eyes: EOM are normal. Pulmonary/Chest: Effort normal. No respiratory distress. Musculoskeletal: Normal range of motion. Neurological: She is alert and oriented to person, place, and time. Coordination normal. Skin: No rash noted. She is not diaphoretic. Psychiatric: She has a normal mood and affect. Her behavior is normal. Judgment and thought contentnormal. There were no vitals taken for this visit. Assessment/Plan: Discussed all issues with the patient today. Answered all questions. I have advised her to go aheadand get the Covid vaccine. I do feel this would be appropriate. We will monitor for any unwanted side effects outside of what is to be expected. We went through all of the expected side effects that she can potentially have. She will monitor for these and call if any issues. Continue all other medications as directed. Call any other questions or concerns and then we will see her back after her Covid vaccine otherwise. Problem List Items Addressed This Visit None Visit Diagnoses History of allergic reaction - Primary Anxiety Hypertension, unspecified type Return in about 1 month (around 07/31/2020), or if symptoms worsen or fail to improve, for Follow Up, Re-check. For any new medications prescribed today, patient was educated about indications for the medication, how to take the medication and potential side effects of the medications. Kong Reddy MD documented in this encounter Assessments Diagnosis Laceration of scalp, initial encounter- Primary Abrasion, shoulder w/o infection Shoulder and upper arm, abrasion or friction burn, without mention of infection Abrasion of right lower extremity, initial encounter Hypertension, unspecified type Gastroesophageal reflux disease, esophagitis presence not specified Diagnosis Routine medical exam- Primary Routine general medical examination at a health care facility Hypertension, unspecified type Gastroesophageal reflux disease, esophagitis presence not specified Depression, unspecified depression type Cigarette nicotine dependence without complication Diagnosis Hypertension, unspecified type- Primary Gastroesophageal reflux disease, esophagitis presence not specified Depression, unspecified depression type Dizziness Dizziness and giddiness Cigarette nicotine dependence without complication Diagnosis Cellulitis of left thigh Diagnosis Wrist sprain, left, initial encounter Diagnosis Encounter for gynecological examination (general) (routine) without abnormal findings Visit for screening mammogram Other screening mammogram Diagnosis Tick bite of buttock, initial encounter- Primary Diagnosis History of allergic reaction- Primary Anxiety Anxiety state, unspecified Hypertension, unspecified type Diagnosis Routine medical exam Routine general medical examination at a health care facility Diagnosis Hypertension, unspecified type Reason for Referral Status Reason Specialty Diagnoses / Procedures Referred By Contact Referred To Contact Pending Review Radiology Diagnoses Routine medical exam Procedures Mammography Screening Bilateral Kong Reddy MD [address] [address] Status Reason Specialty Diagnoses / Procedures Referred By Contact Referred To Contact Authorized Specialty Services Required/Patient 's Best Interest Diagnoses Routine medical exam Kong Reddy MD [address] [address] Ted Diallo, DO [address] [place] [address] Status Reason Specialty Diagnoses / Procedures Referre d By Contact Referred To Contact Closed Cardiology Diagnoses Routine medical exam Procedures ECG 12 Lead Kong Reddy MD [address] [address] Status Reason Specialty Diagnoses / Procedures Referred By Contact Referred To Contact Open Orthopedic Surgery Diagnoses Wrist sprain, left, initial encounter Mo Soto PA [address] [place] [address] [facility] [address] [place] [address] [place] [address] Status Reason Specialty Diagnoses / Procedures Referred By Contact Referred To Contact Pending Review Radiology Diagnoses Routine medical exam Procedures Mammography Screening Gabe Bilateral Mammography Screening Bilateral Kong Reddy MD [address] [address] Specialty Diagnoses / Procedures Referred By Contac t Referred To Contact Gastroenterology Diagnoses Gastroesophageal reflux disease, unspecified whether esophagitis present Kong Reddy MD [address] [address] Referral ID Status Reason Start Date Expiration Date V isits Requested Visits Authorized [id number] Authorized 04/09/2022 04/09/2023 1 1 Specialty Diagnoses / Procedures Referred By Contac t Referred To Contact Cardiology Diagnoses Routine medical exam Procedures ECG 12 Lead Kong Reddy MD [address] [address] Referral ID Status Reason Start Date Expiration Date Visits Re quested Visits Authorized [id number] Closed 04/09/2022 04/09/2023 1 1 Specialty Diagnoses / Procedures Referred By Contac t Referred To Contact Gastroenterology Diagnoses Gastroesophageal reflux disease, unspecified whether esophagitis present Kong Reddy MD [address] [address] [facility] [address] [place] [address] Specialty Diagnoses / Procedures Referred By Contac t Referred To Contact Radiology Diagnoses Encounter for screening for malignant neoplasm of breast, unspecified screening modality Procedures Mammography Screening Gabe Bilateral Kong Reddy MD [address] [facility] [address] [place] [address] Referral ID Status Reason Start Date Expiration Date V isits Requested Visits Authorized [id number] Authorized 03/26/2023 03/25/2024 1 1 Referral ID Status Reason Start Date Expiration Date Visits Re quested Visits Authorized [id number] Closed 03/26/2023 03/25/2024 1 1 Specialty Diagnoses / Procedures Referred By Contac t Referred To Contact Radiology Diagnoses Abnormal electrocardiogram (ECG) (EKG) Procedures CT cardiac scoring wo IV contrast Mattie Rodríguez, [address] [facility] [address] [place] [address] Referral ID Status Reason Start Date Expiration Date Visits Requested Visits Authorized [id number] Authorized Perform Procedure 06/07/2023 06/06/2024 1 1 Discharge Instructions * Instructions* Mo Soto PA - 10/19/2019 Please follow-up with orthopedics regarding the visit to this department. Please return with any new or worsening symptoms. Please take the naproxen with food as prescribed for pain. If you develop any stomach upset while taking naproxen, please discontinue. Please remain in the Velcro splint until cleared by orthopedics. You may remove the Velcro splint for hygiene purposes. * Attachments The following attachments cannot be sent through Care Everywhere. * Wrist Sprain (E[place] Pakistani) documented in this encounter Chief Complaint and Reason for Visit Chief Complaint PT PD 50.00 SCREENING (NEED FILMS) Chief Complaint PT PD 50.00 SCREENING (NEED FILMS) Nicotine dependence, cigarettes, uncomplicated Chief Complaint PT PD 50.00 SCREENING (NEED FILMS) Nicotine dependence, cigarettes, uncomplicated ABN BLOOD FLOW (ANNE) E ORDERS Reason for Visit Abnormal CT of the c hest Arterial atherosclerosis Chest pain Additional Source Comments INFORMATION SOURCE (unrecogn ized section and content) DATE CREATED AUTHOR 10/15/2017 [facility] DATE CREATED AUTHOR AUTHOR'S ORGANIZ ATION 02/24/2019 [facility] DATE CREATED AUTHOR AUTHOR'S ORGANIZ ATION 12/24/2021 [facility] DATE CREATED AUTHOR AUTHOR'S ORGANIZ ATION 04/26/2022 [facility] DATE CREATED AUTHOR AUTHOR'S ORGANIZ ATION 12/23/2022 [facility] DATE CREATED AUTHOR AUTHOR'S ORGANIZ ATION 03/29/2023 [facility] DATE CREATED AUTHOR AUTHOR'S ORGANIZ ATION 04/01/2023 [facility] DATE CREATED AUTHOR AUTHOR'S ORGANIZ ATION 06/19/2023 [facility] DATE CREATED AUTHOR AUTHOR'S ORGANIZ ATION 07/14/2023 [facility] DATE CREATED AUTHOR AUTHOR'S ORGANIZ ATION 01/07/2025 [facility] Reason for Visit (unrecogniz ed section and content) Reason Comments Shoulder Pain right Knee Pain right scalp abrasion right side oliva Foot abrasion right Reason Comments Annual Exam Reason Comments Dizziness Reason Comments Arm Pain left forearm and wri st Reason Comments Tick Removal right side Status Reason Specialty Diagnoses / Procedures Referred By Contact Referred To Contact Pending Review Radiology Diagnoses Routine medical exam Procedures Mammography Screening Gabe Bilateral Mammography Screening Bilateral Kong Reddy MD [facility] [place] [address] Reason Onset Date Comments Medication Refill 05/06/2020 Reason Onset Date Comments Medication Refill 08/08/2020 Reason Onset Date Comments Medication Refill 02/07/2021 Reason Onset Date Comments Medication Refill 08/09/2021 Reason Onset Date Comments Medication Refill 10/10/2021 Reason Onset Date Comments Medication Refill 11/17/2021 Reason Comments Annual Exam Reason Onset Date Comments Medication Refill 10/05/2022 Reason Comments Numbness Specialty Diagnoses / Procedures Referred By Contmary james Referred To Contact Diagnoses Hypomagnesemia Hyponatremia History of alcohol use Numbness and tingling of right side of face Numbness and tingling of left side of face Numbness and tingling in both hands Procedures N Referral ID Status Reason Start Date Expiration Date Visits Re quested Visits Authorized [id number] 1 1 Reason Comments Follow-up Transition of care p ost double mini stroke. Told she can no longer take advil/ibuprofen. Wants to know if she can take tumeric for swelling. Takes baby aspirin and wants to know if she can take regular aspirin. Told to start taking statins but wants to know if she needs them since she has never had cholesterol issues before. Reason Comments Follow-up Pt states she had 2 mini strokes 3-4 weeks ago. Pt states she feels back to normal except for when she gets tired she slurs her words a bit. Reason Onset Date Comments Medication Refill 03/04/2023 Reason Onset Date Comments Medication Refill 03/18/2023 Reason Onset Date Comments Medication Refill 05/02/2023 Reason Onset Date Comments Medication Refill 05/16/2023 Specialty Diagnoses / Procedures Referred By Valeri james Referred To Contact Radiology Diagnoses Abnormal electrocardiogram (ECG) (EKG) Procedures CT cardiac scoring wo IV contrast Mattie Rodríguez, DO [address] [facility] [address] [place] [address] Referral ID Status Reason Start Date Expiration Date Visits Requested Visits Authorized [id number] Authorized Perform Procedure 06/07/2023 06/06/2024 1 1 Reason Onset Date Comments Medication Refill 03/27/2024 Telephone Encounter - Kong Reddy MD - 05/06/2020 12:17 PM ESTTelephone Encounter - Alicia Gardner MA - 05/06/2020 10:58 AM EST Miscellaneous Notes (unrecog nized section and content) Prescription reviewed and approved sent to pharmacy or printed Last date seen: 03/16/20 Last labs: 03/16/20 Appointment made: none OARRS/NARxCHECK Report Received and Assessed: No data found Date controlled substance agreement signed: No data found Date of last drug screen: No data found Functional Assessment: No data found ----- Message from Brittney Chu sent at 05/06/2020 9:15 AM EST ----- Regarding: RX Refil Contact: [phone] .MEDICATION REFILL REQUEST: PCP: Kong Reddy MD Patient called 05/06/20 and is requesting a medication refill for lisinopriL (PRINIVIL,ZESTRIL) 20 MG tablet citalopram (CELEXA) 40 MG tablet. This was confirmed from the current medication list found in the patients chart. Supply Requested: # of days: 30 days Method of receiving: Send to pharmacy Last set of flowsheet rows for OARRS report: OARRS/NARxCHECK Report Received and Assessed: No data found Date controlled substance agreement signed: No data found Date of last drug screen: No data found Functional Assessment: No data found Will this refill be sent to the preferred pharmacy listed below? Yes Preferred pharmacies: [facility] [address] [place] [phone] [facility] [address] [facility] [address] Fax: [phone] Pt Call Back Number [place] [phone] Patient call back message sent to the primary care clinical pool. Brittney Chu documented in this encounter Care Teams (unrecognized sec tion and content) Water Use Inspector Relationship Specialty Start Date End Date Kong Reddy MD [address] [place] [id number] PCP - General 11/18/18 Aliyah King APRN SALES AND EVENTS COORDINATOR [address] [place] [address] Nurse Practitioner Nurse Practitioner 02/08/20 Water Use Inspector Relationship Specialty Start Date End Date Kong Reddy MD [address] [place] [id number] PCP - General 11/18/18 Aliyah King APRN SALES AND EVENTS COORDINATOR [address] [place] [address] Nurse Practitioner Nurse Practitioner 02/08/20 Water Use Inspector Relationship Specialty Start Date End Date Kong Reddy MD PCP - General Family Medicine 08/31/14 Sree Escalera MD [address] [address] PCP - JILL Attributed Provider - [place] [employer] 04/22/19 04/20/21 Kong Reddy MD Family Medicine 08/31/14 Water Use Inspector Relationship Specialty Start Date End Date Kong Reddy MD PCP - General Family Medicine 08/31/14 Yajaira Vasquez MD [address] [place] [address] PCP - JILL Attributed Provider - [place] [employer] 04/22/19 04/21/50 Kong Reddy MD Family Medicine 08/31/14 Water Use Inspector Relationship Specialty Start Date End Date Kong Reddy MD PCP - General Family Medicine 08/31/14 Yajaira Vasquez MD [address] [place] [address] PCP - JILL Attributed Provider - [place] [employer] 04/22/19 04/21/50 Kong Reddy MD Family Medicine 08/31/14 Water Use Inspector Relationship Specialty Start Date End Date Kong Reddy MD PCP - General Family Medicine 08/31/14 [place] [id number] [place] [address] PCP - JILL Attributed Provider - [place] [employer] 04/22/19 04/21/50 Kong Reddy MD Family Medicine 08/31/14 Water Use Inspector Relationship Specialty Start Date End Date Kong Reddy MD PCP - General Family Medicine 08/31/14 [place] [address] [facility] [address] [place], [place] [id number] PCP - JILL Attributed Provider - [place] [employer] 04/22/19 04/21/50 Kong Reddy MD Family Medicine 08/31/14 Water Use Inspector Relationship Specialty Start Date End Date Kong Reddy MD [address] [facility] [address] [place] [address] PCP - General 11/18/18 Aliyah King, COLLEGE RECRUITER SALES AND EVENTS COORDINATOR [address] [facility] [address] [place] [address] Nurse Practitioner Nurse Practitioner 02/08/20 Water Use Inspector Relationship Specialty Start Date End Date Kong Reddy MD PCP - General Family Medicine 08/31/14 Aleksandra Garcia MD [address] [place], [place] [id number] PCP - JILL Attributed Provider - [place] [employer] 04/22/19 04/21/50 Kong Reddy MD Family Medicine 08/31/14 Water Use Inspector Relationship Specialty Start Date End Date Kong Reddy MD PCP - General Family Medicine 08/31/14 Aleksandra Garcia MD [address] [place] [address] PCP - JILL Attributed Provider - [place] [employer] 04/22/19 04/21/50 Kong Reddy MD Family Medicine 08/31/14 Water Use Inspector Relationship Specialty Start Date End Date Kong Reddy MD PCP - General Family Medicine 08/31/14 Aleksandra Garcia MD [address] [place] [address] PCP - JILL Attributed Provider - [place] [employer] 04/22/19 04/21/50 Kong Reddy MD Family Medicine 08/31/14 Water Use Inspector Relationship Specialty Start Date End Date Kong Reddy MD PCP - General Family Medicine 08/31/14 Kong Reddy MD [facility] [address] [address] PCP - JILL Attributed Provider - [place] [employer] 04/22/19 04/21/50 Kong Reddy MD Family Medicine 08/31/14 Water Use Inspector Relationship Specialty Start Date End Date Kong Reddy MD PCP - General 11/18/18 Aliyah King, COLLEGE RECRUITER SALES AND EVENTS COORDINATOR [address] [place] [address] Nurse Practitioner Nurse Practitioner 02/08/20 Laura Vela, PT, DPT Physical Therapist Physical Therapy 11/30/22 Water Use Inspector Relationship Specialty Start Date End Date Kong Reddy MD PCP - General Family Medicine 08/31/14 Kong Reddy MD [address] [address] PCP - JILL Attributed Provider - [place] [employer] 04/22/19 04/21/50 Kong Reddy MD Family Medicine 08/31/14 Water Use Inspector Relationship Specialty Start Date End Date Kong Reddy MD PCP - General Family Medicine 08/31/14 Kong Reddy MD [address] [address] PCP - JILL Attributed Provider - [place] [employer] 04/22/19 04/21/50 Kong Reddy MD Family Medicine 08/31/14 Water Use Inspector Relationship Specialty Start Date End Date Kong Reddy MD PCP - General Family Medicine 08/31/14 Kong Reddy MD [address] [address] PCP - JILL Attributed Provider - [place] [employer] 04/22/19 04/21/50 Kong Reddy MD Family Medicine 08/31/14 Water Use Inspector Relationship Specialty Start Date End Date Kong Reddy MD PCP - General Family Medicine 08/31/14 Kong Reddy MD [address] [address] PCP - JILL Attributed Provider - [place] [employer] 04/22/19 04/21/50 Kong Reddy MD Family Medicine 08/31/14 Water Use Inspector Relationship Specialty Start Date End Date Kong Reddy MD PCP - General Family Medicine 08/31/14 Kong Reddy MD [address] [address] PCP - JILL Attributed Provider - [place] [employer] 04/22/19 04/21/50 Kong Reddy MD Family Medicine 08/31/14 Water Use Inspector Relationship Specialty Start Date End Date Kong Reddy MD PCP - General Family Medicine 08/31/14 Kong Reddy MD [address] [address] PCP - JILL Attributed Provider - [place] [employer] 04/22/19 04/21/50 Kong Reddy MD Family Medicine 08/31/14 Water Use Inspector Relationship Specialty Start Date End Date Kong Reddy MD PCP - General Family Medicine 08/31/14 Kong Reddy MD [address] [address] PCP - JILL Attributed Provider - [place] [employer] 04/22/19 04/21/50 Kong Reddy MD Family Medicine 08/31/14 Water Use Inspector Relationship Specialty Start Date End Date Mattie Rodríguez DO [address] [address] PCP - General Internal Medicine 06/12/23 Team Status: Active Member Role Status Dates Dr. Mattie Rodríguez DO Primary Care Provider Active Team Status: Active Member Role Status Dates Dr. Mattie Rodríguez DO Primary Care Provider Active Dr. Germain Ty MD Attending Provider Active Team Status: Inactive Member Role Status Dates Dr. Mattie Rodríguez DO Primary Care Pr ovider, Attending Provider, Referring Provider Active Team Status: Active Member Role Status Dates Dr. Mattie Rodríguez DO Primary Care Provider Active Self Referred Attending Provider Active Team Status: Inactive Member Role Status Dates Dr. Mattie Rodríguez DO Primary Care Provider, Referr ing Provider Active Dr. Elliott Garcias MD Attending Provider Active Team Status: Inactive Member Role Status Dates Dr. Mattie Rodríguez DO Primary Care Provider Active Dr. Elliott Garcias MD Attending Provider, Referring Provider Active [employer] Use [employer] Relationship Specialty Start Date End Date Kong Reddy MD PCP - General Family Medicine 08/31/14 Kong Reddy MD [address] [address] PCP - JILL Attributed Provider - [place] [employer] 04/22/19 04/21/50 Kong Reddy MD Family Medicine 08/31/14 Scheduled Active and Recently Administ ered Medications (unrecognized section and content) Medication Order 12/05/2022 12/06/2022 12/07/2022 amLODIPine (NORVASC) tablet 10 mg 10 mg, Oral, DAILY, First dose on Sat12/07/22 at 0745, Until Discontinued 08 (Given - Provider: Brittney Costa LPN)832 (Not Given - Provider: Brittney Costa LPN - Reason: Other - Comment: giving at 832) amLODIPine (NORVASC) tablet 5 mg (CANCELED) 5 mg, Oral, DAILY, First dose on Sat12/06/22 at 0900, Until Discontinued 08 (Given - Provider: Brittney Costa LPN) aspirin chewable tablet 81 mg 81 mg, Oral, DAILY, First dose on Sat12/06/22 at 0900, Until Discontinued 801 (Given - Provider: Brittney Costa LPN) 800 (Given - Provider: Ani Burger, RN) atorvastatin (LIPITOR) tablet 40 mg 40 mg, Oral, NIGHTLY, First dose on Sat12/05/22 at 2200, Until Discontinued 2305 (Given - Provider: Kelley Sandoval LPN) 2001 (Given - Provider: Marisabel Damon, EMANUEL) 2199 (Due) citalopram (CELEXA) tablet 40 mg 40 mg, Oral, DAILY, First dose on Sat12/06/22 at 0900, Until Discontinued 801 (Given - Provider: Brittney Costa LPN) 08 (Given - Provider: Ani Burger, RN) folic acid (FOLVITE) tablet 400 mcg 400 mcg, Oral, DAILY, 5 doses, First dose on Sat12/06/22 at 0900, Last dose on Sat12/10/22 at 0900 08 (Given - Provider: Brittney Costa LPN) 800 (Given - Provider: Ani Burger, RN) heparin (porcine) injection 5,000 Units 5,000 Units, Subcutaneous, EVERY 12 HOURS SCHEDULED (2 times per day), First dose on Sat12/05/22 at 2117, Until Discontinued, If administering subcutaneously: Do not administer into bruised or scarred skin, into or near wounds, or through clothing. For abdominal surgery patients, do not administer in the abdomen. 230 (Given - Provider: Kelley Sandoval LPN) 120 (Not Given - Provider: Brittney Costa LPN - Reason: Patient/family refused - Comment: ambulating)2001 (Not Given - Provider: Marisabel Damon RN - Reason: Patient/family refused) 948 (Not Given - Provider: Brittney Costa LPN - Reason: Patient/family refused - Comment: ambulating)2199 (Due - Provider: Ivory Howard inpatient care manager rn) hydrALAZINE (APRESOLINE) tablet 50 mg 50 mg, Oral, EVERY 8 HOURS SCHEDULED (3 times per day), First dose on Sat12/07/22 at 1130, Until Discontinued, Caution: This medication looks and/or sounds like another medication. 113 (Given - Provider: Brittney Costa LPN)2199 (Due) lisinopril (PRINIVIL,ZESTRIL) tablet 20 mg 20 mg, Oral, DAILY, First dose (after last modification) on Sat12/06/22 at 0900, Until Discontinued, Caution: This medication looks and/or sounds like another medication. 08 (Given - Provider: Brittney Costa LPN) 800 (Given - Provider: Ani Burger, EMANUEL) LOCM iohexol (OMNIPAQUE 350MG/ML) injection 75 mL (COMPLETED) 75 mL, Intravenous, ONCE, 1 dose, On Babs 12/06/22 at 1015, PO dose for age 13 years to 15 years: Mix 21 cc of Omnipaque 350 in water/juice/clear liquid (non carbonated) to total of 600 cc (20oz). Give 2 doses of 300 cc 15 minutes apart. Scan time 30-60 minutes after first dose. PO dose for age 15 years to 18 years: Mix 28 cc of Omnipaque 350 in water/juice/clear liquid (non carbonated) to total of 800 cc (27oz). Give 2 doses of 400 cc 15 minutes apart. Scan time 30-60 minutes after first dose. PO dose for age > 18 years: Mix 50 cc of Omnipaque 350 in water/juice/clear liquid (non carbonated) to total of 950 cc (32oz). Give 2 doses of 475 cc 15 minutes apart. Scan time 30-60 minutes after first dose., Radiology 1034 (Given - Provider: Connie Antunez, RT) loratadine (CLARITIN) tablet 10 mg 10 mg, Oral, DAILY, First dose on Sat12/06/22 at 0900, Until Discontinued 801 (Given - Provider: Brittney Costa LPN) 800 (Given - Provider: Ani Burger, RN) LORazepam injection 1 mg (COMPLETED) 1 mg, IV Push, ONCE, 1 dose, On Sat12/05/22 at 2103, Caution: This medication looks and/or sounds like another medication. For IV use: dilute in equal volume of NaCl 0.9% or Dextrose 5% 2051 (Given - Provider: Anthony Kemp, RN) Multivitamin (THERA) tablet 1 tablet 1 tablet, Oral, DAILY, First dose on Sat12/06/22 at 0900, Until Discontinued 800 (Given - Provider: Brittney Costa LPN) 08 (Given - Provider: Ani Burger, RN) nicotine (NICODERM CQ) 21 MG/24HR 1 patch 1 patch (21 mg), Transdermal, EVERY 24 HOURS SCHEDULED (Daily), First dose on Sat12/06/22 at 0900, Until Discontinued 802 (Not Given - Provider: Brittney Costa LPN - Reason: Patient/family refused) 075 (Not Given - Provider: Ani Burger, RN - Reason: Patient/family refused) pantoprazole (PROTONIX) EC tablet 40 mg 40 mg, Oral, DAILY, First dose on Sat12/06/22 at 0900, Until Discontinued, Caution: Do not crush or chew. 0801 (Given - Provider: Brittney Costa LPN) 0801 (Given - Provider: Ani Burger, RN) PHENobarbital (LUMINAL) tablet 30 mg(Linked Group 1) 30 mg, Oral, EVERY 6 HOURS, First dose on Sat12/08/22 at 2100, Until Discontinued PHENobarbital (LUMINAL) tablet 60 mg (COMPLETED)(Linked Group 1) 60 mg, Oral, EVERY 4 HOURS, 4 doses, First dose on Sat12/05/22 at 2121, Last dose on Sat12/06/22 at 1100 2306 (Given - Provider: Kelley Sandoval LPN) 0327 (Given - Provider: Kelley Sandoval LPN)0744 (Given - Provider: Brittney Costa LPN)1249 (Given - Provider: Brittney Peters RN) PHENobarbital (LUMINAL) tablet 60 mg(Linked Group 1) 60 mg, Oral, EVERY 6 HOURS, 9 doses, First dose on Sat12/06/22 at 1500, Last dose on Sat12/08/22 at 1500 1449 (Given - Provider: Brittney Costa LPN)2001 (Given - Provider: Marisabel Damon RN) 0208 (Given - Provider: Concetta Cardoso, EMANUEL)0801 (Given - Provider: Ani Burger, EMANUEL)1516 (Not Given - Provider: Brittney Costa LPN - Reason: Other - Comment: discharged)2100 (Due - Provider: Da Valdivia, Maria LuzD) sodium chloride 0.9% bolus 0.9 % solution 1,000 mL (COMPLETED) 1,000 mL, Intravenous, Administer over 2 Hours, On Sat12/05/22 at 1920, ONCE, 1 dose 1900 (Bolus - NEW bag, off the pump (rate>999 mL/hr) - CHARGE - Provider: Kristina Bishop LPN)1959 (Infusion Complete - Provider: Kristina Bishop LPN) thiamine (VITAMIN B1) injection 100 mg (COMPLETED) 100 mg, Intravenous, NOW, 1 dose, On Sat12/05/22 at 2042 2052 (Given - Provider: Anthony Kemp, EMANUEL) Thiamine Mononitrate (VITAMIN B-1) tablet 100 mg 100 mg, Oral, DAILY, 5 doses, First dose on Sat12/06/22 at 0900, Last dose on Sat12/10/22 at 0900, Give IVPB if unable to take PO 0801 (Given - Provider: Brittney Costa LPN) 800 (Given - Provider: Ani Burger, RN) traZODone (DESYREL) tablet 50 mg 50 mg, Oral, NIGHTLY, First dose on Sat12/05/22 at 2200, Until Discontinued, For insomnia (Repeat dose if insomnia persists more than 30 minutes) 230 (Given - Provider: Kelley Sandoval LPN) 2002 (Given - Provider: Marisabel Damon, EMANUEL) 220 (Due) Continuous Medication Order 12/05/2022 12/06/2022 12/07/2022 0.9% NaCl infusion (CANCELED) Intravenous, at 75 mL/hr, CONTINUOUS, Starting on Sat12/05/22 at 2119, Until Sat12/06/22 at 1416 2316 (New Bag - Provider: Kelley Sandoval LPN) 1250 (New Bag - Provider: Brittney Peters RN)1459 (Rate/Dose Verify - Provider: Brittney Costa LPN)2300 (Rate/Dose Verify - Provider: Concetta Cardoso RN) Magnesium Sulfate 2g/50ml IVPB 2 g (CANCELED) 2 g, Intravenous, Administer over 60 Minutes, Starting on Sat12/05/22 at 1920, CONTINUOUS, Until Sat12/06/22 at 0705 1902 (New Bag - Provider: Kristina Bishop LPN - Comment: Started by EMANUEL Goins)190 (Rate/Dose Verify - Provider: Kelley Sandoval LPN)1999 (Infusion Complete - Provider: Kristina Bishop LPN) PRN Medication Order 12/05/2022 12/06/2022 12/07/2022 acetaminophen (TYLENOL) tablet 650 mg 650 mg, Oral, EVERY 4 HOURS PRN, Mild Pain, Fever, Headaches, Starting on Sat12/05/22 at 2044, Until Discontinued, Maximum dose of acetaminophen is 4000 mg from all sources in 24 hours. aluminum-magnesium hydroxide 200-200 MG/5ML suspension 30 mL 30 mL, Oral, EVERY 6 HOURS PRN, Indigestion, Starting on Sat12/05/22 at 2048, Until Discontinued bisacodyl (DULCOLAX) suppository 10 mg 10 mg, Rectal, NIGHTLY PRN, Constipation, Starting on Sat12/05/22 at 2047, Until Discontinued, If no BM in 48 hours calcium carbonate (TUMS) chewable tablet 1,000 mg 1,000 mg, Oral, EVERY 4 HOURS PRN, Heartburn, Starting on Sat12/05/22 at 2043, Until Discontinued For electrolyte abnormalities subsequent to initial labs (refer to the [facility] Electrolyte Replacement Orders) 1 each 1 each, Other, PRN, For electrolyte abnormalities, Starting on Sat12/05/22 at 2046, Until Discontinued, For Potassium level <=3.9 or Magnesium level <=1.9, please use Order Set #100 to order medications and repeat labs. BE SURE TO CONTINUE PROTOCOL AFTER REPLACEMENT UNTIL LABS NORMALIZE. For electrolyte abnormalities subsequent to initial labs (refer to the [facility] Electrolyte Replacement Orders) Other, PRN, For electrolyte abnormalities, Starting on Sat12/05/22 at 2043, Until Discontinued, For Potassium level <=3.9 or Magnesium level <=1.9, please use Order Set #100 to order medications and repeat labs. BE SURE TO CONTINUE PROTOCOL AFTER REPLACEMENT UNTIL LABS NORMALIZE. hydrALAZINE (APRESOLINE) tablet 25 mg 25 mg, Oral, 3 TIMES DAILY PRN, For SBP > 180 or DBP > 110 IF patient does not qualify for CIWA lorazepam. If patient qualifies for PRN lorazepam give lorazepam first, Starting on Sat12/05/22 at 2049, Until Discontinued, Caution: This medication looks and/or sounds like another medication. 2037 (Given - Provider: Concetta Cardoso, EMANUEL) 1248 (Given - Provider: Jacob Copeland RN) loperamide (IMODIUM) capsule 2 mg(Linked Group 2) 2 mg, Oral, EVERY 8 HOURS PRN, Diarrhea, Starting on Sat12/06/22 at 0000, Until Discontinued, 4 mg after onset of diarrhea then 2 mg orally every 8 hours PRN for loose stool. (MAX 16mg/24hrs) LORazepam (ATIVAN) tablet 0-4 mg(Linked Group 3) 0-4 mg, Oral, EVERY 1 HOUR PRN, Withdrawal, Starting on Sat12/05/22 at 2047, Until Discontinued, PO route preferred. Use MAR administration calculator to determine dose based on CIWA-AR score. Hold for BP less than 90/60, RR less than 10 per minute, and notify Provider. CIWA-AR score 8-14 = 2 mg. CIWA-AR score 15-20 = 3 mg. CIWA-AR score >20 = 4 mg. LORazepam injection 0-4 mg(Linked Group 3) 0-4 mg, IV Push, EVERY 1 HOUR PRN, Withdrawal, Starting on Sat12/05/22 at 2046, Until Discontinued, IV Use if patient NPO with IV access. If patient NPO WITHOUT IV access, call provider for instructions. Use MAR administration calculator to determine dose based on CIWA-AR score. Hold for BP less than 90/60, RR less than 10 per minute, and notify Provider. CIWA-AR score 8-14 = 2 mg. CIWA-AR score 15-20 = 3 mg. CIWA-AR score >20 = 4 mg. For IV use: dilute in equal volume of NaCl 0.9% or Dextrose 5% LORazepam injection 2 mg 2 mg, IV Push, PRN, Seizures, Starting on Sat12/05/22 at 2047, Until Discontinued, Obtain STAT blood glucose and notify MD For IV use: dilute in equal volume of NaCl 0.9% or Dextrose 5% melatonin tablet 3 mg 3 mg, Oral, NIGHTLY PRN, Sleep, Starting on Sat12/05/22 at 2043, Until Discontinued naphazoline-pheniramine (NAPHCON-A) 0.025-0.3 % ophthalmic solution 1 drop 1 drop, Ophthalmic, EVERY 6 HOURS PRN, Allergies, Irritation, Starting on Sat12/05/22 at 2042, Until Discontinued nicotine polacrilex (COMMIT) lozenge 4 mg 4 mg, Oral, PRN, Smoking cessation, Starting on Sat12/05/22 at 2043, Until Discontinued, Caution: Do not crush or chew. Ondansetron (ZOFRAN-ODT) disintegrating tablet 4 mg(Linked Group 4) 4 mg, Oral, EVERY 6 HOURS PRN, Nausea and/or Vomiting, Starting on Sat12/05/22 at 2043, Until Discontinued ondansetron hcl (ZOFRAN) injection 4 mg(Linked Group 4) 4 mg, IV Push, EVERY 6 HOURS PRN, Nausea and/or Vomiting, For nausea or vomiting unrelieved by oral Zofran after 30 minutes or if unable to tolerate oral intake, Starting on Sat12/05/22 at 2043, Until Discontinued, Caution: This medication looks and/or sounds like another medication. oxyCODONE (ROXICODONE) immediate release tablet 5 mg 5 mg, Oral, EVERY 4 HOURS PRN, Moderate Pain, Starting on Sat12/05/22 at 2044, Until Discontinued, Caution: This medication looks and/or sounds like another medication. polyethylene glycol 3350 (GLYCOLAX, MIRALAX) packet 17 g 17 g, Oral, DAILY PRN, Constipation, constipation, Starting on Sat12/05/22 at 2043, Until Discontinued, This is a maintenance laxative, begin for prevention of constipation. 807 (Given - Provid er: Brittney Costa, AIDA) Senna (SENOKOT) tablet 17.2 mg 17.2 mg, Oral, NIGHTLY PRN, Constipation, Starting on Sat12/05/22 at 2047, Until Discontinued traZODone (DESYREL) tablet 50 mg 50 mg, Oral, NIGHTLY PRN, Sleep, Insomnia, Starting on Sat12/05/22 at 2047, Until Discontinued, Repeat dose if insomnia persists more than 30 minutes after bedtime dose. Linked Groups Order Group 1: PHENobarbital (LUMINAL) tablet 60 mg (COMPLETED)Jump to med 60 mg, Oral, EVERY 4 HOURS, 4 doses, First dose on Sat12/05/22 at 2121, Last dose on Sat12/06/22 at 1100 Followed by PHENobarbital (LUMINAL) tablet 60 mgJump to med 60 mg, Oral, EVERY 6 HOURS, 9 doses, First dose on Sat12/06/22 at 1500, Last dose on Sat12/08/22 at 1500 Followed by PHENobarbital (LUMINAL) tablet 30 mgJump to med 30 mg, Oral, EVERY 6 HOURS, First dose on Sat12/08/22 at 2100, Until Discontinued Group 2: loperamide (IMODIUM) capsule 4 mg () 4 mg, Oral, ONCE PRN, Diarrhea, 1 dose, Starting on Sat12/05/22 at 2047, Until Sat12/05/22 at 235
4 mg after onset of diarrhea then 2 mg orally every 8 hours PRN for loose stool. (MAX 16mg/24hrs)
Followed by loperamide (IMODIUM) capsule 2 mgJump to med 2 mg, Oral, EVERY 8 HOURS PRN, Diarrhea, Starting on Sat12/06/22 at 0000, Until Discontinued
4 mg after onset of diarrhea then 2 mg orally every 8 hours PRN for loose stool. (MAX 16mg/24hrs)
Group 3: LORazepam (ATIVAN) tablet 0-4 mgJump to med 0-4 mg, Oral, EVERY 1 HOUR PRN, Withdrawal, Starting on Sat12/05/22 at 2047, Until Discontinued
PO route preferred. Use MAR administration calculator to determine dose based on CIWA-AR score. Hold for BP less than 90/60, RR less than 10 per minute, and notify Provider. CIWA-AR score 8-14 = 2 mg. CIWA-AR score 15-20 = 3 mg. CIWA-AR score >20 = 4 mg.
Or LORazepam injection 0-4 mgJump to med 0-4 mg, IV Push, EVERY 1 HOUR PRN, Withdrawal, Starting on Sat12/05/22 at 2046, Until Discontinued
IV Use if patient NPO with IV access. If patient NPO WITHOUT IV access, call provider for instructions. Use MAR administration calculator to determine dose based on CIWA-AR score. Hold for BP less than 90/60, RR less than 10 per minute, and notify Provider. CIWA-AR score 8-14 = 2 mg. CIWA-AR score 15-20 = 3 mg. CIWA-AR score >20 = 4 mg. For IV use: dilute in equal volume of NaCl 0.9% or Dextrose 5%
Group 4: Ondansetron (ZOFRAN-ODT) disintegrating tablet 4 mgJump to med 4 mg, Oral, EVERY 6 HOURS PRN, Nausea and/or Vomiting, Starting on Sat12/05/22 at 2044, Until Discontinued Or ondansetron hcl (ZOFRAN) injection 4 mgJump to med 4 mg, IV Push, EVERY 6 HOURS PRN, Nausea and/or Vomiting, For nausea or vomiting unrelieved by oral Zofran after 30 minutes or if unable to tolerate oral intake, Starting on Sat12/05/22 at 2043, Until Discontinued
Caution: This medication looks and/or sounds like another medication.
Goals (unrecognized section and content) Goals may be documented in a n alternate section No data available for this section No data available for this sectionGoals may be documented in an alternate sectionGoals may be documented in an alternate section FOR RECORDS PERTAINING TO PATIENTS WHO ARE OR HAVE BEEN ENROLLED IN A CHEMICAL DEPENDENCY/SUBSTANCEABUSE PROGRAM, SOME INFORMATION MAY BE OMITTED. This clinical summary was aggregated from multiple sources. Caution should be exercised in using it in the provision of clinical care. This summary normalizes information from multiple sources, and as a consequence, information in this document may materially change the coding, format and clinical context of patient data. In addition, data may be omitted in some cases. CLINICAL DECISIONS SHOULD BE BASED ON THE PRIMARY CLINICAL RECORDS. [facility]. provides no warranty or guarantee of the accuracy or completeness of information in this document.
== END 2025-01-09 23:59 | disposition home or self-care (01) ==
PROVIDERS: PCP Internal Medicine; Referring Provider Internal Medicine; Visit Provider Internal Medicine
DX: F17.210 Nicotine dependence, cigarettes, uncomplicated (principal)
CPT/HCPCS: 71271